=== PATIENT | male | born 1960 | race Caucasian/White ===

== ENCOUNTER 2017-06-27 04:30 | Emergency (ER) | payer MEDICARE, OTHER, SELFPAY ==
[2017-06-27 04:31] VITALS: BP 144/91; PULSE 76; RESP 20; TEMP 37.1; O2SAT 95; BMI 36.9
--- NOTE | 2017-06-27 05:00 | XR_ITS ---
XR chest 2V HISTORY: ITS.REASON: shortness of breath ORDERING PHYSICIAN: Troy Anaya MD PATIENT AGE: 57 years COMPARISON: 05/08/2017 FINDINGS: Mild cardiomegaly without failure. Mediastinum is somewhat prominent as well. 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 The lungs are clear without infiltrates, suspicious nodules, or pleural effusions. There is moderate wedging of T12 similar to the previous exam with kyphosis at the thoracolumbar junction and degenerative change in the thoracic and lumbar spine.. IMPRESSION: No change with no acute finding. 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 Chronic wedging of T12
[2017-06-27 05:27] VITALS: PULSE 87; PULSE 90
--- NOTE | 2017-06-27 05:48 | HMH.EDSOB ---
ED Disposition Clinical Impression: Bronchitis Disposition: Home, Self-Care Condition on Discharge: Good Instructions: DI for Chronic Bronchitis Additional Instructions: use meds and see pcp for follow up Prescriptions: Azithromycin [Zithromax 250mg tab] 250 mg PO DIRECTED #6 tab Benzonatate [Tessalon Perle 100mg Cap] 100 mg PO TID #30 cap predniSONE [Prednisone 20mg Tab] 20 mg PO DAILY #10 tab Referrals: Surinder Simmons APRN [Primary Care Provider] - - Critical Care Critical Care Time: No Attestation: On 06/27/17, the high probability of a clinically significant, sudden or life threatening deterioration of the following system(s) required my full and direct attention, intervention and personal management. The time I documented below is in addition to time spent performing reported procedures but includes the following listed in this critical care notation. Medical Decision Making - Medical Records Medical records reviewed: Yes: I reviewed the patient's medical records. Vital Signs: 06/27/17 04:31 06/27/17 05:27 Temperature 98.7 F Temperature Source Oral Pulse Rate 87 Pulse Rate [Left Brachial] 76 Respiratory Rate 20 Blood Pressure [Left Arm] 144/91 Blood Pressure Mean [Left Arm] 108 Blood Pressure Source [Left Arm] Automatic Cuff Blood Pressure Position [Left Arm] Sitting 02 Sat by Pulse Oximetry 95 Oxygen Delivery Method Room Air - Lab Data Lab results reviewed: Yes: I reviewed the patient's lab results. Lab Results 06/27/17 06:10: WBC 7.4, RBC 4.77, Hgb 14.8, Hct 44.6, MCV 93.4, MCH 30.9, MCHC 33.1, RDW 13.5, Plt Count 235, MPV 7.1 L, Neut % (Auto) 68.6, Lymph % (Auto) 17.5, Haines % (Auto) 9.3, Eos % (Auto) 4.0, Baso % (Auto) 0.6, Neut # (Auto) 5.1, Lymph # (Auto) 1.3, Haines # (Auto) 0.7, Eos # (Auto) 0.3, Baso # (Auto) 0.1 06/27/17 06:10: Sodium 136, Potassium 4.6, Chloride 101, Carbon Dioxide 28, Anion Gap 11.6, BUN 8, Creatinine 1.13, Estimated Creat Clear 111, Estimated GFR 67, Est GFR ( Amer) 81, Glucose 108 H, Troponin I < 0.02 06/27/17 06:10: Influenza Type A Ag Negative, Influenza Type B Ag Negative Result diagrams: 06/27/17 06:10 06/27/17 06:10 Orders (Tests/Meds): ED MEDICATIONS Discontinued Medications Generic Name Dose Route Start Last Admin Trade Name Freq PRN Reason Stop Dose Admin Acetaminophen 650 mg 06/27/17 06:10 06/27/17 06:11 Acetaminophen 325mg Tab PO 06/27/17 06:11 650 mg ONCE ONE Administration Albuterol/Ipratropium 3 ml 06/27/17 05:15 06/27/17 05:23 Duoneb 3ml Neb IH 06/27/17 05:16 3 ml ONCE ONE Administration ORDERS Category Date Time Status XR chest 2V Stat Exams 06/27/17 05:00 Taken - Radiology Data #1 Image(s): Chest Image Reviewed: Yes I reviewed the patient's radiology image Preliminary Findings: Abnormal - Nate Inquiry Pt receiving controlled substance: No Resp/SOB HPI - General Chief Complaint: Shortness of Breath/Dyspnea Stated Complaint: cough,wheezing,chest congestion Time Seen by Provider: 06/27/17 05:48 Mode of Arrival: Ambulatory Source of Information: Patient, Medical Record Limitations: No Limitations Description of Symptoms (Recalled from ER Triage Doc. 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
[2017-06-27 06:24] LABS: Basophils # 0.1 K/mm3 (0-0.2); Basophils % 0.6 % (0.1-2.0); Eosinophils # 0.3 K/mm3 (0.0-0.4); Hematocrit 44.6 % (42.0-52.0); Hemoglobin 14.8 g/dL (14.1-18.0); Lymphocytes # 1.3 K/mm3 (0.7-4.5); Lymphocytes % 17.5 K/mm3 (10-50); Mean Corpuscular HGB Conc 33.1 g/dL (31.8-35.4); Mean Corpuscular Hemoglobin 30.9 pg (27.0-31.2); Mean Corpuscular Volume 93.4 fl (80-94); Mean Platelet Volume 7.1 fl (7.4-10.4); Monocytes # 0.7 K/mm3 (0.1-1.0); Monocytes % 9.3 % (1.7-9.3); Neutrophils # 5.1 K/mm3 (1.8-7.8); Neutrophils % 68.6 % (37.0-80.0); Platelet Count 235 K/mm3 (142-424); Red Blood Count 4.77 M/mm3 (4.60-6.20); Red Cell Distribution Width 13.5 % (11.5-17.5); White Blood Count 7.4 K/mm3 (4.8-10.8)
[2017-06-27 06:39] LABS: Anion Gap 11.6 mEq/L (5-15); Blood Urea Nitrogen 8 mg/dL (7-18); Carbon Dioxide 28 mmol/L (21.0-32.0); Chloride 101 mmol/L (98-107); Creatinine Clearance Estimated 111 mL/min (0-300); Creatinine,Serum 1.13 mg/dL (0.70-1.30); Estimated Glomerular Filt Rate 67 ml/min (>60); GFR (African American) 81 ML/MIN (>60); Glucose 108 mg/dL (74-106); Sodium 136 mmol/L (136-145); Troponin I < 0.02 ng/ml (0.00-0.06)
[2017-06-27 06:41] LABS: Potassium 4.6 mmoL/L (3.5-5.1)
[2017-06-27 07:38] VITALS: BP 119/88; PULSE 88; RESP 20; TEMP 36.9; O2SAT 95
== END 2017-06-27 07:46 | disposition home or self-care (01) ==
PROVIDERS: Emergency Provider Emergency Medicine; Family Provider Emergency Medicine; PCP Nurse Practitioner Family
DX: J20.9 Acute bronchitis, unspecified (principal); I10 Essential (primary) hypertension; Z79.899 Other long term (current) drug therapy
CPT/HCPCS: 71046; 80048; 84484; 85025; 87275; 87276; 99283

== ENCOUNTER → 2017-10-24 13:14 | Outpatient (REF) | payer MEDICARE, OTHER, SELFPAY ==
[2017-10-24 14:10] LABS: Amphetamine/Metha Screen,Urine Negative ng/mL (<1000); Barbiturates Screen,Urine Negative ng/mL (<200); Benzodiazepines Screen,Urine Positive ng/mL (200); Cannabinoid Screen,Urine Negative ng/mL (<50); Cocaine Screen,Urine Negative ng/g (<300); Methadone Screen,Urine Negative ng/mL (<300); Opiate Screen,Urine Negative ng/mL (<300); Phencyclidine Screen,Urine Negative ng/mL (<25)
== END ==
LOC: LAB 13:14
PROVIDERS: Visit Provider Nurse Practitioner Family
DX: Z79.899 Other long term (current) drug therapy (principal)
CPT/HCPCS: 80305

== ENCOUNTER → 2017-11-16 13:54 | Outpatient (CLI) | payer MEDICARE, OTHER, SELFPAY ==
[2017-11-16 19:10] LABS: Amphetamine/Metha Screen,Urine Negative ng/mL (<1000); Barbiturates Screen,Urine Negative ng/mL (<200); Benzodiazepines Screen,Urine Positive ng/mL (200); Cannabinoid Screen,Urine Negative ng/mL (<50); Cocaine Screen,Urine Negative ng/g (<300); Methadone Screen,Urine Negative ng/mL (<300); Opiate Screen,Urine Negative ng/mL (<300); Phencyclidine Screen,Urine Negative ng/mL (<25)
== END ==
PROVIDERS: Visit Provider Nurse Practitioner Family
DX: Z79.899 Other long term (current) drug therapy (principal)
CPT/HCPCS: 80305

== ENCOUNTER → 2017-12-26 16:08 | Outpatient (REF) | payer MEDICARE, OTHER, SELFPAY ==
[2017-12-26 19:08] LABS: Amphetamine/Metha Screen,Urine Negative ng/mL (<1000); Barbiturates Screen,Urine Negative ng/mL (<200); Benzodiazepines Screen,Urine Positive ng/mL (<200); Cannabinoid Screen,Urine Negative ng/mL (<50); Cocaine Screen,Urine Negative ng/mL (<300); Methadone Screen,Urine Negative ng/mL (<300); Opiate Screen,Urine Negative ng/mL (<300); Phencyclidine Screen,Urine Negative ng/mL (<25)
== END ==
LOC: LAB 16:08
PROVIDERS: Visit Provider Nurse Practitioner Family
DX: F41.9 Anxiety disorder, unspecified (principal); Z79.899 Other long term (current) drug therapy
CPT/HCPCS: 80305

== ENCOUNTER → 2018-02-22 13:27 | Outpatient (CLI) | payer MEDICARE, OTHER, SELFPAY ==
[2018-02-22 18:44] LABS: Amphetamine/Metha Screen,Urine Negative ng/mL (<1000); Barbiturates Screen,Urine Negative ng/mL (<200); Benzodiazepines Screen,Urine Positive ng/mL (<200); Cannabinoid Screen,Urine Negative ng/mL (<50); Cocaine Screen,Urine Negative ng/mL (<300); Methadone Screen,Urine Negative ng/mL (<300); Opiate Screen,Urine Negative ng/mL (<300); Phencyclidine Screen,Urine Negative ng/mL (<25)
== END ==
PROVIDERS: Visit Provider Nurse Practitioner Family
DX: Z79.899 Other long term (current) drug therapy (principal)
CPT/HCPCS: 80305

== ENCOUNTER → 2018-03-21 18:47 | Outpatient (REF) | payer MEDICARE, OTHER, SELFPAY ==
[2018-03-21 21:06] LABS: Amphetamine/Metha Screen,Urine Negative ng/mL (<1000); Barbiturates Screen,Urine Negative ng/mL (<200); Benzodiazepines Screen,Urine Positive ng/mL (<200); Cannabinoid Screen,Urine Negative ng/mL (<50); Cocaine Screen,Urine Negative ng/mL (<300); Methadone Screen,Urine Negative ng/mL (<300); Opiate Screen,Urine Negative ng/mL (<300); Phencyclidine Screen,Urine Negative ng/mL (<25)
== END ==
LOC: LAB 18:47
PROVIDERS: PCP Nurse Practitioner Family; Visit Provider Nurse Practitioner Family
DX: Z79.899 Other long term (current) drug therapy (principal)
CPT/HCPCS: 80305

== ENCOUNTER → 2018-06-04 14:35 | Outpatient (CLI) | payer MEDICARE, OTHER, SELFPAY ==
[2018-06-04 15:19] LABS: Amphetamine/Metha Screen,Urine Negative ng/mL (<1000); Barbiturates Screen,Urine Negative ng/mL (<200); Benzodiazepines Screen,Urine Positive ng/mL (<200); Cannabinoid Screen,Urine Negative ng/mL (<50); Cocaine Screen,Urine Negative ng/mL (<300); Methadone Screen,Urine Negative ng/mL (<300); Opiate Screen,Urine Negative ng/mL (<300); Phencyclidine Screen,Urine Negative ng/mL (<25)
== END ==
PROVIDERS: Visit Provider Nurse Practitioner Family
DX: Z79.899 Other long term (current) drug therapy (principal)
CPT/HCPCS: 80305

== ENCOUNTER → 2018-07-10 13:54 | Outpatient (CLI) | payer MEDICARE, OTHER, SELFPAY ==
[2018-07-10 16:21] LABS: Amphetamine/Metha Screen,Urine Negative ng/mL (<1000); Barbiturates Screen,Urine Negative ng/mL (<200); Benzodiazepines Screen,Urine Positive ng/mL (<200); Cannabinoid Screen,Urine Negative ng/mL (<50); Cocaine Screen,Urine Negative ng/mL (<300); Methadone Screen,Urine Negative ng/mL (<300); Opiate Screen,Urine Negative ng/mL (<300); Phencyclidine Screen,Urine Negative ng/mL (<25)
== END ==
PROVIDERS: Visit Provider Nurse Practitioner Family
DX: Z79.899 Other long term (current) drug therapy (principal)
CPT/HCPCS: 80305

== ENCOUNTER → 2018-07-11 08:25 | Outpatient (CLI) | payer MEDICARE, OTHER, SELFPAY ==
[2018-07-11 09:36] LABS: Basophils % 0.6 % (0.1-2.0); Eosinophils # 0.1 K/mm3 (0.0-0.4); Eosinophils % 1.9 % (0.1-12.0); Hematocrit 45.3 % (42.0-52.0); Hemoglobin 15.4 g/dL (14.1-18.0); Lymphocytes # 1.1 K/mm3 (0.7-4.5); Lymphocytes % 14.2 % (10-50); Mean Corpuscular Hemoglobin 32.3 pg (27.0-31.2); Mean Corpuscular Volume 94.9 fl (80-94); Mean Platelet Volume 6.1 fl (7.4-10.4); Monocytes # 0.4 K/mm3 (0.1-1.0); Monocytes % 5.5 % (1.7-9.3); Neutrophils # 5.8 K/mm3 (1.8-7.8); Neutrophils % 77.9 % (37.0-80.0); Platelet Count 258 K/mm3 (142-424); Red Blood Count 4.78 M/mm3 (4.60-6.20); Red Cell Distribution Width 13.8 % (11.5-17.5); White Blood Count 7.5 K/mm3 (4.8-10.8)
[2018-07-11 11:27] LABS: Alanine Aminotransferase 22 U/L (12-78); Albumin Level 4.1 gm/dL (3.4-5.0); Albumin/Globulin Ratio 1.3 (1.1-1.8); Alkaline Phosphatase 118 U/L (46-116); Anion Gap 15.4 mEq/L (5-15); Aspartate Amino Transferase 12 U/L (15-37); Bilirubin,Total 0.6 mg/dL (0.2-1.0); Blood Urea Nitrogen 9 mg/dL (7-18); Calcium 9.1 mg/dL (8.5-10.1); Carbon Dioxide 28 mmol/L (21.0-32.0); Chloride 100 mmol/L (98-107); Chol/HDL Ratio 3.7 (1-3.5); Cholesterol 191 mg/dL (140-200); Estimated Glomerular Filt Rate 69 ml/min (>60); GFR (African American) 83 ML/MIN (>60); Globulin 3.2 gm/dl (1.3-3.2); Glucose 93 mg/dL (74-106); HDL Cholesterol 52 mg/dL (27-67); LDL Cholesterol 121 mg/dL (0-130); Potassium 4.4 mmoL/L (3.5-5.1); Sodium 139 mmol/L (136-145); T4 (Thyroxine) 9.8 ug/dl (4.7-13.3); Thyroid Stimulating Hormone 1.76 uIU/ml (0.358-3.740); Total Protein,Serum 7.3 gm/dL (6.4-8.2); Triglycerides 88 mg/dL (30-200); VLDL Cholesterol 18 mg/dL (0-40)
[2018-07-11 13:13] LABS: Hemoglobin A1C 5.6 % (0.0-7.0)
[2018-07-12 10:21] LABS: Creatinine, Urine 163.4 mg/dL (Not Estab.); Microalbumin, Urine 5.8 ug/mL (Not Estab.)
[2018-07-12 12:28] LABS: Vitamin D 25 Hydroxy 11.1 ng/mL (30.0-100.0)
== END ==
PROVIDERS: Visit Provider Nurse Practitioner Family
DX: E11.9 Type 2 diabetes mellitus without complications (principal); R53.83 Other fatigue; Z79.899 Other long term (current) drug therapy; H61.20 Impacted cerumen, unspecified ear
CPT/HCPCS: 36415; 80053; 80061; 82043; 82570; 82652; 83036; 84436; 84443; 85025

== ENCOUNTER → 2018-08-06 17:17 | Outpatient (CLI) | payer MEDICARE, OTHER, SELFPAY ==
[2018-08-06 18:59] LABS: Amphetamine/Metha Screen,Urine Negative ng/mL (<1000); Barbiturates Screen,Urine Negative ng/mL (<200); Benzodiazepines Screen,Urine Positive ng/mL (<200); Cannabinoid Screen,Urine Negative ng/mL (<50); Cocaine Screen,Urine Negative ng/mL (<300); Methadone Screen,Urine Negative ng/mL (<300); Opiate Screen,Urine Negative ng/mL (<300); Phencyclidine Screen,Urine Negative ng/mL (<25)
== END ==
PROVIDERS: Visit Provider Nurse Practitioner Family
DX: Z79.899 Other long term (current) drug therapy (principal)
CPT/HCPCS: 80305

== ENCOUNTER → 2018-09-05 13:46 | Outpatient (CLI) | payer MEDICARE, OTHER, SELFPAY ==
--- NOTE | 2018-09-05 13:51 | XR_ITS ---
XR chest AP HISTORY: ITS.REASON: cough ORDERING PHYSICIAN: Surinder Simmons PATIENT AGE: 58 years COMPARISON: 07/21/2018 FINDINGS: The cardiomediastinal silhouette and pulmonary vascularity are within normal limits. Increased markings are once again noted in the right mid and lower lung zone suggestive of right sided pneumonia slightly improved in the perihilar region but slightly worse appearing in the right lower lobe. Left lung is clear. IMPRESSION: Minute spots with persistent right lower lobe pneumonia which appears slightly worse with some improvement of the infiltrate in the right perihilar region
== END ==
PROVIDERS: PCP Nurse Practitioner Family; Visit Provider Nurse Practitioner Family
DX: R05 Cough (principal); R06.2 Wheezing
CPT/HCPCS: 71045

== ENCOUNTER 2018-09-11 16:07 | Observation (INO) ==
[2018-09-11 16:52] LABS: Basophils # 0.1 K/mm3 (0-0.2); Basophils % 0.8 % (0.1-2.0); Eosinophils # 0.3 K/mm3 (0.0-0.4); Eosinophils % 5.1 % (0.1-12.0); Hematocrit 44.4 % (42.0-52.0); Hemoglobin 14.7 g/dL (14.1-18.0); Lymphocytes # 1.3 K/mm3 (0.7-4.5); Mean Corpuscular HGB Conc 33.2 g/dL (31.8-35.4); Mean Corpuscular Hemoglobin 31.1 pg (27.0-31.2); Mean Corpuscular Volume 93.8 fl (80-94); Mean Platelet Volume 6.3 fl (7.4-10.4); Monocytes # 0.6 K/mm3 (0.1-1.0); Neutrophils # 3.8 K/mm3 (1.8-7.8); Platelet Count 211 K/mm3 (142-424); Red Blood Count 4.73 M/mm3 (4.60-6.20); Red Cell Distribution Width 13.2 % (11.5-17.5); White Blood Count 6.1 K/mm3 (4.8-10.8)
[2018-09-11 16:59] LABS: Anion Gap 11.9 mEq/L (5-15); Calcium 8.8 mg/dL (8.5-10.1); Potassium 3.9 mmoL/L (3.5-5.1)
--- NOTE | 2018-09-11 18:36 | Emergency Department Note ---
ED Disposition Clinical Impression: Pneumonia Disposition: Admitted as Observation Condition on Discharge: Good Referrals: Surinder Simmons APRN [Primary Care Provider] - Time of Disposition: 18:37 - Critical Care Critical Care Time: No Attestation: On 09/11/18, the high probability of a clinically significant, sudden or life threatening deterioration of the following system(s) required my full and direct attention, intervention and personal management. The time I documented below is in addition to time spent performing reported procedures but includes the following listed in this critical care notation. Medical Decision Making - Medical Records Medical records reviewed: Yes: I reviewed the patient's medical records. - Nate Inquiry Pt receiving controlled substance: No Nate was queried for this patient: No Vital Signs: 09/11/18 16:14 09/11/18 17:56 09/11/18 18:18 Temperature 98.6 F Temperature Source Oral Pulse Rate 69 Pulse Rate [Right] 79 70 Respiratory Rate 20 Blood Pressure [Right Arm] 141/92 H 160/66 H Blood Pressure Mean [Right Arm] 108 97 Blood Pressure Source [Right Arm] Automatic Cuff Automatic Cuff Blood Pressure Position [Right Arm] Sitting Sitting 02 Sat by Pulse Oximetry 98 97 Oxygen Delivery Method Room Air Room Air - Lab Data Lab results reviewed: Yes: I reviewed the patient's lab results. Lab Results 09/11/18 16:28: WBC 6.1, RBC 4.73, Hgb 14.7, Hct 44.4, MCV 93.8, MCH 31.1, MCHC 33.2, RDW 13.2, Plt Count 211, MPV 6.3 L, Neut % (Auto) 63.0, Lymph % (Auto) 21.0, Gates % (Auto) 10.0 H, Eos % (Auto) 5.1, Baso % (Auto) 0.8, Neut # (Auto) 3.8, Lymph # (Auto) 1.3, Gates # (Auto) 0.6, Eos # (Auto) 0.3, Baso # (Auto) 0.1 09/11/18 16:28: Sodium 133 L, Potassium 3.9, Chloride 98, Carbon Dioxide 27, Anion Gap 11.9, BUN 12, Creatinine 1.17, Estimated Creat Clear 100, Estimated GFR 64, Est GFR ( Amer) 77, Glucose 89, Calcium 8.8 09/11/18 16:28: Lactate 0.9 Result diagrams: 09/11/18 16:28 09/11/18 16:28 Orders (Tests/Meds): ED MEDICATIONS Generic Name Dose Route Start Last Admin Trade Name Freq PRN Reason Stop Dose Admin Sodium Chloride 10 ml 09/11/18 16:40 Saline Flush 10ml Syringe IV 10/11/18 16:39 NEEDED PRN Maintain IV Site Discontinued Medications Generic Name Dose Route Start Last Admin Trade Name Freq PRN Reason Stop Dose Admin Albuterol/Ipratropium 3 ml 09/11/18 18:17 09/11/18 18:18 Duoneb 3ml Neb IH 09/11/18 18:18 3 ml ONCE ONE Administration ORDERS Category Date Time Status Blood Culture Stat Micro 09/11/18 16:28 Received General Adult HPI - General Chief complaint: Shortness of Breath/Dyspnea Stated complaint: Possible pneumonia Time Seen by Provider: 09/11/18 18:35 Mode of Arrival: Ambulatory Source of Information: Patient Limitations: No Limitations Description of Symptoms (Recalled from ER Triage Doc. by RN): Pt states that he has had a bad cough for 4 weeks and has pneumonia. Pt was sent to ER from Dr. Anaya's office - Related Data Home Medications Medication Instructions Recorded Confirmed meloxicam 15 mg tablet 15 mg PO QDAY 06/21/17 09/11/18 Previous Rx's Medication Instructions Recorded trazodone 100 mg tablet 100 mg PO QHS #90 tab 01/22/18 citalopram 40 mg tablet 40 mg PO QDAY #90 tab 06/04/18 atenolol 25 mg tablet 25 mg PO QDAY #90 tab 07/01/18 fluticasone propionate 50 50 mcg INTRANASAL QDAY PRN #9.9 g 07/10/18 mcg/actuation nasal spray,suspension pravastatin 20 mg tablet 20 mg PO QHS #90 tab 07/23/18 albuterol sulfate HFA 90 1 puff INHALATION Q6H #6.7 g 08/06/18 mcg/actuation aerosol inhaler diazepam 2 mg tablet 2 mg PO TID 30 Days #90 tab 08/06/18 loratadine 10 mg tablet 10 mg PO QDAY #90 tab 08/06/18 montelukast 10 mg tablet 10 mg PO QPM #90 tab 08/06/18 carbamide peroxide 6.5 % ear drops 5 drp OTIC DAILY 4 Days #15 ml 09/05/18 gabapentin 300 mg capsule 300 mg PO TID 30 Days #90 cap 09/05/18 Allergies Allergy/AdvReac Type Severity Reaction Status Date / Time No Known Allergies Allergy Verified 09/11/18 15:07 [facility] History - Hepatitis A Screen Drug use history?: No High risk sexual behaviors?: No History of sexually transmitted infection?: No Currently employed?: No Childcare worker?: No Do you have indoor plumbing?: Yes Do you have electricity?: Yes Attestation statement:: This patient has been screened for Hepatitis A risk factors. I have reviewed the patient's past medical history: Yes Medical History: Reports:: Anxiety, Hypertension, Seizures Denies:: Cancer, Diabetes Mellitus Type 1, Diabetes Mellitus Type 2, Internal Pacemaker, MRSA Comment: Neuropathy Laterality Cases: Right: Carpal Tunnel Release Other Surgeries: Yes: Other. No: Pacemaker Amputation: No Fractures: No Comment: DENTAL SURGERY - Social History Educational Level: Attended High School Smoking Status: Never smoker Alcohol Intake: never Substance Use Type: denies use Occupational Status: disabled Housing: house Household Members: family - Psychiatric History Expresses thoughts of harming self/others: None Suicide Plan Description: No Plan Pschychiatric History:: Reports:: Anxiety Family Hx:: Hypertension, Diabetes, Cancer ROS Obtained: Yes All systems reviewed & no additional complaints - Constitutional Constitutional: Reports chills, Denies fever(s) - Eyes Eyes: Denies change in vision - ENT Ears, Nose, Mouth, and Throat: Denies sore throat, Denies throat swelling - Cardiovascular Cardiovascular: Denies chest pain - Respiratory Respiratory: Yes chest congestion, Yes cough, Yes dyspnea on exertion, No coughing up blood, Yes wheezing - Gastrointestinal Gastrointestingal: Denies: diarrhea, nausea, vomiting - Musculoskeletal Musculoskeletal: Denies joint swelling - Integumentary/Breasts Skin/Breast: Denies rash, Denies skin pain - Neurologic Neurologic: Denies abnormal speech, Denies behavioral changes, Denies headache(s), Denies weakness - Hematologic/Lymphatic Henatologic/Lymphatic: Denies easy bleeding, Denies easy bruising Physical Exam - General General appearance: in no apparent distress - Head Head exam: atraumatic, normocephalic, normal inspection - Eye Eye exam: Present: normal appearance, PERRL, EOMI - ENT ENT exam: Present: normal exam, normal oropharynx, mucous membranes moist, TM's normal bilaterally, normal external ear exam - Neck Neck exam: Present: normal inspection - Chest Chest inspection: Present: normal inspection, symmetric chest wall rise. Absent: tenderness - Respiratory Respiratory exam: Present: wheezes. Absent: normal lung sounds bilaterally, respiratory distress - Cardiovascular Cardiovascular exam: Present: regular rate, normal rhythm. Absent: JVD - Abdominal Exam Abdominal exam: Present: soft, normal bowel sounds. Absent: distention, tenderness, guarding - Extremities Exam Extremities exam: Present: normal inspection, full ROM, normal capillary refill. Absent: calf tenderness - Back Exam Back exam: Present: normal inspection. Absent: tenderness - Neurological Exam Neurological exam: Present: alert, oriented X3 - Psychiatric Psychiatric exam: Present: normal affect, normal mood - Skin Skin exam: Present: warm, dry, intact, normal color
[2018-09-12 06:53] LABS: Basophils % 0.1 % (0.1-2.0); Eosinophils % 0.1 % (0.1-12.0); Hemoglobin 14.4 g/dL (14.1-18.0); Lymphocytes # 0.4 K/mm3 (0.7-4.5); Lymphocytes % 7.6 % (10-50); Mean Corpuscular HGB Conc 34.4 g/dL (31.8-35.4); Mean Corpuscular Hemoglobin 31.5 pg (27.0-31.2); Mean Corpuscular Volume 91.7 fl (80-94); Mean Platelet Volume 6.2 fl (7.4-10.4); Monocytes # 0.1 K/mm3 (0.1-1.0); Neutrophils # 4.9 K/mm3 (1.8-7.8); Neutrophils % 90.2 % (37.0-80.0); Platelet Count 208 K/mm3 (142-424); Red Blood Count 4.58 M/mm3 (4.60-6.20); Red Cell Distribution Width 13.1 % (11.5-17.5); White Blood Count 5.4 K/mm3 (4.8-10.8)
[2018-09-12 07:07] LABS: Calcium 8.6 mg/dL (8.5-10.1)
--- NOTE | 2018-09-12 08:03 | Pharmacy Consult Notes ---
[facility] Pharmacy VTE Monitoring - Patient Demographics Admission date: 09/11/18 Report Date: 09/12/18 Time: 08:03 Allergies/Adverse Reactions: Patient Allergies No Known Allergies Allergy (Verified 09/11/18 15:07) Height: 1.73 m Weight: 110.677 kg Patient Problems: Current Active Problems (Updated 09/11/18 @ 18:38 by Troy Moon MD) Pneumonia (Acute) - VTE Risk Labs: VTE Related Lab Results Hgb 14.4 g/dL (14.1-18.0) 09/12/18 06:15 Hct 42.0 % (42.0-52.0) 09/12/18 06:15 Plt Count 208 K/mm3 (142-424) 09/12/18 06:15 BUN 11 mg/dL (7-18) 09/12/18 06:15 Creatinine 1.22 mg/dL (0.70-1.30) 09/12/18 06:15 Estimated Creat Clear 102 mL/min (50-200) 09/12/18 06:15 VTE Score: 4 VTE Risk Level: Low Risk - Prophylaxis VTE Prophylaxis Ordered?: Yes Types of VTE Prophylaxis: TEDS Knee High Location of Applied Device: Bilateral Lower Extremeties - VTE Diagnosis Confirmed Treatment or plan recommended: Continue Current Treatment
[2018-09-12 09:40] LABS: Lymphocytes % 5 % (10-50); Monocytes % 3 % (2-9); Neutrophils % 92 % (42-76); RBC Morphology Normal; Total Cells Counted 100
--- NOTE | 2018-09-12 14:50 | History & Physical Report ---
*Admission Date: 09/11/18 *Chief complaint: soa *History of present illness: 58-year-old male presented to PCP office with complaints of shortness of air, wheezing, coughing. Pt states that he has had a bad cough for 4 weeks and has pneumonia. Pt was sent to ER from Dr. Anaya's office. Patient has been on 2 rounds of antibiotics with steroids with no improvement. Patient is admitted for possible aspiration pneumonia and speech eval. [facility] History I have reviewed the patient's past medical history: Yes Medical History: Reports:: Anxiety, Hypertension, Seizures Denies:: Cancer, Diabetes Mellitus Type 1, Diabetes Mellitus Type 2, Internal Pacemaker, MRSA *Have you ever received a pneumonia vaccine?: No *Have you received a flu vaccine this season?: Yes Laterality Cases: Right: Carpal Tunnel Release Other Surgeries: Yes: Other (CATARAC SURGERY). No: Pacemaker Amputation: No Fractures: No - *Social History Educational Level: Attended High School Smoking Status: Never smoker Alcohol Intake: never Substance Use Type: denies use *Occupational Status:: disabled Housing: house Household Members: family *Travel in the last 8 weeks: None - Psychiatric History Expresses thoughts of harming self/others: None Suicide Plan Description: No Plan Pschychiatric History:: Reports:: Anxiety Family Hx:: Hypertension, Diabetes, Cancer Review of Systems - Constitutional Reports fever(s), Reports weakness - Eyes Denies change in vision - ENT Denies bleeding gums - *Cardiovascular Reports shortness of breath - *Respiratory Reports chest congestion, Reports cough, Reports shortness of breath, Reports shortness of breath with activity - *Gastrointestinal Denies loose stools - *Genitourinary Denies difficulty urinating - *Musculoskeletal Denies joint pain - Integumentary/Breasts Denies rash - *Neurologic Denies abnormal speech, Denies behavioral changes, Denies headache(s), Denies weakness - Psychiatric Denies anxiety - Endocrine Denies flushing - Hematologic/Lymphatic Denies enlarged lymph nodes - Allergic/Immunologic Denies itchy eyes Meds Home Medications Medication Instructions Recorded Confirmed Type trazodone 100 mg tablet 100 mg PO QHS #90 tab 01/22/18 09/12/18 Rx citalopram 40 mg tablet 40 mg PO QDAY #90 tab 06/04/18 09/12/18 Rx atenolol 25 mg tablet 25 mg PO QDAY #90 tab 07/01/18 09/12/18 Rx fluticasone propionate 50 50 mcg INTRANASAL QDAY PRN #9.9 g 07/10/18 09/12/18 Rx mcg/actuation nasal spray,suspension pravastatin 20 mg tablet 20 mg PO QHS #90 tab 07/23/18 09/12/18 Rx albuterol sulfate HFA 90 1 puff INHALATION Q6H #6.7 g 08/06/18 09/12/18 Rx mcg/actuation aerosol inhaler diazepam 2 mg tablet 2 mg PO TID 30 Days #90 tab 08/06/18 09/12/18 Rx loratadine 10 mg tablet 10 mg PO QDAY #90 tab 08/06/18 09/12/18 Rx montelukast 10 mg tablet 10 mg PO QPM #90 tab 08/06/18 09/12/18 Rx carbamide peroxide 6.5 % ear drops 5 drp OTIC DAILY 4 Days #15 ml 09/05/18 09/12/18 Rx gabapentin 300 mg capsule 300 mg PO TID 30 Days #90 cap 09/05/18 09/12/18 Rx Allergies Allergy/AdvReac Type Severity Reaction Status Date / Time No Known Allergies Allergy Verified 09/11/18 15:07 Exam Vital signs and Labs for Last 24 Hours: Temp Pulse Resp BP Pulse Ox 97.4 F L 103 H 16 134/86 96 09/12/18 08:00 09/12/18 08:00 09/12/18 08:00 09/12/18 08:00 09/12/18 08:00 Laboratory Results - last 24 hr 09/11/18 16:28: WBC 6.1, RBC 4.73, Hgb 14.7, Hct 44.4, MCV 93.8, MCH 31.1, MCHC 33.2, RDW 13.2, Plt Count 211, MPV 6.3 L, Neut % (Auto) 63.0, Lymph % (Auto) 21.0, Wilkes % (Auto) 10.0 H, Eos % (Auto) 5.1, Baso % (Auto) 0.8, Neut # (Auto) 3.8, Lymph # (Auto) 1.3, Wilkes # (Auto) 0.6, Eos # (Auto) 0.3, Baso # (Auto) 0.1 09/11/18 16:28: Sodium 133 L, Potassium 3.9, Chloride 98, Carbon Dioxide 27, Anion Gap 11.9, BUN 12, Creatinine 1.17, Estimated Creat Clear 100, Estimated GFR 64, Est GFR ( Amer) 77, Glucose 89, Calcium 8.8 09/11/18 16:28: Lactate 0.9 09/12/18 06:15: WBC 5.4, RBC 4.58 L, Hgb 14.4, Hct 42.0, MCV 91.7, MCH 31.5 H, MCHC 34.4, RDW 13.1, Plt Count 208, MPV 6.2 L, Neut % (Auto) 90.2 H, Lymph % (Auto) 7.6 L, Wilkes % (Auto) 2.0, Eos % (Auto) 0.1, Baso % (Auto) 0.1, Neut # (Auto) 4.9, Lymph # (Auto) 0.4 L, Wilkes # (Auto) 0.1, Eos # (Auto) 0.0, Baso # (Auto) 0.0, Total Counted 100, Neutrophils % (Manual) 92 H, Lymphocytes % (Manual) 5 L, Monocytes % (Manual) 3, Platelet Estimate Normal, RBC Morphology Normal 09/12/18 06:15: Sodium 134 L, Potassium 4.0, Chloride 100, Carbon Dioxide 21 D, Anion Gap 17.0 H, BUN 11, Creatinine 1.22, Estimated Creat Clear 102, Estimated GFR 61, Est GFR ( Amer) 74, Glucose 160 H D, Calcium 8.6 I & O for Last 24 hours: Intake & Output 09/10/18 09/11/18 09/12/18 09/13/18 11:59 11:59 11:59 11:59 Intake Total 1304 / 1304 1036 / 1036 Output Total 1625 / 1625 250 / 250 Balance -321 / -321 786 / 786 Weight 244 lb Microbiology Reports for the Last 24 Hours: Microbiology 09/11/18 20:40 Sputum - Expectorated Sputum Gram Stain - Final 09/11/18 20:40 Sputum - Expectorated Sputum Sputum Culture - Preliminary - Constitutional no acute distress, morbidly obese - *Routine HEENT Exam Head: Present: normocephalic Eye: Present: EOMI, PERRL ENT: Present: mucous membranes moist - *Routine Neck Exam Present: full ROM - *Routine Respiratory Exam Present: wheezes, diminished air movement - *Routine Cardiovascular Exam Present: RRR - *Routine Abdominal Exam Present: soft, normoactive bowel sounds. Absent: tenderness - *Routine Extremities Exam Absent: cyanosis, clubbing, edema - *Routine Skin Exam Present: intact, warm. Absent: rash - *Routine Neurological Exam Present: alert, oriented X3 - Routine Psychiatric Exam Present: normal affect Assessment and Plan - Assessment and plan all Dx Assessment and Plan for all problems:: Rounded with Dr. Anaya all orders per Héctor Speech eval with modified swallow. Add clindamycin to antibiotic regimen
--- NOTE | 2018-09-13 08:40 | Discharge Summary ---
General - General Admission date:: 09/11/18 Discharge date: 09/13/18 HPI HPI: 58-year-old male presented to PCP office with complaints of shortness of air, wheezing, coughing. Pt states that he has had a bad cough for 4 weeks and has pneumonia. Pt was sent to ER from Dr. Anaya's office. Patient has been on 2 rounds of antibiotics with steroids with no improvement. Patient is admitted for possible aspiration pneumonia and speech eval. Hospital Course Hospital Course: cta of chest:FINDINGS: No evidence of aortic aneurysm, aortic dissection, or pulmonary embolus. Normal heart size. No evidence of pericardial effusion. There may be some coronary artery calcifications. This is difficult to ascertain in this non gated exam. No mediastinal or hilar mass or adenopathy. There is calcified granuloma in the right lung base. No effusions or infiltrates. Degenerative changes are present in the thoracic spine with mild kyphosis of the thoracolumbar junction IMPRESSION: 1. No acute finding. 2. No evidence of pulmonary embolus chest x ray:FINDINGS: The cardiomediastinal silhouette and pulmonary vascularity are within normal limits. Right lower lobe pneumonia has shown some improvement. There remains some increased density in the right lung base. The left lung is clear.. No acute bony abnormalities. IMPRESSION: Persistent but improving right lower lobe pneumonia Today patient sitting up in the chair voiced no complaints. Will discharge home on clindamycin Omnicef and steroids. Patient will follow a mechanical soft with regular liquid diet. Objective Vital signs: Temp Pulse Resp BP Pulse Ox 98.0 F 77 18 116/68 96 09/13/18 08:00 09/13/18 08:00 09/13/18 08:00 09/13/18 08:00 09/13/18 08:00 no acute distress - *Routine HEENT Exam Head: Present: normocephalic Eye: Present: PERRL ENT: Present: mucous membranes moist - *Routine Respiratory Exam Present: wheezes - *Routine Cardiovascular Exam Present: RRR - *Routine Abdominal Exam Present: soft, normoactive bowel sounds - *Routine Extremities Exam Present: full ROM - *Routine Skin Exam Present: intact - *Routine Neurological Exam Present: alert, oriented X3 - Routine Psychiatric Exam Present: normal affect Results Labs on day of discharge: Labs from last 24 hours 09/12/18 06:15 Total Counted 100 Neutrophils % (Manual) 92 H Lymphocytes % (Manual) 5 L Monocytes % (Manual) 3 Platelet Estimate Normal RBC Morphology Normal Preliminary micro results at discharge 09/11/18 20:40 Sputum Culture - Preliminary Sputum - Expectorated Sputum - Additional Comments Rounded with Dr. Anaya all orders per Héctor DS: Diagnosis - Discharge Diagnosis (1) Obesity (BMI 35.0-39.9 without comorbidity) Status: Acute (2) Aspiration pneumonia Status: Acute (3) Mild intellectual disabilities Status: Acute (4) Pneumonia Status: Acute Discharge Plan - Patient Discharge Instructions ACTIVITY: Continue current activity DIET: continue same diet Patient Instructions: Pneumonia-Adult, Peripheral Neuropathy, Acute Bronchitis - Follow up Plan Follow up with: Elliott Briseno APRN [Nurse Practitioner] - 09/17/18 Disposition: Home, Self-Long Term Medications: Home Medications Medication Instructions Recorded Confirmed Type trazodone 100 mg tablet 100 mg PO QHS #90 tab 01/22/18 09/12/18 Rx citalopram 40 mg tablet 40 mg PO QDAY #90 tab 06/04/18 09/12/18 Rx atenolol 25 mg tablet 25 mg PO QDAY #90 tab 07/01/18 09/12/18 Rx fluticasone propionate 50 50 mcg INTRANASAL QDAY PRN #9.9 g 07/10/18 09/12/18 Rx mcg/actuation nasal spray,suspension pravastatin 20 mg tablet 20 mg PO QHS #90 tab 07/23/18 09/12/18 Rx albuterol sulfate HFA 90 1 puff INHALATION Q6H #6.7 g 08/06/18 09/12/18 Rx mcg/actuation aerosol inhaler diazepam 2 mg tablet 2 mg PO TID 30 Days #90 tab 08/06/18 09/12/18 Rx loratadine 10 mg tablet 10 mg PO QDAY #90 tab 08/06/18 09/12/18 Rx montelukast 10 mg tablet 10 mg PO QPM #90 tab 08/06/18 09/12/18 Rx carbamide peroxide 6.5 % ear drops 5 drp OTIC DAILY 4 Days #15 ml 09/05/18 09/12/18 Rx gabapentin 300 mg capsule 300 mg PO TID 30 Days #90 cap 09/05/18 09/12/18 Rx Cefdinir [Omnicef 300mg Capsule] 300 mg PO BID #20 cap 09/13/18 Rx Clindamycin HCl [Clindamycin HCl 300 mg PO Q8 10 Days #30 cap 09/13/18 Rx 300mg Cap] predniSONE [Prednisone 20mg 20 mg PO BID #10 tab 09/13/18 Rx Tab] Prescriptions/Medication Reconciliation: New Clindamycin HCl [Clindamycin HCl 300mg Cap] 300 mg PO Q8 10 Days #30 cap Cefdinir [Omnicef 300mg Capsule] 300 mg PO BID #20 cap predniSONE [Prednisone 20mg Tab] 20 mg PO BID #10 tab Pravastatin Sodium [Pravachol 20mg Tablet] 20 mg PO HS tablet Continued citalopram 40 mg tablet 40 mg PO QDAY #90 tab fluticasone propionate 50 mcg/actuation nasal spray,suspension 50 mcg INTRANASAL QDAY PRN #9.9 g PRN Reason: allergy symptoms loratadine 10 mg tablet 10 mg PO QDAY #90 tab montelukast 10 mg tablet 10 mg PO QPM #90 tab diazepam 2 mg tablet 2 mg PO TID 30 Days #90 tab gabapentin 300 mg capsule 300 mg PO TID 30 Days #90 cap atenolol 25 mg tablet 25 mg PO QDAY #90 tab pravastatin 20 mg tablet 20 mg PO QHS #90 tab albuterol sulfate HFA 90 mcg/actuation aerosol inhaler 1 puff INHALATION Q6H #6.7 g Discontinued trazodone 100 mg tablet 100 mg PO QHS #90 tab carbamide peroxide 6.5 % ear drops 5 drp OTIC DAILY 4 Days #15 ml
== END 2018-09-13 10:58 | disposition home or self-care (01) ==
LOC: ICU 16:07 → ER 16:07 → ICU 19:04 → 2ND 09-12 18:08
PROVIDERS: ADMIT Emergency Medicine; ATTEND Emergency Medicine
DX: R06.2 Wheezing; I10 Essential (primary) hypertension; Z68.36 Body mass index [BMI] 36.0-36.9, adult; R06.02 Shortness of breath; F41.9 Anxiety disorder, unspecified; J13 Pneumonia due to Streptococcus pneumoniae; R05 Cough; Z79.899 Other long term (current) drug therapy; F70 Mild intellectual disabilities; E66.9 Obesity, unspecified
CPT/HCPCS: 36415; 70371; 71020; 71046; 71275; 80048; 83605; 85007; 85025; 87040; 87070; 87205; 92507; 92611; 94640; 94761; 96365; 96375; 99284; G0378; J0456; Q9967

== ENCOUNTER → 2018-10-01 14:42 | Outpatient (CLI) | payer MEDICARE, OTHER, SELFPAY ==
[2018-10-01 16:15] LABS: Amphetamine/Metha Screen,Urine Negative ng/mL (<1000); Barbiturates Screen,Urine Negative ng/mL (<200); Benzodiazepines Screen,Urine Positive ng/mL (<200); Cannabinoid Screen,Urine Negative ng/mL (<50); Cocaine Screen,Urine Negative ng/mL (<300); Methadone Screen,Urine Negative ng/mL (<300); Opiate Screen,Urine Negative ng/mL (<300); Phencyclidine Screen,Urine Negative ng/mL (<25)
[2018-10-07 06:56] LABS: Alprazolam Negative (Cutoff=100); Benzodiazepines Positive ng/mL (Cutoff=100); Clonazepam Negative (Cutoff=100); Flurazepam Negative (Cutoff=100); Lorazepam Negative (Cutoff=100); Midazolam Negative (Cutoff=100); Temazepam Positive (.); Triazolam Negative (Cutoff=100)
== END ==
PROVIDERS: Visit Provider Nurse Practitioner Family
DX: Z79.899 Other long term (current) drug therapy (principal)
CPT/HCPCS: 80305; 80346

== ENCOUNTER → 2018-12-13 13:29 | Outpatient (CLI) | payer MEDICARE, OTHER, SELFPAY ==
[2018-12-13 14:01] LABS: Alanine Aminotransferase 26 U/L (12-78); Albumin Level 3.7 gm/dL (3.4-5.0); Albumin/Globulin Ratio 1.3 (1.1-1.8); Alkaline Phosphatase 93 U/L (46-116); Anion Gap 11.1 mEq/L (5-15); Aspartate Amino Transferase 10 U/L (15-37); Bilirubin,Total 0.5 mg/dL (0.2-1.0); Blood Urea Nitrogen 8 mg/dL (7-18); Calcium 8.7 mg/dL (8.5-10.1); Carbon Dioxide 29 mmol/L (21.0-32.0); Chloride 104 mmol/L (98-107); Chol/HDL Ratio 3.1 (1-3.5); Cholesterol 144 mg/dL (140-200); Creatinine,Serum 1.15 mg/dL (0.70-1.30); Estimated Glomerular Filt Rate 65 ml/min (>60); GFR (African American) 79 ML/MIN (>60); Globulin 2.9 gm/dl (1.3-3.2); Glucose 88 mg/dL (74-106); HDL Cholesterol 46 mg/dL (27-67); LDL Cholesterol 71 mg/dL (0-130); Potassium 4.1 mmoL/L (3.5-5.1); Prostate Specific Ag Screen 1.9 ng/mL (0.0-4.0); Sodium 140 mmol/L (136-145); T4 (Thyroxine) 8.3 ug/dl (4.7-13.3); Thyroid Stimulating Hormone 1.49 uIU/ml (0.358-3.740); Total Protein,Serum 6.6 gm/dL (6.4-8.2); Triglycerides 135 mg/dL (30-200); VLDL Cholesterol 27 mg/dL (0-40)
[2018-12-13 14:03] LABS: Basophils # 0.1 K/mm3 (0-0.2); Basophils % 0.7 % (0.1-2.0); Eosinophils # 0.3 K/mm3 (0.0-0.4); Eosinophils % 3.7 % (0.1-12.0); Hematocrit 43.7 % (42.0-52.0); Hemoglobin 14.2 g/dL (14.1-18.0); Lymphocytes # 1.5 K/mm3 (0.7-4.5); Lymphocytes % 21.6 % (10-50); Mean Corpuscular HGB Conc 32.4 g/dL (31.8-35.4); Mean Corpuscular Hemoglobin 29.2 pg (27.0-31.2); Mean Platelet Volume 6.8 fl (7.4-10.4); Monocytes # 0.6 K/mm3 (0.1-1.0); Monocytes % 7.8 % (1.7-9.3); Neutrophils # 4.7 K/mm3 (1.8-7.8); Neutrophils % 66.2 % (37.0-80.0); Platelet Count 267 K/mm3 (142-424); Red Blood Count 4.85 M/mm3 (4.60-6.20); Red Cell Distribution Width 13.6 % (11.5-17.5); White Blood Count 7.1 K/mm3 (4.8-10.8)
[2018-12-13 14:11] LABS: Amphetamine/Metha Screen,Urine Negative ng/mL (<1000); Barbiturates Screen,Urine Negative ng/mL (<200); Benzodiazepines Screen,Urine Positive ng/mL (<200); Cannabinoid Screen,Urine Negative ng/mL (<50); Cocaine Screen,Urine Negative ng/mL (<300); Methadone Screen,Urine Negative ng/mL (<300); Opiate Screen,Urine Negative ng/mL (<300); Phencyclidine Screen,Urine Negative ng/mL (<25)
[2018-12-14 18:16] LABS: Vitamin D 25 Hydroxy 17.1 ng/mL (30.0-100.0)
== END ==
PROVIDERS: Visit Provider Nurse Practitioner Family
DX: Z79.899 Other long term (current) drug therapy (principal); G62.9 Polyneuropathy, unspecified; Z12.5 Encounter for screening for malignant neoplasm of prostate; E55.9 Vitamin D deficiency, unspecified
CPT/HCPCS: 80053; 80061; 80305; 82652; 84436; 84443; 85025; G0103

== ENCOUNTER → 2019-04-16 14:14 | Outpatient (CLI) | payer MEDICARE, OTHER, SELFPAY ==
[2019-04-16 16:08] LABS: Amphetamine/Metha Screen,Urine Negative ng/mL (<1000); Barbiturates Screen,Urine Negative ng/mL (<200); Benzodiazepines Screen,Urine Positive ng/mL (<200); Cannabinoid Screen,Urine Negative ng/mL (<50); Cocaine Screen,Urine Negative ng/mL (<300); Methadone Screen,Urine Negative ng/mL (<300); Opiate Screen,Urine Negative ng/mL (<300); Phencyclidine Screen,Urine Negative ng/mL (<25)
== END ==
PROVIDERS: Visit Provider Nurse Practitioner Family
DX: Z79.899 Other long term (current) drug therapy (principal)
CPT/HCPCS: 80305

== ENCOUNTER → 2019-06-23 08:17 | Outpatient (CLI) | payer MEDICARE, OTHER, SELFPAY ==
--- NOTE | 2019-06-23 08:24 | XR_ITS ---
PROCEDURE: XR ANKLE WT BEARING LT MIN 3V CLINICAL INDICATION: foot pain History of clubfoot with remote trauma COMPARISON: None FINDINGS: There are no previous exams available for comparison. There is metatarsus varus with old fracture of the proximal aspect of the 4th and 5th metatarsals. There is inversion of the ankle with an old fracture or accessory center of ossification at the tip of the lateral malleolus. 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
--- NOTE | 2019-06-23 08:24 | XR_ITS ---
PROCEDURE: XR FOOT WT BEARING RT 3V CLINICAL INDICATION: pain COMPARISON: XR FOOT WT BEARING LT 3V from 06/23/2019 XR ANKLE WT BEARING RT MIN 3V from 06/23/2019 FINDINGS: There are no previous exams available for comparison. There are mild osteoarthritic changes at the 1st MTP joint. There is mild metatarsus varus. No acute fracture or dislocation is evident. Small calcaneal spurs present and there is an enthesophyte at the Achilles insertion. The ankle joint has an unremarkable appearance. 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
--- NOTE | 2019-06-23 08:24 | XR_ITS ---
PROCEDURE: XR FOOT WT BEARING LT 3V CLINICAL INDICATION: foot pain History of clubfoot with remote trauma COMPARISON: XR ANKLE WT BEARING LT MIN 3V from 06/23/2019 FINDINGS: There are no previous exams available for comparison. There is metatarsus varus with old fracture of the proximal aspect of the 4th and 5th metatarsals. There is inversion of the ankle with an old fracture or accessory center of ossification at the tip of the lateral malleolus. 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
== END ==
PROVIDERS: PCP Nurse Practitioner Family; Visit Provider Podiatrist
DX: M79.672 Pain in left foot (principal); M79.671 Pain in right foot; M25.572 Pain in left ankle and joints of left foot; M25.571 Pain in right ankle and joints of right foot
CPT/HCPCS: 73610; 73630

== ENCOUNTER → 2019-06-30 15:09 | Outpatient (CLI) | payer MEDICARE, OTHER, SELFPAY ==
--- NOTE | 2019-06-30 15:12 | US_ITS ---
APPROVED REPORT Pressures/Indices Right Indices Left Indices Brachial 121.00 mmHg Brachial 131.00 mmHg Low Thigh 148.00 mmHg 1.13 Low Thigh 158.00 mmHg 1.21 Calf 0.00 mmHg 0.00 Calf 0.00 mmHg 0.00 Ankle(PT) 168.00 mmHg 1.28 Ankle(PT) 0.00 mmHg 0.00 Ankle(DP) 159.00 mmHg 1.21 Ankle(DP) 144.00 mmHg 1.10 Digit 148.00 mmHg 1.13 Digit 159.00 mmHg 1.21 Findings R CHAUNCEY 1.3 L CHAUNCEY 1.10 R TBI 1.1 L TBI 1.2 WAVEFORMS NORMAL DIMINISHED PULSES Conclusion Medial calcinosis (rigid vessels) is suggested due to noncompressible calf vessels, bilaterally. R CHAUNCEY 1.3 L CHAUNCEY 1.10 R TBI 1.1 L TBI 1.2 WAVEFORMS NORMAL DIMINISHED PULSES Electronically signed by : Giuseppe Lim MD 06/30/2019 18:56:15
== END ==
PROVIDERS: PCP Nurse Practitioner Family; Visit Provider Podiatrist
DX: R09.89 Other specified symptoms and signs involving the circulatory and respiratory systems (principal)
CPT/HCPCS: 93923

== ENCOUNTER → 2019-10-31 09:22 | Outpatient (CLI) | payer MEDICARE, OTHER, SELFPAY ==
[2019-10-31 09:51] LABS: Basophils # 0.1 K/mm3 (0-0.2); Basophils % 0.7 % (0.1-2.0); Eosinophils # 0.3 K/mm3 (0.0-0.4); Eosinophils % 3.6 % (0.1-12.0); Hematocrit 41.4 % (42.0-52.0); Hemoglobin 14.8 g/dL (14.1-18.0); Lymphocytes # 1.1 K/mm3 (0.7-4.5); Lymphocytes % 15.7 % (10-50); Mean Corpuscular HGB Conc 35.7 g/dL (31.8-35.4); Mean Corpuscular Hemoglobin 32.8 pg (27.0-31.2); Mean Corpuscular Volume 91.8 fl (80-94); Mean Platelet Volume 6.8 fl (7.4-10.4); Monocytes # 0.5 K/mm3 (0.1-1.0); Monocytes % 6.5 % (1.7-9.3); Neutrophils # 5.1 K/mm3 (1.8-7.8); Neutrophils % 73.4 % (37.0-80.0); Platelet Count 244 K/mm3 (142-424); Red Blood Count 4.52 M/mm3 (4.60-6.20); Red Cell Distribution Width 13.9 % (11.5-17.5)
[2019-10-31 10:33] LABS: Chloride 103 mmol/L (98-107); Potassium 4.1 mmoL/L (3.5-5.1); Sodium 136 mmol/L (136-145)
[2019-10-31 10:35] LABS: Alanine Aminotransferase 11 U/L (12-78); Alkaline Phosphatase 83 U/L (38-126); Aspartate Amino Transferase 16 U/L (17-59); Bilirubin,Total 0.8 mg/dl (0.2-1.3); Blood Urea Nitrogen 11 mg/dl (9-20); Estimated Glomerular Filt Rate 76 ml/min (>60); GFR (African American) 92 ML/MIN (>60)
[2019-10-31 10:36] LABS: Albumin Level 3.9 g/dl (3.5-5.0); Albumin/Globulin Ratio 1.7 (1.1-1.8); Anion Gap 9.1 mEq/L (5-15); Calcium 8.8 mg/dl (8.4-10.2); Carbon Dioxide 28 mmol/L (22.0-30.0); Chol/HDL Ratio 2.6 (1-3.5); Cholesterol 111 mg/dl (140-200); Globulin 2.3 g/dL (1.3-3.2); Glucose 98 mg/dl (74-100); HDL Cholesterol 42 mg/dl (40-60); Total Protein,Serum 6.2 g/dl (6.3-8.2); Triglycerides 84 mg/dl (30-150); VLDL Cholesterol 17 mg/dL (0-40)
[2019-10-31 10:47] LABS: Direct LDL Cholesterol 65.29 mg/dL (100-129)
[2019-10-31 10:52] LABS: T4 (Thyroxine) 8.8 ug/dl (5.53-11.0)
[2019-10-31 11:06] LABS: Thyroid Stimulating Hormone 2.06 uIU/mL (0.465-4.68)
[2019-11-01 13:53] LABS: Vitamin D 25 Hydroxy 38.1 ng/mL (30.0-100.0)
== END ==
PROVIDERS: Visit Provider Nurse Practitioner Family
DX: S01.81XA Laceration without foreign body of other part of head, initial encounter (principal); L60.3 Nail dystrophy; R42 Dizziness and giddiness; E66.9 Obesity, unspecified
CPT/HCPCS: 36415; 80053; 80061; 82652; 84436; 84443; 85025

== ENCOUNTER → 2019-11-13 08:20 | Outpatient (CLI) | payer MEDICARE, OTHER, SELFPAY ==
--- NOTE | 2019-11-13 08:21 | CT_ITS ---
PROCEDURE: CT HEAD/BRAIN WO CON CLINICAL INDICATION: dizzy COMPARISON: CT HEAD/BRAIN WO CON from 05/16/2019 TECHNIQUE: Axial images obtained. All CT scans at the facility use one or more dose reduction, viz: automated exposure control, ma/kV adjustment per patient size (including targeted exams where dose is matched to indication, i.e. head), or iterative reconstruction technique. FINDINGS: Again noted is severe hydrocephalus with marked dilatation of the lateral ventricles and 3rd ventricle again consistent with aqueductal stenosis. The basilar cisterns appear normal for age. There is no ischemic infarct or bleed and no extra-axial fluid collections. Bone windows at the base of the skull show the mastoids to be clear bilaterally. Both internal auditory canals appear normal. The bony calvarium appears intact.. 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 Arturo Kerr MD 11/13/2019 09:[address] Arturo Kerr MD in [place] 11/13/2019 09:04
== END ==
PROVIDERS: PCP Nurse Practitioner Family; Visit Provider Nurse Practitioner Family
DX: R42 Dizziness and giddiness (principal)
CPT/HCPCS: 70450

== ENCOUNTER 2019-11-24 09:03 | Day surgery (SDC) | payer MEDICARE, OTHER, SELFPAY ==
[2019-11-24] VITALS (12 sets, daily range): BP systolic 108–137; BP diastolic 72–85; PULSE 54–89; RESP 16; TEMP 36.3; O2SAT 93–98; BMI 34.5
[2019-11-24 09:57] LABS: Chloride 101 mmol/L (98-107); Potassium 4.2 mmoL/L (3.5-5.1); Sodium 135 mmol/L (136-145)
[2019-11-24 10:00] LABS: Anion Gap 14.2 mEq/L (5-15); Blood Urea Nitrogen 11 mg/dl (9-20); Calcium 9.3 mg/dl (8.4-10.2); Carbon Dioxide 24 mmol/L (22.0-30.0); Creatinine Clearance Estimated 108 mL/min (50-200); Estimated Glomerular Filt Rate 76 ml/min (>60); GFR (African American) 92 ML/MIN (>60); Glucose 107 mg/dl (74-100)
[2019-11-24 10:07] LABS: Basophils # 0.1 K/mm3 (0-0.2); Basophils % 0.5 % (0.1-2.0); Eosinophils # 0.1 K/mm3 (0.0-0.4); Eosinophils % 1.7 % (0.1-12.0); Hematocrit 48.2 % (42.0-52.0); Hemoglobin 17.1 g/dL (14.1-18.0); Lymphocytes % 12.2 % (10-50); Mean Corpuscular HGB Conc 35.5 g/dL (31.8-35.4); Mean Corpuscular Hemoglobin 32.7 pg (27.0-31.2); Mean Corpuscular Volume 92.1 fl (80-94); Mean Platelet Volume 7.1 fl (7.4-10.4); Monocytes # 0.5 K/mm3 (0.1-1.0); Monocytes % 5.8 % (1.7-9.3); Neutrophils # 6.7 K/mm3 (1.8-7.8); Neutrophils % 79.7 % (37.0-80.0); Platelet Count 255 K/mm3 (142-424); Red Blood Count 5.24 M/mm3 (4.60-6.20); Red Cell Distribution Width 13.7 % (11.5-17.5); White Blood Count 8.5 K/mm3 (4.8-10.8)
--- NOTE | 2019-11-24 12:30 | IR_ITS ---
APPROVED REPORT Patient Location: Outpatient PROCEDURES Catheter placement in the abdominal aorta Abdominal aortography Repositioning the catheter in the abdominal aorta Bilateral iliofemoral runoff INDICATION [place] class III claudication, Abnormal CHAUNCEY Informed consent was obtained prior to the procedure. COMPLICATIONS none Estimated Blood Loss: less than 10mls TECHNIQUE 1% lidocaine used anesthetize the right groin the right femoral artery was accessed via the Salinger technique and a 5 Nepali sheath was placed in the right femoral artery. A pigtail catheter was advanced and abdominal aortography was performed. The catheter was repositioned and bilateral iliofemoral runoff was performed. At the end of the procedure the patient was transferred to the postop holding area in stable condition for sheath removal ANGIOGRAPHIC RESULTS The suprarenal and infrarenal abdominal aorta are normal. The bilateral renal arteries are singular and normal. The bilateral internal/external and common iliac arteries are normal The bilateral common femoral arteries are normal The bilateral profunda femoris arteries are normal The bilateral superficial femoral arteries are widely patent as are the bilateral popliteal arteries. There is three-vessel runoff below the knee bilaterally however the flow is abnormally slow IMPRESSION Likely microvascular disease below the knee Normal macro vascularity as described above PLAN 1. Medical management Electronically signed by : Olman Henry, 11/24/2019 11:45:37
== END 2019-11-24 14:30 | disposition home or self-care (01) ==
LOC: CATHLAB 09:07
PROVIDERS: PCP Nurse Practitioner Family; Visit Provider Internal Medicine
DX: R94.31 Abnormal electrocardiogram [ECG] [EKG]; I70.223 Atherosclerosis of native arteries of extremities with rest pain, bilateral legs; M79.89 Other specified soft tissue disorders; Z79.899 Other long term (current) drug therapy
CPT/HCPCS: 36246; 75625; 75716; 80048; 85025; 99152; C1725; C1769; C1894; J1644; Q9966

== ENCOUNTER 2019-12-15 09:50 | Outpatient (RCR) | payer MEDICARE, OTHER, SELFPAY ==
--- NOTE | 2019-12-15 11:10 | HMH.PTOPEV ---
PT Outpatient Evaluation Rehab PT Outpatient Evaluation Start: 12/15/19 10:08 Freq: Status: Active Protocol: Document 12/15/19 10:54 PHOFRANSISCO (Rec: 12/15/19 11:10 PHORNE [id number]) Electronically Signed By Ace Reilly, PT 12/15/19 10:54 Outpatient Therapy Subjective History Subjective History Pt is 59 yowm who presents with chronic gait disturbance due to mucltiple underlying conditions, most notably B club feet requiring long AFO. He reports he has not been able to do much activity since the outbreak of the COVID-19 pandemic in JUN of this year. He presents with significantly short stride length B, increased tightness of B hips worse in ext and IR, and R LE increased circumduction with genu valgus. He reports no c/o pain, but has had dizziness and falls in the past. Chief Complaint Stiff,Weakness Symptoms Relieved By Nothing Symptoms Aggravated By Walking Prior Functional Limitations Walking,Balance Current Functional Limitations Walking,Balance Balance Eval Gait/Posture Asssessment General Gait Observation Shuffling Step,Decrease Stride Lngth (R),Decrease Stride Lngth (L) Level of Transfer Assist Independent Hip Observation in Gait Swing Circumducted,Externally Rotated Hip Observation in Gait Stance Inadequate Extension Ankle/Foot Observation in Gait Swing Decreased Foot Clearance Ankle/Foot Observation in Gait Stance Decreased Heel Strike, Decreased Push Off Body Alignment Posture Rigid Timed Up and Go Test 1. Is the Timed Up and Go test result > yes or = to 12 seconds? Dynamic Gait Index Test Protocol Gait Level Surface Moderate Impairement Query Text: Instructions: Walk at your normal speed from here to the next dagoberto (20'). Grading: Dagoberto the lowest category that applies. Change in Gait Speed Moderate Impairment Query Text: Instructions: Begin walking at your normal pace (for 5'), when I tell you go , walk as fast as you can (for 5'). When I tell you slow , walk as slowly as you can (for 5'). Grading: Dagoberto the lowest category that applies. Gait with Horizontal Head Turns Moderate Impairment Query Text:
== END 2019-12-15 09:55 | disposition home or self-care (01) ==
LOC: PT 09:50
PROVIDERS: PCP Nurse Practitioner Family; Visit Provider Nurse Practitioner Family
DX: R26.9 Unspecified abnormalities of gait and mobility (principal)
CPT/HCPCS: 97110; 97163

== ENCOUNTER 2020-07-25 14:10 | Emergency (ER) | payer MEDICARE, OTHER, SELFPAY ==
[2020-07-25 14:11] VITALS: BP 114/52; PULSE 77; RESP 16; TEMP 36.7; O2SAT 99; BMI 34.0
--- NOTE | 2020-07-25 14:22 | HMH.EDGENADL ---
ED Disposition Clinical Impression: Diffuse pain Disposition: Home, Self-Care Condition on Discharge: Good Additional Instructions: Tylenol with codeine as needed for pain. Follow-up tomorrow with your primary care provider, Surinder Simmons NP for Dr. Anaya. Additional instructions for CONTROLLED SUBSTANCES: You have been prescribed a medication that is a controlled substance. Controlled substances include pain medications known as opiates and sedative nerve medications known as benzodiazepines. Tramadol, fioricet, and gabapentin are also controlled substances. Some common opiates include: Codeine (such as Tylenol #3) Hydrocodone (Vicodin, Lortab, Lorcet, [place]) Oxycodone (Percocet, Percodan, Oxycodone, Oxy IR) Some common benzodiazepines include: Diazepam (Valium) Lorazepam (Ativan) Alprazolam (Xanax) Clonazepam (Klonopin) Oxazepam (Serax) All of these controlled substances are highly addictive and frequently abused. Misuse can and frequently does lead to addiction as well as overdose and . Medication should be stored in a locked cabinet or other secure storage unit. Do not store the medication in a motor vehicle. Short term supplies, 3 days or less, are prescribed because of the highly addictive nature of the medication. Any of the controlled substance medication NOT taken should be disposed of properly and NOT SAVED. The recommended method of disposing of unused medications is: Place the medicines in a sealable plastic bag. If the medicine is a solid, crush it or add water to dissolve it. Add something undesirable (cat litter, coffee grounds, etc.) Dispose of sealed bag in household trash Do not flush or pour unused medicines down a sink or drain. Controlled substances should not be shared, given away or sold. Because of the addictive nature and frequent abuse, these medications are sometimes stolen. These medications should be kept in a safe place where they cannot be stolen. Do not keep them in your car or purse. Lost or stolen prescriptions for controlled substances WILL NOT BE REFILLED in this emergency department, regardless of whether a police report was filed. Prescriptions: Acetaminophen with Codeine [Tylenol with Codeine #3 tablet] 1 tab PO Q6HP PRN #8 tab PRN Reason: Moderate Pain Transmission Status: Received by [facility] Referrals: Surinder Simmons APRN [Primary Care Provider] - - Critical Care Critical Care Time: No Attestation: On 07/25/20, the high probability of a clinically significant, sudden or life threatening deterioration of the following system(s) required my full and direct attention, intervention and personal management. The time I documented below is in addition to time spent performing reported procedures but includes the following listed in this critical care notation. Medical Decision Making - Nate Inquiry Pt receiving controlled substance: Yes Nate was queried for this patient: Yes Risks and benefits of using a controlled substance: were discussed with pt by me Vital Signs: 07/25/20 14:11 07/25/20 14:48 Temperature 98.0 F 98.0 F Temperature Source Oral Oral Pulse Rate 70 Pulse Rate [Left] 77 Respiratory Rate 16 16 Blood Pressure 115/70 Blood Pressure [Right Arm] 114/52 L Blood Pressure Mean [Right Arm] 72 Blood Pressure Source Automatic Cuff Blood Pressure Source [Right Arm] Automatic Cuff Blood Pressure Position Sitting Blood Pressure Position [Right Arm] Sitting 02 Sat by Pulse Oximetry 99 Oxygen Delivery Method Room Air Room Air Medical Decision Narrative: The patient has diffuse pain for 2 weeks with unremarkable vital signs and unremarkable examination. I do not feel he needs further work-up at this time. He will be given a limited prescription for Tylenol with codeine and advised to follow-up with his primary care provider tomorrow. He is agreeable to this plan. General Adult HPI - General
[2020-07-25 14:48] VITALS: BP 115/70; PULSE 70; RESP 16; TEMP 36.7; O2SAT 98
== END 2020-07-25 15:05 | disposition home or self-care (01) ==
PROVIDERS: Emergency Provider Emergency Medicine; PCP Nurse Practitioner Family
DX: G62.9 Polyneuropathy, unspecified (principal); F41.9 Anxiety disorder, unspecified; I10 Essential (primary) hypertension; Z79.899 Other long term (current) drug therapy
CPT/HCPCS: 99281

== ENCOUNTER → 2020-08-18 16:36 | Outpatient (CLI) | payer MEDICARE, OTHER, SELFPAY ==
[2020-08-18 17:27] LABS: Basophils # 0.1 K/mm3 (0-0.2); Basophils % 0.6 % (0.1-2.0); Eosinophils # 0.2 K/mm3 (0.0-0.4); Eosinophils % 2.1 % (0.1-12.0); Hematocrit 45.7 % (42.0-52.0); Hemoglobin 15.7 g/dL (14.1-18.0); Lymphocytes # 1.3 K/mm3 (0.7-4.5); Lymphocytes % 13.8 % (10-50); Mean Corpuscular HGB Conc 34.3 g/dL (31.8-35.4); Mean Corpuscular Hemoglobin 31.8 pg (27.0-31.2); Mean Corpuscular Volume 92.6 fl (80-94); Mean Platelet Volume 7.8 fl (7.4-10.4); Monocytes # 0.6 K/mm3 (0.1-1.0); Monocytes % 6.5 % (1.7-9.3); Neutrophils # 7.2 K/mm3 (1.8-7.8); Neutrophils % 76.9 % (37.0-80.0); Platelet Count 275 K/mm3 (142-424); Red Blood Count 4.93 M/mm3 (4.60-6.20); Red Cell Distribution Width 13.2 % (11.5-17.5); White Blood Count 9.3 K/mm3 (4.8-10.8)
[2020-08-18 17:47] LABS: Alanine Aminotransferase 13 U/L (12-78); Albumin Level 4.2 g/dl (3.5-5.0); Albumin/Globulin Ratio 1.8 (1.1-1.8); Alkaline Phosphatase 98 U/L (38-126); Anion Gap 15.1 mEq/L (5-15); Aspartate Amino Transferase 21 U/L (17-59); Bilirubin,Total 0.6 mg/dl (0.2-1.3); Blood Urea Nitrogen 25 mg/dl (9-20); Calcium 9.2 mg/dl (8.4-10.2); Carbon Dioxide 21 mmol/L (22.0-30.0); Chloride 108 mmol/L (98-107); Chol/HDL Ratio 4.7 (1-3.5); Cholesterol 196 mg/dl (140-200); Estimated Glomerular Filt Rate 76 ml/min (>60); GFR (African American) 92 ML/MIN (>60); Globulin 2.4 g/dL (1.3-3.2); Glucose 101 mg/dl (74-100); HDL Cholesterol 42 mg/dl (40-60); Potassium 4.1 mmoL/L (3.5-5.1); Sodium 140 mmol/L (136-145); Total Protein,Serum 6.6 g/dl (6.3-8.2); Triglycerides 119 mg/dl (30-150); VLDL Cholesterol 24 mg/dL (0-40)
[2020-08-18 17:58] LABS: Direct LDL Cholesterol 127.51 mg/dL (100-129)
[2020-08-18 18:06] LABS: 25-OH Vitamin D, Total 23.7 ng/mL (30-100); T4 (Thyroxine) 9.5 ug/dl (5.53-11.0)
[2020-08-18 18:19] LABS: Thyroid Stimulating Hormone 1.49 uIU/mL (0.465-4.68)
== END ==
PROVIDERS: Visit Provider Nurse Practitioner Family
DX: I10 Essential (primary) hypertension (principal); R52 Pain, unspecified; E66.9 Obesity, unspecified; E55.9 Vitamin D deficiency, unspecified
CPT/HCPCS: 80053; 80061; 82306; 84436; 84443; 85025

== ENCOUNTER → 2020-10-06 16:09 | Outpatient (CLI) | payer MEDICARE, OTHER, SELFPAY | PROVIDERS: Visit Provider Internal Medicine Gastroenterology | DX: Z01.812 Encounter for preprocedural laboratory examination (principal); Z11.52 Encounter for screening for COVID-19; R13.10 Dysphagia, unspecified | CPT/HCPCS: U0003 ==

== ENCOUNTER 2020-10-08 06:46 | Day surgery (SDC) | payer MEDICARE, OTHER, SELFPAY ==
[2020-10-06 10:01] VITALS: BMI 29.9
[2020-10-08 07:13] VITALS: BP 120/86; PULSE 95; RESP 18; TEMP 36.3; O2SAT 97
--- NOTE | 2020-10-08 07:56 | P.PN_ITS ---
[facility] Anesthesia Checklist - Structural Data Admitted From: Home Planned Operative Procedure/s: egd/colonoscopy Consent for Planned Operative Procedure(s) Verified: Yes - Airway Assessment C-Spine Mobility Assessed: Yes TMJ Mobility Assessed: Yes Dentition: Poor Dentition - Neurological Assessment Level of Consciousness: Awake, Alert, Appropriate - Anesthesia Plan Anesthesia Risk discussed: Yes Anesthesia Plan: Verified ASA Class: III Anesthesia Type: MAC [facility] History I have reviewed the patient's past medical history: Yes Medical History: Reports:: Anxiety, Hypertension, Seizures Denies:: Cancer, Diabetes Mellitus Type 1, Diabetes Mellitus Type 2, Internal Pacemaker, MRSA *Have you ever received a pneumonia vaccine?: Yes *Have you received a flu vaccine this season?: Yes Other Medical History: Reports: Arthritis Anesthesia experience/problems:: none Laterality Cases: Right: Carpal Tunnel Release Other Surgeries: Yes: Cardiac Catheterization, Other (R wrist surgery.). No: Pacemaker Amputation: No Fractures: Yes (neck, pelvic, busted skull) - *Social History Last grade of school completed: 11th or 12th Smoking Status: Never smoker Alcohol Intake: never Substance Use Type: denies use *Occupational Status:: unemployed Housing: house Household Members: family *Travel in the last 8 weeks: None - Psychiatric History Pschychiatric History:: Reports:: Anxiety Family Hx:: Hypertension, Diabetes, Cancer
[2020-10-08 08:08] VITALS: O2SAT 98
--- NOTE | 2020-10-08 08:13 | HMH.PROC ---
[facility] Procedure Note Procedure Note:: Upper Endoscopy Procedure Report: Esophagogastroduodenoscopy with cold biopsies and TTS balloon dilation Endoscopost: Nicho Alexis II, MD Referring Physician: VÍCTOR Alicea Date of Procedure: October 08, 2020 Equipment: Olympus GIF 190 standard upper endoscope Sedation: MAC sedation Indications: Mr. Mclaughlin is a 60-year-old gentleman who has had abnormal weight loss of more than 30 pounds. He does have some bloating and early satiety. He has occasional nausea. He reports regular bowel function. He does have some intermittent dysphagia. He reports no significant heartburn or reflux but has been on omeprazole for GERD. The patient reports reduced appetite. He has had a moderate amount of anxiety related to Covid. Procedure: Prior to the procedure, a history and physical exam was performed, and patient's medications and allergies were reviewed. The risks, benefits and alternatives of the sedation and procedure were discussed with the patient. All questions were answered and informed consent was obtained. The patient was brought to the procedure room. Patient identification and proposed procedure were verified by the physician and the nurse. The patient was placed in a left lateral decubitus position and the scope was passed under direct vision. Throughout the procedure, the patient's blood pressure, pulse, and oxygen saturations were monitored continuously. The upper GI endoscopy was accomplished without difficulty. The patient tolerated the procedure well. Findings: The scope was passed directly into the upper esophagus and advanced to the third portion of the duodenum. The post bulbar duodenum and duodenal bulb were normal with normal mucosa and conniventes. The scope was withdrawn through a normal duodenal bulb and pylorus into the stomach. There was moderate linear reactive gastropathy of the antrum, body and into the fundus. Upon retroflexion there was a 2 cm hiatal hernia. 2 biopsies were taken in the antrum and along the lesser curvature for histology to rule out gastritis and/or H pylori. The scope was then withdrawn into the esophagus. There was a serrated Z-line but no evidence of reflux esophagitis, Woodruff's or Schatzki's ring. There were tertiary contractions and evidence of moderate esophageal dysmotility. The entire esophagus was dilated to 60 Ethiopian/20 mm with a TTS hydrostatic balloon. There was some resistance at the cricopharyngeus. The remainder of the esophageal mucosa was normal. Impression: 1. Cricopharyngeal spasm status post dilation to 20 mm 2. Nonerosive GERD with moderate esophageal dysmotility and small 2 cm hiatal hernia 3. Moderate linear reactive gastropathy Plan: I will discussed the findings with the patient and family. I do feel that he has moderate anxiety that contributes to his weight loss. He does have some bloating and intermittent dyspepsia with GERD. I will follow-up the biopsies. I will proceed with diagnostic colonoscopy.
--- NOTE | 2020-10-08 08:54 | P.PCN_ITS ---
[facility] [place] Procedure Note Procedure Note:: Colonoscopy Procedure Report: Colonoscopy with cold snare polypectomy and Endo Clip placement Endoscopist: Nicho Alexis II, MD Referring physician: VÍCTOR Alicea Date of Procedure: October 08, 2020 Equipment: Olympus 190 variable stiffness pediatric colonoscope Sedation: MAC sedation Indication: Mr. Mclaughlin is a 60-year-old gentleman who is here for diagnostic colonoscopy secondary to abnormal weight loss. He has lost 30 pounds. He does have bloating and fullness. He reports regular bowel function. He reports no rectal bleeding or family history of colon cancer. He does have moderate anxiety. Procedure: Prior to the procedure, a history and physical exam was performed, and patient's medications and allergies were reviewed. The risks, benefits and alternatives of the sedation and procedure were discussed with the patient. All questions were answered and informed consent was obtained. The patient was brought to the procedure room. Patient identification and proposed procedure were verified by the physician and the nurse. The patient was placed in a left lateral decubitus position and the scope was passed under direct vision. Throughout the procedure, the patient's blood pressure, pulse, and oxygen saturations were monitored continuously. The colonoscopy was accomplished without difficulty. The patient tolerated the procedure well. Findings: On digital rectal examination there was normal rectal tone. There were no external hemorrhoids. The colonoscope was introduced through the anal canal to the rectum and advanced to the cecum. The ileocecal valve and appendiceal orifice were identified. The scope was advanced a short distance into the ileum which appeared grossly normal. The scope was then withdrawn into the colon. The cecum and ascending colon were normal. There were a total of 5 colon polyps (transverse x1 (9 mm), descending x1 (10 mm) and sigmoid x3 (5, 5 and 6 mm)) which were all removed via cold snare polypectomy. The 2 larger polyps did have some heme so endoclips were placed over the polypectomy sites to control venous hemostasis with excellent hemostasis. There were no mucosal abnormalities identified. Upon retroflexion within the rectum there were 2 internal hemorrhoids.The preparation was fair throughout with [place] Preparation Score of 7 out of 9. The cecal time was 19 minutes. Impression: 1. Colonic polyps x5 2. Grade 2 internal hemorrhoids Plan: I will follow up the polyp histology and recommend repeat screening/surveillance colonoscopy again in 3 years based upon the size and number of adenomatous polyps as well as the patient's bowel preparation. There was no clear source for the patient's abnormal weight loss. I would recommend imaging study of the chest and abdomen if the weight loss persist. I do feel that the patient's bloating is related to some obstipation. We will discuss additional dietary measures and treatment options.
[2020-10-08 08:55] VITALS: BP 92/62; PULSE 69; RESP 18; TEMP 36.6; O2SAT 94
[2020-10-08 09:05] VITALS: BP 96/69; PULSE 68; RESP 18; O2SAT 94
[2020-10-08 09:15] VITALS: BP 105/74; PULSE 74; RESP 18; O2SAT 94
[2020-10-08 09:45] VITALS: BP 113/61; PULSE 74; RESP 18; O2SAT 95
== END 2020-10-08 09:55 | disposition home or self-care (01) ==
LOC: OUTP 06:49
PROVIDERS: PCP Nurse Practitioner Family; Visit Provider Internal Medicine Gastroenterology
PROC: 0DJ08ZZ Inspection of Upper Intestinal Tract, Via Natural or Artificial Opening Endoscopic (ICD-10-PCS; CPT 43235; principal; 2020-10-08 08:00)
DX: J39.2 Other diseases of pharynx (principal); K21.9 Gastro-esophageal reflux disease without esophagitis; K22.4 Dyskinesia of esophagus; K44.9 Diaphragmatic hernia without obstruction or gangrene; K31.9 Disease of stomach and duodenum, unspecified; K63.5 Polyp of colon; K64.1 Second degree hemorrhoids; I10 Essential (primary) hypertension; F41.9 Anxiety disorder, unspecified; Z87.39 Personal history of other diseases of the musculoskeletal system and connective tissue; Q66.00 Congenital talipes equinovarus, unspecified foot; G62.9 Polyneuropathy, unspecified
CPT/HCPCS: 43239; 43249; 45385; 88305; 88313; 88342; C1726

== ENCOUNTER 2020-10-18 03:50 | Emergency (ER) | payer MEDICARE, OTHER, SELFPAY ==
--- NOTE | 2020-10-18 | ECG_ITS ---
APPROVED REPORT Exam: Resting ECG HR:64 bpm ECG Measurements Heart Rate 64 AXES WI 148 P 54 QRSd 86 QRS -5 QT 420 T 16 QTc 433 Conclusion Normal sinus rhythm Normal ECG Electronically signed by : Devin Isabel, 10/23/2020 07:38:36
[2020-10-18 03:33] VITALS: BP 117/78; PULSE 66; RESP 18; TEMP 36.5; O2SAT 99; BMI 31.6
[2020-10-18 03:48] VITALS: BMI 31.6
--- NOTE | 2020-10-18 03:51 | CT_ITS ---
PROCEDURE INFORMATION: Exam: CT Head Without Contrast Exam date and time: 10/18/2020 3:51 AM Age: 60 years old Clinical indication: Injury or trauma; Blunt trauma (contusions or hematomas); With loss of consciousness; Not specified; Patient HX: Fall, contusions to forehead, syncope TECHNIQUE: Imaging protocol: Computed tomography of the head without contrast. Radiation optimization: All CT scans at this facility use at least one of these dose optimization techniques: automated exposure control; mA and/or kV adjustment per patient size (includes targeted exams where dose is matched to clinical indication); or iterative reconstruction. COMPARISON: CT HEAD/BRAIN WO CON 11/13/2019 8:34 AM FINDINGS: Brain: There is no intracranial hemorrhage. There is no mass, mass effect or midline shift. No acute ischemia is identified, although, CT is relatively insensitive within the 1st 24 hours. Cerebral ventricles: Severe hydrocephalus with dilatation of the lateral and 3rd ventricles is again noted. This has not changed significantly. 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 Bones/joints: Osseous structures are intact. No osteolytic or blastic bone lesions appreciated. Paranasal sinuses: Visualized paranasal sinuses are clear. Mastoid air cells: Visualized mastoid air cells are well aerated and clear. Orbital cavity: Cataract surgery is incidentally noted. No retro-orbital abnormality is seen. Soft tissues: No focal scalp swelling or hematoma. IMPRESSION: 1. Severe hydrocephalus which appears stable since the prior exam. 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 2. No definite acute intracranial process or change noted.
--- NOTE | 2020-10-18 03:51 | XR_ITS ---
PROCEDURE INFORMATION: Exam: XR Right Knee Exam date and time: 10/18/2020 3:51 AM Age: 60 years old Clinical indication: Injury or trauma; Blunt trauma; Right; Patient HX: Fall, PT unable to turn in toes, PT has leg problem, wears braces, best images, abrasions on bilat knees; Additional info: Fall, knee pain TECHNIQUE: Imaging protocol: XR Right knee. Views: 3 views. COMPARISON: CR [id number] KNEE-3 VIEWS-RT 02/22/2016 3:28 PM FINDINGS: Bones/joints: There is no joint effusion. There is no acute fracture or dislocation. There is a remote healed fracture deformity of the proximal fibular shaft. There is mild tricompartment osteoarthritis. Soft tissues: Normal. IMPRESSION: No acute findings.
--- NOTE | 2020-10-18 03:51 | XR_ITS ---
PROCEDURE INFORMATION: Exam: XR Left Knee Exam date and time: 10/18/2020 3:51 AM Age: 60 years old Clinical indication: Injury or trauma; Blunt trauma; Left; Patient HX: Fall, PT unable to turn in toes, PT has leg problem, wears braces, best images, abrasions on bilat knees; Additional info: Fall, knee pain TECHNIQUE: Imaging protocol: XR Left knee. Views: 3 views. COMPARISON: CR [id number] KNEE-3 VIEWS-LT 02/22/2016 3:34 PM FINDINGS: Bones/joints: There is a small suprapatellar joint effusion. The bones are intact without an acute fracture or dislocation. There is mild tricompartment osteoarthritis. Soft tissues: There is soft tissue swelling anterior to the patella which may be a soft tissue contusion or prepatellar bursitis. IMPRESSION: 1. Small suprapatellar joint effusion. 2. Mild anterior prepatellar swelling consistent with a soft tissue contusion or prepatellar bursitis.
--- NOTE | 2020-10-18 03:54 | CT_ITS ---
PROCEDURE INFORMATION: Exam: CT Cervical Spine Without Contrast Exam date and time: 10/18/2020 3:54 AM Age: 60 years old Clinical indication: Injury or trauma; Blunt trauma; Patient HX: Fall, contusions to forehead, syncope TECHNIQUE: Imaging protocol: Computed tomography images of the cervical spine without contrast. Radiation optimization: All CT scans at this facility use at least one of these dose optimization techniques: automated exposure control; mA and/or kV adjustment per patient size (includes targeted exams where dose is matched to clinical indication); or iterative reconstruction. COMPARISON: CT CERVICAL SPINE WO CON 05/16/2019 11:44 AM FINDINGS: Bones/joints: Again noted is a chronic type 2 odontoid fracture which appears stable since the prior exam. There is associated posterior displacement and tilt which is also unchanged from the prior exam. I do not see convincing evidence of an acute cervical spine fracture. Discs/Spinal canal/Neural foramina: There are age-related degenerative changes throughout the cervical spine with discogenic disease, spondylosis and facet arthropathy. Prevertebral Space: There is no prevertebral swelling. Lungs: Lung apices are clear. Soft tissues: No prevertebral or posterior paraspinous swelling. IMPRESSION: 1. 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 This appears stable since the prior exam. 2. No acute fracture or dislocation identified. 3. Age-related degenerative changes throughout the cervical spine. 4. Severe hydrocephalus better demonstrated on the head CT. Please refer to that report for details.
--- NOTE | 2020-10-18 03:54 | XR_ITS ---
PROCEDURE INFORMATION: Exam: XR Pelvis Exam date and time: 10/18/2020 3:54 AM Age: 60 years old Clinical indication: Injury or trauma; Blunt trauma (contusions or hematomas); Does not apply; Pelvic region; Patient HX: Fall, PT unable to turn in toes, PT has leg problem, wears braces TECHNIQUE: Imaging protocol: XR pelvis. Views: 1 or 2 view. COMPARISON: CR XR PELVIS 1-2V 05/16/2019 11:53 AM FINDINGS: Bones/joints: There are remote healed fracture deformities of the inferior pubic ramus bilaterally. The bones are demineralized but I do not see an acute fracture or dislocation. The femoral heads retain their normal contour without articular collapse. There is a sclerotic lesion within the left iliac bone unchanged since the prior study which may be a bone island. There are a few phleboliths in the right hemipelvis. Soft tissues: Unremarkable. IMPRESSION: No acute findings.
--- NOTE | 2020-10-18 03:54 | XR_ITS ---
PROCEDURE INFORMATION: Exam: XR Chest Exam date and time: 10/18/2020 3:54 AM Age: 60 years old Clinical indication: Injury or trauma; Fall; Blunt trauma (contusions or hematomas) TECHNIQUE: Imaging protocol: XR of the chest. Views: 4 or more views. COMPARISON: CR XR CHEST AP 05/16/2019 11:52 AM FINDINGS: Lungs: The lungs are clear without consolidation. Pleural spaces: Unremarkable. No pleural effusion. No pneumothorax. Heart/Mediastinum: The cardiac silhouette, mediastinal contours and hilar shadows appear unremarkable. No mediastinal widening or apical capping. Bones/joints: Osseous structures are demineralized with mild degenerative changes in the shoulders. IMPRESSION: No acute cardiopulmonary disease.
[2020-10-18 04:00] VITALS: BP 115/79; PULSE 63; RESP 16; O2SAT 97
[2020-10-18 04:08] LABS: Basophils % 0.4 % (0.1-2.0); Eosinophils # 0.3 K/mm3 (0.0-0.4); Eosinophils % 2.6 % (0.1-12.0); Hematocrit 44.1 % (42.0-52.0); Lymphocytes # 1.4 K/mm3 (0.7-4.5); Lymphocytes % 14.8 % (10-50); Mean Corpuscular HGB Conc 34.1 g/dL (31.8-35.4); Mean Corpuscular Hemoglobin 31.4 pg (27.0-31.2); Mean Platelet Volume 7.1 fl (7.4-10.4); Microscopic, Urine URINE MICROSCOPIC (MICROSCOPIC); Monocytes # 0.7 K/mm3 (0.1-1.0); Monocytes % 7.1 % (1.7-9.3); Neutrophils # 7.2 K/mm3 (1.8-7.8); Neutrophils % 75.1 % (37.0-80.0); Platelet Count 231 K/mm3 (142-424); Red Blood Count 4.79 M/mm3 (4.60-6.20); Red Cell Distribution Width 13.4 % (11.5-17.5); White Blood Count 9.5 K/mm3 (4.8-10.8)
[2020-10-18 04:11] LABS: Appearance,Urine CLEAR (Clear); Bilirubin,Urine Negative (Negative); Blood, Urine Negative (Negative); Color,Urine YELLOW (Yellow); Glucose,Urine (UA) Negative (Negative); Ketones,Urine Negative (Negative); Leukocyte Esterase,Urine Negative (Negative); Nitrate,Urine Negative (Negative); Protein,Urine Negative (Negative); Specific Gravity, Urine 1.015 (1.005-1.030)
[2020-10-18 04:16] LABS: Alanine Aminotransferase 10 U/L (12-78); Albumin Level 4.3 g/dl (3.5-5.0); Albumin/Globulin Ratio 1.7 (1.1-1.8); Alkaline Phosphatase 85 U/L (38-126); Anion Gap 10.1 mEq/L (5-15); Aspartate Amino Transferase 19 U/L (17-59); Bilirubin,Total 0.8 mg/dl (0.2-1.3); Blood Urea Nitrogen 13 mg/dl (9-20); Calcium 8.7 mg/dl (8.4-10.2); Carbon Dioxide 27 mmol/L (22.0-30.0); Chloride 103 mmol/L (98-107); Creatinine Clearance Estimated 95 mL/min (50-200); Estimated Glomerular Filt Rate 86 ml/min (>60); GFR (African American) 104 ML/MIN (>60); Globulin 2.6 g/dL (1.3-3.2); Glucose 98 mg/dl (74-100); Potassium 4.1 mmoL/L (3.5-5.1); Sodium 136 mmol/L (136-145); Total Protein,Serum 6.9 g/dl (6.3-8.2)
[2020-10-18 04:18] LABS: Mucus,Urine Trace /lpf; WBC,Urine Occasional #/hpf (0-3)
[2020-10-18 04:21] LABS: C-Reactive Protein 3.3 mg/L (0-4)
[2020-10-18 04:32] LABS: Erythrocyte Sedimentation Rate 16 mm/hr (0-20); Troponin I < 0.01 ng/ml (0.00-0.034)
[2020-10-18 04:35] LABS: Procalcitonin < 0.030 ng/mL (0.0-2.0)
--- NOTE | 2020-10-18 04:44 | HMH.EDFALL ---
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 The time I documented below is in addition to time spent performing reported procedures but includes the following listed in this critical care notation. Medical Decision Making - Medical Records Medical records reviewed: Yes: I reviewed the patient's medical records. - Nate Inquiry Pt receiving controlled substance: No Vital Signs: 10/18/20 03:33 10/18/20 04:00 10/18/20 04:45 Temperature 97.7 F Temperature Source Oral Pulse Rate 63 58 L Pulse Rate [Right] 66 Respiratory Rate 18 16 18 Blood Pressure 115/79 119/76 Blood Pressure [Right Arm] 117/78 Blood Pressure Mean [Right Arm] 91 Blood Pressure Source Automatic Cuff Automatic Cuff Blood Pressure Source [Right Arm] Automatic Cuff Blood Pressure Position Supine Supine 02 Sat by Pulse Oximetry 99 97 96 Oxygen Delivery Method Room Air Room Air Room Air 10/18/20 05:45 Temperature Temperature Source Pulse Rate 60 Pulse Rate [Right] Respiratory Rate 16 Blood Pressure 119/81 Blood Pressure [Right Arm] Blood Pressure Mean [Right Arm] Blood Pressure Source Blood Pressure Source [Right Arm] Blood Pressure Position 02 Sat by Pulse Oximetry 98 Oxygen Delivery Method Room Air - Lab Data Lab results reviewed: Yes: I reviewed the patient's lab results. Lab Results 10/18/20 04:00: Urine Color Yellow, Urine Appearance Clear, Urine pH 6.0, Ur Specific [place] 1.015, Urine Protein Negative, Urine Glucose (UA) Negative, Urine Ketones Negative, Urine Blood Negative, Urine Nitrate Negative, Urine Bilirubin Negative, Urine Urobilinogen 2.0, Ur Leukocyte Esterase Negative, Urine RBC None, Urine WBC Occasional, Ur Squamous Epith Cells None, Urine Bacteria None, Urine Mucus Trace 10/18/20 04:00: WBC 9.5, RBC 4.79, Hgb 15.0, Hct 44.1, MCV 92.0, MCH 31.4 H, MCHC 34.1, RDW 13.4, Plt Count 231, MPV 7.1 L, Neut % (Auto) 75.1, Lymph % (Auto) 14.8, [place] % (Auto) 7.1, Eos % (Auto) 2.6, Baso % (Auto) 0.4, Neut # (Auto) 7.2, Lymph # (Auto) 1.4, [place] # (Auto) 0.7, Eos # (Auto) 0.3, Baso # (Auto) 0.0, ESR 16 10/18/20 04:00: Sodium 136, Potassium 4.1, Chloride 103, Carbon Dioxide 27, Anion Gap 10.1, BUN 13, Creatinine 0.90, Estimated Creat Clear 95, Estimated GFR 86, Est GFR ( Amer) 104, Glucose 98, Calcium 8.7, Total Bilirubin 0.8, AST 19, ALT 10 L, Alkaline Phosphatase 85, Troponin I < 0.01, C-Reactive Protein 3.3, Total Protein 6.9, Albumin 4.3, Globulin 2.6, Albumin/Globulin Ratio 1.7 10/18/20 04:00: Procalcitonin < 0.030 Result diagrams: 10/18/20 04:00 10/18/20 04:00 Orders (Tests/Meds): ED MEDICATIONS Generic Name Dose Route Start Last Admin Trade Name Freq PRN Reason Stop Dose Admin Sodium Chloride 1,000 mls @ 999 mls/hr 10/18/20 04:00 10/18/20 04:16 Sod Chlor 0.9% 1000ml Bag IV 10/18/20 05:00 999 mls/hr .Q1H1M GWENDOLYN Administration Discontinued Medications Generic Name Dose Route Start Last Admin Trade Name Freq PRN Reason Stop Dose Admin Acetaminophen 1,000 mg
[2020-10-18 04:45] VITALS: BP 119/76; PULSE 58; RESP 18; O2SAT 96
[2020-10-18 05:45] VITALS: BP 119/81; PULSE 60; RESP 16; O2SAT 98
--- NOTE | 2020-10-18 06:30 | PC.NURSE ---
Pt's family called to notify he is ready for d/c
[2020-10-18 06:32] VITALS: BP 118/79; PULSE 65; RESP 16; TEMP 36.7; O2SAT 98
[2020-10-18 08:32] VITALS: BP 149/90; PULSE 87; RESP 18; TEMP 37; O2SAT 98
== END 2020-10-18 08:34 | disposition home or self-care (01) ==
PROVIDERS: Emergency Provider Emergency Medicine; PCP Nurse Practitioner Family
DX: R55 Syncope and collapse (principal); S06.0X0A Concussion without loss of consciousness, initial encounter; S80.212A Abrasion, left knee, initial encounter; Q66.00 Congenital talipes equinovarus, unspecified foot; W18.39XA Other fall on same level, initial encounter; Y92.012 Bathroom of single-family (private) house as the place of occurrence of the external cause; I10 Essential (primary) hypertension; F41.9 Anxiety disorder, unspecified; Z79.899 Other long term (current) drug therapy
CPT/HCPCS: 70450; 71045; 72125; 72170; 73562; 80053; 81001; 84145; 84484; 85025; 85651; 86140; 93005; 96365; 99283

== ENCOUNTER 2021-02-05 15:44 | Emergency (ER) | payer MEDICARE, OTHER, SELFPAY ==
[2021-02-05 15:50] VITALS: BP 121/71; PULSE 100; RESP 20; TEMP 36.7; O2SAT 98; BMI 36.0
--- NOTE | 2021-02-05 15:51 | XR_ITS ---
PROCEDURE INFORMATION: Exam: XR Left Knee Exam date and time: 02/05/2021 3:51 PM Age: 60 years old Clinical indication: Pain and injury or trauma; Laceration; Patella or knee; Right; Without foreign body; Injury details: Had a fall and abrasions on knee and hand; Additional info: Knee pain after fall TECHNIQUE: Imaging protocol: XR Left knee. Views: 3 views. COMPARISON: CR XR KNEE LT 3V 10/18/2020 5:07 AM FINDINGS: Bones/joints: No fracture. No malalignment. Soft tissues: Moderate anterior soft tissue swelling noted. IMPRESSION: No evidence of acute osseous injury
--- NOTE | 2021-02-05 15:51 | XR_ITS ---
PROCEDURE INFORMATION: Exam: XR Right Hand Exam date and time: 02/05/2021 3:51 PM Age: 60 years old Clinical indication: Pain and injury or trauma; Fall; Laceration; Right; Injury date: Today; Injury details: Patient fell has abrasions on hand and knee// unable to fan lateral or move fingers well; Additional info: Hand pain after fall TECHNIQUE: Imaging protocol: XR Right hand. Views: 3 or more views. COMPARISON: No relevant prior studies available. FINDINGS: Bones/joints: No fracture. No malalignment. Moderate degenerative changes seen in the wrist. Soft tissues: Normal. IMPRESSION: No evidence of acute osseous injury
--- NOTE | 2021-02-05 16:05 | HMH.EDGENADL ---
ED Disposition Clinical Impression: Wrist abrasion, non-infected Knee abrasion Qualifiers: Encounter type: initial encounter Laterality: left Qualified Code(s): S80.212A - Abrasion, left knee, initial encounter Fall Qualifiers: Encounter type: initial encounter Qualified Code(s): W19.XXXA - Unspecified fall, initial encounter Disposition: Home, Self-Care Condition on Discharge: Good - Critical Care Critical Care Time: No Attestation: On , the high probability of a clinically significant, sudden or life threatening deterioration of the following system(s) required my full and direct attention, intervention and personal management. The time I documented below is in addition to time spent performing reported procedures but includes the following listed in this critical care notation. Medical Decision Making - Medical Records Medical records reviewed: Yes: I reviewed the patient's medical records. - Nate Inquiry Pt receiving controlled substance: No Vital Signs: 02/05/21 15:50 Temperature 98.1 F Temperature Source Oral Pulse Rate [Right Brachial] 100 H Respiratory Rate 20 Blood Pressure [Right Arm] 121/71 Blood Pressure Mean [Right Arm] 87 Blood Pressure Source [Right Arm] Automatic Cuff Blood Pressure Position [Right Arm] Sitting 02 Sat by Pulse Oximetry 98 Oxygen Delivery Method Room Air Orders (Tests/Meds): ED MEDICATIONS Discontinued Medications Generic Name Dose Route Start Last Admin Trade Name Freq PRN Reason Stop Dose Admin Acetaminophen 500 mg 02/05/21 15:52 02/05/21 16:49 Acetaminophen 500mg Tab PO 02/05/21 15:53 500 mg ONCE ONE Administration Ibuprofen 400 mg 02/05/21 15:52 02/05/21 16:49 Ibuprofen 400 Mg Tablet PO 02/05/21 15:53 400 mg ONCE ONE Administration Medical Decision Narrative: Patient is a 60-year-old male presents to the ED today for further evaluation of knee abrasion and right hand abrasion after a fall. Patient is well-appearing on initial evaluation in no acute distress with stable vital signs, differential diagnosis includes vasovagal syncope, heatstroke, cardiogenic syncope, mechanical fall. Patient will have x-ray of the left knee and right hand performed, given Tylenol and ibuprofen orally for pain. Wound is dressed by nursing staff, no lacerations needing repair. Patient's tetanus is up-to-date. Patient with symptoms consistent with mild dehydration, allowed to tolerate p.o. Patient will be sent home with bacitracin, given return precautions return to ED with new or worsening symptoms. X-rays with no evidence of fracture, patient able to ambulate, has been given a meal here in the ED. General Adult HPI - General Stated complaint: Fall Time Seen by Provider: 02/05/21 15:50 - History of Present Illness HPI narrative: Patient is a 60-year-old male presents the ED today after a fall outside. 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 Patient states that he has pain over his left knee, and over his right hand, states that he did hit his forehead on the ground, states he did not pass out or lose conscious. Patient was able to ambulate after the accident, has superficial abrasion to the left knee and right hand dorsally, complaining of mild pain to this area. Requesting Tylenol and ibuprofen. - Related Data Home Medications Medication Instructions Recorded Confirmed Citalopram Hydrobromide [Celexa] 40 mg PO DAILY 10/08/20 12/23/20 Previous Rx's Medication Instructions Recorded albuterol sulfate 90 mcg/actuation 1 puff INHALATION Q6H #6.7 g 01/14/19 aerosol inhaler diclofenac sodium 1 % topical gel 4 g TOPICAL QID PRN #30 g 06/25/19 pravastatin 20 mg tablet 20 mg PO DAILY #90 tab 12/04/19 ergocalciferol (vitamin D2) 1,250 50,000 unit PO QWEEK #14 cap 10/15/20 mcg (50,000 unit) capsule cilosta
[2021-02-05 17:00] VITALS: BP 141/88; PULSE 87; O2SAT 97
[2021-02-05 17:30] VITALS: BP 138/77; PULSE 95; O2SAT 96
[2021-02-05 19:15] VITALS: BP 138/77; PULSE 90; RESP 20; TEMP 36.7; O2SAT 98
== END 2021-02-05 19:16 | disposition home or self-care (01) ==
PROVIDERS: Emergency Provider Student in an Organized Health Care Education/Training Program; PCP Nurse Practitioner Family
DX: S80.212A Abrasion, left knee, initial encounter (principal); S60.511A Abrasion of right hand, initial encounter; W01.0XXA Fall on same level from slipping, tripping and stumbling without subsequent striking against object, initial encounter; Y92.480 Sidewalk as the place of occurrence of the external cause; I10 Essential (primary) hypertension; F41.9 Anxiety disorder, unspecified
CPT/HCPCS: 73130; 73562; 99282

== ENCOUNTER → 2021-02-11 18:09 | Outpatient (CLI) | payer MEDICARE, OTHER, SELFPAY | PROVIDERS: Visit Provider Nurse Practitioner Family | DX: S60.519A Abrasion of unspecified hand, initial encounter (principal) | CPT/HCPCS: 87070; 87077; 87186; 87205 ==

== ENCOUNTER → 2021-06-06 14:10 | Outpatient (CLI) | payer MEDICARE, OTHER, SELFPAY ==
[2021-06-06 14:12] LABS: Adenovirus,PCR Not Detected (NotDetected); Bordetella Pertussis Not Detected (NotDetected); Chlamydophila Pneumoniae, PCR Not Detected (NotDetected); Coronavirus 19, PCR Not Detected (NotDetected); Coronavirus 229E Not Detected (NotDetected); Coronavirus NL63 Not Detected (NotDetected); Coronavirus OC43 Not Detected (NotDetected); Coronovirus HKU1,PCR Not Detected (NotDetected); Human Metapneumovirus Not Detected (NotDetected); Influenza A, PCR Not Detected (NotDetected); Influenza AH1, 2009 Not Detected (NotDetected); Influenza AH1, PCR Not Detected (NotDetected); Influenza AH3,PCR Not Detected (NotDetected); Influenza B, PCR Not Detected (NotDetected); Mycoplasma Pneumoniae, PCR Not Detected (NotDetected); Parainfluenza 1, PCR Not Detected (NotDetected); Parainfluenza 2, PCR Not Detected (NotDetected); Parainfluenza 3, PCR Not Detected (NotDetected); Parainfluenza 4, PCR Not Detected (NotDetected); Respiratory Syncytial Virus Not Detected (NotDetected)
[2021-06-06 18:36] LABS: Rhinovirus/Enterovirus Detected (NotDetected)
== END ==
PROVIDERS: Visit Provider Family Medicine
DX: Z11.52 Encounter for screening for COVID-19 (principal); R05.9 Cough, unspecified; R09.89 Other specified symptoms and signs involving the circulatory and respiratory systems; R06.2 Wheezing
CPT/HCPCS: 87581; 87632; 87798; C9803; U0003; U0005

== ENCOUNTER → 2021-07-20 13:40 | Outpatient (CLI) | payer MEDICARE, OTHER, SELFPAY ==
[2021-07-20 16:03] LABS: Benzodiazepines Screen,Urine Positive ng/ml (<200)
[2021-07-20 16:04] LABS: Amphetamine/Metha Screen,Urine Negative ng/ml (<1000); Barbiturates Screen,Urine Negative ng/ml (<200)
[2021-07-20 16:05] LABS: Cannabinoid Screen,Urine Negative ng/ml (<50)
[2021-07-20 16:06] LABS: Cocaine Screen,Urine Negative ng/ml (<300); Methadone Screen,Urine Negative ng/ml (<300)
[2021-07-20 16:07] LABS: Opiate Screen,Urine Negative ng/ml (<300)
[2021-07-20 16:08] LABS: Phencyclidine Screen,Urine Negative ng/ml (<25)
== END ==
PROVIDERS: Visit Provider Nurse Practitioner Family
DX: Z79.899 Other long term (current) drug therapy (principal)
CPT/HCPCS: 80305

== ENCOUNTER 2022-01-12 12:31 | Emergency (ER) | payer MEDICARE, OTHER, SELFPAY ==
[2022-01-12 12:18] VITALS: BP 119/81; PULSE 75; RESP 16; TEMP 36.6; O2SAT 98; BMI 31.7; BMI 36.8
--- NOTE | 2022-01-12 12:29 | CT_ITS ---
FINAL REPORT CLINICAL HISTORY: head injury loc, fall, neck pain COMPARISON: 10/18/2020 FINDINGS: Axial images of the head were obtained without contrast. Coronal reformatted images were also obtained. This study was performed with techniques to keep radiation doses as low as reasonably achievable (ALARA). Individualized dose reduction techniques using automated exposure control or adjustment of mA and/or kV according to the patient's size were employed. There is generalized age-appropriate atrophy. Periventricular low-attenuation areas are seen consistent with mild chronic ischemic changes. There is severe hydrocephalus, stable. There is no evidence of intracranial hemorrhage or mass. There is no evidence of acute infarct. There is no evidence of shift of the midline structures. No skull abnormality is seen on the bone window images. IMPRESSION: Severe hydrocephalus, stable. Atrophy and mild periventricular chronic ischemic changes. No acute intracranial abnormality identified. Reviewed, Interpreted and Dictated by Gus Gayle III, MD Transcribed by Gilson Johnson Authenticated and [facility]
[2022-01-12 12:30] VITALS: BP 120/81; PULSE 74; O2SAT 97
--- NOTE | 2022-01-12 12:30 | CT_ITS ---
FINAL REPORT CLINICAL HISTORY: fall, abrasion, swelling left frontal skull COMPARISON: 10/18/2020 FINDINGS: Axial CT images of the cervical spine were obtained without contrast. Sagittal and coronal reformatted images were also obtained. This study was performed with techniques to keep radiation doses as low as reasonably achievable (ALARA). Individualized dose reduction techniques using automated exposure control or adjustment of mA and/or kV according to the patient's size were employed. There is a chronic type 2 dens fracture versus congenital non fusion, stable. There is no evidence of acute fracture or dislocation. There are moderate and severe degenerative changes with multilevel neural foraminal narrowing. There is mild central canal stenosis at C4-C5, C5-C6, and C6-C7. No paraspinous soft tissue abnormality is seen. Limited images of the upper thorax are unremarkable. IMPRESSION: No acute fracture or acute bony abnormality identified. Moderate and severe degenerative changes, stable. Reviewed, Interpreted and Dictated by Gus Gayle III, MD Transcribed by Gilson Johnson Authenticated and [facility]
--- NOTE | 2022-01-12 12:31 | XR_ITS ---
FINAL REPORT CLINICAL HISTORY: fall FINDINGS: Three views of the right knee reveal no evidence of fracture or dislocation. There is a questionable chronic fracture of the proximal fibula. There are mild degenerative changes. There is no evidence of joint effusion. There is mild vascular calcification. IMPRESSION: No acute abnormality identified. Reviewed, Interpreted and Dictated by Gus Gayle III, MD Transcribed by Gilson Johnson Authenticated and [facility]
--- NOTE | 2022-01-12 12:31 | XR_ITS ---
FINAL REPORT CLINICAL HISTORY: fall COMPARISON: 02/05/2021 FINDINGS: Three views of the left knee reveal no evidence of fracture or dislocation. The bony alignment is normal. The joint spaces are preserved. There is no evidence of joint effusion. There is prepatellar soft tissue swelling. There is mild vascular calcification. IMPRESSION: Swelling with no acute bony abnormality. Reviewed, Interpreted and Dictated by Gus Gayle III, MD Transcribed by Gilson Johnson Authenticated and [facility]
[2022-01-12 13:16] VITALS: PULSE 66; O2SAT 97
[2022-01-12 13:30] VITALS: BP 124/74; PULSE 65; O2SAT 93
--- NOTE | 2022-01-12 14:00 | HMH.EDGENADL ---
ED Disposition Clinical Impression: Fall Qualifiers: Encounter type: initial encounter Qualified Code(s): W19.XXXA - Unspecified fall, initial encounter Abrasion head Qualifiers: Encounter type: initial encounter Qualified Code(s): S00.91XA - Abrasion of unspecified part of head, initial encounter Disposition: Home, Self-Care Condition on Discharge: Good Instructions: Exercises to Help Prevent Falls, DI for Abrasion Additional Instructions: You were evaluated in the emergency department today after a fall. Take Tylenol and ibuprofen at home as needed for pain. Follow-up with your primary care provider over the next 48 hours. Return to the emergency department for any new or worsening symptoms. Referrals: Troy Anaya MD [Primary Care Provider] - - Critical Care Critical Care Time: No Attestation: On 01/12/22, the high probability of a clinically significant, sudden or life threatening deterioration of the following system(s) required my full and direct attention, intervention and personal management. The time I documented below is in addition to time spent performing reported procedures but includes the following listed in this critical care notation. Medical Decision Making - Nate Inquiry Pt receiving controlled substance: No Vital Signs: 01/12/22 12:30 01/12/22 13:16 01/12/22 13:30 Pulse Rate 74 66 65 Blood Pressure 120/81 124/74 Blood Pressure Mean 93 86 02 Sat by Pulse Oximetry 97 97 93 L Oxygen Delivery Method Room Air Room Air Room Air Orders (Tests/Meds): ED MEDICATIONS Discontinued Medications Generic Name Dose Route Start Last Admin Trade Name Freq PRN Reason Stop Dose Admin Acetaminophen 1,000 mg 01/12/22 13:56 Acetaminophen 500mg Tab PO 01/12/22 13:57 ONCE ONE Ibuprofen 800 mg 01/12/22 13:56 Ibuprofen 400 Mg Tablet PO 01/12/22 13:57 ONCE ONE Medical Decision Narrative: In summary, this patient is a 61-year-old male presenting to the emergency department for evaluation following a mechanical ground-level fall. He reports that he was walking when he tripped, hitting his head and scraping his knees. Differential diagnoses include intracranial hemorrhage, skull fracture, fracture, dislocation, neurovascular injury. The patient is neurovascularly intact on physical exam with no focal neurologic deficits. He has no findings suggestive of any chest, back, or abdominal trauma. He does have an abrasion to the head and superficial abrasions to the knees. CT scan of the head and C-spine were obtained as well as x-rays of the knees that did not demonstrate any bony abnormalities or acute intracranial pathology. Given this, patient was deemed to be appropriate for discharge. He was given Tylenol and ibuprofen orally for pain. He was given strict return precautions, and he was discharged in stable condition with plan for outpatient follow-up with his primary care provider. General Adult HPI - General Stated complaint: Fall Time Seen by Provider: 01/12/22 12:45 - History of Present Illness HPI narrative: Patient is a 61-year-old male with a history of clubfoot presented to the emergency department after a ground-level fall. He reports that he was walking when he tripped over his feet, striking his head into a tree as he fell on the way down. He reports that he did briefly lose consciousness. He currently complains of head pain and bilateral knee pain at this time. He is not on any blood thinners. He was well prior to this. He denies vision changes, chest pain, neck pain, back pain, abdominal pain, numbness, tingling, or weakness. - Related Data Previous Rx's Medication Instructions Recorded olopatadine 0.2 % eye drops 1 drp OPHTHALMIC DAILY #2.5 ml 11/29/20 cilostazol 100 mg tablet See Rx Instructions .ROUTE 03/08/21 .COMPLEX #60 tab omeprazole 40 mg capsule,delayed 40 mg PO DAILY #90 cap 04/06/21 release loratadine 10 mg tabl
--- NOTE | 2022-01-12 15:00 | PC.NURSE ---
attempted to call pt's brother no answer
[2022-01-12 15:30] VITALS: BP 124/74; PULSE 78; RESP 16; TEMP 36.6; O2SAT 97
== END 2022-01-12 15:30 | disposition home or self-care (01) ==
PROVIDERS: Emergency Provider Emergency Medicine; PCP Emergency Medicine
DX: S00.91XA Abrasion of unspecified part of head, initial encounter (principal); M79.605 Pain in left leg; M79.604 Pain in right leg; R42 Dizziness and giddiness; R94.31 Abnormal electrocardiogram [ECG] [EKG]; I10 Essential (primary) hypertension; I73.9 Peripheral vascular disease, unspecified; M19.90 Unspecified osteoarthritis, unspecified site; G43.909 Migraine, unspecified, not intractable, without status migrainosus; Q66.89 Other specified congenital deformities of feet; F41.9 Anxiety disorder, unspecified; Z23 Encounter for immunization; Z82.49 Family history of ischemic heart disease and other diseases of the circulatory system; Z80.9 Family history of malignant neoplasm, unspecified; Z83.3 Family history of diabetes mellitus; W01.0XXA Fall on same level from slipping, tripping and stumbling without subsequent striking against object, initial encounter
CPT/HCPCS: 70450; 72125; 73562; 90471; 90715; 99284

== ENCOUNTER 2022-03-16 05:55 | Emergency (ER) | payer MEDICARE, OTHER, SELFPAY ==
[2022-03-16 05:55] VITALS: BP 151/117; PULSE 65; RESP 16; TEMP 37.1; O2SAT 97; BMI 39.9
--- NOTE | 2022-03-16 05:59 | CT_ITS ---
PROCEDURE INFORMATION: Exam: CT Head Without Contrast Exam date and time: 03/16/2022 6:09 AM Age: 61 years old Clinical indication: Injury or trauma; Fall; Blunt trauma (contusions or hematomas) TECHNIQUE: Imaging protocol: Computed tomography of the head without contrast. Radiation optimization: All CT scans at this facility use at least one of these dose optimization techniques: automated exposure control; mA and/or kV adjustment per patient size (includes targeted exams where dose is matched to clinical indication); or iterative reconstruction. COMPARISON: CT HEAD/BRAIN WO CON 01/12/2022 12:39 PM FINDINGS: Brain: There is marked cortical atrophy. No evidence of acute intracranial hemorrhage. No acute parenchymal edema. No mass or shift. Cerebral ventricles: Compared to the prior study, again noted is market enlargement of the 4 ventricles. Although enlarged, the size is stable compared to the prior. Paranasal sinuses: Visualized sinuses are unremarkable. No fluid levels. Mastoid air cells: Unremarkable as visualized. No mastoid effusion. Bones/joints: No acute fracture. Soft tissues: There is left frontal scalp soft tissue swelling. IMPRESSION: Stable chronic hydrocephalus compared to the prior. No acute intracranial process or hemorrhage.
--- NOTE | 2022-03-16 05:59 | CT_ITS ---
PROCEDURE INFORMATION: Exam: CT Cervical Spine Without Contrast Exam date and time: 03/16/2022 6:09 AM Age: 61 years old Clinical indication: Injury or trauma; Fall; Blunt trauma TECHNIQUE: Imaging protocol: Computed tomography of the cervical spine without contrast. Radiation optimization: All CT scans at this facility use at least one of these dose optimization techniques: automated exposure control; mA and/or kV adjustment per patient size (includes targeted exams where dose is matched to clinical indication); or iterative reconstruction. COMPARISON: CT CERVICAL SPINE WO CON 01/12/2022 12:41 PM FINDINGS: Bones/joints: Again noted is a stable type 2 dens fracture with 4-5 mm posterior displacement. No acute fracture or dislocation. There are multilevel degenerative disc changes. Lungs: The lung apices demonstrate no acute process. Soft tissues: Unremarkable. IMPRESSION: 1. Stable chronic type 2 dens fracture. 2. No acute fracture or dislocation. 3. There is multilevel degenerative disc disease.
--- NOTE | 2022-03-16 05:59 | XR_ITS ---
PROCEDURE INFORMATION: Exam: XR Chest Exam date and time: 03/16/2022 6:00 AM Age: 61 years old Clinical indication: Injury or trauma; Fall; Blunt trauma (contusions or hematomas) TECHNIQUE: Imaging protocol: Radiologic exam of the chest. Views: 1 view. COMPARISON: CR XR CHEST AP 10/18/2020 5:07 AM FINDINGS: Lungs: Lungs are well aerated without a focal area of consolidation. Pleural spaces: Unremarkable. No pleural effusion. No pneumothorax. Heart/Mediastinum: The cardiac silhouette appears enlarged, some of which is magnification related to the AP projection. Soft tissue prominence right paratracheal region likely projectional. Consider follow-up two view chest. Bones/joints: Unremarkable. IMPRESSION: 1. Lungs are well aerated without a focal area of consolidation. 2. Soft tissue prominence right paratracheal region likely projectional. Consider follow-up two view chest.
--- NOTE | 2022-03-16 05:59 | XR_ITS ---
PROCEDURE INFORMATION: Exam: XR Pelvis Exam date and time: 03/16/2022 5:59 AM Age: 61 years old Clinical indication: Injury or trauma; Fall; Blunt trauma (contusions or hematomas); Does not apply; Pelvic region TECHNIQUE: Imaging protocol: Radiologic exam of the pelvis. Views: 1 or 2 view. COMPARISON: CR XR PELVIS 1-2V 10/18/2020 5:14 AM FINDINGS: Bones/joints: osseous structures of the pelvis without an acute process. rami are intact. Sacroiliac joints without separation/diastases/fracture. Iliac bones unremarkable/noncontributory. Degenerative changes within the visualized portions of the caudal aspect of the lumbar spine. Prior trauma to the inferior pubic rami bilaterally . Focus of bony sclerosis left iliac bone. Stable. Soft tissues: See Bones/joints finding. IMPRESSION: No acute process.
--- NOTE | 2022-03-16 07:54 | HMH.EDFALL ---
Discharge Plan Disposition Patient Disposition: Home, Self-Care Prescriptions Prescriptions: No Action olopatadine [Pataday Once Daily Relief] 0.2 % drops 1 drp OPHTHALMIC DAILY Qty: 2.5 2RF diazepam 2 mg tablet 2 mg PO BID Qty: 60 3RF gabapentin 300 mg capsule 300 mg PO TID Qty: 90 3RF loratadine 10 mg tablet 10 mg PO DAILY Qty: 90 3RF Rx Instructions: TAKE 1 TABLET BY MOUTH ONCE DAILY FOR ALLERGY SYMPTOMS cilostazol 100 mg tablet See Rx Instructions .ROUTE .COMPLEX Qty: 60 0RF Dose Instruction: TAKE 1 TABLET BY MOUTH TWICE DAILY Rx Instructions: TAKE 1 TABLET BY MOUTH TWICE DAILY omeprazole 40 mg capsule,delayed release(DR/EC) 40 mg PO DAILY Qty: 90 3RF Rx Instructions: TAKE 1 CAPSULE BY MOUTH ONCE DAILY FOR GERD atenolol 25 mg tablet See Rx Instructions .ROUTE .COMPLEX Qty: 90 0RF Dose Instruction: TAKE 1 TABLET BY MOUTH ONCE DAILY FOR HYPERTENSION Rx Instructions: TAKE 1 TABLET BY MOUTH ONCE DAILY FOR HYPERTENSION pravastatin 20 mg tablet See Rx Instructions .ROUTE .COMPLEX Qty: 90 0RF Dose Instruction: TAKE 1 TABLET BY MOUTH ONCE DAILY FOR CHOLESTEROL Rx Instructions: TAKE 1 TABLET BY MOUTH ONCE DAILY FOR CHOLESTEROL citalopram 40 mg tablet See Rx Instructions .ROUTE .COMPLEX Qty: 90 0RF Dose Instruction: TAKE 1 TABLET BY MOUTH DAILY FOR ANXIETY Rx Instructions: TAKE 1 TABLET BY MOUTH DAILY FOR ANXIETY Referrals Follow up/Referrals: Troy Anaya MD [Primary Care Provider] - See instructions Clinical Impressions Clinical Impression: Concussion, Laceration of scalp Discharge ED Provider: Troy Aanya Fall HPI General Chief Complaint: Fall Stated Complaint: fall Time Seen by Provider: 03/16/22 07:55 Mode of Arrival: EMS Source of Information: Patient, EMS and Medical Record Limitations: No Limitations Description of Symptoms (Recalled from ER Triage Doc. by RN): pt states that he tripped over feet and head hit a chair. pt has laceration to forehead History of Present Illness HPI Narrative: trip injury and hit head without loc- MD complaint: fall Onset (ago): hour(s) Fall from: standing Fall witnessed: no Place fall occurred: home Loss of consciousness: none Prolonged down time: no Symptoms prior to fall: none Context: tripped/slipped Location of injury: head Severity: moderate Associated symptoms (after fall): headache Related Data Previous Rx's Medication Instructions Recorded olopatadine 0.2 % eye drops 1 drp ophthalmic (eye) DAILY #2.5 11/29/20 (Pataday Once Daily Relief) mL cilostazol 100 mg tablet See Rx Instructions .Route 03/08/21 .COMPLEX #60 tabs omeprazole 40 mg capsule,delayed 40 mg PO DAILY Reflux/Acid reflux 04/06/21 release #90 caps loratadine 10 mg tablet 10 mg PO DAILY Allergy symptoms 06/17/21 #90 tabs atenolol 25 mg tablet See Rx Instructions .Route 09/19/21 .COMPLEX #90 tabs pravastatin 20 mg tablet See Rx Instructions .Route 12/19/21 .COMPLEX #90 tabs diazepam 2 mg tablet 2 mg PO BID Anxiety #60 tabs 01/11/22 gabapentin 300 mg capsule 300 mg PO TID Pain #90 caps 01/11/22 citalopram 40 mg tablet See Rx Instructions .Route 02/28/22 .COMPLEX #90 tabs Allergies Allergy/AdvReac Type Severity Reaction Status Date / Time No Known Allergies Allergy Verified 01/11/22 16:16 [facility] Medical History (Updated 03/16/22 @ 08:07 by Troy Anaya MD) Abnormal ankle brachial index (CHAUNCEY) Abnormal EKG Anxiety Bilateral leg pain Claudication Dizziness Mild intellectual disabilities Neuropathy Social History Smoking Status: Never smoker alcohol intake: never substance use type: denies use current occupational status: disabled Travel in the last 8 weeks: None household members: family housing: house current occupational exposures/hazards: No caffeine: Yes ROS Obtained: Yes All systems reviewed & no karissa
[2022-03-16 08:00] VITALS: BP 171/121; PULSE 55; RESP 18; O2SAT 98
--- NOTE | 2022-03-16 08:03 | PC.NURSE ---
PT HAS BEEN SUTURED UP AND SITTING UP EATING BREAKFAST
--- NOTE | 2022-03-16 08:04 | PC.NURSE ---
contacted rad to check on status of xray reports (chest and pelvis), spoke with edmundo states they are reading them now.
[2022-03-16 08:40] VITALS: BP 159/118; PULSE 58; RESP 17; TEMP 37.1; O2SAT 98
== END 2022-03-16 08:40 | disposition home or self-care (01) ==
PROVIDERS: Emergency Provider Emergency Medicine; PCP Emergency Medicine
DX: S06.0X0A Concussion without loss of consciousness, initial encounter; W18.39XA Other fall on same level, initial encounter; W22.03XA Walked into furniture, initial encounter; S01.81XA Laceration without foreign body of other part of head, initial encounter
CPT/HCPCS: 12011; 70450; 71045; 72125; 72170; 99284

== ENCOUNTER → 2022-06-28 11:00 | Outpatient (CLI) | payer MEDICARE, OTHER, SELFPAY ==
[2022-06-28 19:16] LABS: Alanine Aminotransferase 15 U/L (12-78); Albumin Level 4.4 g/dl (3.5-5.0); Albumin/Globulin Ratio 1.8 (1.1-1.8); Alkaline Phosphatase 93 U/L (38-126); Anion Gap 11.9 mEq/L (5-15); Aspartate Amino Transferase 25 U/L (17-59); Bilirubin,Total 0.6 mg/dl (0.2-1.3); Blood Urea Nitrogen 17 mg/dl (9-20); Calcium 8.8 mg/dl (8.4-10.2); Carbon Dioxide 23 mmol/L (22.0-30.0); Chloride 103 mmol/L (98-107); Cholesterol 156 mg/dl (140-200); Estimated Glomerular Filt Rate 85 ml/min (>60); GFR (African American) 103 ML/MIN (>60); Globulin 2.5 g/dL (1.3-3.2); Glucose 98 mg/dl (74-100); Potassium 3.9 mmoL/L (3.5-5.1); Sodium 134 mmol/L (136-145); Total Protein,Serum 6.9 g/dl (6.3-8.2); Triglycerides 73 mg/dl (30-150); VLDL Cholesterol 15 mg/dL (0-40)
[2022-06-28 19:27] LABS: Basophils % 0.4 % (0.1-2.0); Direct LDL Cholesterol 98.91 mg/dL (100-129); Eosinophils % 0.4 % (0.1-12.0); Hematocrit 44.1 % (42.0-52.0); Lymphocytes # 0.9 K/mm3 (0.7-4.5); Lymphocytes % 8.8 % (10-50); Mean Corpuscular HGB Conc 33.9 g/dL (31.8-35.4); Mean Corpuscular Hemoglobin 31.2 pg (27.0-31.2); Mean Corpuscular Volume 92.1 fl (80-94); Mean Platelet Volume 8.5 fl (7.4-10.4); Monocytes # 0.5 K/mm3 (0.1-1.0); Monocytes % 5.1 % (1.7-9.3); Neutrophils # 8.7 K/mm3 (1.8-7.8); Neutrophils % 85.3 % (37.0-80.0); Platelet Count 306 K/mm3 (142-424); Red Blood Count 4.79 M/mm3 (4.60-6.20); Red Cell Distribution Width 13.5 % (11.5-17.5); White Blood Count 10.2 K/mm3 (4.8-10.8)
[2022-06-28 19:34] LABS: MANUAL DIFFERENTIAL MANUAL DIFFERENTIAL (MANUAL DIFF)
[2022-06-28 19:35] LABS: 25-OH Vitamin D, Total 17.9 ng/mL (30-100)
[2022-06-28 19:39] LABS: Free T4 (Free Thyroxine) 1.59 ng/dl (0.78-2.19)
[2022-06-28 19:48] LABS: Thyroid Stimulating Hormone 1.95 uIU/mL (0.465-4.68)
[2022-06-28 20:13] LABS: Chol/HDL Ratio 3.4 (1-3.5); HDL Cholesterol 46 mg/dl (40-60)
[2022-06-28 21:31] LABS: Lymphocytes % 14 % (10-50); Monocytes % 11 % (2-9); Neutrophils % 75 % (42-76); Platelet Estimate Normal; RBC Morphology Normal; Total Cells Counted 100
== END ==
PROVIDERS: PCP Emergency Medicine; Visit Provider Emergency Medicine
DX: E55.9 Vitamin D deficiency, unspecified (principal); R53.83 Other fatigue; E66.9 Obesity, unspecified; Z12.5 Encounter for screening for malignant neoplasm of prostate; Z68.38 Body mass index [BMI] 38.0-38.9, adult
CPT/HCPCS: 80053; 80061; 82306; 84439; 84443; 85007; 85025; G0103

== ENCOUNTER 2022-08-03 10:26 | Emergency (ER) | payer MEDICARE, OTHER, SELFPAY ==
[2022-08-03 10:27] VITALS: BP 117/78; PULSE 48; RESP 16; TEMP 36.3; O2SAT 99; BMI 38.0
[2022-08-03 10:31] VITALS: BP 112/68; PULSE 56; O2SAT 99
--- NOTE | 2022-08-03 10:36 | XR_ITS ---
FINAL REPORT CLINICAL HISTORY: fall, pain FINDINGS: LEFT FEMUR 2 views were obtained. There is no acute fracture or dislocation. The joint spaces are intact. There is no soft tissue abnormality. IMPRESSION: No acute bony abnormality. Reviewed, Interpreted and Dictated by Gus Gayle III, MD Transcribed by Uma Green Authenticated and [facility]
--- NOTE | 2022-08-03 10:36 | XR_ITS ---
FINAL REPORT CLINICAL HISTORY: fall, pain FINDINGS: RIGHT FOOT Three views of the right foot demonstrate no acute fracture or dislocation. There are mild degenerative changes. There are calcaneal spurs. The soft tissues are unremarkable. IMPRESSION: No acute bony abnormality. Mild degenerative changes. Reviewed, Interpreted and Dictated by Gus Gayle III, MD Transcribed by Uma Green Authenticated and [facility]
--- NOTE | 2022-08-03 10:36 | XR_ITS ---
FINAL REPORT CLINICAL HISTORY: fall FINDINGS: RIGHT HIP Two views of the right hip with an AP pelvis demonstrate no acute fracture or dislocation. There are chronic fractures of the inferior pubic rami. The joint spaces appear normal. The visualized bony structures are well aligned. There are mild vascular calcifications. IMPRESSION: No acute bony abnormality. Reviewed, Interpreted and Dictated by Gus Gayle III, MD Transcribed by Uma Green Authenticated and [facility][1]
--- NOTE | 2022-08-03 10:36 | XR_ITS ---
FINAL REPORT CLINICAL HISTORY: fall, pain FINDINGS: LEFT TIBIA FIBULA 2 views were obtained. There is no acute fracture or dislocation. There is a deformity of the mid fibula which may represent a chronic fracture. There are mild degenerative changes of the knee and ankle. There are mild vascular calcifications. IMPRESSION: No acute bony abnormality. Deformity of the mid fibula may represent a chronic fracture. Mild degenerative changes of the knee and ankle. Reviewed, Interpreted and Dictated by Gus Gayle III, MD Transcribed by Uma Green Authenticated and [facility]
--- NOTE | 2022-08-03 10:36 | XR_ITS ---
FINAL REPORT CLINICAL HISTORY: fall, pain FINDINGS: RIGHT FEMUR 2 views were obtained. There is no acute fracture or dislocation. The joint spaces are intact. There is no soft tissue abnormality. IMPRESSION: No acute bony abnormality. Reviewed, Interpreted and Dictated by Gus Gayle III, MD Transcribed by Uma Green Authenticated and [facility]
--- NOTE | 2022-08-03 10:36 | XR_ITS ---
FINAL REPORT CLINICAL HISTORY: fall, pain FINDINGS: LEFT HIP Two views of the left hip demonstrate no acute fracture or dislocation. There are apparent chronic fractures of the bilateral inferior pubic rami. The joint spaces appear normal. The visualized bony structures are well aligned. No soft tissue abnormality is seen. IMPRESSION: No acute bony abnormality. Reviewed, Interpreted and Dictated by Gus Gayle III, MD Transcribed by Uma Green Authenticated and [facility]
--- NOTE | 2022-08-03 10:36 | XR_ITS ---
FINAL REPORT CLINICAL HISTORY: fall, pain FINDINGS: LEFT FOOT Three views of the left foot demonstrate no acute fracture or dislocation. There is cavus deformity. There is moderate to severe degenerative change. There is there is angulation of the forefoot. The soft tissues are unremarkable. IMPRESSION: Moderate to severe degenerative change with cavus deformity and varus angulation of the forefoot. Reviewed, Interpreted and Dictated by Gus Gayle III, MD Transcribed by Uma Green Authenticated and [facility]
--- NOTE | 2022-08-03 10:36 | XR_ITS ---
FINAL REPORT CLINICAL HISTORY: fall, pain FINDINGS: LEFT TIBIA FIBULA 2 views were obtained. There is no acute fracture or dislocation. There are mild degenerative changes of the knee. There is no soft tissue abnormality. IMPRESSION: No acute bony abnormality. Mild degenerative changes of the knee. Reviewed, Interpreted and Dictated by Gus Gayle III, MD Transcribed by Uma Green Authenticated and [facility]
--- NOTE | 2022-08-03 10:39 | HMH.EDGENADL ---
Discharge Plan Disposition Patient Disposition: Home, Self-Care Condition: Good Chief Complaint: Fall Prescriptions Prescriptions: No Action olopatadine [Pataday Once Daily Relief] 0.2 % drops 1 drp OPHTHALMIC DAILY Qty: 2.5 2RF pravastatin 20 mg tablet See Rx Instructions .ROUTE .COMPLEX Qty: 90 3RF Dose Instruction: TAKE 1 TABLET BY MOUTH ONCE DAILY FOR CHOLESTEROL Rx Instructions: TAKE 1 TABLET BY MOUTH ONCE DAILY FOR CHOLESTEROL diazepam 2 mg tablet 2 mg PO BID Qty: 60 2RF gabapentin 300 mg capsule 300 mg PO TID Qty: 90 2RF loratadine 10 mg tablet 10 mg PO DAILY Qty: 90 3RF Rx Instructions: TAKE 1 TABLET BY MOUTH ONCE DAILY FOR ALLERGY SYMPTOMS cilostazol 100 mg tablet See Rx Instructions .ROUTE .COMPLEX Qty: 60 0RF Dose Instruction: TAKE 1 TABLET BY MOUTH TWICE DAILY Rx Instructions: TAKE 1 TABLET BY MOUTH TWICE DAILY citalopram 40 mg tablet See Rx Instructions .ROUTE .COMPLEX Qty: 90 0RF Dose Instruction: TAKE 1 TABLET BY MOUTH DAILY FOR ANXIETY Rx Instructions: TAKE 1 TABLET BY MOUTH DAILY FOR ANXIETY omeprazole 40 mg capsule,delayed release(DR/EC) See Rx Instructions .ROUTE .COMPLEX Qty: 90 2RF Dose Instruction: TAKE 1 CAPSULE BY MOUTH EVERY DAY FOR REFLUX/ACID REFLUX Rx Instructions: TAKE 1 CAPSULE BY MOUTH EVERY DAY FOR REFLUX/ACID REFLUX atenolol 25 mg tablet See Rx Instructions .ROUTE .COMPLEX Qty: 90 0RF Dose Instruction: TAKE 1 TABLET BY MOUTH ONCE DAILnceled by BARRON GARRET. Rx Instructions: TAKE 1 TABLET BY MOUTH ONCE DAILnceled by BARRON GARRET. cholecalciferol (vitamin D3) 1,250 mcg (50,000 unit) capsule 1,250 mcg PO WEEKLY Qty: 14 3RF Referrals Follow up/Referrals: Provider,Referral, MD [Referring] - See instructions Activity Restrictions/Add. Instructions Additional Instructions/Restrictions: Tylenol as needed for pain. Follow-up with primary care provider next week if not improving. Clinical Impressions Clinical Impression: Fall, Bilateral lower extremity pain Instructions Patient Instructions: How to Prevent Falls Discharge ED Provider: Avelino [facility] General Adult HPI General Chief complaint: Fall Stated complaint: Fall Time Seen by Provider: 08/03/22 10:33 Mode of Arrival: EMS Source of Information: Patient Limitations: No Limitations Description of Symptoms (Recalled from ER Triage Doc. 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 Pt reports his left leg gave out causing him to fall on his bottom. C/o bottom, bilateral hip/leg pain. Denies blood thinners. Denies head trauma. Hx of HTN, seizures. Meds; Gabapentin, Atenolol. History of Present Illness HPI narrative: The patient is brought in by ambulance. He says that he lost his balance today which caused him to fall. He says he landed on his bottom. Complains of pain in both buttocks and hips and in both lower extremities from his hips all the way down to his feet. He wears braces on both of his legs. Denies injury to head, neck, back, chest, abdomen, upper extremities. Denies loss of consciousness. Denies any new numbness or weakness. States he is not on any blood thinners. Related Data Previous Rx's Medication Instructions Recorded olopatadine 0.2 % eye drops 1 drp ophthalmic (eye) DAILY #2.5 11/29/20 (Pataday Once Daily Relief) mL cilostazol 100 mg tablet See Rx Instructions .Route 03/08/21 .COMPLEX #60 tabs loratadine 10 mg tablet 10 mg PO DAILY Allergy symptoms 06/17/21 #90 tabs pravastatin 20 mg tablet See Rx Instructions .Route 04/04/22 .COMPLEX #90 tabs citalopram 40 mg tablet See Rx Instructions .Route 05/29/22 .COMPLEX #90 tabs omeprazole 40 mg capsule,delayed See Rx Instructions .Route 06/22/22 release .COMPLEX #90 caps atenolol 25 mg tablet See Rx Instructions .Route 06/28/22 .COMPLEX #90 tabs diazepam 2 mg tablet 2 mg PO BID Anxiety #60 tabs 06/28
--- NOTE | 2022-08-03 10:44 | PC.NURSE ---
Assisted patient into gown for exam/diagnostics.
--- NOTE | 2022-08-03 11:08 | PC.NURSE ---
pt in radiology
--- NOTE | 2022-08-03 11:13 | PC.NURSE ---
pt returned to room
--- NOTE | 2022-08-03 11:22 | PC.NURSE ---
pt resting, states he didnt get his coffee this am or anything to eat. Pt aware that once his xray are read if they are ok we will get a meal for pt
--- NOTE | 2022-08-03 11:26 | PC.NURSE ---
checked on pt no complaints,dimmed his light, call light @ bs
--- NOTE | 2022-08-03 11:27 | PC.NURSE ---
Food/fluids ordered per pt's request.
--- NOTE | 2022-08-03 11:28 | PC.NURSE ---
called for meal tray
--- NOTE | 2022-08-03 11:29 | PC.NURSE ---
attempted to call family, no answer at this time. will try back
[2022-08-03 11:40] VITALS: BP 111/64; PULSE 55; RESP 16; TEMP 36.6; O2SAT 99
== END 2022-08-03 12:05 | disposition home or self-care (01) ==
PROVIDERS: Emergency Provider Emergency Medicine; PCP Emergency Medicine
DX: M79.661 Pain in right lower leg (principal); M79.662 Pain in left lower leg; F41.9 Anxiety disorder, unspecified; G62.9 Polyneuropathy, unspecified; I70.213 Atherosclerosis of native arteries of extremities with intermittent claudication, bilateral legs; W19.XXXA Unspecified fall, initial encounter; Z86.79 Personal history of other diseases of the circulatory system
CPT/HCPCS: 73502; 73552; 73590; 73630; 99284; 99285

== ENCOUNTER → 2023-02-09 07:30 | Outpatient (CLI) | payer MEDICARE, OTHER, SELFPAY ==
--- NOTE | 2023-02-09 07:37 | XR_ITS ---
FINAL REPORT CLINICAL HISTORY: foot pain FINDINGS: Right foot Three views were obtained. There is no acute fracture or dislocation. There are mild degenerative changes. Calcaneal spurs are identified. There is vascular calcification. IMPRESSION: Mild degenerative changes. Reviewed, Interpreted and Dictated by Gus Gayle III, MD Transcribed by Nasima Nelson Authenticated and [facility]
--- NOTE | 2023-02-09 07:37 | XR_ITS ---
FINAL REPORT CLINICAL HISTORY: foot pain COMPARISON: 08/03/2022 FINDINGS: Left foot Three views were obtained. There is no acute fracture or dislocation. There are severe degenerative changes of the midfoot. There are presumed chronic fractures of the 4th and 5th metatarsals. Findings are stable since prior. No soft tissue abnormality is identified. IMPRESSION: Degenerative and chronic appearing findings, stable. Reviewed, Interpreted and Dictated by Gus Gayle III, MD Transcribed by Nasima Nelson Authenticated and [facility]
== END ==
PROVIDERS: PCP Nurse Practitioner Family; Visit Provider Podiatrist
DX: M79.671 Pain in right foot (principal); M79.672 Pain in left foot
CPT/HCPCS: 73630

== ENCOUNTER 2023-04-02 03:11 | Emergency (ER) | payer MEDICARE, OTHER, SELFPAY ==
[2023-04-02] VITALS (11 sets, daily range): BP systolic 122–138; BP diastolic 74–83; PULSE 66–85; RESP 18–20; TEMP 36.9; O2SAT 95–100; BMI 33.9
--- NOTE | 2023-04-02 03:22 | ECG_ITS ---
APPROVED REPORT Exam: Resting ECG HR:72 bpm ECG Measurements Heart Rate 72 AXES OH 148 P 64 QRSd 91 QRS 6 QT 406 T 10 QTc 430 Conclusion SINUS RHYTHM NORMAL ECG UNCONFIRMED REPORT Electronically signed by : Devin Isabel MD 04/02/2023 17:49:24
--- NOTE | 2023-04-02 03:22 | XR_ITS ---
PROCEDURE INFORMATION: Exam: XR Chest Exam date and time: 04/02/2023 3:49 AM Age: 62 years old Clinical indication: Shortness of breath; Additional info: SOB TECHNIQUE: Imaging protocol: Radiologic exam of the chest. Views: 1 view. COMPARISON: CR XR CHEST PORTABLE 03/16/2022 6:00 AM FINDINGS: Lungs: Mild underinflation. No definite consolidation. Pleural spaces: No significant pleural effusion. No pneumothorax. Heart/Mediastinum: No cardiomegaly. Bones/joints: No displaced fracture. Soft tissues: Unremarkable. IMPRESSION: No definite acute cardiopulmonary disease.
--- NOTE | 2023-04-02 03:28 | HMH.EDGENADL ---
Discharge Plan Disposition Patient Disposition: Home, Self-Care Condition: Good Chief Complaint: Shortness of Breath/Dyspnea Prescriptions Prescriptions: New prednisone 50 mg tablet 40 mg PO DAILY 5 Days Qty: 4 0RF albuterol sulfate 90 mcg/actuation HFA aerosol inhaler 2 inh inhalation Q4H PRN (Reason: shortness of breath or wheezing) Qty: 8.5 0RF azithromycin [Zithromax TRI-RUSTY] 500 mg tablet See Rx Instructions .ROUTE .COMPLEX Qty: 6 0RF Rx Instructions: For 250 mg dose pack: take 500 mg today (day 1), then 250 mg for 4 days (days 2-5) No Action pravastatin 20 mg tablet See Rx Instructions .ROUTE .COMPLEX Qty: 90 3RF Dose Instruction: TAKE 1 TABLET BY MOUTH ONCE DAILY FOR CHOLESTEROL Rx Instructions: TAKE 1 TABLET BY MOUTH ONCE DAILY FOR CHOLESTEROL mupirocin 2 % ointment 1 applic topical TID Qty: 22 0RF gabapentin 300 mg capsule 300 mg PO TID Qty: 90 2RF diazepam 2 mg tablet 2 mg PO BID Qty: 60 2RF cilostazol 100 mg tablet See Rx Instructions .ROUTE .COMPLEX Qty: 60 0RF Dose Instruction: TAKE 1 TABLET BY MOUTH TWICE DAILY Rx Instructions: TAKE 1 TABLET BY MOUTH TWICE DAILY cholecalciferol (vitamin D3) 1,250 mcg (50,000 unit) capsule 1,250 mcg PO WEEKLY Qty: 14 3RF loratadine 10 mg tablet See Rx Instructions .ROUTE .COMPLEX Qty: 90 2RF Dose Instruction: TAKE 1 TABLET BY MOUTH ONCE DAILY FOR ALLERGIES Rx Instructions: TAKE 1 TABLET BY MOUTH ONCE DAILY FOR ALLERGIES citalopram 40 mg tablet See Rx Instructions .ROUTE .COMPLEX Qty: 90 0RF Dose Instruction: TAKE 1 TABLET BY MOUTH DAILY FOR ANXIETY Rx Instructions: TAKE 1 TABLET BY MOUTH DAILY FOR ANXIETY atenolol 25 mg tablet See Rx Instructions .ROUTE .COMPLEX Qty: 90 0RF Dose Instruction: TAKE 1 TABLET BY MOUTH ONCE DAILY Rx Instructions: TAKE 1 TABLET BY MOUTH ONCE DAILY omeprazole 40 mg capsule,delayed release(DR/EC) See Rx Instructions .ROUTE .COMPLEX Qty: 90 1RF Dose Instruction: TAKE 1 CAPSULE BY MOUTH EVERY DAY FOR REFLUX/ACID REFLUX Rx Instructions: TAKE 1 CAPSULE BY MOUTH EVERY DAY FOR REFLUX/ACID REFLUX Referrals Follow up/Referrals: Provider,Referral, MD [Referring] - See instructions Activity Restrictions/Add. Instructions Additional Instructions/Restrictions: You have been evaluated in the ED for your complaints. You may follow-up with your PCP in the next 3 to 5 days. Please return to ED for any new or worsening symptoms. Please take prednisone as prescribed. Clinical Impressions Clinical Impression: Shortness of breath, Wheezing, Chest tightness Instructions Patient Instructions: DI for Shortness of Breath Discharge ED Provider: Antonino Urbina General Adult HPI <Frederick Tapia, - Last Filed: 04/02/23 07:03> General Chief complaint: Shortness of Breath/Dyspnea Stated complaint: Congestion Time Seen by Provider: 04/02/23 03:13 Mode of Arrival: EMS Source of Information: Patient Limitations: No Limitations Description of Symptoms (Recalled from ER Triage Doc. by RN): Patient states he woke up at 0230 with shortness of breath after going to the restroom, states he has been having some mild cough and congestion for two days. Denies any chest pain. History of Present Illness HPI narrative: 62-year-old male with past medical history significant for epilepsy, hypertension, bronchitis, presents today for evaluation concerning shortness of breath that woke him from sleep around 2:30 AM. Patient states he has been having cough and congestion of the past couple of days. Denies any fevers, chills, chest pain, nausea, vomiting. He does report chest tightness secondary to coughing. Has not tried any interventions at home. He has no further complaints at this time. Related Data Previous Rx's Medication Instructions Recorded cilostazol 100 mg tablet See Rx Instructions .Route 03/08/21
[2023-04-02 03:35] LABS: Basophils # 0.1 K/mm3 (0-0.2); Basophils % 0.7 % (0.1-2.0); Eosinophils # 0.3 K/mm3 (0.0-0.4); Eosinophils % 4.5 % (0.1-12.0); Hematocrit 42.7 % (42.0-52.0); Hemoglobin 14.7 g/dL (14.1-18.0); Lymphocytes % 26.3 % (10-50); Mean Corpuscular HGB Conc 34.4 g/dL (31.8-35.4); Mean Corpuscular Hemoglobin 32.7 pg (27.0-31.2); Mean Corpuscular Volume 94.9 fl (80-94); Mean Platelet Volume 7.5 fl (7.4-10.4); Monocytes # 0.6 K/mm3 (0.1-1.0); Monocytes % 7.7 % (1.7-9.3); Neutrophils # 4.6 K/mm3 (1.8-7.8); Neutrophils % 60.8 % (37.0-80.0); Platelet Count 225 K/mm3 (142-424); Red Cell Distribution Width 13.3 % (11.5-17.5); White Blood Count 7.6 K/mm3 (4.8-10.8)
[2023-04-02 03:36] LABS: Chloride 103 mmol/L (98-107); Sodium 138 mmol/L (136-145)
[2023-04-02 03:37] LABS: Potassium 3.8 mmoL/L (3.5-5.1)
[2023-04-02 03:39] LABS: Alanine Aminotransferase 23 U/L (12-78); Albumin Level 4.4 g/dl (3.5-5.0); Albumin/Globulin Ratio 1.6 (1.1-1.8); Alkaline Phosphatase 88 U/L (38-126); Anion Gap 12.8 mEq/L (5-15); Aspartate Amino Transferase 28 U/L (17-59); Bilirubin,Total 0.3 mg/dl (0.2-1.3); Blood Urea Nitrogen 17 mg/dl (9-20); Carbon Dioxide 26 mmol/L (22.0-30.0); Creatinine Clearance Estimated 110 mL/min (50-200); Estimated Glomerular Filt Rate 68 ml/min (>60); GFR (African American) 82 ML/MIN (>60); Globulin 2.7 g/dL (1.3-3.2); Total Protein,Serum 7.1 g/dl (6.3-8.2)
[2023-04-02 03:40] LABS: Calcium 8.6 mg/dl (8.4-10.2); Glucose 107 mg/dl (74-100)
[2023-04-02 03:53] LABS: Troponin I < 0.01 ng/ml (0.00-0.034)
[2023-04-02 04:55] LABS: Coronavirus 19, PCR Not Detected (NotDetected); Influenza A, PCR Not Detected (NotDetected); Influenza B, PCR Not Detected (NotDetected)
--- NOTE | 2023-04-02 07:31 | PC.NURSE ---
Rounded on pt. Voiced he was hungry. Breakfast tray ordered. No other needs voiced at this time.
[2023-04-02 07:32] LABS: Troponin I < 0.01 ng/ml (0.00-0.034)
--- NOTE | 2023-04-02 07:34 | PC.NURSE ---
Dr. Urbina at bedside
--- NOTE | 2023-04-02 07:34 | PC.NURSE ---
Dr. Urbina at BS to update pt on current POC
--- NOTE | 2023-04-02 07:34 | PC.NURSE ---
dr lopez at bedside to reevaluate pt
--- NOTE | 2023-04-02 07:51 | PC.NURSE ---
Pt provided with breakfast tray and assisted with set up
--- NOTE | 2023-04-02 07:59 | PC.NURSE ---
left message with brother for pt a ride home
--- NOTE | 2023-04-02 08:06 | PC.NURSE ---
BROTHER CALLED BACK, STATES HE WILL HAVE TO FIND SOMEONE TO [facility] PT
== END 2023-04-02 08:52 | disposition home or self-care (01) ==
PROVIDERS: Emergency Medicine; Emergency Provider Emergency Medicine; PCP Emergency Medicine
DX: R07.89 Other chest pain (principal); R06.02 Shortness of breath; R06.2 Wheezing; G40.909 Epilepsy, unspecified, not intractable, without status epilepticus; I10 Essential (primary) hypertension; I73.9 Peripheral vascular disease, unspecified; F41.9 Anxiety disorder, unspecified; Z87.891 Personal history of nicotine dependence
CPT/HCPCS: 71045; 80053; 84484; 85025; 87636; 93005; 99284

== ENCOUNTER → 2023-04-30 15:48 | Outpatient (CLI) | payer MEDICARE, OTHER, SELFPAY ==
--- NOTE | 2023-04-30 15:56 | XR_ITS ---
PROCEDURE INFORMATION: Exam: XR Left Ribs Exam date and time: 04/30/2023 4:22 PM Age: 62 years old Clinical indication: Injury or trauma; Fall; Rib area, left side; Blunt trauma; Additional info: Fall, lt posterior rib pain TECHNIQUE: Imaging protocol: Radiologic exam of the left ribs. Views: 2 views. COMPARISON: CR XR CHEST 2V 04/30/2023 4:13 PM FINDINGS: Bones/joints: No acute displaced fracture or malalignment. Soft tissues: Unremarkable. IMPRESSION: No evidence of acute displaced rib fracture.
--- NOTE | 2023-04-30 15:56 | XR_ITS ---
PROCEDURE INFORMATION: Exam: XR Chest Exam date and time: 04/30/2023 4:13 PM Age: 62 years old Clinical indication: Chest wall pain and left-sided; Additional info: SOB, wheeze, pain over ribs after fall TECHNIQUE: Imaging protocol: Radiologic exam of the chest. Views: 2 views. COMPARISON: CR XR CHEST PORTABLE 04/02/2023 3:49 AM FINDINGS: Lungs: No evidence of acute airspace infiltrate, noting low lung volumes limits evaluation of airspace disease. Pleural spaces: No large pleural effusion. No pneumothorax. Heart/Mediastinum: Cardiomediastinal silouhette is unchanged. Bones/joints: No evidence of acute osseous abnormality, noting that the ribs are incompletely imaged. IMPRESSION: No acute findings.
== END ==
PROVIDERS: PCP Family Medicine; Visit Provider Family Medicine
DX: R06.02 Shortness of breath (principal); R06.2 Wheezing; R07.81 Pleurodynia; W19.XXXA Unspecified fall, initial encounter
CPT/HCPCS: 71046; 71100

== ENCOUNTER 2023-09-15 12:47 | Emergency (ER) | payer MEDICARE, OTHER, SELFPAY ==
[2023-09-15 12:51] VITALS: BP 129/86; PULSE 70; RESP 18; TEMP 36.7; O2SAT 99; BMI 34.4
--- NOTE | 2023-09-15 13:02 | XR_ITS ---
PROCEDURE INFORMATION: Exam: XR Left Knee Exam date and time: 09/15/2023 1:03 PM Age: 63 years old Clinical indication: Pain; Knee; Left; Additional info: Knee pain after fall TECHNIQUE: Imaging protocol: Radiologic exam of the left knee. Views: 3 views. COMPARISON: CR XR KNEE LT 3V 01/12/2022 1:03 PM FINDINGS: Bones/joints: Normal. Soft tissues: Soft tissue swelling in the region of the prepatellar bursa. IMPRESSION: 1. Findings compatible with mild changes of prepatellar bursitis. 2. No evidence of acute osseous injury.
--- NOTE | 2023-09-15 13:11 | PC.NURSE ---
pt to XR
--- NOTE | 2023-09-15 13:40 | PC.NURSE ---
EARS IRRIGATED, PT TOLERATED WELL
--- NOTE | 2023-09-15 14:02 | PC.NURSE ---
ROUNDED ON PT, NO NEEDS AT THIS TIME.
[2023-09-15 14:46] VITALS: BP 148/89; PULSE 80; RESP 20; TEMP 36.6; O2SAT 98
--- NOTE | 2023-09-15 14:49 | HMH.EDGENADL ---
Discharge Plan Disposition Patient Disposition: Home, Self-Care Condition: Good Prescriptions Prescriptions: No Action mupirocin 2 % ointment 1 applic topical TID Qty: 22 0RF gabapentin 300 mg capsule See Rx Instructions .ROUTE .COMPLEX Qty: 90 2RF Dose Instruction: TAKE 1 CAPSULE BY MOUTH THREE TIMES A DAY FOR PAIN MAY CAUSE DROWSINESS Rx Instructions: TAKE 1 CAPSULE BY MOUTH THREE TIMES A DAY FOR PAIN MAY CAUSE DROWSINESS Vraylar 1.5 mg capsule 1.5 mg PO DAILY Qty: 30 2RF diazepam 2 mg tablet 2 mg PO DAILY PRN (Reason: anxiety) 30 Days Qty: 30 2RF Debrox 6.5 % drops 5 drp otic (ear) DAILY 4 Days Qty: 15 0RF cilostazol 100 mg tablet See Rx Instructions .ROUTE .COMPLEX Qty: 60 0RF Dose Instruction: TAKE 1 TABLET BY MOUTH TWICE DAILY Rx Instructions: TAKE 1 TABLET BY MOUTH TWICE DAILY loratadine 10 mg tablet See Rx Instructions .ROUTE .COMPLEX Qty: 90 2RF Dose Instruction: TAKE 1 TABLET BY MOUTH ONCE DAILY FOR ALLERGIES Rx Instructions: TAKE 1 TABLET BY MOUTH ONCE DAILY FOR ALLERGIES omeprazole 40 mg capsule,delayed release(DR/EC) See Rx Instructions .ROUTE .COMPLEX Qty: 90 1RF Dose Instruction: TAKE 1 CAPSULE BY MOUTH EVERY DAY FOR REFLUX/ACID REFLUX Rx Instructions: TAKE 1 CAPSULE BY MOUTH EVERY DAY FOR REFLUX/ACID REFLUX pravastatin 20 mg tablet See Rx Instructions .ROUTE .COMPLEX Qty: 90 2RF Dose Instruction: TAKE 1 TABLET BY MOUTH ONCE DAILY FOR CHOLESTEROL Rx Instructions: TAKE 1 TABLET BY MOUTH ONCE DAILY FOR CHOLESTEROL citalopram 40 mg tablet See Rx Instructions .ROUTE .COMPLEX Qty: 90 0RF Dose Instruction: TAKE 1 TABLET BY MOUTH ONCE DAILY FOR ANXIETY Rx Instructions: TAKE 1 TABLET BY MOUTH ONCE DAILY FOR ANXIETY atenolol 25 mg tablet See Rx Instructions .ROUTE .COMPLEX Qty: 90 0RF Dose Instruction: TAKE 1 TABLET BY MOUTH ONCE DAILY Rx Instructions: TAKE 1 TABLET BY MOUTH ONCE DAILY cholecalciferol (vitamin D3) 1,250 mcg (50,000 unit) capsule See Rx Instructions .ROUTE .COMPLEX Qty: 14 2RF Dose Instruction: TAKE 1 CAPSULE BY MOUTH WEEKLY FOR VITAMIN DEFICIENCY Rx Instructions: TAKE 1 CAPSULE BY MOUTH WEEKLY FOR VITAMIN DEFICIENCY albuterol sulfate 90 mcg/actuation HFA aerosol inhaler 2 inh inhalation Q4H PRN (Reason: shortness of breath or wheezing) Qty: 8.5 0RF Referrals Follow up/Referrals: Elliott Briseno APRN [Primary Care Provider] - See instructions Activity Restrictions/Add. Instructions Additional Instructions/Restrictions: You were evaluated in the emergency department today. Please take Tylenol at home as needed for pain. Follow-up with your primary care provider. Return to the emergency department for new or worsening symptoms. Clinical Impressions Clinical Impression: Abrasion of knee, Excess ear wax Discharge ED Provider: Katarina Valera General Adult HPI General Chief complaint: Extremity Injury, Lower Stated complaint: AO 09/14 left knee pain soa cough Time Seen by Provider: 09/15/23 13:17 Mode of Arrival: Wheelchair Source of Information: Patient Limitations: No Limitations Description of Symptoms (Recalled from ER Triage Doc. by RN): PT C/O LEFT KNEE PAIN AFTER A FALL THIS AM. DENIES ANY OTHER PAIN OR INJURIES. History of Present Illness HPI narrative: This patient is a 63-year-old male with history of multiple frequent falls presenting to the emergency department for evaluation with concern for left knee pain. Patient reports that he tripped and fell on his knee. He did not hit his head or lose consciousness. No pain aside from the left knee at the site of an abrasion. He has been ambulatory since. He also notes he would like to have his ears flushed out because he feels like they are full of wax. No other concerns noted at this time Related Data Previous Rx's Medication Instructions Recorded cilostazol 100 mg tablet See Rx Instructions .Route 03/08/21 .COMPLEX #60 tabs loratadine 10 mg tablet See Rx Instructions .Route 11/07/22 .COMPLEX #90 tabs mupirocin 2 % topical ointment 1 applic topical TID #22 grams 11/23/22 omeprazole 40 mg capsule,delayed See Rx Instructions .Route 03/27/23 release .COMPLEX #90 caps albuterol sulfate 90 mcg/actuation 2 inh inhalation Q4H PRN shortness 04/02/23 aerosol inhaler of breath or wheezing #8.5 grams pravastatin 20 mg tablet See Rx Instructions .Route 05/01/23 .COMPLEX #90 tabs citalopram 40 mg tablet See Rx Instructions .Route 07/30/23 .COMPLEX #90 tabs atenolol 25 mg tablet See Rx Instructions .Route 08/20/23 .COMPLEX #90 tabs cholecalciferol (vitamin D3) 1,250 See Rx Instructions .Route 08/24/23 mcg (50,000 unit) capsule .COMPLEX #14 caps cariprazine 1.5 mg capsule 1.5 mg PO DAILY #30 caps 09/12/23 (Vraylar) diazepam 2 mg tablet 2 mg PO DAILY PRN anxiety 30 days 09/12/23 #30 tabs gabapentin 300 mg capsule See Rx Instructions .Route 09/12/23 .COMPLEX #90 caps carbamide peroxide 6.5 % ear drops 5 drp otic (ear) DAILY 4 days #15 09/13/23 (Debrox) mL Allergies Allergy/AdvReac Type Severity Reaction Status Date / Time No Known Allergies Allergy Verified 09/12/23 14:10 [facility] Disclaimer: The information contained in this section may have been updated after the patient was seen, as this information can be updated by other users. Medical History Obesity Claudication Abnormal ankle brachial index (CHAUNCEY) Bilateral leg pain Abnormal EKG Dizziness Mild intellectual disabilities Anxiety Neuropathy Social History Smoking Status: Former smoker alcohol intake: never substance use type: denies use current occupational status: disabled Travel in the last 8 weeks: None household members: family housing: house current occupational exposures/hazards: No caffeine: Yes ROS Obtained: Yes All systems reviewed & no additional complaints except as documented Physical Exam General General appearance: alert and in no apparent distress Head Head exam: atraumatic and normocephalic Eye Eye exam: Present normal appearance, PERRL and EOMI ENT ENT exam: Present normal exam, normal oropharynx, mucous membranes moist, normal external ear exam and other (Wax in both ears) Neck Neck exam: Present normal inspection, full ROM and trachea midline; Absent tenderness Chest Chest inspection: Present normal inspection and symmetric chest wall rise; Absent tenderness Respiratory Respiratory exam: Present normal lung sounds bilaterally; Absent respiratory distress, wheezes, stridor or accessory muscle use Cardiovascular Cardiovascular exam: Present regular rate and normal rhythm Abdominal Exam Abdominal exam: Present soft; Absent distention, tenderness or guarding Extremities Exam Extremities exam: Present full ROM, tenderness (Tenderness to palpation of the left patella with superficial abrasion. Otherwise, no bony tenderness. All compartments soft. Neurovascularly intact distally.) and normal capillary refill; Absent edema Back Exam Back exam: Present normal inspection and full ROM; Absent tenderness Neurological Exam Neurological exam: Present alert, oriented X3, CN II-XII intact and normal gait; Absent motor sensory deficit Psychiatric Psychiatric exam: Present normal affect and normal mood Skin Skin exam: Present warm and dry Medical Decision Making Medical Records Medical records reviewed: Yes I reviewed the patient's medical records. Nate Inquiry Pt receiving controlled substance: No Vital Signs: 09/15/23 12:51 09/15/23 14:46 Temperature 98.0 F 97.9 F Temperature Source Oral Pulse Rate 80 Pulse Rate [Radial] 70 Respiratory Rate 18 20 Blood Pressure 148/89 H Blood Pressure [Right Arm] 129/86 Blood Pressure Mean [Right Arm] 100 Blood Pressure Source [Right Arm] Automatic Cuff Blood Pressure Position [Right Arm] Sitting 02 Sat by Pulse Oximetry 99 Oxygen Delivery Method Room Air Room Air Lab Data Lab results reviewed: Yes I reviewed the patient's lab results. Orders (Tests/Meds): ORDERS Category Date Time Status Knee XR left 3 views [XR knee LT 3V] Stat Exams 09/15/23 13:02 Completed Medical Decision Narrative: In summary, this patient is a 63-year-old male presenting to the Emergency Department for evaluation of left knee pain after a mechanical fall. Differential diagnoses considered include but are not limited to abrasion, fracture, contusion, strain/sprain. Ruling out the most morbid conditions drove assessment. On exam, the patient is well-appearing with no other focal traumatic injuries aside from a superficial abrasion to the left knee. Workup included the left knee. He does complain that he wants his ears flushed because they are full of wax. He is ears were irrigated by nursing staff.. I independently interpreted x-ray prior to the radiologist read and noted bursitis but no acute bony abnormality. Please see their read for final interpretation. On reassessment, the patient is resting comfortably. He is functional at his baseline. He does not have any other traumatic injuries on exam or history that would suggest other workup at this time. Given this, I feel that he is appropriate for discharge home. Strict return precautions were given as well as instructions for close outpatient follow-up, and the patient was discharged after all questions were answered Critical Care Critical Care Time Critical Care Time: No
== END 2023-09-15 14:47 | disposition home or self-care (01) ==
PROVIDERS: Emergency Provider Emergency Medicine; PCP Nurse Practitioner Family
DX: M25.562 Pain in left knee (principal); S80.212A Abrasion, left knee, initial encounter; H61.23 Impacted cerumen, bilateral; W01.10XA Fall on same level from slipping, tripping and stumbling with subsequent striking against unspecified object, initial encounter; Z87.891 Personal history of nicotine dependence
CPT/HCPCS: 73562; 99283

== ENCOUNTER 2023-09-18 10:54 | Emergency (ER) | payer MEDICARE, OTHER, SELFPAY ==
[2023-09-18] VITALS (7 sets, daily range): BP systolic 117–132; BP diastolic 80–91; PULSE 71–85; RESP 16–20; TEMP 36.7–36.8; O2SAT 95–97; BMI 36.5
[2023-09-18 11:02] LABS: Coronavirus 19, PCR Not Detected (NotDetected); Influenza A, PCR Not Detected (NotDetected); Influenza B, PCR Not Detected (NotDetected)
--- NOTE | 2023-09-18 11:02 | ECG_ITS ---
APPROVED REPORT Exam: Resting ECG HR:69 bpm ECG Measurements Heart Rate 69 AXES MD 155 P 52 QRSd 87 QRS -3 QT 389 T 21 QTc 408 Conclusion SINUS RHYTHM MINIMAL ST DEPRESSION Electronically signed by : IVANIA NEVAREZ, 09/20/2023 19:33:21
--- NOTE | 2023-09-18 11:06 | ED_ITS ---
Discharge Plan Disposition Patient Disposition: Home, Self-Care Condition: Good Prescriptions Prescriptions: New doxycycline hyclate 100 mg capsule 100 mg PO BID 7 Days Qty: 14 0RF ipratropium-albuterol 0.5 mg-3 mg(2.5 mg base)/3 mL solution for nebulization 3 ml inhalation Q4H PRN (Reason: wheezing) Qty: 90 1RF No Action mupirocin 2 % ointment 1 applic topical TID Qty: 22 0RF gabapentin 300 mg capsule See Rx Instructions .ROUTE .COMPLEX Qty: 90 2RF Dose Instruction: TAKE 1 CAPSULE BY MOUTH THREE TIMES A DAY FOR PAIN MAY CAUSE DROWSINESS Rx Instructions: TAKE 1 CAPSULE BY MOUTH THREE TIMES A DAY FOR PAIN MAY CAUSE DROWSINESS Vraylar 1.5 mg capsule 1.5 mg PO DAILY Qty: 30 2RF diazepam 2 mg tablet 2 mg PO DAILY PRN (Reason: anxiety) 30 Days Qty: 30 2RF Debrox 6.5 % drops 5 drp otic (ear) DAILY 4 Days Qty: 15 0RF cilostazol 100 mg tablet See Rx Instructions .ROUTE .COMPLEX Qty: 60 0RF Dose Instruction: TAKE 1 TABLET BY MOUTH TWICE DAILY Rx Instructions: TAKE 1 TABLET BY MOUTH TWICE DAILY loratadine 10 mg tablet See Rx Instructions .ROUTE .COMPLEX Qty: 90 2RF Dose Instruction: TAKE 1 TABLET BY MOUTH ONCE DAILY FOR ALLERGIES Rx Instructions: TAKE 1 TABLET BY MOUTH ONCE DAILY FOR ALLERGIES omeprazole 40 mg capsule,delayed release(DR/EC) See Rx Instructions .ROUTE .COMPLEX Qty: 90 1RF Dose Instruction: TAKE 1 CAPSULE BY MOUTH EVERY DAY FOR REFLUX/ACID REFLUX Rx Instructions: TAKE 1 CAPSULE BY MOUTH EVERY DAY FOR REFLUX/ACID REFLUX pravastatin 20 mg tablet See Rx Instructions .ROUTE .COMPLEX Qty: 90 2RF Dose Instruction: TAKE 1 TABLET BY MOUTH ONCE DAILY FOR CHOLESTEROL Rx Instructions: TAKE 1 TABLET BY MOUTH ONCE DAILY FOR CHOLESTEROL citalopram 40 mg tablet See Rx Instructions .ROUTE .COMPLEX Qty: 90 0RF Dose Instruction: TAKE 1 TABLET BY MOUTH ONCE DAILY FOR ANXIETY Rx Instructions: TAKE 1 TABLET BY MOUTH ONCE DAILY FOR ANXIETY atenolol 25 mg tablet See Rx Instructions .ROUTE .COMPLEX Qty: 90 0RF Dose Instruction: TAKE 1 TABLET BY MOUTH ONCE DAILY Rx Instructions: TAKE 1 TABLET BY MOUTH ONCE DAILY cholecalciferol (vitamin D3) 1,250 mcg (50,000 unit) capsule See Rx Instructions .ROUTE .COMPLEX Qty: 14 2RF Dose Instruction: TAKE 1 CAPSULE BY MOUTH WEEKLY FOR VITAMIN DEFICIENCY Rx Instructions: TAKE 1 CAPSULE BY MOUTH WEEKLY FOR VITAMIN DEFICIENCY albuterol sulfate 90 mcg/actuation HFA aerosol inhaler 2 inh inhalation Q4H PRN (Reason: shortness of breath or wheezing) Qty: 8.5 0RF Referrals Follow up/Referrals: Provider,Referral, MD [Referring] - See instructions Activity Restrictions/Add. Instructions Additional Instructions/Restrictions: As you and I talked about, your COVID test is negative, it seems that the medication that you are doctor gave you before you arrived to the emergency department today helped in addition to the medication we gave you in the emergency department. Given that you are feeling better and your oxygen level is improved and you are comfortable with being discharged that, based off the information we have at this time, is a safe option. I have prescribed solution for your nebulizer machine as well as antibiotics. Please follow-up with your primary care doctor. Please return with any new or worsening symptoms. Clinical Impressions Clinical Impression: Asthma with exacerbation Instructions Patient Instructions: DI for Shortness of Breath Discharge ED Provider: Prakash Capps Adult HPI General Chief complaint: Shortness of Breath/Dyspnea Stated complaint: soa Time Seen by Provider: 09/18/23 11:04 Mode of Arrival: EMS Source of Information: Patient and EMS Limitations: No Limitations Description of Symptoms (Recalled from ER Triage Doc. by RN): pt to ed via ems c/o SOA. ems states pt was being seen at primary care for his recent SOA and they called ems for respiratory distress. pt reports he has been increasingly SOA x2 weeks. pt received 1 duo neb and 125mg of solu medrol in route. pt denies pain. History of Present Illness HPI narrative: Patient reports approximately 1 week of shortness of breath, wheezing, myalgias, with no focal pain, denies any overt chest pain, denies any cough, nor productive cough, per chart review patient transferred from primary care appointment after administration of DuoNeb and Solu-Medrol. Denies any sick contacts, describes pressure in the front of his head, denies any syncope or presyncope, denies any hemoptysis, leg pain, leg swelling, denies any abdominal pain, denies any palpitations. Patient does report that he has been out of his DuoNeb solution at home. Please note that above description of symptoms, in this electronic medical record under categorization of recalled from ER triage doctor by RN are reflective of an initial nursing assessment, however, is not reflective of my full history and physical exam that was personally taken and clarified. Consequentially, this preceding description of symptoms, which may include the patient's categorized chief complaint in the EMR, do not reflect my personal cli nical impression, and the ultimate description of history of present illness and patient stated complaints should be deferred to this section of the note. Unless stated otherwise or congruent with this section of the note, additional signs, symptoms, or incongruence should be interpreted as inaccurate with my clinical impression. Related Data Previous Rx's Medication Instructions Recorded cilostazol 100 mg tablet See Rx Instructions .Route 03/08/21 .COMPLEX #60 tabs loratadine 10 mg tablet See Rx Instructions .Route 11/07/22 .COMPLEX #90 tabs mupirocin 2 % topical ointment 1 applic topical TID #22 grams 11/23/22 omeprazole 40 mg capsule,delayed See Rx Instructions .Route 03/27/23 release .COMPLEX #90 caps albuterol sulfate 90 mcg/actuation 2 inh inhalation Q4H PRN shortness 04/02/23 aerosol inhaler of breath or wheezing #8.5 grams pravastatin 20 mg tablet See Rx Instructions .Route 05/01/23 .COMPLEX #90 tabs citalopram 40 mg tablet See Rx Instructions .Route 07/30/23 .COMPLEX #90 tabs atenolol 25 mg tablet See Rx Instructions .Route 08/20/23 .COMPLEX #90 tabs cholecalciferol (vitamin D3) 1,250 See Rx Instructions .Route 08/24/23 mcg (50,000 unit) capsule .COMPLEX #14 caps cariprazine 1.5 mg capsule 1.5 mg PO DAILY #30 caps 09/12/23 (Vraylar) diazepam 2 mg tablet 2 mg PO DAILY PRN anxiety 30 days 09/12/23 #30 tabs gabapentin 300 mg capsule See Rx Instructions .Route 09/12/23 .COMPLEX #90 caps carbamide peroxide 6.5 % ear drops 5 drp otic (ear) DAILY 4 days #15 09/13/23 (Debrox) mL doxycycline hyclate 100 mg capsule 100 mg PO BID 7 days #14 caps 09/18/23 ipratropium 0.5 mg-albuterol 3 mg 3 ml inhalation Q4H PRN wheezing 09/18/23 (2.5 mg base)/3 mL nebulization #90 mL soln Allergies Allergy/AdvReac Type Severity Reaction Status Date / Time No Known Allergies Allergy Verified 09/18/23 09:55 [facility] Disclaimer: The information contained in this section may have been updated after the patient was seen, as this information can be updated by other users. Medical History Obesity Claudication Abnormal ankle brachial index (CHAUNCEY) Bilateral leg pain Abnormal EKG Dizziness Mild intellectual disabilities Anxiety Neuropathy Social History Smoking Status: Never smoker alcohol intake: never substance use type: denies use current occupational status: disabled Travel in the last 8 weeks: None household members: family housing: house current occupational exposures/hazards: No caffeine: Yes ROS Obtained: Yes other As per HPI Physical Exam General General appearance: alert and in no apparent distress Head Head exam: atraumatic and normocephalic Eye Eye exam: Present normal appearance Neck Neck exam: Present normal inspection Chest Chest inspection: Present normal inspection and symmetric chest wall rise Respiratory Respiratory exam: Present wheezes; Absent respiratory distress Cardiovascular Cardiovascular exam: Present regular rate and normal rhythm Abdominal Exam Abdominal exam: Present soft Neurological Exam Neurological exam: Present alert and oriented X3 Psychiatric Psychiatric exam: Present normal affect and normal mood Skin Skin exam: Present warm and dry Medical Decision Making Medical Records Medical records reviewed: Yes I reviewed the patient's medical records. Nate Inquiry Pt receiving controlled substance: No Vital Signs: 09/18/23 11:00 09/18/23 11:00 09/18/23 11:30 Temperature 98.2 F Temperature Source Oral Pulse Rate 73 71 Pulse Rate [Left Radial] 75 Respiratory Rate 20 Blood Pressure 123/89 131/81 Blood Pressure [Right Arm] 130/83 Blood Pressure Mean 95 102 Blood Pressure Mean [Right Arm] 98 Blood Pressure Source Blood Pressure Position 02 Sat by Pulse Oximetry 97 96 95 Oxygen Delivery Method Room Air 09/18/23 12:35 09/18/23 13:00 09/18/23 13:30 Temperature Temperature Source Pulse Rate 85 77 77 Pulse Rate [Left Radial] Respiratory Rate Blood Pressure 119/80 117/81 125/90 Blood Pressure [Right Arm] Blood Pressure Mean Blood Pressure Mean [Right Arm] Blood Pressure Source Blood Pressure Position 02 Sat by Pulse Oximetry 96 97 97 Oxygen Delivery Method Room Air 09/18/23 14:00 09/18/23 14:47 Temperature 98.1 F Temperature Source Oral Pulse Rate 76 76 Pulse Rate [Left Radial] Respiratory Rate 16 Blood Pressure 132/91 H 132/91 H Blood Pressure [Right Arm] Blood Pressure Mean Blood Pressure Mean [Right Arm] Blood Pressure Source Automatic Cuff Blood Pressure Position Sitting 02 Sat by Pulse Oximetry 95 Oxygen Delivery Method Room Air Lab Data Lab Results 09/18/23 10:57: SARS-CoV-2 (PCR) Not detected, Influenza A Untype (PCR) Not detected, Influenza Type B (PCR) Not detected Orders (Tests/Meds): ED MEDICATIONS Discontinued Medications Generic Name Dose Route Start Last Admin Trade Name Freq PRN Reason Stop Dose Admin Albuterol Sulfate 4 puff 09/18/23 14:01 09/18/23 14:12 Albuterol-Hfa 90mcg/Puff Inhaler 8gm IH 09/18/23 14:02 4 puff ONCE ONE Administration Albuterol/Ipratropium 3 ml 09/18/23 11:32 09/18/23 12:03 Ipratropium/Albuterol 3 Ml Neb IH 09/18/23 11:33 3 ml ONCE ONE Administration Ketorolac Tromethamine 15 mg 09/18/23 11:32 09/18/23 12:02 Ketorolac 30mg/Ml Vial IV 09/18/23 11:33 15 mg ONCE ONE Administration Miscellaneous 1 unit 09/18/23 14:01 09/18/23 14:12 Aerochamber/Optihaler MC 09/18/23 14:02 1 unit ONCE ONE Administration ORDERS Category Date Time Status XR chest portable Stat Exams 09/18/23 11:32 Completed Rapid PCR Covid and Flu A/B Stat Lab 09/18/23 10:57 Completed Medical Decision Narrative: Patient with history and exam per above presenting for evaluation of shortness of breath Diagnoses considered include asthma exacerbation, COPD exacerbation, pneumonia, there is insufficient evidence at this time of clinical or historical features to warrant further workup for ACS, PE, dissection, or traumatic injury ED workup and treatment included: ED MEDICATIONS Discontinued Medications Generic Name Dose Route Start Last Admin Trade Name Sergio PRN Reason Stop Dose Admin Albuterol Sulfate 4 puff 09/18/23 14:01 09/18/23 14:12 Albuterol-Hfa 90mcg/Puff Inhaler 8gm 09/18/23 14:02 4 puff ONCE ONE Administration Albuterol/Ipratropium 3 ml 09/18/23 11:32 09/18/23 12:03 Ipratropium/Albuterol 3 Ml Neb 09/18/23 11:33 3 ml ONCE ONE Administration Ketorolac Tromethamine 15 mg 09/18/23 11:32 09/18/23 12:02 Ketorolac 30mg/Ml Vial IV 09/18/23 11:33 15 mg ONCE ONE Administration Miscellaneous 1 unit 09/18/23 14:01 09/18/23 14:12 Aerochamber/Optihaler 09/18/23 14:02 1 unit ONCE ONE Administration ORDERS Category Date Time Status XR chest portable Stat Exams 09/18/23 11:32 Completed Rapid PCR Covid and Flu A/B Stat Lab 09/18/23 10:57 Completed Labs were independently interpreted by me, significant for COVID and flu negative Imaging was independently visualized and interpreted by me, significant for atelectasis versus consolidative process in right lower lobe. Clinically correlated, this likely most represents atelectasis however will elect to treat with doxycycline given initial presentation of hypoxemia, increased work of breathing, as well as time course of symptoms. Patient had already received steroids and nebulizer treatment prior to arrival, arrived with no increased work of breathing, satting high 90s on room air, I suspect these therapies prior to arrival likely have taken effect at this time. On repeat evaluation patient reports improvement of symptoms and is comfortable with discharge. My clinical impression at this time is most consistent with asthma exacerbation versus COPD exacerbation I discussed my clinical impression with patient and answered all questions. At this time, the evidence for any other entities in the differential is insufficient to warrant any further testing or ED observation. This was explained to the patient. The patient was advised that persistent or worsening symptoms require further evaluation. I confirmed the patient's understanding of this discussion. Critical Care Critical Care Time Critical Care Time: No
--- NOTE | 2023-09-18 11:32 | XR_ITS ---
FINAL REPORT CLINICAL HISTORY: Shortness of breath COMPARISON: 04/30/2023 FINDINGS: The heart size is normal. The mediastinum is normal. The lungs are underinflated. There is mild atelectasis at the right lung base. There are no pleural effusions. There is no pneumothorax. There is no osseous abnormality. IMPRESSION: Mild atelectasis right lung base. Reviewed, Interpreted and Dictated by Ayan Quarles MD Transcribed by Mara Almeida Authenticated and [facility]
[2023-09-18] MEDS: KETOROLAC 30MG/ML VIAL 15 MG IV (12:02)
[2023-09-18] MEDS: IPRATROPIUM/ALBUTEROL 3 ML NEB IH (12:03)
--- NOTE | 2023-09-18 12:33 | PC.NURSE ---
PT AMBULATORY TO BATHROOM WITH ASSISTANCE
[2023-09-18] MEDS: AEROCHAMBER/OPTIHALER 1 UNIT MC (14:12)
[2023-09-18] MEDS: ALBUTEROL-HFA 90MCG/PUFF INHALER 8GM 4 PUFF IH (14:12)
--- NOTE | 2023-09-18 14:25 | PC.NURSE ---
Brother notified of patient's discharge and need of clothes.
== END 2023-09-18 14:50 | disposition home or self-care (01) ==
PROVIDERS: Emergency Provider Emergency Medicine; PCP Nurse Practitioner Family
DX: J45.901 Unspecified asthma with (acute) exacerbation; R06.02 Shortness of breath
CPT/HCPCS: 71045; 87636; 93005; 96374; 99284

== ENCOUNTER 2023-09-30 23:12 | Observation (INO) | payer MEDICARE, OTHER, SELFPAY ==
[2023-09-30 23:12] VITALS: BP 127/82; PULSE 87; RESP 20; TEMP 36.9; O2SAT 98; BMI 40.3
--- NOTE | 2023-09-30 23:16 | XR_ITS ---
PROCEDURE INFORMATION: Exam: XR Chest Exam date and time: 09/30/2023 11:55 PM Age: 63 years old Clinical indication: Cough; Additional info: Cough, feeling unwell TECHNIQUE: Imaging protocol: Radiologic exam of the chest. Views: 1 view. COMPARISON: CR XR CHEST PORTABLE 09/18/2023 11:38 AM FINDINGS: Lungs: Unremarkable. No consolidation. Pleural spaces: Unremarkable. No pleural effusion. No pneumothorax. Heart/Mediastinum: Unremarkable. No cardiomegaly. Bones/joints: Unremarkable. IMPRESSION: No acute findings.
--- NOTE | 2023-09-30 23:16 | CT_ITS ---
PROCEDURE INFORMATION: Exam: CT Cervical Spine Without Contrast Exam date and time: 09/30/2023 11:41 PM Age: 63 years old Clinical indication: Injury or trauma; Fall; Blunt trauma; Additional info: Fall, head and neck pain, elbow pain TECHNIQUE: Imaging protocol: Computed tomography of the cervical spine without contrast. Radiation optimization: All CT scans at this facility use at least one of these dose optimization techniques: automated exposure control; mA and/or kV adjustment per patient size (includes targeted exams where dose is matched to clinical indication); or iterative reconstruction. 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 The lateral masses are symmetrically positioned around the dens. Predental space narrowing consistent with arthritis. Multilevel degenerative disc disease predominantly at C3-C4, C4-C5, C5-C6, C6-C7 levels with discogenic sclerosis and small disc osteophytes. No acute fractures. [id number] multilevel facet arthropathy. Left foraminal narrowing at C3-C4 due to uncovertebral joint hypertrophy image . Cerebral ventricles: Partially visualized severe ventriculomegaly similar to the prior exam. Lungs: Lung apices are normal. Soft tissues: Unremarkable. IMPRESSION: 1. 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 2. The lateral masses are symmetrically positioned around the dens. 3. Predental space narrowing consistent with arthritis. 4. Multilevel degenerative disc disease predominantly at C3-C4, C4-C5, C5-C6, C6-C7 levels with discogenic sclerosis and small disc osteophytes. 5. No acute fractures. 6. [id number] multilevel facet arthropathy. 7. Left foraminal narrowing at C3-C4 due to uncovertebral joint hypertrophy image /. 8. Partially visualized severe ventriculomegaly similar to the prior exam.
--- NOTE | 2023-09-30 23:16 | XR_ITS ---
PROCEDURE INFORMATION: Exam: XR Left Elbow Exam date and time: 09/30/2023 11:55 PM Age: 63 years old Clinical indication: Injury or trauma; Fall; Other: Pain; Additional info: Fall, head and neck pain, elbow pain TECHNIQUE: Imaging protocol: Radiologic exam of the left elbow. Views: 3 or more views. COMPARISON: CR XR HUMERUS LT 09/30/2023 11:55 PM FINDINGS: Bones/joints: Normal. Soft tissues: Normal. IMPRESSION: No acute findings.
--- NOTE | 2023-09-30 23:16 | XR_ITS ---
PROCEDURE INFORMATION: Exam: XR Left Forearm Exam date and time: 09/30/2023 11:55 PM Age: 63 years old Clinical indication: Injury or trauma; Fall; Other: Pain; Additional info: Fall, head and neck pain, elbow pain TECHNIQUE: Imaging protocol: Radiologic exam of the left forearm. Views: 2 views. COMPARISON: CR XR ELBOW LT MIN 3V 09/30/2023 11:55 PM FINDINGS: Bones/joints: Normal. Soft tissues: Normal. IMPRESSION: No acute findings.
--- NOTE | 2023-09-30 23:16 | CT_ITS ---
PROCEDURE INFORMATION: Exam: CT Head Without Contrast Exam date and time: 09/30/2023 11:41 PM Age: 63 years old Clinical indication: Injury or trauma; Fall; Blunt trauma (contusions or hematomas); Additional info: Fall, head and neck pain, elbow pain TECHNIQUE: Imaging protocol: Computed tomography of the head without contrast. Radiation optimization: All CT scans at this facility use at least one of these dose optimization techniques: automated exposure control; mA and/or kV adjustment per patient size (includes targeted exams where dose is matched to clinical indication); or iterative reconstruction. COMPARISON: CT HEAD/BRAIN WO CON 03/16/2022 6:09 AM FINDINGS: Brain: No evidence for intracranial hemorrhage, mass lesions or acute stroke. Redemonstration of atrophy and small-vessel ischemic change similar to the prior exam. Cerebral ventricles: Severe ventriculomegaly similar to 03/16/2022. Pituitary gland and sella: Negative Paranasal sinuses: Visualized sinuses are unremarkable. No fluid levels. Mastoid air cells: Visualized mastoid air cells are well aerated. Orbital cavities: Negative. Parotid and submandibular glands: Negative Bones: Unremarkable. No acute fracture. Soft tissues: Unremarkable. Vasculature: Negative. Other findings: Stable vermian atrophy. IMPRESSION: 1. No evidence for intracranial hemorrhage, mass lesions or acute stroke. 2. Severe ventriculomegaly similar to 03/16/2022. 3. Redemonstration of atrophy and small-vessel ischemic change similar to the prior exam. 4. Stable vermian atrophy.
--- NOTE | 2023-09-30 23:16 | XR_ITS ---
PROCEDURE INFORMATION: Exam: XR Left Humerus Exam date and time: 09/30/2023 11:55 PM Age: 63 years old Clinical indication: Injury or trauma; Fall; Other: Pain; Additional info: Fall, head and neck pain, elbow pain TECHNIQUE: Imaging protocol: Radiologic exam of the left humerus. Views: 2 or more views. COMPARISON: CR XR ELBOW LT MIN 3V 09/30/2023 11:55 PM FINDINGS: Bones/joints: Normal. Soft tissues: Normal. IMPRESSION: No acute findings.
--- NOTE | 2023-09-30 23:20 | XR_ITS ---
PROCEDURE INFORMATION: Exam: XR Pelvis Exam date and time: 09/30/2023 11:55 PM Age: 63 years old Clinical indication: Injury or trauma; Fall; Other: Pain; Additional info: Fall out of bed TECHNIQUE: Imaging protocol: Radiologic exam of the pelvis. Views: 1 or 2 view. COMPARISON: CR XR HIP LT 2-3V W/PELVIS 08/03/2022 10:46 AM FINDINGS: Bones/joints: Unremarkable. No acute fracture. Old right inferior pubic ramus deformity. Soft tissues: Unremarkable. IMPRESSION: No acute findings.
[2023-09-30 23:26] LABS: Basophils # 0.1 K/mm3 (0-0.2); Basophils % 0.5 % (0.1-2.0); Eosinophils # 0.1 K/mm3 (0.0-0.4); Eosinophils % 1.1 % (0.1-12.0); Hemoglobin 13.5 g/dL (14.1-18.0); Lymphocytes # 1.8 K/mm3 (0.7-4.5); Lymphocytes % 15.5 % (10-50); Mean Corpuscular HGB Conc 32.1 g/dL (31.8-35.4); Mean Corpuscular Hemoglobin 30.9 pg (27.0-31.2); Mean Corpuscular Volume 96.2 fl (80-94); Mean Platelet Volume 7.2 fl (7.4-10.4); Monocytes # 0.7 K/mm3 (0.1-1.0); Monocytes % 5.6 % (1.7-9.3); Neutrophils # 9.1 K/mm3 (1.8-7.8); Neutrophils % 77.3 % (37.0-80.0); Platelet Count 295 K/mm3 (142-424); Red Blood Count 4.37 M/mm3 (4.60-6.20); Red Cell Distribution Width 13.9 % (11.5-17.5); White Blood Count 11.7 K/mm3 (4.8-10.8)
--- NOTE | 2023-09-30 23:27 | ED_ITS ---
Discharge Plan Disposition Patient Disposition: Admitted Condition: Fair Clinical Impressions Clinical Impression: Acute exacerbation of chronic obstructive pulmonary disease, General weakness, Frequent falls Discharge ED Provider: Katarina Valera General Adult HPI General Chief complaint: Fall Stated complaint: fell OOB, hit his head Time Seen by Provider: 09/30/23 23:16 History of Present Illness HPI narrative: This patient is a 63-year-old male with history of obesity, clubfoot, asthma, COPD, peripheral neuropathy, GERD, hyperlipidemia, cognitive disability, and frequent falls presented to the emergency department for evaluation with concern for fall out of bed. According to the patient, he rolled out of bed, and hit his head on the gun safe by his bed. He did not lose consciousness. He was lying facedown and was unable to get up on his own. Family heard him and came to check on him and called EMS. EMS brings in the patient for complaints of head pain, neck pain, and left elbow pain. He complains of generalized headache as well as bilateral neck pain. No numbness, tingling, visual disturbance, or other concerns. Patient also reports that has been feeling unwell for a while. He notes he was seen here towards the end of August for upper respiratory infection and he was prescribed antibiotics as well as albuterol. On medical record review, he was seen here 09/18/2023 and prescribed doxycycline as well as inhalers. He notes has been taking these, but he continues to feel worse. No other concerns noted at this time Related Data Previous Rx's Medication Instructions Recorded cilostazol 100 mg tablet See Rx Instructions .Route 03/08/21 .COMPLEX #60 tabs loratadine 10 mg tablet See Rx Instructions .Route 11/07/22 .COMPLEX #90 tabs mupirocin 2 % topical ointment 1 applic topical TID #22 grams 11/23/22 omeprazole 40 mg capsule,delayed See Rx Instructions .Route 03/27/23 release .COMPLEX #90 caps albuterol sulfate 90 mcg/actuation 2 inh inhalation Q4H PRN shortness 04/02/23 aerosol inhaler of breath or wheezing #8.5 grams pravastatin 20 mg tablet See Rx Instructions .Route 05/01/23 .COMPLEX #90 tabs citalopram 40 mg tablet See Rx Instructions .Route 07/30/23 .COMPLEX #90 tabs atenolol 25 mg tablet See Rx Instructions .Route 08/20/23 .COMPLEX #90 tabs cholecalciferol (vitamin D3) 1,250 See Rx Instructions .Route 08/24/23 mcg (50,000 unit) capsule .COMPLEX #14 caps cariprazine 1.5 mg capsule 1.5 mg PO DAILY #30 caps 09/12/23 (Vraylar) diazepam 2 mg tablet 2 mg PO DAILY PRN anxiety 30 days 09/12/23 #30 tabs gabapentin 300 mg capsule See Rx Instructions .Route 09/12/23 .COMPLEX #90 caps carbamide peroxide 6.5 % ear drops 5 drp otic (ear) DAILY 4 days #15 09/13/23 (Debrox) mL doxycycline hyclate 100 mg capsule 100 mg PO BID 7 days #14 caps 09/18/23 ipratropium 0.5 mg-albuterol 3 mg 3 ml inhalation Q4H PRN wheezing 09/18/23 (2.5 mg base)/3 mL nebulization #90 mL soln Allergies Allergy/AdvReac Type Severity Reaction Status Date / Time No Known Allergies Allergy Verified 09/18/23 09:55 [facility] Disclaimer: The information contained in this section may have been updated after the patient was seen, as this information can be updated by other users. Medical History Obesity Claudication Abnormal ankle brachial index (CHAUNCEY) Bilateral leg pain Abnormal EKG Dizziness Mild intellectual disabilities Anxiety Neuropathy Social History Smoking Status: Never smoker alcohol intake: never substance use type: denies use current occupational status: disabled Travel in the last 8 weeks: None household members: family housing: house current occupational exposures/hazards: No caffeine: Yes ROS Obtained: Yes All systems reviewed & no additional complaints except as documented Physical Exam General General appearance: alert, in no apparent distress and obese Head Head exam: atraumatic, normocephalic and other (Erythema to forehead where patient was lying on his face on the ground) Eye Eye exam: Present normal appearance, PERRL and EOMI ENT ENT exam: Present normal exam, normal oropharynx, mucous membranes moist and normal external ear exam Neck Neck exam: Present normal inspection, full ROM and trachea midline; Absent tenderness Chest Chest inspection: Present normal inspection and symmetric chest wall rise; Absent tenderness Respiratory Respiratory exam: Present wheezes, prolonged expiratory phase and other (bilateral wheezing and ronchi); Absent respiratory distress, stridor or accessory muscle use Cardiovascular Cardiovascular exam: Present regular rate and normal rhythm Abdominal Exam Abdominal exam: Present soft; Absent distention, tenderness or guarding Extremities Exam Extremities exam: Present full ROM, tenderness (L elbow without obvious deformity. Neurovascularly intact distally) and normal capillary refill; Absent edema Back Exam Back exam: Present normal inspection and full ROM; Absent tenderness Neurological Exam Neurological exam: Present alert, oriented X3, CN II-XII intact and normal gait; Absent motor sensory deficit Psychiatric Psychiatric exam: Present normal affect and normal mood Skin Skin exam: Present warm and dry Medical Decision Making Medical Records Medical records reviewed: Yes I reviewed the patient's medical records. Nate Inquiry Pt receiving controlled substance: No Vital Signs: 09/30/23 23:12 09/30/23 23:30 10/01/23 00:14 Temperature 98.5 F Temperature Source Oral Pulse Rate 77 72 Pulse Rate [Right Radial] 87 Respiratory Rate 20 Blood Pressure 131/81 134/91 H Blood Pressure [Right Arm] 127/82 Blood Pressure Mean 95 98 Blood Pressure Mean [Right Arm] 97 Blood Pressure Source Blood Pressure Position 02 Sat by Pulse Oximetry 98 96 95 Oxygen Delivery Method Room Air Room Air Room Air 10/01/23 00:30 10/01/23 01:40 Temperature 98.5 F Temperature Source Oral Pulse Rate 70 74 Pulse Rate [Right Radial] Respiratory Rate 16 Blood Pressure 134/89 138/85 Blood Pressure [Right Arm] Blood Pressure Mean 100 Blood Pressure Mean [Right Arm] Blood Pressure Source Automatic Cuff Blood Pressure Position Sitting 02 Sat by Pulse Oximetry 96 Oxygen Delivery Method Room Air Room Air Lab Data Lab results reviewed: Yes I reviewed the patient's lab results. Lab Results 09/30/23 23:01: WBC 11.7 H, RBC 4.37 L, Hgb 13.5 L, Hct 42.0, MCV 96.2 H, MCH 30.9, MCHC 32.1, RDW 13.9, Plt Count 295, MPV 7.2 L, Neut % (Auto) 77.3, Lymph % (Auto) 15.5, Gosper % (Auto) 5.6, Eos % (Auto) 1.1, Baso % (Auto) 0.5, Neut # (Auto) 9.1 H, Lymph # (Auto) 1.8, Gosper # (Auto) 0.7, Eos # (Auto) 0.1, Baso # (Auto) 0.1, Sodium 142, Potassium 3.6, Chloride 106, Carbon Dioxide 23, Anion Gap 16.6 H, BUN 20, Creatinine 1.10, Estimated Creat Clear 109, Estimated GFR 67, Est GFR ( Amer) 82, Glucose 105 H, Calcium 9.2, Total Bilirubin 0.9, AST 29, ALT 23, Alkaline Phosphatase 78, Total Creatine Kinase 206 H, C-Reactive Protein 2.4, NT-Pro-B Natriuret Pep 141 H, Total Protein 6.6, Albumin 4.1, Globulin 2.5, Albumin/Globulin Ratio 1.6, Procalcitonin < 0.03 09/30/23 23:16: VBG pH 7.44 H, VBG pCO2 31.7 L, VBG pO2 199.7 H, VBG HCO3 21.2 L , VBG Total CO2 22.2 L, VBG O2 Saturation 99.4 H, VBG Base Excess -2.9 L, VBG Lactic Acid 2.6 H 09/30/23 23:01 09/30/23 23:01 Orders (Tests/Meds): ED MEDICATIONS Generic Name Dose Route Start Last Admin Trade Name Freq PRN Reason Stop Dose Admin Acetaminophen 650 mg 10/01/23 01:32 Acetaminophen 325mg Tab PO 10/31/23 01:31 Q4HP PRN Fever or Mild Pain (1-3) Al Hydrox/Mg Hydrox/Simethicone 30 ml 10/01/23 01:32 Aluminum/Magnesium/Simethicone 30ml Udc PO 10/31/23 01:31 QIDP PRN Dyspepsia Albuterol/Ipratropium 3 ml 10/01/23 06:00 Ipratropium/Albuterol 3 Ml Neb IH 10/31/23 05:59 Q6RT GWENDOLYN Docusate Sodium 100 mg 10/01/23 09:00 Docusate Sodium 100 Mg Capsule PO 10/31/23 08:59 DAILY GWENDOLYN Heparin Sodium (Porcine) 5,000 unit 10/01/23 01:45 Heparin Sodium 5,000 Unit/Ml Vial SQ 10/31/23 01:44 Q8H GWENDOLYN Morphine Sulfate 4 mg 10/01/23 01:32 Morphine 4mg/Ml Syringe IV 10/31/23 01:31 Q4HP PRN Severe Pain (7-10) Nicotine 21 mg 10/01/23 01:32 Nicotine 21mg/24hr Patch TD 10/31/23 01:31 DAILYP PRN Nicotine Cravings Ondansetron HCl 4 mg 10/01/23 01:32 Ondansetron 4mg/2ml Vial IV 10/31/23 01:31 Q8HP PRN Nausea Pantoprazole Sodium 40 mg 10/01/23 09:00 Pantoprazole 40mg Tablet PO 10/31/23 08:59 DAILY GWENDOLYN Discontinued Medications Generic Name Dose Route Start Last Admin Trade Name Freq PRN Reason Stop Dose Admin Acetaminophen 1,000 mg 09/30/23 23:40 10/01/23 00:10 Acetaminophen 1,000mg/100ml Vial IV 09/30/23 23:41 1,000 mg ONCE ONE Administration Albuterol/Ipratropium 9 ml 10/01/23 00:37 10/01/23 00:49 Ipratropium/Albuterol 3 Ml Neb IH 10/01/23 00:38 9 ml ONCE ONE Administration Lactated Ringer's 1,000 mls @ 999 mls/hr 09/30/23 23:40 10/01/23 00:10 Lactated Ringer's 1000 Ml Bag IV 10/01/23 00:40 999 mls/hr .Q1H1M ONE Administration Doxycycline Hyclate 100 mg/ 250 mls @ 166.667 mls/hr 10/01/23 00:37 10/01/23 00:49 Sodium Chloride IV 10/01/23 00:38 166.667 mls/hr ONCE ONE Administration Ketorolac Tromethamine 15 mg 09/30/23 23:40 10/01/23 00:11 Ketorolac 30mg/Ml Vial IV 09/30/23 23:41 15 mg ONCE ONE Administration Methylprednisolone Sodium Succinate 125 mg 10/01/23 00:37 10/01/23 00:48 Methylprednisolone Sod Succ 125mg Vial IV 10/01/23 00:38 125 mg ONCE ONE Administration ORDERS Category Date Time Status CT cervical spine wo con Stat Cat Scan 09/30/23 23:[address] head/brain wo con Stat Cat Scan 09/30/23 23:16 Completed XR chest portable Stat Exams 09/30/23 23:16 Completed XR elbow LT min 3V Stat Exams 09/30/23 23:16 Completed XR forearm LT 2V Stat Exams 09/30/23 23:16 Completed XR humerus LT Stat Exams 09/30/23 23:16 Completed XR pelvis 1-2V Stat Exams 09/30/23 23:20 Completed BNP [NT Pro Brain Natriuretic Pep.] Stat Lab 10/01/23 00:59 Completed C-Reactive Protein Stat Lab 09/30/23 23:01 Completed CK [Creatine Kinase] Stat Lab 09/30/23 23:01 Completed Complete Blood Count Auto Diff Stat Lab 09/30/23 23:01 Completed Comprehensive Metabolic Panel Stat Lab 09/30/23 23:01 Completed Covid-19 Nasal PCR ([facility]) Routine Lab 09/30/23 23:16 Received Procalcitonin Stat Lab 09/30/23 23:01 Completed Urinalysis and Microscopic Stat Lab 09/30/23 23:16 Ordered VBG [Venous Blood Gas] Stat RT 09/30/23 23:16 Completed Medical Decision Narrative: In summary, this patient is a 63-year-old male presenting to the Emergency Department for evaluation of fall out of bed as well as feeling unwell since being seen here 09/18/2023 for upper respiratory symptoms. Differential diagnoses considered include but are not limited to pneumonia, respiratory failure, COPD exacerbation, head trauma, neck trauma, chest trauma, rhabdomyolysis. Ruling out the most morbid conditions drove assessment. It should be noted patient's history includes COPD which is not at goal therapy. This complicates all aspects of care by increasing patient's risk for morbidity. I reviewed patient's past medical records and noted his previous evaluation/ as well as prescriptions for inhalers as well as doxycycline as per HPI. On exam, the patient is resting comfortably and is in no acute distress. He is alert and oriented. He does have redness to his forehead from where he was lying on his face on the ground. He also has tenderness to his left elbow. He complains of head and neck pain, and he also has been having a cough, fatigue, and general weakness. Workup included CBC, CMP, CRP, procalcitonin, lactic acid, VBG, viral swab, CK, CT head without contrast, CT C-spine without contrast, chest x-ray, and pelvic x-ray as well as x-rays of the injured left upper extremity. He was given a bolus of IV fluids as well as IV toradol, acetaminophen. He was also given IV methylprednisolone, IV doxycycline, and DuoNebs x 3 given his cardiopulmonary exam and history concerning for COPD exacerbation with clinical pneumonia. I independently interpreted CT scan and x-rays prior to the radiologist read and noted bilateral pulmonary infiltrates. No acute fracture, intracranial hemorrhage, or other concerns. He does have chronic changes noted on his CT cervical spine as well as chronic hydrocephalus. Please see their read for final interpretation. Labs were obtained that demonstrated mild leukocytosis very mildly elevated CK at 206, mildly elevated anion gap at 16.6, and mild respiratory alkalosis. On reassessment, patient had good improvement after administration of as above, however he is unable to stand without full assist. Upon attempts to stand the patient, he had to be lowered back down to prevent a fall. Given that he is unable to stand, I feel that he would benefit from admission for PT/OT evaluation and further management of his COPD exacerbation. I called and had an interactive discussion with the hospitalist who admitted the patient for further evaluation and management. Critical Care Critical Care Time Critical Care Time: No
[2023-09-30 23:30] VITALS: BP 131/81; PULSE 77; O2SAT 96
[2023-09-30 23:36] LABS: Alanine Aminotransferase 23 U/L (12-78); Albumin Level 4.1 g/dl (3.5-5.0); Albumin/Globulin Ratio 1.6 (1.1-1.8); Alkaline Phosphatase 78 U/L (38-126); Anion Gap 16.6 mEq/L (5-15); Aspartate Amino Transferase 29 U/L (17-59); Bilirubin,Total 0.9 mg/dl (0.2-1.3); Blood Urea Nitrogen 20 mg/dl (9-20); Calcium 9.2 mg/dl (8.4-10.2); Carbon Dioxide 23 mmol/L (22.0-30.0); Chloride 106 mmol/L (98-107); Creatine Kinase 206 U/L (55-170); Creatinine Clearance Estimated 109 mL/min (50-200); Estimated Glomerular Filt Rate 67 ml/min (>60); GFR (African American) 82 ML/MIN (>60); Globulin 2.5 g/dL (1.3-3.2); Glucose 105 mg/dl (74-100); Potassium 3.6 mmoL/L (3.5-5.1); Sodium 142 mmol/L (136-145); Total Protein,Serum 6.6 g/dl (6.3-8.2)
--- NOTE | 2023-09-30 23:42 | PC.NURSE ---
urinl at bedside, pt aware of specimen needed
[2023-09-30 23:44] LABS: VBG Base Excess -2.9 mmol/L (-2.4-2.3); VBG HCO3 21.2 mmol/L (23-30); VBG Oxygen Saturation 99.4 % (50-70); VBG PCO2 31.7 mmol/L (35-51); VBG PH 7.44 mmol/L (7.31-7.41); VBG PO2 199.7 mmol/L (28-40); VBG Total CO2 22.2 mmol/L (23-27)
[2023-09-30 23:45] LABS: Lactate Venous 2.6 mmol/L (0.4-2.0)
[2023-09-30 23:57] LABS: C-Reactive Protein 2.4 mg/L (0-4); Procalcitonin < 0.03 ng/mL (0.0-2.0)
[2023-10-01] VITALS (12 sets, daily range): BP systolic 99–138; BP diastolic 60–91; PULSE 64–100; RESP 16–18; TEMP 36.7–37.1; O2SAT 94–100; BMI 35.7
[2023-10-01] MEDS: ACETAMINOPHEN 1,000MG/100ML VIAL 1000 MG IV (00:10)
[2023-10-01] MEDS: LACTATED RINGERS 1000ML 1,000 ML 999 ML IV (00:10)
[2023-10-01] MEDS: KETOROLAC 30MG/ML VIAL 15 MG IV (00:11)
[2023-10-01] MEDS: METHYLPREDNISOLONE SOD SUCC 125MG VIAL 125 MG IV (00:48)
[2023-10-01] MEDS: DOXYCYCLINE HYCLATE 100 MG in 0.9 % SODIUM CHLORIDE 250 ML 166.667000000000002 MG IV ×3 (00:49→18:09)
[2023-10-01] MEDS: IPRATROPIUM/ALBUTEROL 3 ML NEB 9 ML IH (00:49)
--- NOTE | 2023-10-01 00:54 | PC.NURSE ---
patient in bed, call light within reach
--- NOTE | 2023-10-01 01:25 | PC.NURSE ---
electrician powerhouse aware of admit.
[2023-10-01 01:29] LABS: NT Pro Brain Natriuretic Pep. 141 pg/mL (0-125)
--- NOTE | 2023-10-01 01:34 | P.HP_ITS ---
History of Present Illness *Admission Date: 10/01/23 *Reason for visit:: fall and SOB *History of present illness: This is a 63-year-old male morbidly obese, PMHx of clubfoot, asthma, COPD, peripheral neuropathy, GERD, hyperlipidemia, cognitive disability, and frequent falls presented to the emergency department for evaluation after home fall out of his bed. According to the patient, he rolled out of bed, and hit his head on the gun safe by his bed. He did not lose consciousness. He was lying facedown and was unable to get up on his own for uncertain amount of time. Family called EMS and was brought in with the complains of generalized headache as well as bilateral neck pain. No numbness, tingling, visual disturbance, or other concerns. Patient also reports that has been feeling unwell for a while. He notes he was seen here towards the end of August for upper respiratory infection and he was prescribed antibiotics as well as albuterol. On medical record review, he was seen here 09/18/2023 and prescribed doxycycline as well as inhalers. He notes has been taking these, but he continues to feel worse. No other concerns noted at this time [facility] Disclaimer: The information contained in this section may have been updated after the patient was seen, as this information can be updated by other users. Medical History (Updated 10/01/23 @ 02:36 by Brenton Villagomez RN) Epilepsy Obesity Claudication Abnormal ankle brachial index (CHAUNCEY) Bilateral leg pain Abnormal EKG Dizziness Mild intellectual disabilities Anxiety Neuropathy Social History Smoking Status: Never smoker alcohol intake: never substance use type: denies use current occupational status: disabled Travel in the last 8 weeks: None household members: family housing: house current occupational exposures/hazards: No caffeine: Yes Review of Systems Review of Systems Review of systems:: pertinent systems reviewed and negative unless documented below Meds Home Medications and Allergies Home Medications Medication Instructions Recorded Confirmed Type cariprazine 1.5 mg capsule 1.5 mg PO DAILY #30 caps 09/12/23 10/01/23 Rx (Vraylar) diazepam 2 mg tablet 2 mg PO DAILY PRN anxiety 30 days 09/12/23 10/01/23 Rx #30 tabs carbamide peroxide 6.5 % ear drops 5 drp otic (ear) DAILY 4 days #15 09/13/23 10/01/23 Rx (Debrox) mL ipratropium 0.5 mg-albuterol 3 mg 3 ml inhalation Q4H PRN wheezing 09/18/23 10/01/23 Rx (2.5 mg base)/3 mL nebulization #90 mL soln atenolol 25 mg tablet 25 mg PO DAILY 10/01/23 10/01/23 History cholecalciferol (vitamin D3) 1,250 1,250 mcg PO WEEKLY 10/01/23 10/01/23 History mcg (50,000 unit) capsule citalopram 40 mg tablet 40 mg PO DAILY 10/01/23 10/01/23 History gabapentin 300 mg capsule 300 mg PO TID 10/01/23 10/01/23 History omeprazole 40 mg capsule,delayed 40 mg PO HS 10/01/23 10/01/23 History release pravastatin 20 mg tablet 20 mg PO HS 10/01/23 10/01/23 History New Prescriptions to Start Prescriptions: Allergies Allergy/AdvReac Type Severity Reaction Status Date / Time No Known Allergies Allergy Verified 09/18/23 09:55 Exam Data for Last 24 hours Vital signs and Labs for Last 24 Hours: Temp Pulse Resp BP Pulse Ox O2 Del Method 98.5 F 70 20 134/89 96 Room Air 09/30/23 23:12 10/01/23 00:30 09/30/23 23:12 10/01/23 00:30 10/01/23 00:30 10/01/23 00:30 Laboratory Results - last 24 hr 09/30/23 23:01: WBC 11.7 H, RBC 4.37 L, Hgb 13.5 L, Hct 42.0, MCV 96.2 H, MCH 30.9, MCHC 32.1, RDW 13.9, Plt Count 295, MPV 7.2 L, Neut % (Auto) 77.3, Lymph % (Auto) 15.5, Blount % (Auto) 5.6, Eos % (Auto) 1.1, Baso % (Auto) 0.5, Neut # (Auto) 9.1 H, Lymph # (Auto) 1.8, Blount # (Auto) 0.7, Eos # (Auto) 0.1, Baso # (Auto) 0.1, Sodium 142, Potassium 3.6, Chloride 106, Carbon Dioxide 23, Anion Gap 16.6 H, BUN 20, Creatinine 1.10, Estimated Creat Clear 109, Estimated GFR 67, Est GFR ( Amer) 82, Glucose 105 H, Calcium 9.2, Total Bilirubin 0.9, AST 29, ALT 23, Alkaline Phosphatase 78, Total Creatine Kinase 206 H, C-Reactive Protein 2.4, NT-Pro-B Natriuret Pep 141 H, Total Protein 6.6, Albumin 4.1, Globulin 2.5, Albumin/Globulin Ratio 1.6, Procalcitonin < 0.03 09/30/23 23:16: VBG pH 7.44 H, VBG pCO2 31.7 L, VBG pO2 199.7 H, VBG HCO3 21.2 L , VBG Total CO2 22.2 L, VBG O2 Saturation 99.4 H, VBG Base Excess -2.9 L, VBG Lactic Acid 2.6 H I & O for Last 24 hours: Intake & Output 09/28/23 09/29/23 09/30/23 10/01/23 23:59 23:59 23:59 23:59 Weight 113.398 kg Constitutional Constitutional: mild distress and morbidly obese *Routine HEENT Exam Head: Absent normocephalic Eye: Present EOMI and PERRL ENT: Present mucous membranes moist *Routine Neck Exam Neck: Present supple; Absent lymphadenopathy *Routine Respiratory Exam Respiratory: Present CTA bilaterally and wheezes *Routine Cardiovascular Exam Cardiovascular: Present RRR *Routine Abdominal Exam Abdominal: Present soft and normoactive bowel sounds; Absent tenderness *Routine Rectal Exam Rectal:: deferred *Routine Genitalia Exam Genitalia:: deferred *Routine Extremities Exam Extremities: Absent cyanosis, clubbing or edema *Routine Skin Exam Skin: Present warm; Absent rash *Routine Neurological Exam Neurological: Present alert and normal reflexes Routine Psychiatric Exam Psychiatric: Present unable to assess H&P: Result Imaging and Cardiology EKG: Status: image reviewed by me, Preliminary report and final report CT scan - chest: Status: image reviewed by me, Preliminary report and final report trauma imaging : Status: image reviewed by me, Preliminary report and final report Assessment and Plan *Assessment and plan (1) Acute exacerbation of chronic obstructive pulmonary disease: Status: Acute Category: Medical Code(s): J44.1 - Chronic obstructive pulmonary disease with (acute) exacerbation (2) Frequent falls: Status: Acute Category: Medical Code(s): R29.6 - Repeated falls (3) General weakness: Status: Acute Category: Medical Code(s): R53.1 - Weakness (4) Mild intellectual disabilities: Status: Chronic Category: Medical Code(s): F70 - Mild intellectual disabilities (5) Obesity: Status: Acute Qualifiers: Body mass index: BMI 36.0-36.9 Obesity classification: adult class 2 (BMI 35 - 39.9) Obesity type: due to excess calories Serious obesity comorbidity presence: with serious comorbidity Qualified Code(s): E66.01 - Morbid (severe) obesity due to excess calories; Z68.36 - Body mass index [BMI] 36.0-36.9, adult Category: Medical Code(s): E66.9 - Obesity, unspecified Plan 63-year-old male morbidly obese, PMHx of clubfoot, asthma, COPD, peripheral neuropathy, GERD, hyperlipidemia, cognitive disability, and frequent falls presented to the emergency department for evaluation after home fall out of his bed. On arrival he expressed not felling well and having increased SOB. last seen 09/17 at he ED was sent home on nebulizer and doxy. patient does not seen to be improving. initial work up showed Labs that demonstrated mild leukocytosis very mildly elevated CK at 206, mildly elevated anion gap at 16.6, and mild respiratory alkalosis. trauma imaging negative for acute trauma. treatment initiated for COPD exacerbation including DOXY IV and duoneb. patient clinically improved, however still unable to perform his ADL, therefore there is a safety concern for discharge. ED requested admission. Discussion of findings was made. Medicine agreed for admission: -Acute hypercapnic respiratory failure: No hypoxic , presented with multiples falls and increased weakness: admit patient for med surg Cont IV doxy monitor CBC. Optimize o2 sat. douneb Q6h pt/ot eval and treat MID obesity: will complicated aspects of care. patient currently unable to perform safe his ADLs including sdtanding and transfers will have PT to eval and treat in the morning Lovenox for DVT ppx. on protonix Full code Attending attestation Patient was seen and evaluated at the bedside myself, agree with [facility] note.
--- NOTE | 2023-10-01 01:55 | PC.NURSE ---
Patient arrived to floor via stretcher from ED at 1:54.
--- NOTE | 2023-10-01 02:00 | PC.NURSE ---
patient wallet locked in patient room drawer ( wallet has 100, 20's, and several smaller bills ). Patient has seizure pads in place for history of epilepsy. RA, denies SOA. Bed alarm for safety r/t falls at home and being assisted to the ground while in ED. Patient is A&OX4. States he has a walker at home, but doesn't use it - took walker to room for patient to use while admitted. States his last BM was several days ago, and that is normal for him.
[2023-10-01] MEDS: HEPARIN SODIUM 5,000 UNIT/ML VIAL 5000 UNIT SQ ×3 (03:10→18:09)
[2023-10-01 03:18] LABS: Appearance,Urine CLEAR (Clear); Blood, Urine Negative (Negative); Color,Urine DARK YELLOW (Yellow); Glucose,Urine (UA) Negative (Negative); Ketones,Urine Negative (Negative); Leukocyte Esterase,Urine Negative (Negative); Microscopic, Urine URINE MICROSCOPIC (MICROSCOPIC); Nitrate,Urine POSITIVE (Negative); Protein,Urine TRACE (Negative); Specific Gravity, Urine >= 1.030 (1.005-1.030); Urobilinogen,Urine 0.2 EU/dl (0.2)
[2023-10-01 03:19] LABS: Bilirubin,Urine 1+ (Negative)
[2023-10-01 03:35] LABS: Bacteria,Urine Trace /lpf; Mucus,Urine 2+ /lpf; Squamous Epithelial Cell,Urine Occasional #/hpf (0-5)
[2023-10-01 03:45] LABS: Reflex Lactic Add Lactic Reflex
[2023-10-01 04:13] LABS: Lactic Acid Follow Up (RFLX 1) 0.8 mmol/L (0.7-2.1)
[2023-10-01] MEDS: ACETAMINOPHEN 325MG TAB 650 MG PO (05:43)
[2023-10-01] MEDS: IPRATROPIUM/ALBUTEROL 3 ML NEB IH ×5 (06:01→23:56)
[2023-10-01 06:45] LABS: Alanine Aminotransferase 18 U/L (12-78); Albumin Level 3.8 g/dl (3.5-5.0); Albumin/Globulin Ratio 1.7 (1.1-1.8); Alkaline Phosphatase 81 U/L (38-126); Anion Gap 13.5 mEq/L (5-15); Aspartate Amino Transferase 25 U/L (17-59); Blood Urea Nitrogen 22 mg/dl (9-20); Calcium 9.1 mg/dl (8.4-10.2); Carbon Dioxide 25 mmol/L (22.0-30.0); Chloride 105 mmol/L (98-107); Creatinine Clearance Estimated 120 mL/min (50-200); Estimated Glomerular Filt Rate 75 ml/min (>60); GFR (African American) 91 ML/MIN (>60); Globulin 2.3 g/dL (1.3-3.2); Glucose 131 mg/dl (74-100); Magnesium 1.9 mg/dl (1.6-2.3); Potassium 3.5 mmoL/L (3.5-5.1); Sodium 140 mmol/L (136-145); Total Protein,Serum 6.1 g/dl (6.3-8.2)
[2023-10-01 06:50] LABS: Basophils % 0.2 % (0.1-2.0); Eosinophils % 0.1 % (0.1-12.0); Lymphocytes # 0.3 K/mm3 (0.7-4.5); Lymphocytes % 3.4 % (10-50); Mean Corpuscular HGB Conc 32.4 g/dL (31.8-35.4); Mean Corpuscular Hemoglobin 30.6 pg (27.0-31.2); Mean Corpuscular Volume 94.6 fl (80-94); Mean Platelet Volume 7.6 fl (7.4-10.4); Monocytes # 0.1 K/mm3 (0.1-1.0); Monocytes % 1.3 % (1.7-9.3); Neutrophils # 8.1 K/mm3 (1.8-7.8); Platelet Count 250 K/mm3 (142-424); Red Blood Count 4.23 M/mm3 (4.60-6.20); Red Cell Distribution Width 13.8 % (11.5-17.5); White Blood Count 8.6 K/mm3 (4.8-10.8)
[2023-10-01 06:51] LABS: MANUAL DIFFERENTIAL MANUAL DIFFERENTIAL (MANUAL DIFF)
--- NOTE | 2023-10-01 07:47 | PC.NURSE ---
Lizet came out of pt room and notified this RN that pt was covered in sweat but temp was WNL. This RN went in to assess pt. PT states that he is not anxious, nervous, in no pain. Pt was noted to be profusely sweating and tacky in the low 100's. Attempted to reach hospitalist with no answer. Will try again.
[2023-10-01 08:00] LABS: Lymphocytes % 2 % (10-50); Monocytes % 1 % (2-9); Neutrophils % 97 % (42-76); Platelet Estimate Normal; RBC Morphology Normal; Total Cells Counted 100
[2023-10-01] MEDS: DOCUSATE SODIUM 100 MG CAPSULE PO (08:23)
--- NOTE | 2023-10-01 08:24 | [facility].PHAINT1 ---
Pharmacy Intervention Comments: HOME MEDICATION LIST VERIFIED USING LIST FROM OUTPATIENT PHARMACY
--- NOTE | 2023-10-01 10:18 | HMH.PTEV ---
Physical Therapy Evaluation Rehab PT IP Evaluation Start: 10/01/23 08:15 Freq: ONCE Status: Active Protocol: Document 10/01/23 09:59 SILVERIO (Rec: 10/01/23 10:18 SILVERIO [email or web address]) Subjective/History History History Per H&P: This is a 63-year-old male morbidly obese, PMHx of clubfoot, asthma, COPD, peripheral neuropathy, GERD, hyperlipidemia, cognitive disability, and frequent falls presented to the emergency department for evaluation after home fall out of his bed . According to the patient, he rolled out of bed, and hit his head on the gun safe by his bed. He did not lose consciousness. He was lying facedown and was unable to get up on his own for uncertain amount of time. Family called EMS and was brought in with the complains of generalized headache as well as bilateral neck pain. No numbness, tingling, visual disturbance, or other concerns. Patient also reports that has been feeling unwell for a while. He notes he was seen here towards the end of August for upper respiratory infection and he was prescribed antibiotics as well as albuterol. On medical record review, he was seen here 2023 and prescribed doxycycline as well as inhalers. He notes has been taking these, but he continues to feel worse. No other concerns noted at this time. Subjective Subjective PLOF per pt report: Lives with brother and family in single story home. Pt required assistance from brother for functional mobility using w/c and RW. Reports multiple falls in the past month d/t BLE weakness. New diagnosis of cancer in past 12 No months? Rehab PT IP Eval Objective Appearance Patient Behavior Appropriate,Cooperative Patient Orientation Person,Birthday,Situation Difficulty following instructions none Speech Pattern Clear Ambulation Patient Able to Ambulate No Balance Ability to Arise Able, uses arms to help Sitting Balance Steady, safe Standing Balance Unsteady Transfers Bed Transfer Ability Maximum x 2 (75% assist) Chair Transfer Ability Moderate x 2 (50% assist) Sit to Stand Bed Transfer Ability Moderate x 2 (50% assist) Rehab PT IP prob,goals,plan Problems Date of Evaluation: 10/01/23 PT IP Problems Bed Mobility,Transfers,Gait, Balance,Self care,Safety Rehab Potential Rehab Potential Good Equipment Needs Assistive Devices Rolling / Wheeled Walker, Wheelchair Plan PT Intervention Plan Bed Mobility,Transfers,Gait, Balance,Safety,Therapeutic Exercise Other Intervention Plan 1-2 times PT Plan Frequency Daily Duration LOS Discharge Goals Bed Transfer Ability Moderate x 1 (50% assist) Sit to Stand Chair Transfer Ability Moderate x 1 (50% assist) Discharge Plan PT Discharge Plan Initial physical therapy evaluation performed. Patient presents below baseline at this time in functional mobility, transfers, and strength. Pt not safe to return home at this time d/t current level of functional mobility and increased needs required for bed mobility and transfers. PT recommending short-term rehabilitation stay upon d/c from [facility]. Pt would benefit from skilled PT while at [facility] to prevent further functional decline and maximize safety with mobility. Eval Complexity Eval Charge Codes 18285 - Moderate Complexity PHYSICIAN CERTIFICATION: I certify the specified therapy services for Jim Mclaughlin are required, authorized, and reviewed every 30 days.
--- NOTE | 2023-10-01 11:00 | SW/DCPLANNER ---
Addendum entered by [facility] 10/02/23 08:57: Fauzia corrigan/ [facility] stated she can accept this patient [facility] level of care once medically stable for discharge. Addendum entered by [facility] 10/01/23 15:30: Fauzia corrigan/ [facility] will do an onsite visit w/ this patient today. Addendum entered by [facility] 10/01/23 15:01: I spoke w/ patient and his brother regarding placement: both are agreeable. Patient/brother prefer [facility] or [facility]. Fauzia corrigan/ [facility] stated that she is unable to accept patient at this time. Samreen corrigan/ [facility] is currently reviewing information. Original Note: I spoke w/ this patient regarding plans once medically stable for discharge. PT/OT evaluated patient and recommended SNF level of care. I spoke w/ patient regarding discharge plans and he asked that I call and speak w/ his brother. I attempted to contact patient's brother (Fausto): no answer at this time VM left.
[2023-10-01] MEDS: ATENOLOL 25MG TABLET 25 MG PO (11:13)
[2023-10-01] MEDS: CITALOPRAM 40MG TABLET 40 MG PO (11:13)
--- NOTE | 2023-10-01 11:22 | P.PN_ITS ---
Subjective *Date: 10/01/23 *Time: 11:22 Exam Data for Last 24 hours Vital signs and Labs for Last 24 Hours: Temp Pulse Resp BP Pulse Ox O2 Del Method 98.7 F 100 H 18 126/78 100 Room Air 10/01/23 07:44 10/01/23 07:44 10/01/23 07:44 10/01/23 07:44 10/01/23 07:44 10/01/23 07:44 Laboratory Results - last 24 hr 09/30/23 23:01: WBC 11.7 H, RBC 4.37 L, Hgb 13.5 L, Hct 42.0, MCV 96.2 H, MCH 30.9, MCHC 32.1, RDW 13.9, Plt Count 295, MPV 7.2 L, Neut % (Auto) 77.3, Lymph % (Auto) 15.5, [place] % (Auto) 5.6, Eos % (Auto) 1.1, Baso % (Auto) 0.5, Neut # (Auto) 9.1 H, Lymph # (Auto) 1.8, [place] # (Auto) 0.7, Eos # (Auto) 0.1, Baso # (A uto) 0.1, Sodium 142, Potassium 3.6, Chloride 106, Carbon Dioxide 23, Anion Gap 16.6 H, BUN 20, Creatinine 1.10, Estimated Creat Clear 109, Estimated GFR 67, Est GFR ( Amer) 82, Glucose 105 H, Calcium 9.2, Total Bilirubin 0.9, AST 29, ALT 23, Alkaline Phosphatase 78, Total Creatine Kinase 206 H, C-Reactive Protein 2.4, NT-Pro-B Natriuret Pep 141 H, Total Protein 6.6, Albumin 4.1, Globulin 2.5, Albumin/Globulin Ratio 1.6, Procalcitonin < 0.03 09/30/23 23:16: VBG pH 7.44 H, VBG pCO2 31.7 L, VBG pO2 199.7 H, VBG HCO3 21.2 L , VBG Total CO2 22.2 L, VBG O2 Saturation 99.4 H, VBG Base Excess -2.9 L, VBG Lactic Acid 2.6 H 10/01/23 03:15: Urine Color Dark yellow, Urine Appearance Clear, Urine pH 6.0, Ur Specific [place] >= 1.030, Urine Protein Trace, Urine Glucose (UA) Negative, Urine Ketones Negative, Urine Blood Negative, Urine Nitrate Positive, Urine Bi lirubin 1+ A, Urine Urobilinogen 0.2, Ur Leukocyte Esterase Negative, Urine RBC None, Urine WBC 3-5, Ur Squamous Epith Cells Occasional, Urine Bacteria Trace, Urine Mucus 2+ 10/01/23 03:55: Lactate 0.8 10/01/23 06:00: WBC 8.6 D, RBC 4.23 L, Hgb 13.0 L, Hct 40.0 L, MCV 94.6 H, MCH 30.6, MCHC 32.4, RDW 13.8, Plt Count 250, MPV 7.6, Neut % (Auto) 95.0 H, Lymph % (Auto) 3.4 L, [place] % (Auto) 1.3 L, Eos % (Auto) 0.1, Baso % (Auto) 0.2, Neut # (Auto) 8.1 H, Lymph # (Auto) 0.3 L, [place] # (Auto) 0.1, Eos # (Auto) 0.0, Baso # (Auto) 0.0, Total Counted 100, Neutrophils % (Manual) 97 H, Lymphocytes % (Manual) 2 L, Monocytes % (Manual) 1 L, Platelet Estimate Normal, RBC Morphology Normal, Sodium 140, Potassium 3.5, Chloride 105, Carbon Dioxide 25, Anion Gap 13.5, BUN 22 H, Creatinine 1.00, Estimated Creat Clear 120, Estimated GFR 75, Est GFR ( Amer) 91, Glucose 131 H D, Calcium 9.1, Magnesium 1.9, Total Bilirubin 1.0, AST 25, ALT 18, Alkaline Phosphatase 81, Total Protein 6.1 L, Albumin 3.8, Globulin 2.3, Albumin/Globulin Ratio 1.7 I & O for Last 24 hours: Intake & Output 09/28/23 09/29/23 09/30/23 10/01/23 23:59 23:59 23:59 23:59 Intake Total 790 / 790 Output Total 950 / 950 Balance -160 / -160 Weight 113.398 kg 100.839 kg Microbiology Reports for the Last 24 Hours: Microbiology 10/01/23 01:20 Nasopharyngeal Coronavirus COVID-19 PCR - Final
--- NOTE | 2023-10-01 11:40 | HMH.OTEV ---
OT Inpatient Evaluation Rehab OT IP Evaluation Start: 10/01/23 08:15 Freq: ONCE Status: Active Protocol: Document 10/01/23 11:36 KIERAN (Rec: 10/01/23 11:40 [facility] [id number]) Rehab OT IP Assessment Subjective History Per H&P: This is a 63-year-old male morbidly obese, PMHx of clubfoot, asthma, COPD, peripheral neuropathy, GERD, hyperlipidemia, cognitive disability, and frequent falls presented to the emergency department for evaluation after home fall out of his bed . According to the patient, he rolled out of bed, and hit his head on the gun safe by his bed. He did not lose consciousness. He was lying facedown and was unable to get up on his own for uncertain amount of time. Family called EMS and was brought in with the complains of generalized headache as well as bilateral neck pain. No numbness, tingling, visual disturbance, or other concerns. Patient also reports that has been feeling unwell for a while. He notes he was seen here towards the end of August for upper respiratory infection and he was prescribed antibiotics as well as albuterol. On medical record review, he was seen here 2023 and prescribed doxycycline as well as inhalers. He notes has been taking these, but he continues to feel worse. No other concerns noted at this time. Subjective PLOF per pt report: Lives with brother and family in single story home. Pt required assistance from brother for functional transfers using w/c and RW. Reports multiple falls in the past month d/t BLE weakness. Pt also claims recently he was requiring assistance with ADLs and was dependent on family for completion of IADLs. Objective Patient Orientation Person,Birthday Right Upper Extremity Gross ROM Min Limitation <25% Left Upper Extremity Gross ROM Min Limitation <25% Shoulder ROM Limitations Muscle Weakness Elbow ROM Limitations Muscle Weakness Wrist Limitations of Range of Motion Muscle Weakness Bed Mobility bed mobility-scooting,bed mobility - supine/sit Assist Level Maximum x 2 (75% assist) Transfer Training Sit/Stand Transfer Assist Level Moderate x 2 (50% assist) Chair Transfer Ability Moderate x 2 (50% assist) Chair Transfer Technique Stand Step Pivot Chair Transfer Assistive Devices Rolling Walker Rehab OT IP prob,goals,plan Problems Date of Evaluation: 10/01/23 OT IP Problems Bed Mobility,Transfers,Balance ,Self care,Safety Rehab Potential Rehab Potential Good Equipment Needs Assistive Devices Rolling / Wheeled Walker Plan OT intervention Plan Bed Mobility,Transfers,Balance ,Self care,Safety,Other OT Plan Frequency Daily Duration LOS Discharge Goals Bed Mobility Ability Assistance x1 Sit to Stand Chair Transfer Ability Moderate x 1 (50% assist) Chair Transfer Ability Moderate x 1 (50% assist) Chair Transfer Technique Sit to/from Ambulatory Chair Transfer Assistive Devices Rolling Walker Feeding Ability Assist with Tray Set Up Lower Body Dressing Ability Moderate Assistance Upper Body Dressing Ability Minimal Assistance Bathing Ability Moderate Assistance Performing Toilet Hygiene Ability Moderate Assistance Overall Commode/Toilet Transfer Ability Moderate Assistance Commode/Toilet Transfer Technique Sit to/from Ambulatory Commode/Toilet Transfer Assistive Grab Bars Devices Oral Care Assist Minimal Assistance Decrease in Endurance Yes Discharge Plan OT Discharge Plan Pt will continue to be seen for OT services while at [facility]. Pt presents below baseline with functional transfers and ADL independence. Pt would benefit most from short term rehab at SNF following discharge from hospital. Continued skilled therapy is important in order for patient to improve strength, safety, endurance, ADL independence, and functional transfers to reach PLOF. Eval Complexity Eval Charge Codes 21927 - Moderate Complexity PHYSICIAN CERTIFICATION: I certify the specified therapy services for Jim Mclaughlin are required, authorized, and reviewed every 30 days.
--- NOTE | 2023-10-01 11:58 | PC.NURSE ---
Patients wallet and chavez sent home with patients brother.
[2023-10-01] MEDS: GABAPENTIN 300MG CAPSULE 300 MG PO ×2 (13:33→20:11)
--- NOTE | 2023-10-01 19:03 | PC.NURSE ---
Bladder scanned and pt had 220 in bladder. MD stated to encourage PO fluids.
[2023-10-01] MEDS: PRAVASTATIN 20MG TAB 20 MG PO (20:11)
[2023-10-01] MEDS: PANTOPRAZOLE 40MG TABLET 40 MG PO (20:11)
[2023-10-02] VITALS: O2SAT 96
[2023-10-02] MEDS: HEPARIN SODIUM 5,000 UNIT/ML VIAL 5000 UNIT SQ ×2 (01:28→09:14)
[2023-10-02 04:00] VITALS: BP 126/76; PULSE 74; RESP 18; TEMP 36.5; O2SAT 97; BMI 36.2
[2023-10-02] MEDS: DOXYCYCLINE HYCLATE 100 MG in 0.9 % SODIUM CHLORIDE 250 ML 166.667000000000002 MG IV (05:32)
--- NOTE | 2023-10-02 05:42 | PC.NURSE ---
patient has slept well t/o shift - audible wheezes noted this morning but denies soa.
[2023-10-02 06:06] VITALS: PULSE 70; PULSE 76; O2SAT 97
[2023-10-02] MEDS: IPRATROPIUM/ALBUTEROL 3 ML NEB IH ×2 (06:06→12:39)
[2023-10-02 06:44] LABS: Basophils % 0.2 % (0.1-2.0); Eosinophils % 0.4 % (0.1-12.0); Hematocrit 38.6 % (42.0-52.0); Hemoglobin 12.7 g/dL (14.1-18.0); Lymphocytes # 1.6 K/mm3 (0.7-4.5); Lymphocytes % 14.3 % (10-50); Mean Corpuscular HGB Conc 32.9 g/dL (31.8-35.4); Mean Corpuscular Hemoglobin 31.4 pg (27.0-31.2); Mean Corpuscular Volume 95.6 fl (80-94); Mean Platelet Volume 7.2 fl (7.4-10.4); Monocytes # 0.7 K/mm3 (0.1-1.0); Monocytes % 6.5 % (1.7-9.3); Neutrophils # 8.6 K/mm3 (1.8-7.8); Neutrophils % 78.7 % (37.0-80.0); Platelet Count 236 K/mm3 (142-424); Red Blood Count 4.04 M/mm3 (4.60-6.20); Red Cell Distribution Width 14.1 % (11.5-17.5); White Blood Count 10.9 K/mm3 (4.8-10.8)
[2023-10-02 06:57] LABS: Anion Gap 7.6 mEq/L (5-15); Blood Urea Nitrogen 30 mg/dl (9-20); Calcium 8.8 mg/dl (8.4-10.2); Carbon Dioxide 25 mmol/L (22.0-30.0); Chloride 109 mmol/L (98-107); Creatinine Clearance Estimated 98 mL/min (50-200); Estimated Glomerular Filt Rate 67 ml/min (>60); GFR (African American) 82 ML/MIN (>60); Glucose 98 mg/dl (74-100); Potassium 3.6 mmoL/L (3.5-5.1); Sodium 138 mmol/L (136-145)
[2023-10-02 07:59] VITALS: BP 127/82; PULSE 87; RESP 20; TEMP 36.9; O2SAT 97
[2023-10-02] MEDS: ATENOLOL 25MG TABLET 25 MG PO (09:14)
[2023-10-02] MEDS: CITALOPRAM 40MG TABLET 40 MG PO (09:14)
[2023-10-02] MEDS: DOCUSATE SODIUM 100 MG CAPSULE PO (09:14)
[2023-10-02] MEDS: GABAPENTIN 300MG CAPSULE 300 MG PO ×2 (09:14→13:23)
--- NOTE | 2023-10-02 10:34 | P.DS_ITS ---
General Admission date:: 10/01/23 Discharge date: 10/02/23 HPI HPI HPI: This is a 63-year-old male morbidly obese, PMHx of clubfoot, asthma, COPD, peripheral neuropathy, GERD, hyperlipidemia, cognitive disability, and frequent falls presented to the emergency department for evaluation after home fall out of his bed. According to the patient, he rolled out of bed, and hit his head on the gun safe by his bed. He did not lose consciousness. He was lying facedown and was unable to get up on his own for uncertain amount of time. Family called EMS and was brought in with the complains of generalized headache as well as bilateral neck pain. No numbness, tingling, visual disturbance, or other concerns. Patient also reports that has been feeling unwell for a while. He notes he was seen here towards the end of August for upper respiratory infection and he was prescribed antibiotics as well as albuterol. On medical record review, he was seen here 09/18/2023 and prescribed doxycycline as well as inhalers. He notes has been taking these, but he continues to feel worse. No other concerns noted at this time Hospital Course Hospital Course Hospital Course: 63-year-old male morbidly obese, PMHx of clubfoot, asthma, COPD, peripheral neuropathy, GERD, hyperlipidemia, cognitive disability, and frequent falls presented to the emergency department for evaluation after home fall out of his bed. On arrival he expressed not felling well and having increased SOB. last seen 09/17 at he ED was sent home on nebulizer and doxy. patient does not seen to be improving. initial work up showed Labs that demonstrated mild leukocytosis very mildly elevated CK at 206, mildly elevated anion gap at 16.6, and mild respiratory alkalosis. trauma imaging negative for acute trauma. treatment initiated for COPD exacerbation including doxycycline and duoneb. patient clinically improved, however still unable to perform his ADL, therefore there is a safety concern for discharge. ED requested admission. Discussion of findings was made. Medicine agreed for admission: -Acute hypercapnic respiratory failure: No hypoxia , presented with multiples falls and increased weakness: Admitted for therapy management/eval and treatment of his COPD exacerbation. Will continue doxycycline for a total of 5 days and prednisone for total of 5 days. Therapy evaluated, would benefit from rehab. Has been accepted to [facility] for further management. Labs normal on morning of discharge. Patient stable on room air. Will continue breathing treatments as needed. Mild cognitive impairment: obesity: Chronic conditions complicate all aspects of his care. Currently unable to perform ADLs safely including standing and transfers. Stable to discharge to [facility] for further care. Exam Data for Last 24 hours Vital signs and Labs for Last 24 Hours: Temp Pulse Resp BP Pulse Ox O2 Del Method 98.4 F 87 20 127/82 97 Room Air 10/02/23 07:59 10/02/23 07:59 10/02/23 07:59 10/02/23 07:59 10/02/23 07:59 10/02/23 07:59 Laboratory Results - last 24 hr 10/02/23 06:03: WBC 10.9 H D, RBC 4.04 L, Hgb 12.7 L, Hct 38.6 L, MCV 95.6 H, MCH 31.4 H, MCHC 32.9, RDW 14.1, Plt Count 236, MPV 7.2 L, Neut % (Auto) 78.7, Lymph % (Auto) 14.3, [place] % (Auto) 6.5, Eos % (Auto) 0.4, Baso % (Auto) 0.2, Neut # (Auto) 8.6 H, Lymph # (Auto) 1.6, [place] # (Auto) 0.7, Eos # (Auto) 0.0, Baso # (Auto) 0.0, Sodium 138, Potassium 3.6, Chloride 109 H, Carbon Dioxide 25, Anion Gap 7.6, BUN 30 H D, Creatinine 1.10, Estimated Creat Clear 98, Estimated GFR 67, Est GFR ( Amer) 82, Glucose 98, Calcium 8.8 I & O for Last 24 hours: Intake & Output 09/29/23 09/30/23 10/01/23 10/02/23 23:59 23:59 23:59 23:59 Intake Total 1590 / 1590 730 / 730 Output Total 1400 / 1400 Balance 190 / 190 730 / 730 Weight 113.398 kg 100.839 kg 102.194 kg Constitutional Constitutional: no acute distress, obese and chronically ill appearing *Routine HEENT Exam Eye: Present EOMI and PERRL ENT: Present mucous membranes moist Comments: Macrocephalic *Routine Neck Exam Neck: Present supple; Absent lymphadenopathy *Routine Respiratory Exam Respiratory: Present wheezes and normal respiratory effort; Absent rhonchi or crackles *Routine Cardiovascular Exam Cardiovascular: Present RRR *Routine Abdominal Exam Abdominal: Present soft and normoactive bowel sounds; Absent tenderness *Routine Rectal Exam Patient deferred: visual exam *Routine Exam Patient deferred: penile exam *Routine Extremities Exam Extremities: Absent cyanosis, clubbing or edema *Routine Skin Exam Skin: Present warm; Absent rash *Routine Neurological Exam Neurological: Present alert and moving all extremities; Absent altered mental status Comments: Oriented to self and place Results Data Completed and Pending Labs on day of discharge: Labs from last 24 hours 10/02/23 06:03 WBC 10.9 H D RBC 4.04 L Hgb 12.7 L Hct 38.6 L MCV 95.6 H MCH 31.4 H MCHC 32.9 RDW 14.1 Plt Count 236 MPV 7.2 L Neut % (Auto) 78.7 Lymph % (Auto) 14.3 [place] % (Auto) 6.5 Eos % (Auto) 0.4 Baso % (Auto) 0.2 Neut # (Auto) 8.6 H Lymph # (Auto) 1.6 [place] # (Auto) 0.7 Eos # (Auto) 0.0 Baso # (Auto) 0.0 Sodium 138 Potassium 3.6 Chloride 109 H Carbon Dioxide 25 Anion Gap 7.6 BUN 30 H D Creatinine 1.10 Estimated Creat Clear 98 Estimated GFR 67 Est GFR ( Amer) 82 Glucose 98 Calcium 8.8 DS: Diagnosis Discharge Diagnosis (1) Acute exacerbation of chronic obstructive pulmonary disease: Status: Acute Code(s): J44.1 - Chronic obstructive pulmonary disease with (acute) exacerbation (2) Frequent falls: Status: Acute Code(s): R29.6 - Repeated falls (3) General weakness: Status: Acute Code(s): R53.1 - Weakness (4) Mild intellectual disabilities: Status: Chronic Code(s): F70 - Mild intellectual disabilities (5) Obesity: Status: Acute Code(s): E66.9 - Obesity, unspecified Qualifiers: Body mass index: BMI 36.0-36.9 Obesity classification: adult class 2 (BMI 35 - 39.9) Obesity type: due to excess calories Serious obesity comorbidity presence: with serious comorbidity Qualified Code(s): E66.01 - Morbid (severe) obesity due to excess calories; Z68.36 - Body mass index [BMI] 36.0-36.9, adult Meds Home Medications and Allergies Home Medications Medication Instructions Recorded Confirmed Type cariprazine 1.5 mg capsule 1.5 mg PO DAILY #30 caps 09/12/23 10/01/23 Rx (Vraylar) carbamide peroxide 6.5 % ear drops 5 drp otic (ear) DAILY 4 days #15 09/13/23 10/01/23 Rx (Debrox) mL ipratropium 0.5 mg-albuterol 3 mg 3 ml inhalation Q4H PRN wheezing 09/18/23 10/01/23 Rx (2.5 mg base)/3 mL nebulization #90 mL soln atenolol 25 mg tablet 25 mg PO DAILY 10/01/23 10/01/23 History cholecalciferol (vitamin D3) 1,250 1,250 mcg PO WEEKLY 10/01/23 10/01/23 History mcg (50,000 unit) capsule citalopram 40 mg tablet 40 mg PO DAILY 10/01/23 10/01/23 History omeprazole 40 mg capsule,delayed 40 mg PO HS 10/01/23 10/01/23 History release pravastatin 20 mg tablet 20 mg PO HS 10/01/23 10/01/23 History diazepam 2 mg tablet 2 mg PO DAILY PRN anxiety 30 days 10/02/23 Rx #30 tabs doxycycline hyclate 100 mg tablet 100 mg PO Q12H 3 days #6 tabs 10/02/23 Rx gabapentin 300 mg capsule 300 mg PO TID 30 days #90 caps 10/02/23 Rx prednisone 20 mg tablet 40 mg (2 x 20 mg) PO DAILY 4 days 10/02/23 Rx #8 tabs New Prescriptions to Start Prescriptions: Carson Black doxycycline hyclate Carson Dillon gabapentin Wilma,Carson prednisone Carson Dillon Allergies Allergy/AdvReac Type Severity Reaction Status Date / Time No Known Allergies Allergy Verified 09/18/23 09:55 Discharge Plan Disposition Patient Disposition: er Intermediate Care Fac Condition: Fair Discharge Order Discharge Orders: Discharge Order (Routine); Ordered 10/02/23 Ordered By: Carson Dillon Follow up Plan Prescriptions/Medication Reconciliation: New prednisone 20 mg Tablet 40 mg PO DAILY 4 Days Qty: 8 0RF doxycycline hyclate 100 mg tablet 100 mg PO Q12H 3 Days Qty: 6 0RF Continued Vraylar 1.5 mg capsule 1.5 mg PO DAILY Qty: 30 2RF Debrox 6.5 % drops 5 drp otic (ear) DAILY 4 Days Qty: 15 0RF citalopram 40 mg tablet 40 mg PO DAILY Rx Instructions: TAKE 1 TABLET BY MOUTH ONCE DAILY FOR ANXIETY atenolol 25 mg tablet 25 mg PO DAILY Rx Instructions: TAKE 1 TABLET BY MOUTH ONCE DAILY omeprazole 40 mg capsule,delayed release(DR/EC) 40 mg PO HS Rx Instructions: TAKE 1 CAPSULE BY MOUTH EVERY DAY FOR REFLUX/ACID REFLUX pravastatin 20 mg tablet 20 mg PO HS Rx Instructions: TAKE 1 TABLET BY MOUTH ONCE DAILY FOR CHOLESTEROL cholecalciferol (vitamin D3) 1,250 mcg (50,000 unit) capsule 1,250 mcg PO WEEKLY Rx Instructions: TAKE 1 CAPSULE BY MOUTH WEEKLY FOR VITAMIN DEFICIENCY diazepam 2 mg tablet 2 mg PO DAILY PRN (Reason: anxiety) 30 Days Qty: 30 2RF ipratropium-albuterol 0.5 mg-3 mg(2.5 mg base)/3 mL solution for nebulization 3 ml inhalation Q4H PRN (Reason: wheezing) Qty: 90 1RF Changed gabapentin 300 mg capsule 300 mg PO TID 30 Days Qty: 90 0RF Rx Instructions: TAKE 1 CAPSULE BY MOUTH THREE TIMES A DAY FOR PAIN MAY CAUSE DROWSINESS Problem Reconciliation Problems Reviewed?: Yes Patient Discharge Instructions ACTIVITY: Continue current activity DIET: continue same diet Patient Instructions: How to Prevent Falls, DI for Muscle Weakness Providers Primary Care Provider: Elliott Briseno Admit Provider: Ernesto Tena Attending Provider: Ernesto Tena
[2023-10-02] MEDS: predniSONE 20MG TAB 40 MG PO (12:09)
[2023-10-02 12:39] VITALS: PULSE 66; PULSE 67
--- NOTE | 2023-10-02 12:55 | PC.NURSE ---
Current Medications Jim Mclaughlin 1960 Acetaminophen (Acetaminophen 325mg Tab) 650 mg PO Q4HP PRN PRN Reason: Fever or Mild Pain (1-3) Stop: 10/31/23 01:31 Last Admin: 10/01/23 05:43 Dose: 650 mg Al Hydrox/Mg Hydrox/Simethicone (Aluminum/Magnesium/Simethicone 30ml Udc) 30 ml PO QIDP PRN PRN Reason: Dyspepsia Stop: 10/31/23 01:31 Albuterol/Ipratropium (Ipratropium/Albuterol 3 Ml Neb) 3 ml IH Q6RT GWENDOLYN Stop: 10/31/23 05:59 Last Admin: 10/02/23 12:39 Dose: 3 ml Albuterol/Ipratropium (Ipratropium/Albuterol 3 Ml Neb) 3 ml IH Q4HP PRN PRN Reason: wheezing Stop: 10/31/23 10:05 Last Admin: 10/01/23 21:13 Dose: 3 ml Atenolol (Atenolol 25mg Tablet) 25 mg PO DAILY GWENDOLYN Stop: 10/31/23 10:14 Last Admin: 10/02/23 09:14 Dose: 25 mg Citalopram Hydrobromide (Citalopram 40mg Tablet) 40 mg PO DAILY GWENDOLYN Stop: 10/31/23 10:14 Last Admin: 10/02/23 09:14 Dose: 40 mg Diazepam (Diazepam 2mg Tablet) 2 mg PO DAILYP PRN PRN Reason: anxiety Stop: 10/31/23 10:05 Docusate Sodium (Docusate Sodium 100 Mg Capsule) 100 mg PO DAILY GWENDOLYN Stop: 10/31/23 08:59 Last Admin: 10/02/23 09:14 Dose: 100 mg Gabapentin (Gabapentin 300mg Capsule) 300 mg PO TID GWENDOLYN Stop: 10/31/23 12:59 Last Admin: 10/02/23 09:14 Dose: 300 mg Heparin Sodium (Porcine) (Heparin Sodium 5,000 Unit/Ml Vial) 5,000 unit SQ Q8H GWENDOLYN Stop: 10/31/23 01:44 Last Admin: 10/02/23 09:14 Dose: 5,000 unit Doxycycline Hyclate 100 mg/ (Sodium Chloride) 250 mls @ 166.667 mls/hr IV Q12H GWENDOLYN Stop: 10/11/23 06:29 Last Admin: 10/02/23 05:32 Dose: 166.667 mls/hr Morphine Sulfate (Morphine 4mg/Ml Syringe) 4 mg IV Q4HP PRN PRN Reason: Severe Pain (7-10) Stop: 10/31/23 01:31 Nicotine (Nicotine 21mg/24hr Patch) 21 mg TD DAILYP PRN PRN Reason: Nicotine Cravings Stop: 10/31/23 01:31 Ondansetron HCl (Ondansetron 4mg/2ml Vial) 4 mg IV Q8HP PRN PRN Reason: Nausea Stop: 10/31/23 01:31 Pantoprazole Sodium (Pantoprazole 40mg Tablet) 40 mg PO HS [facility] Stop: 10/31/23 20:59 Last Admin: 10/01/23 20:11 Dose: 40 mg Pravastatin Sodium (Pravastatin 20mg Tab) 20 mg PO HS [facility] Stop: 10/31/23 20:59 Last Admin: 10/01/23 20:11 Dose: 20 mg Prednisone (Prednisone 20mg Tab) 40 mg PO DAILY [facility] Stop: 11/01/23 10:34 Last Admin: 10/02/23 12:09 Dose: 40 mg
== END 2023-10-02 15:15 ==
LOC: ER 10-01 00:23 → 2ND 10-01 01:43
PROVIDERS: Nurse Practitioner Family; Admitting Provider Internal Medicine; Emergency Provider Emergency Medicine; PCP Nurse Practitioner Family; Visit Provider Internal Medicine
DX: J44.1 Chronic obstructive pulmonary disease with (acute) exacerbation (principal); R29.6 Repeated falls; R53.1 Weakness; F70 Mild intellectual disabilities; E66.01 Morbid (severe) obesity due to excess calories; Z68.36 Body mass index [BMI] 36.0-36.9, adult; E66.9 Obesity, unspecified; J96.02 Acute respiratory failure with hypercapnia; G62.9 Polyneuropathy, unspecified
CPT/HCPCS: 36415; 70450; 71045; 72125; 72170; 73060; 73080; 73090; 80048; 80053; 81001; 82550; 82803; 83605; 83735; 83880; 84145; 85007; 85025; 86140; 87635; 94640; 97162; 97166; 97530; 99285; G0378; J0131

== ENCOUNTER 2023-10-25 08:22 | Outpatient (CLI) | payer MEDICARE, OTHER, SELFPAY ==
[2023-10-25 09:28] LABS: Anion Gap 20.8 mEq/L (5-15); Blood Urea Nitrogen 26 mg/dl (9-20); Calcium 9.5 mg/dl (8.4-10.2); Carbon Dioxide 23 mmol/L (22.0-30.0); Chloride 90 mmol/L (98-107); Estimated Glomerular Filt Rate 56 ml/min (>60); GFR (African American) 67 ML/MIN (>60); Glucose 210 mg/dl (74-100); Sodium 131 mmol/L (136-145)
[2023-10-25 09:33] LABS: Potassium 2.8 mmoL/L (3.5-5.1)
== END 2023-10-25 23:59 | disposition home or self-care (01) ==
LOC: LAB.DROPOF 08:24
PROVIDERS: PCP Family Medicine; Visit Provider Family Medicine
DX: E87.6 Hypokalemia (principal); R73.09 Other abnormal glucose
CPT/HCPCS: 80048

== ENCOUNTER 2023-10-26 11:12 | Outpatient (CLI) | payer MEDICARE, OTHER, SELFPAY ==
[2023-10-26 11:43] LABS: Anion Gap 18.5 mEq/L (5-15); Blood Urea Nitrogen 31 mg/dl (9-20); Carbon Dioxide 27 mmol/L (22.0-30.0); Chloride 92 mmol/L (98-107); Estimated Glomerular Filt Rate 51 ml/min (>60); GFR (African American) 62 ML/MIN (>60); Glucose 113 mg/dl (74-100); Potassium 3.5 mmoL/L (3.5-5.1); Sodium 134 mmol/L (136-145)
== END 2023-10-26 23:59 | disposition home or self-care (01) ==
PROVIDERS: PCP Internal Medicine; Visit Provider Family Medicine
DX: Z79.899 Other long term (current) drug therapy (principal)
CPT/HCPCS: 80048

== ENCOUNTER 2023-10-29 10:00 | Outpatient (CLI) | payer MEDICARE, SELFPAY ==
[2023-10-29 11:02] LABS: Chloride 97 mmol/L (98-107); Sodium 135 mmol/L (136-145)
[2023-10-29 11:03] LABS: Potassium 3.6 mmoL/L (3.5-5.1)
[2023-10-29 11:06] LABS: Anion Gap 13.6 mEq/L (5-15); Blood Urea Nitrogen 36 mg/dl (9-20); Calcium 9.6 mg/dl (8.4-10.2); Carbon Dioxide 28 mmol/L (22.0-30.0); Estimated Glomerular Filt Rate 51 ml/min (>60); GFR (African American) 62 ML/MIN (>60); Glucose 105 mg/dl (74-100)
== END 2023-10-29 23:59 | disposition home or self-care (01) ==
LOC: LAB.DROPOF 10:01
PROVIDERS: Family Medicine; PCP Internal Medicine; Visit Provider Internal Medicine
DX: G40.909 Epilepsy, unspecified, not intractable, without status epilepticus (principal)
CPT/HCPCS: 80048

== ENCOUNTER 2023-10-29 19:57 | Emergency (ER) | payer MEDICARE, SELFPAY ==
[2023-10-29 19:57] VITALS: BP 122/82; PULSE 78; RESP 18; TEMP 36.8; O2SAT 95; BMI 33.3
[2023-10-29 20:01] VITALS: BP 122/82; PULSE 77; RESP 18; O2SAT 96
--- NOTE | 2023-10-29 20:14 | HMH.EDGENADL ---
Discharge Plan Disposition Patient Disposition: Home, Self-Care Chief Complaint: PAIN Prescriptions Prescriptions: No Action Vraylar 1.5 mg capsule 1.5 mg PO DAILY Qty: 30 2RF Acid Gone Antacid 95-358 mg/15 mL suspension 30 ml PO DAILY PRN (Reason: dyspepsia) Qty: 355 0RF loperamide [Imodium A-D] 2 mg capsule 2 mg PO Q6H PRN (Reason: loose stool) Qty: 90 0RF acetaminophen [Tylenol Extra Strength] 500 mg tablet 500 mg PO Q6H PRN (Reason: fever or pain) Qty: 90 0RF lactulose 10 gram/15 mL solution 30 ml PO DAILY PRN (Reason: constipation) Qty: 946 2RF chlorthalidone 25 mg tablet 25 mg PO DAILY Qty: 90 3RF citalopram 40 mg tablet 40 mg PO DAILY Rx Instructions: TAKE 1 TABLET BY MOUTH ONCE DAILY FOR ANXIETY atenolol 25 mg tablet 25 mg PO DAILY Rx Instructions: TAKE 1 TABLET BY MOUTH ONCE DAILY omeprazole 40 mg capsule,delayed release(DR/EC) 40 mg PO HS Rx Instructions: TAKE 1 CAPSULE BY MOUTH EVERY DAY FOR REFLUX/ACID REFLUX pravastatin 20 mg tablet 20 mg PO HS Rx Instructions: TAKE 1 TABLET BY MOUTH ONCE DAILY FOR CHOLESTEROL cholecalciferol (vitamin D3) 1,250 mcg (50,000 unit) capsule 1,250 mcg PO WEEKLY Rx Instructions: TAKE 1 CAPSULE BY MOUTH WEEKLY FOR VITAMIN DEFICIENCY diazepam 2 mg tablet 2 mg PO DAILY PRN (Reason: anxiety) 30 Days Qty: 30 2RF gabapentin 300 mg capsule 300 mg PO TID 30 Days Qty: 90 0RF Rx Instructions: TAKE 1 CAPSULE BY MOUTH THREE TIMES A DAY FOR PAIN MAY CAUSE DROWSINESS ipratropium-albuterol 0.5 mg-3 mg(2.5 mg base)/3 mL solution for nebulization 3 ml inhalation Q4H PRN (Reason: wheezing) Qty: 90 1RF Referrals Follow up/Referrals: Provider,Referral, MD [Referring] - See instructions Clinical Impressions Clinical Impression: Headache, Encounter for medical assessment Discharge ED Provider: Jose Kenny General Adult HPI General Chief complaint: PAIN Stated complaint: Weakness Time Seen by Provider: 10/29/23 19:59 Mode of Arrival: EMS Source of Information: Patient Limitations: No Limitations Description of Symptoms (Recalled from ER Triage Doc. by RN): patient presents to ED via [facility]. Patient is from [facility] and report's patient has been c/o of pain in his right hand and head. Lucama states patient's heart rate has been elevated. History of Present Illness HPI narrative: Please note that above description of symptoms, in this electronic medical record under categorization of recalled from ER triage doctor by RN are reflective of an initial nursing assessment, however, is not reflective of my full history and physical exam that was personally taken and clarified. Consequentially, this preceding description of symptoms, which may include the patient's categorized chief complaint in the EMR, do not reflect my personal clinical impression, and the ultimate description of history of present illness and patient stated complaints should be deferred to this section of the note. Unless stated otherwise or congruent with this section of the note, additional signs, symptoms, or incongruence should be interpreted as inaccurate with my clinical impression. Related Data Home Medications Medication Instructions Recorded Confirmed atenolol 25 mg tablet 25 mg PO DAILY 10/01/23 10/10/23 cholecalciferol (vitamin D3) 1,250 1,250 mcg PO WEEKLY 10/01/23 10/10/23 mcg (50,000 unit) capsule citalopram 40 mg tablet 40 mg PO DAILY 10/01/23 10/10/23 omeprazole 40 mg capsule,delayed 40 mg PO HS 10/01/23 10/10/23 release pravastatin 20 mg tablet 20 mg PO HS 10/01/23 10/10/23 Previous Rx's Medication Instructions Recorded cariprazine 1.5 mg capsule 1.5 mg PO DAILY #30 caps 09/12/23 (Vraylar) ipratropium 0.5 mg-albuterol 3 mg 3 ml inhalation Q4H PRN wheezing 09/18/23 (2.5 mg base)/3 mL nebulization #90 mL soln diazepam 2 mg tablet 2 mg PO DAILY PRN anxiety 30 days 10/02/23 #30 tabs gabapentin 300 mg capsule 300 mg PO TID 30 days #90 caps 10/02/23 acetaminophen 500 mg tablet 500 mg PO Q6H PRN fever or pain 10/03/23 (Tylenol Extra Strength) #90 tabs aluminum hydrox-magnesium carb 95 30 ml PO DAILY PRN dyspepsia #355 10/03/23 mg-358 mg/15 mL oral suspension mL (Acid Gone Antacid) lactulose 10 gram/15 mL oral 30 ml PO DAILY PRN constipation 10/03/23 solution #946 mL loperamide 2 mg capsule (Imodium 2 mg PO Q6H PRN loose stool #90 10/03/23 A-D) caps chlorthalidone 25 mg tablet 25 mg PO DAILY #90 tabs 10/16/23 Allergies Allergy/AdvReac Type Severity Reaction Status Date / Time No Known Allergies Allergy Verified 09/18/23 09:55 [facility] Disclaimer: The information contained in this section may have been updated after the patient was seen, as this information can be updated by other users. Medical History (Updated 10/29/23 @ 21:17 by Jose Kenny MD) Club foot of both lower extremities Hyperlipemia Depression Hypertension Chronic obstructive pulmonary disease Epilepsy Obesity Claudication Abnormal ankle brachial index (CHAUNCEY) Bilateral leg pain Abnormal EKG Dizziness Mild intellectual disabilities Anxiety Neuropathy Social History Smoking Status: Never smoker alcohol intake: never substance use type: denies use current occupational status: disabled Travel in the last 8 weeks: None household members: family housing: house current occupational exposures/hazards: No caffeine: Yes ROS Obtained: Yes All systems reviewed & no additional complaints except as documented Physical Exam General General appearance: alert and in no apparent distress Head Head exam: atraumatic and normocephalic Eye Eye exam: Present normal appearance, PERRL and EOMI ENT ENT exam: Present mucous membranes moist Neck Neck exam: Present normal inspection, full ROM and trachea midline Respiratory Respiratory exam: Present normal lung sounds bilaterally; Absent respiratory distress, wheezes, stridor, accessory muscle use or prolonged expiratory phase Cardiovascular Cardiovascular exam: Present regular rate and normal rhythm Abdominal Exam Abdominal exam: Present soft; Absent distention, tenderness, guarding, rebound or rigidity Extremities Exam Extremities exam: Present other (Note acute this); Absent edema Neurological Exam Neurological exam: Present alert, oriented X3, CN II-XII intact and other (Chronic left upper extremity tremor); Absent motor sensory deficit Skin Skin exam: Present warm and dry; Absent diaphoresis or erythema Medical Decision Making Medical Records Medical records reviewed: Yes I reviewed the patient's medical records. Nate Inquiry Pt receiving controlled substance: No Nate was queried for this patient: No Vital Signs: 10/29/23 19:57 Temperature 98.2 F Temperature Source Oral Pulse Rate [Right Radial] 78 Respiratory Rate 18 Blood Pressure [Right Arm] 122/82 Blood Pressure Mean [Right Arm] 95 Blood Pressure Source [Right Arm] Automatic Cuff Blood Pressure Position [Right Arm] Supine 02 Sat by Pulse Oximetry 95 Oxygen Delivery Method Room Air Lab Data Lab Results 10/29/23 20:19: WBC 13.5 H, RBC 4.89, Hgb 15.4, Hct 45.4, MCV 92.8, MCH 31.5 H, MCHC 33.9, RDW 13.6, Plt Count 395, MPV 7.2 L, Neut % (Auto) 82.4 H, Lymph % (Auto) 8.6 L, [place] % (Auto) 7.0, Eos % (Auto) 1.5, Baso % (Auto) 0.6, Neut # (Auto) 11.1 H, Lymph # (Auto) 1.2, [place] # (Auto) 0.9, Eos # (Auto) 0.2, Baso # (Auto) 0.1, Sodium 132 L, Potassium 4.1, Chloride 93 L, Carbon Dioxide 27, Anion Gap 16.1 H, BUN 41 H, Creatinine 1.40 H, Estimated Creat Clear 68, Estimated GFR 51 L, Est GFR ( Amer) 62, Glucose 102 H, Calcium 9.9, Total Bilirubin 1.2, AST 54, ALT 35, Alkaline Phosphatase 74, Total Protein 7.6, Albumin 4.6, Globulin 3.0, Albumin/Globulin Ratio 1.5 10/29/23 20:19 10/29/23 20:19 Orders (Tests/Meds): ED MEDICATIONS Discontinued Medications Generic Name Dose Route Start Last Admin Trade Name Freq PRN Reason Stop Dose Admin Acetaminophen 1,000 mg 10/29/23 20:10/29/23 20:21 Acetaminophen 1,000mg/100ml Vial IV 10/29/23 20:06 1,000 mg ONCE ONE Administration Dexamethasone 10 mg 10/29/23 20:05 10/29/23 20:22 Dexamethasone 4mg Tablet PO 10/29/23 20:06 10 mg ONCE ONE Administration Diphenhydramine HCl 25 mg 10/29/23 20:05 10/29/23 20:21 Diphenhydramine 50mg/Ml Vial IV 10/29/23 20:06 25 mg ONCE ONE Administration Lactated Ringer's 1,000 mls @ 999 mls/hr 10/29/23 20:05 10/29/23 20:21 Lactated Ringer's 1000 Ml Bag IV 10/29/23 21:05 999 mls/hr .Q1H1M ONE Administration Ketorolac Tromethamine 15 mg 10/29/23 20:05 10/29/23 20:21 Ketorolac 30mg/Ml Vial IV 10/29/23 20:06 15 mg ONCE ONE Administration Prochlorperazine Edisylate 10 mg 10/29/23 20:05 10/29/23 20:21 Prochlorperazine 10mg/2ml Vial IV 10/29/23 20:06 10 mg ONCE ONE Administration ORDERS Category Date Time Status CBC w/Auto Diff [Complete Blood Count Auto Diff] Stat Lab 10/29/23 20:19 Completed CMP [Comprehensive Metabolic Panel] Stat Lab 10/29/23 20:19 Completed Medical Decision Narrative: 63-year-old male history of hypertension, hyperlipidemia, chronic headache, epilepsy presenting with concern for lab abnormalities. Patient left upper extremity tremor has been getting worse and knows that his potassium can be high or low frequently, so came for further evaluation. Has headache, but this is chronic, not worse or better. Nothing in particular makes it better or worse. No other complaints. History was obtained via conversation with patient and EMS. On arrival, patient hemodynamically stable, alert, oriented x4, appropriate, GCS 15, moving all extremities spontaneously, pupils equal and reactive to light. Full physical exam performed and significant for chronically ill-appearing male no acute distress. Answering questions appropriately, left upper extremity tremor that he states is normal. At his neurologic baseline. Cardiopulmonary exam within normal limits, abdomen is soft, nontender, nondistended. Overall unremarkable exam. Differential includes metabolic abnormality, acute on chronic headache, among others. Patient was given headache cocktail with Toradol, acetaminophen, Decadron, fluids, Compazine, Benadryl for symptomatic management and correction of underlying abnormalities. Workup independently interpreted and significant for nonactionable CBC or chemistry. On reevaluation, patient states his headache is actually better, but no other complaints. Because patient without any complaints, headache resolved, no underlying laboratory abnormalities, deemed appropriate for outpatient management because patient at baseline without signs or symptoms of clinical decompensation, deemed appropriate for discharge. Results were relayed to patient who voiced understanding and were agreeable to outpatient management and follow up. I discussed my clinical impression with patient and answered all questions. At this time, the evidence for any other entities in the differential is insufficient to warrant any further testing or ED observation. This was explained as well. Advisory was given that persistent or worsening symptoms require further evaluation. I confirmed the understanding of this discussion. Roof Bolter Helper disclaimer Much of this encounter note is an electronic prison classification counselor spoken language to printed text. Electronic prison classification counselor of the spoken language may permit errors. Although I have reviewed the note, some errors may still exist. Critical Care Critical Care Time Critical Care Time: No
[2023-10-29] MEDS: KETOROLAC 30MG/ML VIAL 15 MG IV (20:21)
[2023-10-29] MEDS: ACETAMINOPHEN 1,000MG/100ML VIAL 1000 MG IV (20:21)
[2023-10-29] MEDS: LACTATED RINGERS 1000ML 1,000 ML 999 ML IV (20:21)
[2023-10-29] MEDS: diphenhydrAMINE 50MG/ML VIAL 25 MG IV (20:21)
[2023-10-29] MEDS: PROCHLORPERAZINE 10MG/2ML VIAL 10 MG IV (20:21)
[2023-10-29] MEDS: DEXAMETHASONE 4MG TABLET 10 MG PO (20:22)
[2023-10-29 20:26] LABS: Basophils # 0.1 K/mm3 (0-0.2); Basophils % 0.6 % (0.1-2.0); Eosinophils # 0.2 K/mm3 (0.0-0.4); Eosinophils % 1.5 % (0.1-12.0); Hematocrit 45.4 % (42.0-52.0); Hemoglobin 15.4 g/dL (14.1-18.0); Lymphocytes # 1.2 K/mm3 (0.7-4.5); Lymphocytes % 8.6 % (10-50); Mean Corpuscular HGB Conc 33.9 g/dL (31.8-35.4); Mean Corpuscular Hemoglobin 31.5 pg (27.0-31.2); Mean Corpuscular Volume 92.8 fl (80-94); Mean Platelet Volume 7.2 fl (7.4-10.4); Monocytes # 0.9 K/mm3 (0.1-1.0); Neutrophils # 11.1 K/mm3 (1.8-7.8); Neutrophils % 82.4 % (37.0-80.0); Platelet Count 395 K/mm3 (142-424); Red Blood Count 4.89 M/mm3 (4.60-6.20); Red Cell Distribution Width 13.6 % (11.5-17.5); White Blood Count 13.5 K/mm3 (4.8-10.8)
[2023-10-29 20:36] LABS: Alanine Aminotransferase 35 U/L (12-78); Albumin Level 4.6 g/dl (3.5-5.0); Albumin/Globulin Ratio 1.5 (1.1-1.8); Alkaline Phosphatase 74 U/L (38-126); Anion Gap 16.1 mEq/L (5-15); Aspartate Amino Transferase 54 U/L (17-59); Bilirubin,Total 1.2 mg/dl (0.2-1.3); Blood Urea Nitrogen 41 mg/dl (9-20); Calcium 9.9 mg/dl (8.4-10.2); Carbon Dioxide 27 mmol/L (22.0-30.0); Chloride 93 mmol/L (98-107); Creatinine Clearance Estimated 68 mL/min (50-200); Estimated Glomerular Filt Rate 51 ml/min (>60); GFR (African American) 62 ML/MIN (>60); Glucose 102 mg/dl (74-100); Potassium 4.1 mmoL/L (3.5-5.1); Sodium 132 mmol/L (136-145); Total Protein,Serum 7.6 g/dl (6.3-8.2)
[2023-10-29 21:00] VITALS: BP 111/76; PULSE 91; RESP 16; O2SAT 95
[2023-10-29 21:30] VITALS: BP 103/74; PULSE 85; RESP 18; O2SAT 95
--- NOTE | 2023-10-29 21:30 | PC.NURSE ---
patient is ready for d/c, awaiting EMS transport. [facility] aware of transport.
[2023-10-29 22:00] VITALS: BP 106/85; PULSE 77; RESP 16; O2SAT 96
[2023-10-30 00:25] VITALS: BP 139/87; PULSE 94; RESP 18; TEMP 37.1; O2SAT 97
== END 2023-10-30 00:28 | disposition home or self-care (01) ==
PROVIDERS: Emergency Provider Emergency Medicine; PCP Nurse Practitioner Family
DX: R51.9 Headache, unspecified (principal); E87.1 Hypo-osmolality and hyponatremia; I10 Essential (primary) hypertension; E78.5 Hyperlipidemia, unspecified; G40.909 Epilepsy, unspecified, not intractable, without status epilepticus
CPT/HCPCS: 80048; 80053; 85025; 96361; 96374; 96375; 99284; J0131; J7120

== ENCOUNTER 2023-10-30 15:22 | Outpatient (CLI) | payer MEDICARE, SELFPAY ==
[2023-10-30 15:29] LABS: 25-OH Vitamin D, Total 87.1 ng/mL (30-100)
[2023-10-30 16:18] LABS: Vitamin B12 209 pg/mL (239-931)
[2023-10-30 16:20] LABS: Folate 9.12 ng/mL
== END 2023-11-07 23:59 | disposition home or self-care (01) ==
LOC: LAB.DROPOF 11-07 08:04 → LAB 11-20 15:22
PROVIDERS: PCP Nurse Practitioner Family; Visit Provider Nurse Practitioner Family
DX: E55.9 Vitamin D deficiency, unspecified (principal); R25.1 Tremor, unspecified; Z68.28 Body mass index [BMI] 28.0-28.9, adult
CPT/HCPCS: 82306; 82607; 82746

== ENCOUNTER 2023-10-31 20:59 | Emergency (ER) | payer MEDICARE, SELFPAY ==
--- NOTE | 2023-10-31 20:32 | PC.NURSE ---
Report from [facility] at [place]. Patient rolled from his bed onto the floor. This was approximately 4 inches. No LOC, no obvious injury. Patient is GCS 15.
[2023-10-31 20:59] VITALS: BP 160/91; PULSE 110; RESP 20; TEMP 36.8; O2SAT 96; BMI 36.1
[2023-10-31 21:04] VITALS: BMI 36.1
--- NOTE | 2023-10-31 21:05 | CT_ITS ---
PROCEDURE INFORMATION: Exam: CT Head Without Contrast Exam date and time: 10/31/2023 9:21 PM Age: 63 years old Clinical indication: Injury or trauma; Fall; Blunt trauma (contusions or hematomas); Consciousness not specified; Additional info: Head injury with pain in forehead TECHNIQUE: Imaging protocol: Computed tomography of the head without contrast. Radiation optimization: All CT scans at this facility use at least one of these dose optimization techniques: automated exposure control; mA and/or kV adjustment per patient size (includes targeted exams where dose is matched to clinical indication); or iterative reconstruction. COMPARISON: CT HEAD/BRAIN WO CON 10/28/2023 9:49 AM FINDINGS: Limitations: Motion artifact. Brain: No acute intracranial hemorrhage, midline shift or mass effect. Similar pattern of chronic small-vessel ischemic changes. Cerebral ventricles: Unchanged severe ventriculomegaly. Paranasal sinuses: Visualized sinuses are unremarkable. No fluid levels. Mastoid air cells: Visualized mastoid air cells are well aerated. Bones: Unremarkable. No acute fracture. Soft tissues: Unremarkable. IMPRESSION: 1. Motion limited exam. No acute intracranial findings. 2. Unchanged severe ventriculomegaly.
--- NOTE | 2023-10-31 21:07 | ED_ITS ---
<Statement entered by Antonino Urbina MD - 10/31/23 23:10> I was consulted by the [facility], and we discussed the complexity of the problems being addressed. I approved the treatment and management plan for this patient's care in the emergency department, thus performing a substantive portion of the medical decision making. Antonino Urbina MD Discharge Plan Disposition Patient Disposition: Home, Self-Care Condition: Good Prescriptions Prescriptions: No Action Vraylar 1.5 mg capsule 1.5 mg PO DAILY Qty: 30 2RF Acid Gone Antacid 95-358 mg/15 mL suspension 30 ml PO DAILY PRN (Reason: dyspepsia) Qty: 355 0RF loperamide [Imodium A-D] 2 mg capsule 2 mg PO Q6H PRN (Reason: loose stool) Qty: 90 0RF acetaminophen [Tylenol Extra Strength] 500 mg tablet 500 mg PO Q6H PRN (Reason: fever or pain) Qty: 90 0RF lactulose 10 gram/15 mL solution 30 ml PO DAILY PRN (Reason: constipation) Qty: 946 2RF chlorthalidone 25 mg tablet 25 mg PO DAILY Qty: 90 3RF cyanocobalamin (vitamin B-12) 1,000 mcg/mL solution 1,000 mcg IM WEEKLY 28 Days Qty: 4 0RF citalopram 40 mg tablet 40 mg PO DAILY Rx Instructions: TAKE 1 TABLET BY MOUTH ONCE DAILY FOR ANXIETY atenolol 25 mg tablet 25 mg PO DAILY Rx Instructions: TAKE 1 TABLET BY MOUTH ONCE DAILY omeprazole 40 mg capsule,delayed release(DR/EC) 40 mg PO HS Rx Instructions: TAKE 1 CAPSULE BY MOUTH EVERY DAY FOR REFLUX/ACID REFLUX pravastatin 20 mg tablet 20 mg PO HS Rx Instructions: TAKE 1 TABLET BY MOUTH ONCE DAILY FOR CHOLESTEROL cholecalciferol (vitamin D3) 1,250 mcg (50,000 unit) capsule 1,250 mcg PO WEEKLY Rx Instructions: TAKE 1 CAPSULE BY MOUTH WEEKLY FOR VITAMIN DEFICIENCY diazepam 2 mg tablet 2 mg PO DAILY PRN (Reason: anxiety) 30 Days Qty: 30 2RF gabapentin 300 mg capsule 300 mg PO TID 30 Days Qty: 90 0RF Rx Instructions: TAKE 1 CAPSULE BY MOUTH THREE TIMES A DAY FOR PAIN MAY CAUSE DROWSINESS ipratropium-albuterol 0.5 mg-3 mg(2.5 mg base)/3 mL solution for nebulization 3 ml inhalation Q4H PRN (Reason: wheezing) Qty: 90 1RF Referrals Follow up/Referrals: Elliott Briseno APRN [Primary Care Provider] - See instructions Activity Restrictions/Add. Instructions Additional Instructions/Restrictions: Please follow-up with PCP as needed. Return to ER as needed for any worsening signs or symptoms. Clinical Impressions Clinical Impression: Contusion of face Discharge ED Provider: Antonino Urbina General Adult HPI General Chief complaint: Fall Stated complaint: frequent falls Time Seen by Provider: 10/31/23 21:03 History of Present Illness HPI narrative: Patient presents for evaluation of a fall. Patient states that he was in bed rolled out fell striking his face on the floor. He did not lose consciousness but is complaining of pain. He denies headache chest pain shortness of breath fever chills hemoptysis hematochezia melena nausea vomit diarrhea. Related Data Home Medications Medication Instructions Recorded Confirmed atenolol 25 mg tablet 25 mg PO DAILY 10/01/23 10/10/23 cholecalciferol (vitamin D3) 1,250 1,250 mcg PO WEEKLY 10/01/23 10/10/23 mcg (50,000 unit) capsule citalopram 40 mg tablet 40 mg PO DAILY 10/01/23 10/10/23 omeprazole 40 mg capsule,delayed 40 mg PO HS 10/01/23 10/10/23 release pravastatin 20 mg tablet 20 mg PO HS 10/01/23 10/10/23 Previous Rx's Medication Instructions Recorded cariprazine 1.5 mg capsule 1.5 mg PO DAILY #30 caps 09/12/23 (Vraylar) ipratropium 0.5 mg-albuterol 3 mg 3 ml inhalation Q4H PRN wheezing 09/18/23 (2.5 mg base)/3 mL nebulization #90 mL soln diazepam 2 mg tablet 2 mg PO DAILY PRN anxiety 30 days 10/02/23 #30 tabs gabapentin 300 mg capsule 300 mg PO TID 30 days #90 caps 10/02/23 acetaminophen 500 mg tablet 500 mg PO Q6H PRN fever or pain 10/03/23 (Tylenol Extra Strength) #90 tabs aluminum hydrox-magnesium carb 95 30 ml PO DAILY PRN dyspepsia #355 10/03/23 mg-358 mg/15 mL oral suspension mL (Acid Gone Antacid) lactulose 10 gram/15 mL oral 30 ml PO DAILY PRN constipation 10/03/23 solution #946 mL loperamide 2 mg capsule (Imodium 2 mg PO Q6H PRN loose stool #90 10/03/23 A-D) caps chlorthalidone 25 mg tablet 25 mg PO DAILY #90 tabs 10/16/23 cyanocobalamin (vitamin B-12) 1,000 mcg IM WEEKLY 4 weeks #4 mL 10/31/23 1,000 mcg/mL injection solution Allergies Allergy/AdvReac Type Severity Reaction Status Date / Time No Known Allergies Allergy Verified 09/18/23 09:[address] [facility] Disclaimer: The information contained in this section may have been updated after the patient was seen, as this information can be updated by other users. Medical History (Updated 10/31/23 @ 21:46 by BEBE Damon) Club foot of both lower extremities Hyperlipemia Depression Hypertension Chronic obstructive pulmonary disease Epilepsy Obesity Claudication Abnormal ankle brachial index (CHAUNCEY) Bilateral leg pain Abnormal EKG Dizziness Mild intellectual disabilities Anxiety Neuropathy Social History Smoking Status: Unknown if ever smoked alcohol intake: never substance use type: denies use current occupational status: disabled Travel in the last 8 weeks: None household members: family housing: house current occupational exposures/hazards: No caffeine: Yes ROS Obtained: Yes Systems reviewed as appropriate & no additional complaints except as documented Physical Exam General General appearance: alert and in no apparent distress Head Head exam: atraumatic (Patient has no visible trauma in the area that he is pointing which is just above the bridge of the nose. There is no ecchymosis there is no hematoma there is no contusion there is no deformity) and normal inspection Eye Eye exam: Present normal appearance, PERRL and EOMI ENT ENT exam: Present normal exam, normal oropharynx and mucous membranes moist Neck Neck exam: Present normal inspection; Absent tenderness Chest Chest inspection: Present normal inspection and symmetric chest wall rise; Absent tenderness Respiratory Respiratory exam: Present normal lung sounds bilaterally; Absent accessory muscle use Cardiovascular Cardiovascular exam: Present regular rate, normal rhythm and normal heart sounds Abdominal Exam Abdominal exam: Present soft and normal bowel sounds; Absent tenderness Extremities Exam Extremities exam: Present normal inspection; Absent full ROM (Patient has some contractures in all 4 extremities with muscle wasting and he has bilateral clubfeet) Back Exam Back exam: Present normal inspection; Absent tenderness Neurological Exam Neurological exam: Present alert, CN II-XII intact and other (Patient has a spastic/tremorous left upper extremity) Psychiatric Psychiatric exam: Present normal affect and normal mood Skin Skin exam: Present warm, dry and normal color Medical Decision Making Medical Records Medical records reviewed: Yes I reviewed the patient's medical records. Nate Inquiry Pt receiving controlled substance: No Vital Signs: 10/31/23 20:59 Temperature 98.3 F Temperature Source Oral Pulse Rate [Left Radial] 110 H Respiratory Rate 20 Blood Pressure [Right Arm] 160/91 H Blood Pressure Mean [Right Arm] 114 Blood Pressure Source [Right Arm] Automatic Cuff Blood Pressure Position [Right Arm] Sitting 02 Sat by Pulse Oximetry 96 Oxygen Delivery Method Room Air Lab Data Lab results reviewed: Yes I reviewed the patient's lab results. Lab Results 10/31/23 21:33: WBC 14.8 H, RBC 4.74, Hgb 15.0, Hct 44.9, MCV 94.7 H, MCH 31.7 H , MCHC 33.5, RDW 13.6, Plt Count 381, MPV 6.9 L, Neut % (Auto) 81.5 H, Lymph % (Auto) 9.8 L, [place] % (Auto) 7.6, Eos % (Auto) 0.8, Baso % (Auto) 0.3, Neut # (Auto) 12.0 H, Lymph # (Auto) 1.5, [place] # (Auto) 1.1 H, Eos # (Auto) 0.1, Baso # (Auto) 0.1, Sodium 129 L, Potassium 3.7, Chloride 95 L, Carbon Dioxide 26, Anion Gap 11.7, BUN 39 H, Creatinine 1.30 H, Estimated Creat Clear 80, Estimated GFR 56 L, Est GFR ( Amer) 67, Glucose 108 H, Calcium 9.2 10/31/23 21:55: Urine Color Yellow, Urine Appearance Clear, Urine pH 6.0, Ur Specific [place] 1.025, Urine Protein Trace, Urine Glucose (UA) Negative, Urine Ketones 1+, Urine Blood 2+, Urine Nitrate Negative, Urine Bilirubin 1+ A, Urine Urobilinogen 4.0, Ur Leukocyte Esterase Negative 10/31/23 21:33 10/31/23 21:33 Orders (Tests/Meds): ORDERS Category Date Time Status CT head/brain wo con Stat Cat Scan 10/31/23 21:05 Completed Chest XR -- portable [XR chest portable] Stat Exams 10/31/23 21:50 Completed Basic Metabolic Panel Stat Lab 10/31/23 21:33 Completed Complete Blood Count Auto Diff Stat Lab 10/31/23 21:33 Completed UA [Urinalysis and Microscopic] Stat Lab 10/31/23 21:55 Results Medical Decision Narrative: In summary patient is a 63-year-old male who presents to the emergency department for evaluation of unwitnessed fall. Patient states that he fell out of bed face down striking head but this was not witnessed.. Patient is normotensive but with a heart rate of 110 on arrival with a Glascow coma score 15 and afebrile. Physical exam is unremarkable for any signs of visible trauma and patient has his normal constitutional appearance with muscle wasting spasticity of his upper extremities and clubfeet. No physical stigmata of any type of fall is visible on physical exam.. Differential diagnosis includes intracranial hemorrhage, facial fracture, contusion, malingering etc. Initial workup will be conducted with hematologic labs CT scan of the head without contrast. Initial interventions include Toradol Tylenol. Initial workup reviewed by me shows that his white count is elevated above 14,000 with a neutrophilic shift but not correlated with any type of infection currently and the remainder of his hematologic labs are nonactionable and his CT scan and plain film chest shows no acute processes but again CT of head is very remarkable for chronic ventriculomegaly. Upon repeat evaluation patient's neurologic exam remains normal with a no deficits and GCS of 15.. Given this patient is appropriate for discharge back to [facility] with follow- up with his PCP as needed. Of note: I have reviewed Mr. Mclaughlin's medical record and it appears his contact with [facility] began in 2018. After review of his records I feel like we are missing a great portion of his neurologic history given his impressive chronic ventriculomegaly that I have seen on every image since 2018. I reviewed his record from the [facility] and it shows that he has a lifelong seizure disorder but also a history of spina bifida with chronic hydrocephalus. I do not know history of his shunt status but at least we know that his ventriculomegaly goes back to childhood. Critical Care Critical Care Time Critical Care Time: No
--- NOTE | 2023-10-31 21:19 | PC.NURSE ---
pt to CT at this time
[2023-10-31 21:41] LABS: Basophils # 0.1 K/mm3 (0-0.2); Basophils % 0.3 % (0.1-2.0); Eosinophils # 0.1 K/mm3 (0.0-0.4); Eosinophils % 0.8 % (0.1-12.0); Hematocrit 44.9 % (42.0-52.0); Lymphocytes # 1.5 K/mm3 (0.7-4.5); Lymphocytes % 9.8 % (10-50); Mean Corpuscular HGB Conc 33.5 g/dL (31.8-35.4); Mean Corpuscular Hemoglobin 31.7 pg (27.0-31.2); Mean Corpuscular Volume 94.7 fl (80-94); Mean Platelet Volume 6.9 fl (7.4-10.4); Monocytes # 1.1 K/mm3 (0.1-1.0); Monocytes % 7.6 % (1.7-9.3); Neutrophils % 81.5 % (37.0-80.0); Platelet Count 381 K/mm3 (142-424); Red Blood Count 4.74 M/mm3 (4.60-6.20); Red Cell Distribution Width 13.6 % (11.5-17.5); White Blood Count 14.8 K/mm3 (4.8-10.8)
[2023-10-31 21:48] LABS: Chloride 95 mmol/L (98-107); Potassium 3.7 mmoL/L (3.5-5.1); Sodium 129 mmol/L (136-145)
--- NOTE | 2023-10-31 21:50 | XR_ITS ---
PROCEDURE INFORMATION: Exam: XR Chest Exam date and time: 10/31/2023 9:52 PM Age: 63 years old Clinical indication: Injury or trauma; Fall; Blunt trauma (contusions or hematomas); Additional info: Fall, leukocytosis, altered mental status TECHNIQUE: Imaging protocol: Radiologic exam of the chest. Views: 1 view. COMPARISON: CR XR CHEST PORTABLE 09/30/2023 11:55 PM FINDINGS: Lungs: Low lung volumes. No consolidation. Pleural spaces: No pleural effusion. No pneumothorax. Heart/Mediastinum: No cardiomegaly. Bones/joints: Unremarkable. IMPRESSION: No acute pulmonary findings.
[2023-10-31 21:51] LABS: Anion Gap 11.7 mEq/L (5-15); Blood Urea Nitrogen 39 mg/dl (9-20); Calcium 9.2 mg/dl (8.4-10.2); Carbon Dioxide 26 mmol/L (22.0-30.0); Creatinine Clearance Estimated 80 mL/min (50-200); Estimated Glomerular Filt Rate 56 ml/min (>60); GFR (African American) 67 ML/MIN (>60); Glucose 108 mg/dl (74-100)
[2023-10-31 22:13] LABS: Microscopic, Urine URINE MICROSCOPIC (MICROSCOPIC)
[2023-10-31 22:29] LABS: Appearance,Urine CLEAR (Clear); Blood, Urine 2+ (Negative); Color,Urine YELLOW (Yellow); Glucose,Urine (UA) Negative (Negative); Ketones,Urine 1+ (Negative); Leukocyte Esterase,Urine Negative (Negative); Nitrate,Urine Negative (Negative); Protein,Urine TRACE (Negative); Specific Gravity, Urine 1.025 (1.005-1.030)
[2023-10-31 22:33] LABS: Bilirubin,Urine 1+ (Negative)
[2023-10-31 22:48] LABS: Squamous Epithelial Cell,Urine Occasional #/hpf (0-5)
--- NOTE | 2023-10-31 22:50 | PC.NURSE ---
Contacted [facility] to notify of transfer.
--- NOTE | 2023-10-31 23:00 | PC.NURSE ---
[facility].
--- NOTE | 2023-10-31 23:02 | PC.NURSE ---
gave report to Matilde at [facility].
[2023-10-31 23:13] VITALS: BP 134/78; PULSE 108; RESP 20; TEMP 36.8; O2SAT 96
== END 2023-10-31 23:14 | disposition home or self-care (01) ==
PROVIDERS: Physician Assistant; Emergency Provider Emergency Medicine; PCP Nurse Practitioner Family
DX: G40.909 Epilepsy, unspecified, not intractable, without status epilepticus (principal)
CPT/HCPCS: 70450; 71045; 80048; 81001; 85025

== ENCOUNTER 2023-11-02 09:17 | Outpatient (CLI) | payer MEDICARE, SELFPAY ==
[2023-11-02 09:38] LABS: Microscopic, Urine URINE MICROSCOPIC (MICROSCOPIC)
[2023-11-02 09:42] LABS: Basophils % 0.3 % (0.1-2.0); Eosinophils # 0.1 K/mm3 (0.0-0.4); Eosinophils % 0.4 % (0.1-12.0); Hematocrit 45.7 % (42.0-52.0); Hemoglobin 15.3 g/dL (14.1-18.0); Mean Corpuscular HGB Conc 33.4 g/dL (31.8-35.4); Mean Corpuscular Hemoglobin 32.1 pg (27.0-31.2); Mean Corpuscular Volume 95.8 fl (80-94); Mean Platelet Volume 7.7 fl (7.4-10.4); Monocytes # 0.8 K/mm3 (0.1-1.0); Monocytes % 5.8 % (1.7-9.3); Neutrophils # 11.8 K/mm3 (1.8-7.8); Neutrophils % 86.6 % (37.0-80.0); Platelet Count 371 K/mm3 (142-424); Red Blood Count 4.77 M/mm3 (4.60-6.20); Red Cell Distribution Width 13.8 % (11.5-17.5); White Blood Count 13.6 K/mm3 (4.8-10.8)
[2023-11-02 09:44] LABS: MANUAL DIFFERENTIAL MANUAL DIFFERENTIAL (MANUAL DIFF)
[2023-11-02 09:46] LABS: Appearance,Urine CLEAR (Clear); Blood, Urine TRACE-I (Negative); Color,Urine YELLOW (Yellow); Glucose,Urine (UA) Negative (Negative); Ketones,Urine 1+ (Negative); Leukocyte Esterase,Urine Negative (Negative); Nitrate,Urine Negative (Negative); Protein,Urine Negative (Negative); Specific Gravity, Urine >= 1.030 (1.005-1.030)
[2023-11-02 10:26] LABS: Chloride 92 mmol/L (98-107); Potassium 3.2 mmoL/L (3.5-5.1); Sodium 128 mmol/L (136-145)
[2023-11-02 10:29] LABS: Blood Urea Nitrogen 34 mg/dl (9-20); Carbon Dioxide 25 mmol/L (22.0-30.0); Estimated Glomerular Filt Rate 67 ml/min (>60); GFR (African American) 82 ML/MIN (>60)
[2023-11-02 10:30] LABS: Anion Gap 14.2 mEq/L (5-15); Calcium 9.5 mg/dl (8.4-10.2); Glucose 158 mg/dl (74-100)
[2023-11-02 10:57] LABS: Bilirubin,Urine Negative (Negative)
[2023-11-02 12:46] LABS: Bacteria,Urine Trace /lpf; RBC,Urine Occasional #/hpf (0-3); Squamous Epithelial Cell,Urine Occasional #/hpf (0-5)
[2023-11-02 12:52] LABS: Lymphocytes % 14 % (10-50); Monocytes % 7 % (2-9); Neutrophils % 79 % (42-76); Platelet Estimate Normal; RBC Morphology Normal; Total Cells Counted 100
== END 2023-11-02 23:59 | disposition home or self-care (01) ==
LOC: LAB.DROPOF 09:19
PROVIDERS: PCP Internal Medicine; Visit Provider Family Medicine
DX: R25.1 Tremor, unspecified (principal)
CPT/HCPCS: 80048; 81001; 85007; 85025

== ENCOUNTER 2023-11-02 14:55 | Inpatient (IN) | payer MEDICARE, SELFPAY ==
[2023-11-02] VITALS (8 sets, daily range): BP systolic 103–136; BP diastolic 64–92; PULSE 65–108; RESP 17–20; TEMP 36.7–36.9; O2SAT 94–98; BMI 37.8; BMI 37.6
--- NOTE | 2023-11-02 15:03 | PC.NURSE ---
DR YBARRA AT BEDSIDE
--- NOTE | 2023-11-02 15:06 | CT_ITS ---
FINAL REPORT TECHNIQUE: Axial images were obtained of the cervical spine by computed tomography. Coronal and sagittal reconstruction process performed. This study was performed with techniques to keep radiation doses as low as reasonably achievable (ALARA). Individualized dose reduction techniques using automated exposure control or adjustment of mA and/or kV according to the patient''s size were employed. CLINICAL HISTORY: falls, pain COMPARISON: 01/12/2022 FINDINGS: There is no acute fracture. There is a chronic fracture of the C2 dens which is stable. There are moderate to severe degenerative changes with multilevel neural foraminal narrowing. There is mild central canal stenosis at C3-4, C4-5, and C5-6. IMPRESSION: Degenerative and chronic appearing findings without acute bony abnormality. Reviewed, Interpreted and Dictated by Gus Gayle III, MD Transcribed by Nasima Nelson Authenticated and [facility]
--- NOTE | 2023-11-02 15:06 | XR_ITS ---
FINAL REPORT CLINICAL HISTORY: falls, pain FINDINGS: Left elbow Three views were obtained. There is no acute fracture or dislocation. There are mild degenerative changes. No soft tissue abnormality is identified. IMPRESSION: No acute process. Reviewed, Interpreted and Dictated by Gus Gayle III, MD Transcribed by Nasima Nelson Authenticated and [facility]
--- NOTE | 2023-11-02 15:06 | XR_ITS ---
FINAL REPORT CLINICAL HISTORY: falls, pain FINDINGS: Left forearm Two views were obtained. There is no acute fracture or dislocation. The joint spaces appear normal. No soft tissue abnormality is identified. IMPRESSION: No acute process. Reviewed, Interpreted and Dictated by Gus Gayle III, MD Transcribed by Nasima Nelson Authenticated and [facility]
--- NOTE | 2023-11-02 15:06 | XR_ITS ---
FINAL REPORT CLINICAL HISTORY: falls, pain FINDINGS: Left shoulder Three views were obtained. There is no acute fracture or dislocation. There is mild AC joint degenerative change. No soft tissue abnormality is identified. IMPRESSION: No acute process. Reviewed, Interpreted and Dictated by Gus Gayle III, MD Transcribed by Nasima Nelson Authenticated and [facility]
--- NOTE | 2023-11-02 15:06 | XR_ITS ---
FINAL REPORT CLINICAL HISTORY: falls, pain FINDINGS: SINGLE-VIEW CHEST The heart size is normal. The mediastinum is normal. The lungs are clear. There is no pneumothorax. IMPRESSION: No acute cardiopulmonary process. Reviewed, Interpreted and Dictated by Gus Gayle III, MD Transcribed by Nasima Nelson Authenticated and [facility]
--- NOTE | 2023-11-02 15:06 | CT_ITS ---
FINAL REPORT CLINICAL HISTORY: falls, pain COMPARISON: 10/31/2023 FINDINGS: Axial images of the head were obtained without contrast. Coronal reformatted images were also obtained.This study was performed with techniques to keep radiation doses as low as reasonably achievable (ALARA). Individualized dose reduction techniques using automated exposure control or adjustment of mA and/or kV according to the patient's size were employed. Motion artifact is identified on many of the images. There is no evidence of intracranial hemorrhage or mass. There are mild chronic ischemic changes. There is severe hydrocephalus which is stable since previous. There is no evidence of shift of the midline structures. No abnormal extra axial fluid collection is identified. No skull abnormality is seen on the bone window images. IMPRESSION: Stable, severe hydrocephalus. Reviewed, Interpreted and Dictated by Gus Gayle III, MD Transcribed by Nasima Nelson Authenticated and [facility]
--- NOTE | 2023-11-02 15:06 | XR_ITS ---
FINAL REPORT CLINICAL HISTORY: falls, pain FINDINGS: Left humerus Two views were obtained. There is no acute fracture or dislocation. The joint spaces appear normal. No soft tissue abnormality is identified. IMPRESSION: No acute process. Reviewed, Interpreted and Dictated by uGs Gayle III, MD Transcribed by Nasima Nelson Authenticated and [facility]
[2023-11-02 15:13] LABS: Coronavirus 19, PCR Not Detected (NotDetected); Influenza A, PCR Not Detected (NotDetected); Influenza B, PCR Not Detected (NotDetected)
[2023-11-02 15:14] LABS: VBG Base Excess 2.1 mmol/L (-2.4-2.3); VBG HCO3 25.8 mmol/L (23-30); VBG Oxygen Saturation 96.2 % (50-70); VBG PCO2 36.8 mmol/L (35-51); VBG PH 7.46 mmol/L (7.31-7.41); VBG PO2 79.3 mmol/L (28-40)
--- NOTE | 2023-11-02 15:15 | ECG_ITS ---
APPROVED REPORT Exam: Resting ECG HR:80 bpm ECG Measurements Heart Rate 80 AXES KS 138 P 55 QRSd 86 QRS -9 QT 411 T 22 QTc 446 Conclusion SINUS RHYTHM NORMAL ECG Electronically signed by : JUAN LUIS YBARRA, 11/02/2023 22:53:57
[2023-11-02 15:17] LABS: Lactate Venous 2.4 mmol/L (0.4-2.0)
[2023-11-02 15:19] LABS: Chloride 93 mmol/L (98-107); Potassium 3.9 mmoL/L (3.5-5.1); Sodium 129 mmol/L (136-145)
[2023-11-02 15:21] LABS: Blood Urea Nitrogen 35 mg/dl (9-20); Creatinine Clearance Estimated 93 mL/min (50-200); Estimated Glomerular Filt Rate 61 ml/min (>60); GFR (African American) 74 ML/MIN (>60)
--- NOTE | 2023-11-02 15:21 | PC.NURSE ---
PT TO XR
[2023-11-02 15:22] LABS: Alanine Aminotransferase 48 U/L (12-78); Albumin Level 4.3 g/dl (3.5-5.0); Albumin/Globulin Ratio 1.5 (1.1-1.8); Alkaline Phosphatase 78 U/L (38-126); Anion Gap 12.9 mEq/L (5-15); Aspartate Amino Transferase 86 U/L (17-59); Calcium 9.4 mg/dl (8.4-10.2); Carbon Dioxide 27 mmol/L (22.0-30.0); Globulin 2.8 g/dL (1.3-3.2); Glucose 105 mg/dl (74-100); Magnesium 2.4 mg/dl (1.6-2.3); Phosphorous 4.3 mg/dl (2.5-4.5); Total Protein,Serum 7.1 g/dl (6.3-8.2)
[2023-11-02 15:25] LABS: Basophils # 0.1 K/mm3 (0-0.2); Basophils % 0.4 % (0.1-2.0); Eosinophils # 0.1 K/mm3 (0.0-0.4); Hematocrit 46.1 % (42.0-52.0); Hemoglobin 15.6 g/dL (14.1-18.0); Lymphocytes # 1.2 K/mm3 (0.7-4.5); Lymphocytes % 8.6 % (10-50); Mean Corpuscular HGB Conc 33.9 g/dL (31.8-35.4); Mean Corpuscular Hemoglobin 31.9 pg (27.0-31.2); Mean Platelet Volume 7.3 fl (7.4-10.4); Monocytes # 0.9 K/mm3 (0.1-1.0); Monocytes % 6.6 % (1.7-9.3); Neutrophils # 11.5 K/mm3 (1.8-7.8); Neutrophils % 83.4 % (37.0-80.0); Platelet Count 392 K/mm3 (142-424); Red Cell Distribution Width 13.6 % (11.5-17.5); White Blood Count 13.8 K/mm3 (4.8-10.8)
--- NOTE | 2023-11-02 15:32 | ED_ITS ---
Discharge Plan Disposition Patient Disposition: Admitted Clinical Impressions Clinical Impression: Falls frequently, Rhabdomyolysis, Arm pain, left, Hyponatremia, Leukocytosis Discharge ED Provider: Katarina Valera General Adult HPI General Chief complaint: PAIN Stated complaint: abnormal labs Time Seen by Provider: 11/02/23 14:58 Mode of Arrival: EMS Source of Information: Patient and EMS Limitations: No Limitations Description of Symptoms (Recalled from ER Triage Doc. by RN): PT SENT BY PC FROM [place]. PT WITH FREQUENT FALLS AND ABNORMAL LABS. PT REPORTS LEFT ARM PAIN History of Present Illness HPI narrative: This patient is a 63-year-old male who is well-known to the emergency department with history ofclubfoot of both lower extremities, general debility, frequent falls, cerebral ventriculomegaly, epilepsy, hypertension, hyperlipidemia, COPD, intellectual disability, and obesity presenting to the emergency department for evaluation with concern for frequent falls and abnormal labs. Patient was sent by his primary care provider who noted that he has had persistent lab abnormalities including hyponatremia and leukocytosis as well as frequent falls and overall decline. PCP is requested admission for the patient for further workup and management. Patient states that he has been following and he has had some left arm pain as a result of the falls. He denies any other specific concerns or complaints. On medical work review, he has had multiple recent ED evaluations over the last several weeks for frequent falls and COPD exacerbation. Patient denies any other concerns or complaints at this time, but he is only alert and oriented to person and place but not time. Related Data Home Medications Medication Instructions Recorded Confirmed atenolol 25 mg tablet 25 mg PO DAILY 10/01/23 11/02/23 cholecalciferol (vitamin D3) 1,250 1,250 mcg PO WEEKLY 10/01/23 11/02/23 mcg (50,000 unit) capsule citalopram 40 mg tablet 40 mg PO DAILY 10/01/23 11/02/23 omeprazole 40 mg capsule,delayed 40 mg PO HS 10/01/23 11/02/23 release pravastatin 20 mg tablet 20 mg PO HS 10/01/23 11/02/23 potassium chloride 20 mEq 20 meq PO BID 11/02/23 11/02/23 tablet,extended release Previous Rx's Medication Instructions Recorded cariprazine 1.5 mg capsule 1.5 mg PO DAILY #30 caps 09/12/23 (Vraylar) ipratropium 0.5 mg-albuterol 3 mg 3 ml inhalation Q4H PRN wheezing 09/18/23 (2.5 mg base)/3 mL nebulization #90 mL soln diazepam 2 mg tablet 2 mg PO DAILY PRN anxiety 30 days 10/02/23 #30 tabs gabapentin 300 mg capsule 300 mg PO TID 30 days #90 caps 10/02/23 acetaminophen 500 mg tablet 500 mg PO Q6H PRN fever or pain 10/03/23 (Tylenol Extra Strength) #90 tabs aluminum hydrox-magnesium carb 95 30 ml PO DAILY PRN dyspepsia #355 10/03/23 mg-358 mg/15 mL oral suspension mL (Acid Gone Antacid) lactulose 10 gram/15 mL oral 30 ml PO DAILY PRN constipation 10/03/23 solution #946 mL loperamide 2 mg capsule (Imodium 2 mg PO Q6H PRN loose stool #90 10/03/23 A-D) caps cyanocobalamin (vitamin B-12) 1,000 mcg IM WEEKLY 4 weeks #4 mL 10/31/23 1,000 mcg/mL injection solution Allergies Allergy/AdvReac Type Severity Reaction Status Date / Time No Known Allergies Allergy Verified 11/01/23 11:07 [facility] Disclaimer: The information contained in this section may have been updated after the patient was seen, as this information can be updated by other users. Medical History Asthma Hypokalemia Frequent falls Cerebral ventriculomegaly Club foot of both lower extremities Hyperlipemia Depression Hypertension Chronic obstructive pulmonary disease Epilepsy Obesity Claudication Abnormal ankle brachial index (CHAUNCEY) Bilateral leg pain Abnormal EKG Dizziness Mild intellectual disabilities Anxiety Neuropathy Social History Smoking Status: Unknown if ever smoked alcohol intake: never substance use type: denies use current occupational status: disabled Travel in the last 8 weeks: None household members: family housing: house current occupational exposures/hazards: No caffeine: Yes ROS Obtained: Yes All systems reviewed & no additional complaints except as documented Physical Exam General General appearance: alert and in no apparent distress Comment: Resting tremor Head Head exam: atraumatic and normocephalic Eye Eye exam: Present normal appearance, PERRL and EOMI ENT ENT exam: Present normal exam, normal oropharynx, mucous membranes moist and normal external ear exam Neck Neck exam: Present normal inspection, full ROM and trachea midline; Absent tenderness Chest Chest inspection: Present normal inspection and symmetric chest wall rise; Absent tenderness Respiratory Respiratory exam: Present normal lung sounds bilaterally; Absent respiratory distress, wheezes, stridor or accessory muscle use Cardiovascular Cardiovascular exam: Present regular rate and normal rhythm Abdominal Exam Abdominal exam: Present soft; Absent distention, tenderness or guarding Extremities Exam Extremities exam: Present full ROM and normal capillary refill; Absent tenderness or edema Back Exam Back exam: Present normal inspection and full ROM; Absent tenderness Neurological Exam Neurological exam: Present alert and CN II-XII intact; Absent oriented X3 (Oriented to person and place but not time) or motor sensory deficit Psychiatric Psychiatric exam: Present normal affect and normal mood Skin Skin exam: Present warm and dry Medical Decision Making Medical Records Medical records reviewed: Yes I reviewed the patient's medical records. Nate Inquiry Pt receiving controlled substance: No Vital Signs: 11/02/23 14:56 11/02/23 15:01 11/02/23 16:05 Temperature 98.1 F Temperature Source Oral Pulse Rate 75 95 H Pulse Rate [Radial] 80 Respiratory Rate 20 Blood Pressure 132/92 H 136/89 Blood Pressure [Right Arm] 103/82 L Blood Pressure Mean [Right Arm] 89 Blood Pressure Source [Right Arm] Automatic Cuff Blood Pressure Position [Right Arm] Sitting 02 Sat by Pulse Oximetry 98 96 94 L Oxygen Delivery Method Room Air 11/02/23 17:32 11/02/23 18:30 Temperature 98.0 F 98.0 F Temperature Source Oral Pulse Rate 65 Pulse Rate [Radial] Respiratory Rate 18 Blood Pressure 123/81 Blood Pressure [Right Arm] Blood Pressure Mean [Right Arm] Blood Pressure Source [Right Arm] Blood Pressure Position [Right Arm] 02 Sat by Pulse Oximetry Oxygen Delivery Method Room Air Lab Data Lab results reviewed: Yes I reviewed the patient's lab results. Lab Results 11/02/23 15:05: WBC 13.8 H, RBC 4.90, Hgb 15.6, Hct 46.1, MCV 94.0, MCH 31.9 H, MCHC 33.9, RDW 13.6, Plt Count 392, MPV 7.3 L, Neut % (Auto) 83.4 H, Lymph % (Auto) 8.6 L, [place] % (Auto) 6.6, Eos % (Auto) 1.0, Baso % (Auto) 0.4, Neut # (Auto) 11.5 H, Lymph # (Auto) 1.2, [place] # (Auto) 0.9, Eos # (Auto) 0.1, Baso # (Auto) 0.1, Sodium 129 L, Potassium 3.9 D, Chloride 93 L, Carbon Dioxide 27, Anion Gap 12.9, BUN 35 H, Creatinine 1.20, Estimated Creat Clear 93, Estimated GFR 61, Est GFR ( Amer) 74, Glucose 105 H D, Calcium 9.4, Phosphorus 4.3, Magnesium 2.4 H, Total Bilirubin 1.0, AST 86 H, ALT 48, Alkaline Phosphatase 78, Total Creatine Kinase 1086 H*, Troponin I < 0.01, Total Protein 7.1, Albumin 4.3, Globulin 2.8, Albumin/Globulin Ratio 1.5, TSH 2.48, Thyroxine (T4) 10.8 11/02/23 15:08: VBG pH 7.46 H, VBG pCO2 36.8, VBG pO2 79.3 H, VBG HCO3 25.8, VBG Total CO2 27.0, VBG O2 Saturation 96.2 H, VBG Base Excess 2.1, VBG Lactic Acid 2.4 H 11/02/23 15:12: SARS-CoV-2 (PCR) Not detected, Influenza A Untype (PCR) Not detected, Influenza Type B (PCR) Not detected 11/02/23 15:05 11/02/23 15:05 Orders (Tests/Meds): ED MEDICATIONS Generic Name Dose Route Start Last Admin Trade Name Freq PRN Reason Stop Dose Admin Acetaminophen 500 mg 11/02/23 18:35 Acetaminophen 500mg Tab PO 12/02/23 18:34 Q6H PRN fever or pain Albuterol/Ipratropium 3 ml 11/02/23 18:35 Ipratropium/Albuterol 3 Ml Neb IH 12/02/23 18:34 Q4H PRN wheezing Atenolol 25 mg 11/03/23 09:00 Atenolol 25mg Tablet PO 12/03/23 08:59 DAILY GWENDOLYN Citalopram Hydrobromide 40 mg 11/03/23 09:00 Citalopram 40mg Tablet PO 12/03/23 08:59 DAILY GWENDOLYN Diazepam 2 mg 11/02/23 18:35 Diazepam 2mg Tablet PO 12/02/23 18:34 DAILY PRN anxiety Enoxaparin Sodium 40 mg 11/03/23 09:00 Enoxaparin 40mg/0.4ml Syringe SQ 12/03/23 08:59 DAILY GWENDOLYN Gabapentin 300 mg 11/02/23 21:00 11/02/23 19:03 Gabapentin 300mg Capsule PO 12/02/23 20:59 300 mg TID GWENDOLYN Administration Sodium Chloride 1,000 mls @ 75 mls/hr 11/02/23 17:45 11/02/23 19:03 Sod Chlor 0.9% 1000ml Bag IV 12/02/23 17:44 75 mls/hr .[id number] GWENDOLYN Administration Non-Formulary Medication 1.5 mg 11/03/23 09:00 Cariprazine [Vraylar] PO 12/03/23 08:59 DAILY GWENDOLYN Non-Formulary Medication 40 mg 11/02/23 21:00 Omeprazole PO 12/02/23 20:59 HS [facility] Discontinued Medications Generic Name Dose Route Start Last Admin Trade Name Freq PRN Reason Stop Dose Admin Acetaminophen 1,000 mg 11/02/23 16:46 11/02/23 16:49 Acetaminophen 500mg Tab PO 11/02/23 16:47 Not Given ONCE ONE Acetaminophen 1,000 mg 11/02/23 16:48 11/02/23 16:52 Acetaminophen 1,000mg/100ml Vial IV 11/02/23 16:49 1,000 mg ONCE ONE Administration Lactated Ringer's 1,000 mls @ 999 mls/hr 11/02/23 15:18 11/02/23 15:52 Lactated Ringer's 1000 Ml Bag IV 11/02/23 16:18 999 mls/hr .Q1H1M ONE Administration Ketorolac Tromethamine 15 mg 11/02/23 16:47 11/02/23 16:52 Ketorolac 30mg/Ml Vial IV 11/02/23 16:48 15 mg ONCE ONE Administration ORDERS Category Date Time Status CT cervical spine wo con Stat Cat Scan 11/02/23 15:[address] head/brain wo con Stat Cat Scan 11/02/23 15:06 Completed CXR --portable [XR chest portable] Stat Exams 11/02/23 15:06 Completed Forearm XR left 2 views [XR forearm LT 2V] Stat Exams 11/02/23 15:06 Completed XR elbow LT min 3V Stat Exams 11/02/23 15:06 Completed XR humerus LT Stat Exams 11/02/23 15:06 Completed XR shoulder LT min 2V Stat Exams 11/02/23 15:06 Completed CK [Creatine Kinase] Stat Lab 11/02/23 15:05 Completed Complete Blood Count Auto Diff AMLAB Lab 11/03/23 06:00 Ordered Complete Blood Count Auto Diff Stat Lab 11/02/23 15:05 Completed Comprehensive Metabolic Panel AMLAB Lab 11/03/23 06:00 Ordered Comprehensive Metabolic Panel Stat Lab 11/02/23 15:05 Completed MAG [Magnesium] Stat Lab 11/02/23 15:05 Completed Magnesium AMLAB Lab 11/03/23 06:00 Ordered PHOS [Phosphorous] Stat Lab 11/02/23 15:05 Completed Rapid PCR Covid and Flu A/B Stat Lab 11/02/23 15:12 Completed Sodium,Urine Random Stat Lab 11/02/23 16:51 Ordered T4 (Thyroxine) Stat Lab 11/02/23 15:05 Completed TSH [Thyroid Stimulating Hormone] Stat Lab 11/02/23 15:05 Completed Trop I [Troponin I] Stat Lab 11/02/23 15:05 Completed Troponin I Q3H Lab 11/02/23 20:00 Ordered Troponin I Q3H Lab 11/02/23 23:00 Ordered Urine Culture Stat Micro 11/02/23 16:51 Ordered Venous Blood Gas Stat RT 11/02/23 15:08 Completed ECG Data Tracing #1: I reviewed this ECG and interpreted as documented below: Normal sinus rhythm with a ventricular rate of [address] changes concerning for ischemia. Normal intervals. ECG initial impression date: 11/02/23 ECG initial impression time: 15:17 Medical Decision Narrative: In summary, this patient is a 63-year-old male presenting to the Emergency Department for evaluation of frequent falls and persistent lab abnormalities from PCP. Differential diagnoses considered include but are not limited to cerebral edema, hyponatremia, urinary tract infection, traumatic injuries from falls, pneumonia. Ruling out the most morbid conditions drove assessment. It should be noted patient's history includes hypertension, hyperlipidemia, COPD which may or may not be at goal therapy. This complicates all aspects of care by increasing patient's risk for morbidity. I reviewed patient's past medical records and noted multiple previous evaluations as per HPI. I also note his recent persistent leukocytosis and hyponatremia. On exam, the patient is resting comfortably in bed in no acute distress, but he does appear to be slightly more tremulous than usual and my experience with him in the past. He is nontoxic-appearing with reassuring cardiopulmonary and abdominal exams. He is disoriented to time but is alert and oriented to person and place. Workup included CT head, CT C-spine, x-rays of the chest and left upper extremity that is painful as well as broad lab evaluation including infectious and metabolic workup. EKG obtained is reassuring. I independently interpreted CT scans and x-rays prior to the radiologist read and noted no obvious acute traumatic injury. Patient has persistent stable hydrocephalus and ventriculomegaly. Please see their read for final interpretation. Labs were obtained that demonstrated elevated CK concerning for rhabdomyolysis. He also has persistent leukocytosis and hyponatremia. Urine from outpatient labs today not concerning for infection. Given that the patient has rhabdomyolysis and has had a progressive functional decline, I feel that he would benefit from admission for further evaluation and management. I had an interactive discussion with the hospitalist who admitted him in stable condition. Critical Care Critical Care Time Critical Care Time: No
[2023-11-02 15:39] LABS: T4 (Thyroxine) 10.8 ug/dl (5.53-11.0)
[2023-11-02] MEDS: LACTATED RINGERS 1000ML 1,000 ML 999 ML IV (15:52)
[2023-11-02 15:53] LABS: Thyroid Stimulating Hormone 2.48 uIU/mL (0.465-4.68)
--- NOTE | 2023-11-02 16:33 | PC.NURSE ---
dr trinh speaking with dr yeager
[2023-11-02] MEDS: ACETAMINOPHEN 1,000MG/100ML VIAL 1000 MG IV (16:52)
[2023-11-02] MEDS: KETOROLAC 30MG/ML VIAL 15 MG IV (16:52)
--- NOTE | 2023-11-02 17:33 | PC.NURSE ---
placed purewick on patient to collect urine specimen
[2023-11-02 17:45] LABS: Creatine Kinase 1086 U/L (55-170)
[2023-11-02 17:58] LABS: Troponin I < 0.01 ng/ml (0.00-0.034)
--- NOTE | 2023-11-02 18:13 | PC.NURSE ---
called report to 2nd floor MAVIS Nance and answered all questions
--- NOTE | 2023-11-02 18:34 | EXP.HP ---
History of Present Illness *Admission Date: 11/02/23 *Reason for visit:: Frequent falls, worsening tremor *History of present illness: Mr. Mclaughlin is a 63-year-old male with history of spina bifida, hydrocephalus/ventriculomegaly, cognitive impairment, frequent falls, epilepsy, hypertension, COPD, obesity. He was recently admitted a month ago and discharged to [facility] for rehab due to progressive decline and difficulty of family caring for him at home given his medical complexities. He presents today from [facility] due to increased falls and pain in his left arm. On evaluation in the ER, found to have increased tremor in his left upper extremity. Tenderness in the left arm. Lab work and imaging initiated. Imaging showing stable ventriculomegaly with CT head. Lab work shows leukocytosis with neutrophil predominance, chest imaging with no focal consolidation or pneumonia. Additionally found to have elevated CK concerning for rhabdomyolysis and low sodium at 129. Given his lab abnormalities, increasing falls, increased confusion from baseline, medicine was consulted for admission and further management. On my evaluation patient is afebrile. No focal source of infection at this time. Will hold on antibiotics. Concern for D marginalization with his white cell count given his frequent falls. Initiated on IV fluids for rhabdomyolysis. Discussed case with family, will admit inpatient and evaluate with therapy. [facility] Disclaimer: The information contained in this section may have been updated after the patient was seen, as this information can be updated by other users. Medical History Asthma Hypokalemia Frequent falls Cerebral ventriculomegaly Club foot of both lower extremities Hyperlipemia Depression Hypertension Chronic obstructive pulmonary disease Epilepsy Obesity Claudication Abnormal ankle brachial index (CHAUNCEY) Bilateral leg pain Abnormal EKG Dizziness Mild intellectual disabilities Anxiety Neuropathy Social History Smoking Status: Unknown if ever smoked alcohol intake: never substance use type: denies use current occupational status: disabled Travel in the last 8 weeks: None household members: family housing: house current occupational exposures/hazards: No caffeine: Yes Review of Systems Review of Systems Review of systems (narrative): 14 point review of systems performed, pertinent positives and negatives as per HPI Meds Home Medications and Allergies Home Medications Medication Instructions Recorded Confirmed Type cariprazine 1.5 mg capsule 1.5 mg PO DAILY #30 caps 09/12/23 11/02/23 Rx (Vraylar) ipratropium 0.5 mg-albuterol 3 mg 3 ml inhalation Q4H PRN wheezing 09/18/23 11/02/23 Rx (2.5 mg base)/3 mL nebulization #90 mL soln atenolol 25 mg tablet 25 mg PO DAILY 10/01/23 11/02/23 History cholecalciferol (vitamin D3) 1,250 1,250 mcg PO WEEKLY 10/01/23 11/02/23 History mcg (50,000 unit) capsule citalopram 40 mg tablet 40 mg PO DAILY 10/01/23 11/02/23 History omeprazole 40 mg capsule,delayed 40 mg PO HS 10/01/23 11/02/23 History release pravastatin 20 mg tablet 20 mg PO HS 10/01/23 11/02/23 History diazepam 2 mg tablet 2 mg PO DAILY PRN anxiety 30 days 10/02/23 11/02/23 Rx #30 tabs gabapentin 300 mg capsule 300 mg PO TID 30 days #90 caps 10/02/23 11/02/23 Rx acetaminophen 500 mg tablet 500 mg PO Q6H PRN fever or pain 10/03/23 11/02/23 Rx (Tylenol Extra Strength) #90 tabs aluminum hydrox-magnesium carb 95 30 ml PO DAILY PRN dyspepsia #355 10/03/23 11/02/23 Rx mg-358 mg/15 mL oral suspension mL (Acid Gone Antacid) lactulose 10 gram/15 mL oral 30 ml PO DAILY PRN constipation 10/03/23 11/02/23 Rx solution #946 mL loperamide 2 mg capsule (Imodium 2 mg PO Q6H PRN loose stool #90 10/03/23 11/02/23 Rx A-D) caps cyanocobalamin (vitamin B-12) 1,000 mcg IM WEEKLY 4 weeks #4 mL 10/31/23 11/01/23 Rx 1,000 mcg/mL injection solution potassium chloride 20 mEq 20 meq PO BID 11/02/23 11/02/23 History tablet,extended release New Prescriptions to Start Prescriptions: Allergies Allergy/AdvReac Type Severity Reaction Status Date / Time No Known Allergies Allergy Verified 11/01/23 11:07 Exam Data for Last 24 hours Vital signs and Labs for Last 24 Hours: Temp Pulse Resp BP Pulse Ox O2 Del Method 98.0 F 65 18 123/81 94 L Room Air 11/02/23 18:30 11/02/23 18:30 11/02/23 18:30 11/02/23 18:30 11/02/23 16:05 11/02/23 18:30 Laboratory Results - last 24 hr 11/02/23 15:05: WBC 13.8 H, RBC 4.90, Hgb 15.6, Hct 46.1, MCV 94.0, MCH 31.9 H, MCHC 33.9, RDW 13.6, Plt Count 392, MPV 7.3 L, Neut % (Auto) 83.4 H, Lymph % (Auto) 8.6 L, [place] % (Auto) 6.6, Eos % (Auto) 1.0, Baso % (Auto) 0.4, Neut # (Auto) 11.5 H, Lymph # (Auto) 1.2, [place] # (Auto) 0.9, Eos # (Auto) 0.1, Baso # (Auto) 0.1, Sodium 129 L, Potassium 3.9 D, Chloride 93 L, Carbon Dioxide 27, Anion Gap 12.9, BUN 35 H, Creatinine 1.20, Estimated Creat Clear 93, Estimated GFR 61, Est GFR ( Amer) 74, Glucose 105 H D, Calcium 9.4, Phosphorus 4.3, Magnesium 2.4 H, Total Bilirubin 1.0, AST 86 H, ALT 48, Alkaline Phosphatase 78, Total Creatine Kinase 1086 H*, Troponin I < 0.01, Total Protein 7.1, Albumin 4.3, Globulin 2.8, Albumin/Globulin Ratio 1.5, TSH 2.48, Thyroxine (T4) 10.8 11/02/23 15:08: VBG pH 7.46 H, VBG pCO2 36.8, VBG pO2 79.3 H, VBG HCO3 25.8, VBG Total CO2 27.0, VBG O2 Saturation 96.2 H, VBG Base Excess 2.1, VBG Lactic Acid 2.4 H 11/02/23 15:12: SARS-CoV-2 (PCR) Not detected, Influenza A Untype (PCR) Not detected, Influenza Type B (PCR) Not detected I & O for Last 24 hours: Intake & Output 10/30/23 10/31/23 11/01/23 11/02/23 23:59 23:59 23:59 23:59 Weight 106.141 kg Constitutional Constitutional: mild distress, obese, chronically ill appearing and disheveled *Routine HEENT Exam Head: Absent normocephalic Eye: Present EOMI and PERRL ENT: Present mucous membranes moist Comments: Macrocephaly; abrasion on lower lip *Routine Neck Exam Neck: Present supple; Absent lymphadenopathy *Routine Respiratory Exam Respiratory: Present CTA bilaterally; Absent rhonchi, wheezes or crackles *Routine Cardiovascular Exam Cardiovascular: Present tachycardia Comments: Regular rhythm *Routine Abdominal Exam Abdominal: Present soft and normoactive bowel sounds; Absent tenderness *Routine Rectal Exam Rectal:: deferred *Routine Genitalia Exam Genitalia:: deferred *Routine Extremities Exam Extremities: Absent cyanosis, clubbing or edema Comments: Plantarflexion of feet bilaterally. Prominent tremor in left upper extremity, minor bruises on extremities; left upper extremity tender to palpation *Routine Skin Exam Skin: Present intact and warm; Absent rash *Routine Neurological Exam Neurological: Present alert and moving all extremities Comments: Oriented to self and place. Disoriented to time. (Decreased from normal). Increased tremor in left upper extremity Routine Psychiatric Exam Psychiatric: Present unable to assess Assessment and Plan *Assessment and plan (1) Hyponatremia: Status: Acute Category: Medical Code(s): E87.1 - Hypo-osmolality and hyponatremia (2) Rhabdomyolysis: Status: Acute Category: Medical Code(s): M62.82 - Rhabdomyolysis (3) Falls frequently: Status: Acute Category: Medical Code(s): R29.6 - Repeated falls (4) Arm pain, left: Status: Acute Category: Medical Code(s): M79.602 - Pain in left arm (5) Leukocytosis: Status: Acute Category: Medical Code(s): D72.829 - Elevated white blood cell count, unspecified (6) Cerebral ventriculomegaly: Problem Comment: [address] consistent with 2021 Status: Acute Category: Medical Code(s): G93.89 - Other specified disorders of brain (7) Tremor of left hand: Status: Acute Category: Medical Code(s): R25.1 - Tremor, unspecified (8) Hypertension: Status: Acute Category: Medical Code(s): I10 - Essential (primary) hypertension (9) Depression: Status: Acute Category: Medical Code(s): F32.A - Depression, unspecified Plan 63-year-old male with history of ventriculomegaly, hydrocephalus, clubfoot, seizure disorder, asthma/COPD, peripheral neuropathy, GERD, hyperlipidemia, frequent falls, cognitive disability. Presented to the ER because of falls at his retirement. Found to have rhabdomyolysis and hyponatremia. Discussed case with the ER physician, request admission for further management of his confusion in the setting of hyponatremia and his rhabdomyolysis. Medicine agreed to admit for further management. Gentle hydration overnight. Serial labs to monitor sodium correction. Necessitating inpatient management. Hyponatremia Rhabdomyolysis - CK greater than thousand, sodium 129. Patient has increased confusion from baseline. -Rhabdomyolysis likely secondary to trauma. Gentle hydration overnight with normal saline at 100 cc an hour. -Mild kidney injury with elevation in BUN at 35. Creatinine appears slightly above baseline at 1.2. Baseline 1-1.1. -Urine osmolality and sodium pending -Repeat CBC, CMP, magnesium and CK ordered for the morning. Mild cognitive impairment: Chronic hydrocephalus with ventriculomegaly History of spina bifida obesity: Chronic conditions complicate all aspects of his care. Currently unable to perform ADLs safely including standing and transfers. Review of imaging shows that patient's hydrocephalus and ventriculomegaly have been present for majority of his life. Given his worsening falls and instability with ambulation, concern his condition may be progressing Would benefit from outpatient neurology eval. Strong concern there is limited intervention. PT and OT consults placed for placement/SNF recommendations Seizure disorder Anxiety -Continue gabapentin, will increase to 600 mg 3 times a day to help with calming tremor -Valium 2 mg daily as needed per home regimen -Continue citalopram 40 mg daily -Continue Vraylar 1.5 mg daily Continue atenolol 25 mg daily for hypertension and tachycardia Continue pravastatin 20 mg nightly Full code Regular diet PLOV
--- NOTE | 2023-11-02 18:55 | PC.NURSE ---
pt able to bend legs and move feet, but when in a resting position legs appear stiff. tremor noted to left arm
[2023-11-02] MEDS: GABAPENTIN 300MG CAPSULE 300 MG PO (19:03)
[2023-11-02] MEDS: 0.9 % SODIUM CHLORIDE 1000ML 1,000 ML 75 ML IV (19:03)
[2023-11-02 19:17] LABS: Reflex Lactic Add Lactic Reflex
[2023-11-02] MEDS: PANTOPRAZOLE 40MG TABLET 40 MG PO (20:37)
[2023-11-02 20:46] LABS: Lactic Acid Follow Up (RFLX 1) 1.1 mmol/L (0.7-2.1)
[2023-11-02 21:01] LABS: Troponin I < 0.01 ng/ml (0.00-0.034)
[2023-11-02 23:26] LABS: Troponin I < 0.01 ng/ml (0.00-0.034)
[2023-11-03] VITALS: BP 118/68; PULSE 88; RESP 16; TEMP 36.6; O2SAT 96
[2023-11-03] MEDS: ACETAMINOPHEN 500MG TAB 500 MG PO ×2 (01:19→15:27)
[2023-11-03] MEDS: diazePAM 2MG TABLET 2 MG PO ×3 (01:45→20:46)
[2023-11-03] MEDS: diazePAM 10MG/2ML SYRINGE 2.5 MG IV (02:18)
[2023-11-03 04:00] VITALS: BP 138/90; PULSE 77; RESP 17; TEMP 36.9; O2SAT 96; BMI 37.6
[2023-11-03] MEDS: GABAPENTIN 300MG CAPSULE 300 MG PO (05:03)
--- NOTE | 2023-11-03 06:42 | PC.NURSE ---
Pt is A&Ox4 and tolerating room air. Pts skin was diaphoretic and uses a fan to keep cool. Pt has complained of left arm pain multiple times due to tremors. Multiple pain medications were given to help reduce the pain. Pt states satisfaction in treatment.
[2023-11-03 07:15] LABS: Basophils # 0.1 K/mm3 (0-0.2); Eosinophils # 0.1 K/mm3 (0.0-0.4); Lymphocytes # 1.2 K/mm3 (0.7-4.5)
[2023-11-03 07:16] LABS: Chloride 96 mmol/L (98-107); Potassium 3.4 mmoL/L (3.5-5.1); Sodium 130 mmol/L (136-145)
[2023-11-03 07:18] LABS: Blood Urea Nitrogen 39 mg/dl (9-20); Creatinine Clearance Estimated 86 mL/min (50-200); Estimated Glomerular Filt Rate 56 ml/min (>60); GFR (African American) 67 ML/MIN (>60)
[2023-11-03 07:19] LABS: Alanine Aminotransferase 43 U/L (12-78); Albumin Level 3.8 g/dl (3.5-5.0); Albumin/Globulin Ratio 1.5 (1.1-1.8); Alkaline Phosphatase 82 U/L (38-126); Anion Gap 14.4 mEq/L (5-15); Aspartate Amino Transferase 69 U/L (17-59); Calcium 8.9 mg/dl (8.4-10.2); Carbon Dioxide 23 mmol/L (22.0-30.0); Creatine Kinase 894 U/L (55-170); Globulin 2.5 g/dL (1.3-3.2); Glucose 94 mg/dl (74-100); Magnesium 2.2 mg/dl (1.6-2.3); Total Protein,Serum 6.3 g/dl (6.3-8.2)
[2023-11-03 07:24] LABS: Basophils % 0.5 % (0.1-2.0); Hematocrit 41.3 % (42.0-52.0); Hemoglobin 14.1 g/dL (14.1-18.0); Lymphocytes % 10.9 % (10-50); Mean Corpuscular HGB Conc 34.1 g/dL (31.8-35.4); Mean Corpuscular Hemoglobin 31.7 pg (27.0-31.2); Mean Corpuscular Volume 92.9 fl (80-94); Mean Platelet Volume 7.6 fl (7.4-10.4); Monocytes # 0.8 K/mm3 (0.1-1.0); Neutrophils % 80.6 % (37.0-80.0); Platelet Count 369 K/mm3 (142-424); Red Blood Count 4.44 M/mm3 (4.60-6.20); Red Cell Distribution Width 13.8 % (11.5-17.5); White Blood Count 11.2 K/mm3 (4.8-10.8)
[2023-11-03 08:00] VITALS: BP 128/80; PULSE 86; RESP 17; TEMP 36.5; O2SAT 95
--- NOTE | 2023-11-03 08:33 | P.PN_ITS ---
Subjective *Date: 11/03/23 *Time: 13:16 Interval history: Patient states he is feeling little better this morning. Tremor in his left upper extremity still prominent. Family at bedside this morning, mention that his tremor is usually not this bad. 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 On exam, has a dermal sinus concerning most for pilonidal cyst. No sign of infection. No imaging of L-spine to evaluate for tract at this time. Will evaluate today. Patient denies any nausea or vomiting. Tolerating p.o. medications without difficulty. Concern with tremor for partial seizure. Afebrile but sweating on exam. Medical Exam Vital signs and Labs for Last 24 Hours: Vital Signs Temp Pulse Pulse Resp BP BP Pulse Ox 11/03/23 06:39 11/03/23 05:00 11/03/23 04:00 98.4 F 77 17 138/90 96 11/03/23 02:53 11/03/23 00:52 11/03/23 00:00 97.9 F 88 16 118/68 96 11/02/23 23:00 11/02/23 20:45 11/02/23 20:00 11/02/23 20:00 98.4 F 90 17 106/66 L 96 11/02/23 19:00 11/02/23 18:50 98.5 F 108 H 18 104/64 L 97 11/02/23 18:40 108 H 97 11/02/23 18:30 98.0 F 65 18 123/81 11/02/23 17:32 98.0 F 11/02/23 16:05 95 H 136/89 94 L 11/02/23 15:01 75 132/92 H 96 11/02/23 14:56 98.1 F 80 20 103/82 L 98 O2 Del Method 11/03/23 06:39 Room Air 11/03/23 05:00 Room Air 11/03/23 04:00 Room Air 11/03/23 02:53 Room Air 11/03/23 00:52 Room Air 11/03/23 00:00 Room Air 11/02/23 23:00 Room Air 11/02/23 20:45 Room Air 11/02/23 20:00 Room Air 11/02/23 20:00 Room Air 11/02/23 19:00 Room Air 11/02/23 18:50 Room Air 11/02/23 18:40 Room Air 11/02/23 18:30 Room Air 11/02/23 17:32 11/02/23 16:05 11/02/23 15:01 11/02/23 14:56 Room Air Intake and Output 11/02/23 11/03/23 11/03/23 23:59 07:59 15:59 Output Total 300 / 300 Balance -300 / -300 Output: Output, Urine Amount 300 / 300 Other: Number of Unmeasured Voids 0 0 Weight 106.197 kg 106.2 kg Patient Weight 11/03/23 23:59 Weight 106.2 kg Laboratory Results - last 24 hr 11/02/23 09:00: Urine Sodium 97.0 H 11/02/23 15:05: WBC 13.8 H, RBC 4.90, Hgb 15.6, Hct 46.1, MCV 94.0, MCH 31.9 H, MCHC 33.9, RDW 13.6, Plt Count 392, MPV 7.3 L, Neut % (Auto) 83.4 H, Lymph % (Auto) 8.6 L, [place] % (Auto) 6.6, Eos % (Auto) 1.0, Baso % (Auto) 0.4, Neut # (Auto) 11.5 H, Lymph # (Auto) 1.2, [place] # (Auto) 0.9, Eos # (Auto) 0.1, Baso # (Auto) 0.1, Sodium 129 L, Potassium 3.9 D, Chloride 93 L, Carbon Dioxide 27, Anion Gap 12.9, BUN 35 H, Creatinine 1.20, Estimated Creat Clear 93, Estimated GFR 61, Est GFR ( Amer) 74, Glucose 105 H D, Calcium 9.4, Phosphorus 4.3, Magnesium 2.4 H, Total Bilirubin 1.0, AST 86 H, ALT 48, Alkaline Phosphatase 78, Total Creatine Kinase 1086 H*, Troponin I < 0.01, Total Protein 7.1, Albumin 4.3, Globulin 2.8, Albumin/Globulin Ratio 1.5, TSH 2.48, Thyroxine (T4) 10.8 11/02/23 15:08: VBG pH 7.46 H, VBG pCO2 36.8, VBG pO2 79.3 H, VBG HCO3 25.8, VBG Total CO2 27.0, VBG O2 Saturation 96.2 H, VBG Base Excess 2.1, VBG Lactic Acid 2.4 H 11/02/23 15:12: SARS-CoV-2 (PCR) Not detected, Influenza A Untype (PCR) Not detected, Influenza Type B (PCR) Not detected 11/02/23 20:10: Lactate 1.1, Troponin I < 0.01 11/02/23 22:55: Troponin I < 0.01 11/03/23 06:40: WBC 11.2 H, RBC 4.44 L, Hgb 14.1, Hct 41.3 L, MCV 92.9, MCH 31.7 H, MCHC 34.1, RDW 13.8, Plt Count 369, MPV 7.6, Neut % (Auto) 80.6 H, Lymph % (Auto) 10.9, [place] % (Auto) 7.0, Eos % (Auto) 1.0, Baso % (Auto) 0.5, Neut # (Auto) 9.0 H, Lymph # (Auto) 1.2, [place] # (Auto) 0.8, Eos # (Auto) 0.1, Baso # (Auto) 0.1, Sodium 130 L, Potassium 3.4 L, Chloride 96 L, Carbon Dioxide 23, Anion Gap 14.4, BUN 39 H, Creatinine 1.30 H, Estimated Creat Clear 86, Estimated GFR 56 L, Est GFR ( Amer) 67, Glucose 94, Calcium 8.9, Magnesium 2.2, Total Bilirubin 1.0, AST 69 H, ALT 43, Alkaline Phosphatase 82, Total Creatine Kinase 894 H*, Total Protein 6.3, Albumin 3.8 D, Globulin 2.5, Albumin/Globulin Ratio 1.5 I & O for Labs for Last 24 Hours: Intake & Output 10/31/23 11/01/23 11/02/23 11/03/23 23:59 23:59 23:59 23:59 Output Total 300 / 300 Balance -300 / -300 Weight 106.197 kg 106.2 kg Constitutional: Present mild distress, obese, chronically ill appearing and disheveled Head: Present atraumatic ENT: Present normal exam Comment:: Macrocephaly Respiratory: Present normal respiratory effort; Absent rhonchi, wheezes or crackles Cardiac: Present Reg Rate and Rhythm GI: Present soft and normal bowel sounds; Absent distention or tenderness Comments:: Sinus at top of gluteal cleft, hair protruding from sinus. No significant drainage, redness, pain or fluctuance. Extremities: Present normal inspection and full ROM Comment:: Tremor in left upper extremity. Plantarflexion of feet at baseline per family Skin: Present intact; Absent erythema Neuro: Present Grossly Intact, alert, awake and moves all extremities Comment:: Oriented to self and place. Tremor in left arm. Answering questions appropriately. Assessment and Plan *Assessment and plan (1) Hyponatremia: Status: Acute Category: Medical Code(s): E87.1 - Hypo-osmolality and hyponatremia (2) Rhabdomyolysis: Status: Acute Qualifiers: Rhabdomyolysis type: traumatic Category: Medical Code(s): M62.82 - Rhabdomyolysis (3) Epilepsy: Status: Acute Qualifiers: Epilepsy type: other Category: Medical Code(s): G40.909 - Epilepsy, unspecified, not intractable, without status epilepticus (4) Falls frequently: Status: Acute Category: Medical Code(s): R29.6 - Repeated falls (5) Arm pain, left: Status: Acute Category: Medical Code(s): M79.602 - Pain in left arm (6) Leukocytosis: Status: Acute Qualifiers: Leukocytosis type: lymphocytosis Qualified Code(s): D72.820 - Lymphocytosis (symptomatic) Category: Medical Code(s): D72.829 - Elevated white blood cell count, unspecified (7) Cerebral ventriculomegaly: Problem Comment: [address] consistent with 2021 Status: Acute Category: Medical Code(s): G93.89 - Other specified disorders of brain (8) Tremor of left hand: Status: Acute Category: Medical Code(s): R25.1 - Tremor, unspecified (9) Hypertension: Status: Acute Qualifiers: Hypertension type: primary hypertension Qualified Code(s): I10 - Essential (primary) hypertension Category: Medical Code(s): I10 - Essential (primary) hypertension (10) Depression: Status: Acute Category: Medical Code(s): F32.A - Depression, unspecified Plan 63-year-old male with history of ventriculomegaly, hydrocephalus, clubfoot, seizure disorder, asthma/COPD, peripheral neuropathy, GERD, hyperlipidemia, frequent falls, cognitive disability. Presented to the ER because of falls at his group home. Found to have rhabdomyolysis and hyponatremia. Discussed case with the ER physician, request admission for further management of his confusion in the setting of hyponatremia and his rhabdomyolysis. Medicine agreed to admit for further management. Continue Gentle hydration. Serial labs to monitor sodium correction. Necessitating inpatient management. Hyponatremia Rhabdomyolysis - CK greater than thousand, sodium 129 on presentation, CK improved to 890 and sodium improved to 130. Urine sodium elevated at 97. Consistent with SIADH versus hypovolemic hyponatremia. Responding to normal saline infusion. Increase to 125 cc an hour. -Rhabdomyolysis likely secondary to trauma. Continue with gentle rehydration -Creatinine still elevated at 1.3. BUN at 39. creatinine appears slightly above baseline at 1.2. Baseline 1-1.1. -Repeat CBC, CMP, magnesium and CK ordered for the morning. Mild cognitive impairment: Chronic hydrocephalus with ventriculomegaly History of spina bifida obesity: Chronic conditions complicate all aspects of his care. Currently unable to perform ADLs safely including standing and transfers. Review of imaging shows that patient's hydrocephalus and ventriculomegaly have been present for majority of his life. Given his worsening falls and instability with ambulation, concern his condition may be progressing. Discussed potential for LP to evaluate pressure and possible need for shunt. Family at this time does not have an interest in putting patient through that and would have no interest in pursuing surgical intervention. Would like to manage symptoms as best as possible through conservative means. Medication adjustments if possible. Would benefit from outpatient neurology eval. Strong concern there is limited intervention. PT and OT consults placed for placement/SNF recommendations Seizure disorder Anxiety -Continue gabapentin, will increase to 600 mg 3 times a day to help with calming tremor -Concerned that he may be having partial seizures. Occasionally will stare off and being unresponsive. Will add Keppra 500 mg IV twice daily today. Valium th is morning. Some improvement in tremor. -Valium 2 mg daily as needed per home regimen -Continue citalopram 40 mg daily -Continue Vraylar 1.5 mg daily Continue atenolol 25 mg daily for hypertension and tachycardia Continue pravastatin 20 mg nightly Full code Regular diet PLOV
--- OUTSIDE RECORDS SUMMARY | 2023-11-03 08:56 | XMS_ITS ---
Author Name Lebron Pappas Address [address] [place] [address] Organization Unknown Address [address] [place] [address] ALLERGIES AND ADVERSE REACTIONS No information ASSESSMENT No information CHIEF COMPLAINT No information MEDICATIONS No information OBJECTIVE DATA No information PHYSICAL EXAMINATION No information TREATMENT PLAN Planned Care Start Date Provider Encounter for Check-up [phone] [facility] PROBLEMS No information RESULTS No information REVIEW OF SYSTEMS No information SUBJECTIVE DATA No information VITAL SIGNS No information
[2023-11-03] MEDS: ATENOLOL 25MG TABLET 25 MG PO (09:28)
[2023-11-03] MEDS: ENOXAPARIN 40MG/0.4ML SYRINGE 40 MG SQ (09:28)
[2023-11-03] MEDS: CITALOPRAM 40MG TABLET 40 MG PO (09:28)
--- NOTE | 2023-11-03 11:29 | CT_ITS ---
PROCEDURE INFORMATION: Exam: CT Lumbar Spine Without Contrast Exam date and time: 11/03/2023 2:08 PM Age: 63 years old Clinical indication: Low back pain; Additional info: Eval dermal sinus/pylonidal cyst? TECHNIQUE: Imaging protocol: Computed tomography of the lumbar spine without contrast. Radiation optimization: All CT scans at this facility use at least one of these dose optimization techniques: automated exposure control; mA and/or kV adjustment per patient size (includes targeted exams where dose is matched to clinical indication); or iterative reconstruction. COMPARISON: [facility] CT LUMBAR SPINE W/O CONTRAST 05/08/2017 2:40 AM FINDINGS: Bones/joints: Increasing compression of T12 compression fracture which was present in 2017. There is no evidence of acute fracture of lumbar spine.There is no evidence of malalignment or dislocation. anterolisthesis of L4 with respect to L5. Broad-based disc bulge, facet hypertrophy, and ligament hypertrophy at L4/L5 consistent with spinal stenosis. . Soft tissues: No pilonidal cyst IMPRESSION: 1. Increasing compression of T12 compression fracture which was present in 2017. 2. There is no evidence of acute fracture of lumbar spine.There is no evidence of malalignment or dislocation. 3. Broad-based disc bulge, facet hypertrophy, and ligament hypertrophy at L4/L5 consistent with spinal stenosis. .
[2023-11-03] MEDS: levETIRAcetam 500 MG in 0.9 % SODIUM CHLORIDE 100 ML 210 MG IV (12:04)
[2023-11-03] MEDS: GABAPENTIN 600MG TABLET 600 MG PO ×2 (14:33→20:47)
[2023-11-03 15:05] LABS: POC Glucose,Bedside 110 (70-110)
[2023-11-03 15:43] VITALS: BP 134/71; PULSE 79; RESP 18; TEMP 36.6; O2SAT 96
[2023-11-03 17:39] LABS: Chloride 98 mmol/L (98-107); Potassium 3.3 mmoL/L (3.5-5.1); Sodium 130 mmol/L (136-145)
[2023-11-03 17:42] LABS: Blood Urea Nitrogen 32 mg/dl (9-20); Creatinine Clearance Estimated 112 mL/min (50-200); Estimated Glomerular Filt Rate 75 ml/min (>60); GFR (African American) 91 ML/MIN (>60)
[2023-11-03 17:43] LABS: Anion Gap 13.3 mEq/L (5-15); Calcium 8.7 mg/dl (8.4-10.2); Carbon Dioxide 22 mmol/L (22.0-30.0); Glucose 109 mg/dl (74-100)
[2023-11-03] MEDS: 0.9 % SODIUM CHLORIDE 1000ML 1,000 ML 125 ML IV (19:06)
[2023-11-03 19:45] VITALS: BP 119/64; PULSE 74; RESP 17; TEMP 36.1; O2SAT 96
[2023-11-03 20:00] VITALS: RESP 17; O2SAT 96
[2023-11-03] MEDS: levETIRAcetam 1,000 MG in 0.9 % SODIUM CHLORIDE 100 ML 220 MG IV (20:48)
[2023-11-03] MEDS: PANTOPRAZOLE 40MG TABLET 40 MG PO (20:48)
[2023-11-03] MEDS: POTASSIUM CHLORIDE 20MEQ/15ML UDC 20 MEQ PO (20:48)
[2023-11-03] MEDS: MORPHINE 2MG/ML SYRINGE 2 MG IV (21:03)
[2023-11-04] MEDS: MORPHINE 2MG/ML SYRINGE 2 MG IV ×5 (01:13→20:37)
[2023-11-04] MEDS: 0.9 % SODIUM CHLORIDE 1000ML 1,000 ML 125 ML IV ×3 (03:39→20:38)
[2023-11-04 04:00] VITALS: BP 92/64; PULSE 78; RESP 17; TEMP 36.9; O2SAT 95; BMI 35.8
--- NOTE | 2023-11-04 05:33 | PC.NURSE ---
Pt is alert and oriented x4. Pt sweats profusely and states it is normal for him. Pt periodically wants fan on him to cool down. Pt fluctuates from feeling hot and cold. Pt's tremors increase when he is in pain. He has been receiving IV morphine 2mg/1 mL every 4 hours this shift and it has worked effectively for him. However, pt has not had a bowel movement since 10/31/23 and has not reported feeling like he needed to have one this shift. Pt is bedfast and needs total assistance to move in bed. He also needs assistance to feed. Pt has occasional mumbled speech when shaking and is unable to use the call chopra due to tremors. He will yell for help when he needs it. Pt has laid supine for most of the shift and refused to turn on his sides. Pt is on RA and has maintained an O2 saturation of 95 and 96. Pt's current fluids are NS infusing @ 125 mL/hr. Seizure pads were put in place during this shift.
[2023-11-04 07:44] LABS: Basophils % 0.4 % (0.1-2.0); Eosinophils # 0.1 K/mm3 (0.0-0.4); Eosinophils % 1.4 % (0.1-12.0); Hematocrit 37.9 % (42.0-52.0); Hemoglobin 12.7 g/dL (14.1-18.0); Lymphocytes # 1.2 K/mm3 (0.7-4.5); Lymphocytes % 13.2 % (10-50); Mean Corpuscular HGB Conc 33.6 g/dL (31.8-35.4); Mean Corpuscular Volume 95.4 fl (80-94); Mean Platelet Volume 7.7 fl (7.4-10.4); Monocytes # 0.5 K/mm3 (0.1-1.0); Monocytes % 5.6 % (1.7-9.3); Neutrophils # 7.4 K/mm3 (1.8-7.8); Neutrophils % 79.4 % (37.0-80.0); Platelet Count 319 K/mm3 (142-424); Red Blood Count 3.97 M/mm3 (4.60-6.20); Red Cell Distribution Width 13.9 % (11.5-17.5); White Blood Count 9.3 K/mm3 (4.8-10.8)
[2023-11-04 07:47] LABS: Chloride 100 mmol/L (98-107); Potassium 3.1 mmoL/L (3.5-5.1); Sodium 131 mmol/L (136-145)
[2023-11-04 07:49] LABS: Alanine Aminotransferase 31 U/L (12-78); Blood Urea Nitrogen 24 mg/dl (9-20); Creatinine Clearance Estimated 107 mL/min (50-200); Estimated Glomerular Filt Rate 85 ml/min (>60); GFR (African American) 103 ML/MIN (>60)
[2023-11-04 07:50] LABS: Albumin Level 3.1 g/dl (3.5-5.0); Albumin/Globulin Ratio 1.4 (1.1-1.8); Alkaline Phosphatase 63 U/L (38-126); Anion Gap 8.1 mEq/L (5-15); Aspartate Amino Transferase 47 U/L (17-59); Bilirubin,Total 0.5 mg/dl (0.2-1.3); Calcium 8.3 mg/dl (8.4-10.2); Carbon Dioxide 26 mmol/L (22.0-30.0); Creatine Kinase 402 U/L (55-170); Globulin 2.2 g/dL (1.3-3.2); Glucose 91 mg/dl (74-100); Magnesium 2.1 mg/dl (1.6-2.3); Total Protein,Serum 5.3 g/dl (6.3-8.2)
[2023-11-04 08:00] VITALS: BP 110/62; PULSE 105; RESP 22; TEMP 36.9; O2SAT 95
--- NOTE | 2023-11-04 08:02 | P.PN_ITS ---
Subjective *Date: 11/04/23 *Time: 11:24 Interval history: Patient more interactive this morning. Tremor improved. Showing improvement on labs. Stable on room air. Continues to complain of being warm but does not have a temperature. Benefiting from fan in his room. No nausea or vomiting or shortness of breath Medical Exam Vital signs and Labs for Last 24 Hours: Vital Signs Temp Pulse Resp BP Pulse Ox O2 Del Method 11/04/23 06:46 Room Air 11/04/23 04:56 Room Air 11/04/23 04:00 98.4 F 78 17 92/64 L 95 Room Air 11/04/23 03:00 Room Air 11/04/23 01:00 Room Air 11/03/23 22:58 Room Air 11/03/23 21:00 Room Air 11/03/23 20:00 17 96 Room Air 11/03/23 19:45 97.0 F L 74 17 119/64 96 Nasal Cannula 11/03/23 18:34 Room Air 11/03/23 17:00 Room Air 11/03/23 15:43 97.8 F 79 18 134/71 96 Room Air 11/03/23 15:00 Room Air 11/03/23 13:00 Room Air 11/03/23 11:00 Room Air 11/03/23 09:00 Room Air Intake and Output 11/03/23 11/04/23 11/04/23 23:59 07:59 15:59 Intake Total 300 / 1140 1567 / 1567 Output Total 300 / 1100 360 / 360 Balance 0 / 40 1207 / 1207 Intake: Intake, Oral Amount 300 / 1140 375 / 375 Intake, Total IV Amount 1192 / 1192 0.9 % Sodium Chloride 1000ML 1, 1082 / 1082 000 ml @ 125 mls/hr IV .Q8H GWENDOLYN Rx#:[id number] levETIRAcetam 1,000 mg In 0.9 % 110 / 110 Sodium Chloride 100 ml @ 220 mls/hr IV BID GWENDOLYN Rx#:[id number] Output: Output, Urine Amount 300 / 1100 360 / 360 Other: Number of Unmeasured Voids 0 0 Weight 101.151 kg Patient Weight 11/04/23 23:59 Weight 101.151 kg Laboratory Results - last 24 hr 11/03/23 14:58: POC Glucose 110 11/03/23 17:10: Sodium 130 L, Potassium 3.3 L, Chloride 98, Carbon Dioxide 22, Anion Gap 13.3, BUN 32 H, Creatinine 1.00 D, Estimated Creat Clear 112, Estimated GFR 75, Est GFR ( Amer) 91 D, Glucose 109 H, Calcium 8.7 11/04/23 06:45: WBC 9.3, RBC 3.97 L, Hgb 12.7 L, Hct 37.9 L, MCV 95.4 H, MCH 32.0 H, MCHC 33.6, RDW 13.9, Plt Count 319, MPV 7.7, Neut % (Auto) 79.4, Lymph % (Auto) 13.2, Iroquois % (Auto) 5.6, Eos % (Auto) 1.4, Baso % (Auto) 0.4, Neut # (Auto) 7.4, Lymph # (Auto) 1.2, [place]quois # (Auto) 0.5, Eos # (Auto) 0.1, Baso # (Auto) 0.0, Sodium 131 L, Potassium 3.1 L, Chloride 100, Carbon Dioxide 26, Anion Gap 8.1, BUN 24 H, Creatinine 0.90, Estimated Creat Clear 107, Estimated GFR 85, Est GFR ( Amer) 103, Glucose 91, Calcium 8.3 L, Total Bilirubin 0.5, AST 47 D, ALT 31 D, Alkaline Phosphatase 63, Total Creatine Kinase 402 H D, Total Protein 5.3 L, Albumin 3.1 L D, Globulin 2.2, Albumin/Globulin Ratio 1.4 I & O for Labs for Last 24 Hours: Intake & Output 11/01/23 11/02/23 11/03/23 11/04/23 23:59 23:59 23:59 23:59 Intake Total 1140 / 1140 1567 / 1567 Output Total 1100 / 1100 360 / 360 Balance 40 / 40 1207 / 1207 Weight 106.197 kg 106.2 kg 101.151 kg Constitutional: Present mild distress, obese, chronically ill appearing and disheveled Head: Present atraumatic ENT: Present normal exam Comment:: Macrocephaly Respiratory: Present normal respiratory effort; Absent rhonchi, wheezes or crackles Cardiac: Present Reg Rate and Rhythm GI: Present soft and normal bowel sounds; Absent distention or tenderness Comments:: Sinus at top of gluteal cleft, hair protruding from sinus. No significant drainage, redness, pain or fluctuance. Extremities: Present normal inspection and full ROM Comment:: Tremor in left upper extremity, intervally improved. Plantarflexion of feet at baseline per family Skin: Present intact; Absent erythema Neuro: Present Grossly Intact, alert, awake and moves all extremities Comment:: Oriented to self and place. Tremor in left arm. Answering questions appropriately. Assessment and Plan *Assessment and plan (1) Hyponatremia: Status: Acute Category: Medical Code(s): E87.1 - Hypo-osmolality and hyponatremia (2) Rhabdomyolysis: Status: Acute Qualifiers: Rhabdomyolysis type: traumatic Category: Medical Code(s): M62.82 - Rhabdomyolysis (3) Epilepsy: Status: Acute Qualifiers: Epilepsy type: other Category: Medical Code(s): G40.909 - Epilepsy, unspecified, not intractable, without status epilepticus (4) Falls frequently: Status: Acute Category: Medical Code(s): R29.6 - Repeated falls (5) Arm pain, left: Status: Acute Category: Medical Code(s): M79.602 - Pain in left arm (6) Leukocytosis: Status: Acute Qualifiers: Leukocytosis type: lymphocytosis Qualified Code(s): D72.820 - Lymphocytosis (symptomatic) Category: Medical Code(s): D72.829 - Elevated white blood cell count, unspecified (7) Cerebral ventriculomegaly: Problem Comment: [address] consistent with 2021 Status: Acute Category: Medical Code(s): G93.89 - Other specified disorders of brain (8) Tremor of left hand: Status: Acute Category: Medical Code(s): R25.1 - Tremor, unspecified (9) Hypertension: Status: Acute Qualifiers: Hypertension type: primary hypertension Qualified Code(s): I10 - Essential (primary) hypertension Category: Medical Code(s): I10 - Essential (primary) hypertension (10) Depression: Status: Acute Category: Medical Code(s): F32.A - Depression, unspecified Plan 63-year-old male with history of ventriculomegaly, hydrocephalus, clubfoot, seizure disorder, asthma/COPD, peripheral neuropathy, GERD, hyperlipidemia, frequent falls, cognitive disability. Presented to the ER because of falls at his correction. Found to have rhabdomyolysis and hyponatremia. Discussed case with the ER physician, request admission for further management of his confusion in the setting of hyponatremia and his rhabdomyolysis. Medicine agreed to admit for further management. Continue Gentle hydration. Serial labs to monitor sodium correction. Necessitating inpatient management. Hyponatremia Rhabdomyolysis - CK greater than thousand, sodium 129 on presentation, CK improved to 400. Sodium 131 urine sodium elevated at 97. Consistent with SIADH versus hypovolemic hyponatremia. Responding to normal saline infusion. 125 cc an hour. -Rhabdomyolysis likely secondary to trauma. Continue with gentle rehydration -Creatinine improved to 0.9, BUN 24. Baseline 1.1. -Repeat CBC, CMP, magnesium and CK ordered for the morning. -Potassium 3.1, magnesium 2.1. Replacing potassium both oral and IV. -White cell count normalized to 9.3 with no overt sign of infection. Holding on antibiotics. Mild cognitive impairment: Chronic hydrocephalus with ventriculomegaly History of spina bifida? obesity: Chronic conditions complicate all aspects of his care. Currently unable to perform ADLs safely including standing and transfers. Review of imaging shows that patient's hydrocephalus and ventriculomegaly have been present for majority of his life. Given his worsening falls and instability with ambulation, concern his condition may be progressing. Discussed potential for LP to evaluate pressure and possible need for shunt. Family at this time does not have an interest in putting patient through that and would have no interest in pursuing surgical intervention. Would like to manage symptoms as best as possible through conservative means. Medication adjustments if possible. Would benefit from outpatient neurology eval. Strong concern there is limited intervention. PT and OT consults placed for placement/SNF recommendations -CT of L-spine obtained yesterday, no pilonidal cyst or dermal tract/sinus identified on CT. Unable to appreciate any defect in pars on personal review. Not consistent with spina bifida and lumbar spine Seizure disorder Anxiety -Continue gabapentin, 600 mg 3 times a day to help with calming tremor -Concerned that he may be having partial seizures. Keppra 1000 mg IV twice daily. -Valium 2 mg p.o. twice daily scheduled -Continue citalopram 40 mg daily -Holding home Vraylar as it is not on our formulary Continue atenolol 25 mg daily for hypertension and tachycardia Continue pravastatin 20 mg nightly Full code Regular diet PLOV
[2023-11-04] MEDS: KCl 10mEq/100ml 100 ML 100 MEQ IV ×3 (08:18→11:21)
[2023-11-04] MEDS: diazePAM 2MG TABLET 2 MG PO ×2 (09:42→20:36)
[2023-11-04] MEDS: CITALOPRAM 40MG TABLET 40 MG PO (09:42)
[2023-11-04] MEDS: levETIRAcetam 1,000 MG in 0.9 % SODIUM CHLORIDE 100 ML 220 MG IV ×2 (09:42→20:36)
[2023-11-04] MEDS: GABAPENTIN 600MG TABLET 600 MG PO ×3 (09:42→20:37)
[2023-11-04] MEDS: ENOXAPARIN 40MG/0.4ML SYRINGE 40 MG SQ (09:42)
[2023-11-04] MEDS: POTASSIUM CHLORIDE 20MEQ/15ML UDC 20 MEQ PO ×3 (09:43→20:36)
[2023-11-04] MEDS: ATENOLOL 25MG TABLET 25 MG PO (09:43)
[2023-11-04 12:00] VITALS: PULSE 75
--- NOTE | 2023-11-04 15:43 | HMH.PTEV ---
Physical Therapy Evaluation Rehab PT IP Evaluation Start: 11/02/23 19:06 Freq: ONCE Status: Active Protocol: Document 11/04/23 14:43 SILVERIO (Rec: 11/04/23 15:43 SILVERIO [email or web address]) Subjective/History History History Per H&P: Mr. Mclaughlin is a 63-year-old male with history of spina bifida, hydrocephalus/ ventriculomegaly, cognitive impairment, frequent falls, epilepsy, hypertension, COPD, obesity. He was recently admitted a month ago and discharged to [facility] for rehab due to progressive decline and difficulty of family caring for him at home given his medical complexities. He presents today from [facility] due to increased falls and pain in his left arm . On evaluation in the ER, found to have increased tremor in his left upper extremity. Tenderness in the left arm. Lab work and imaging initiated . Imaging showing stable ventriculomegaly with CT head. Lab work shows leukocytosis with neutrophil predominance, chest imaging with no focal consolidation or pneumonia. Additionally found to have elevated CK concerning for rhabdomyolysis and low sodium at 129. Given his lab abnormalities, increasing falls, increased confusion from baseline, medicine was consulted for admission and further management. Subjective Subjective PLOF: Pt living at a local SNF prior to admission into [facility]. Pt with difficulty answering history questions d/t lethargic state. Pt agreeable to PT evaluation. Family reports he was walking short distances with assistance ( prior to first [facility] admission) but primarily using w/c. Pt reports he had some falls prior to this admission. Pt presents with left sided UE tremor and L sided pain reports. New diagnosis of cancer in past 12 No months? Rehab PT IP Eval Objective Appearance Patient Behavior Appropriate,Cooperative Patient Orientation Person,Place Difficulty following instructions none Speech Pattern Clear Ambulation Patient Able to Ambulate No Balance Ability to Arise Unable Sitting Balance Leans or slides in chair Standing Balance Unsteady Transfers Bed Transfer Ability Maximum x 1 (75% assist) Chair Transfer Ability Maximum x 2 (75% assist) Rehab PT IP prob,goals,plan Problems Date of Evaluation: 11/04/23 PT IP Problems Bed Mobility,Transfers,Gait, Balance,Self care,Safety Rehab Potential Rehab Potential Good Plan Other Intervention Plan 1-2 times PT Plan Frequency Daily Duration LOS Discharge Goals Bed Transfer Ability Moderate x 1 (50% assist) Sit to Stand Chair Transfer Ability Moderate x 2 (50% assist) Ambulation Assistive Device None Discharge Plan PT Discharge Plan Initial physical therapy evaluation performed. Patient presents below baseline at this time in functional mobility, transfers, and strength. Pt not safe to return home at this time d/t current level of functional mobility. Pt most appropriate for rehabilitation placement. PT recommending short-term rehabilitation stay upon d/c from [facility]. Pt and family voiced their preference to be discharged to another rehabilitation facility. PT educated pt that PT would update CM on their preferences . Pt would benefit from skilled PT while at [facility] to prevent further functional decline and maximize safety with mobility. Eval Complexity Eval Charge Codes 54028 - Moderate Complexity PHYSICIAN CERTIFICATION: I certify the specified therapy services for Jim Mclaughlin are required, authorized, and reviewed every 30 days.
[2023-11-04 16:00] VITALS: BP 137/87; PULSE 66; RESP 19; TEMP 36.6; O2SAT 95
--- NOTE | 2023-11-04 17:19 | PC.NURSE ---
Pt has done well this shift. Tremors have been better today after IV morphine was given. Pt keeps asking when he gets to go home.
[2023-11-04 20:00] VITALS: BP 148/89; PULSE 77; RESP 16; TEMP 37; O2SAT 94
[2023-11-04] MEDS: PANTOPRAZOLE 40MG TABLET 40 MG PO (20:37)
[2023-11-05] MEDS: MORPHINE 2MG/ML SYRINGE 2 MG IV ×4 (01:02→17:08)
[2023-11-05] MEDS: diazePAM 10MG/2ML SYRINGE 2.5 MG IV (01:47)
[2023-11-05 04:00] VITALS: BP 128/69; PULSE 76; RESP 17; TEMP 37; O2SAT 96; BMI 35.8
--- NOTE | 2023-11-05 05:29 | PC.NURSE ---
Pt has complained of pain several times this shift, treated per jul. Tremor to left arm noted, tremor stops once patient resting. Q2 turn. Pt continues to sweat throughout the night, no fever noted, fan on in room at request. Purewick in place. Oral intake given at request and when offered. Call light in reach.
[2023-11-05 06:50] LABS: Chloride 104 mmol/L (98-107); Potassium 3.3 mmoL/L (3.5-5.1); Sodium 134 mmol/L (136-145)
[2023-11-05 06:53] LABS: Alanine Aminotransferase 28 U/L (12-78); Albumin Level 2.9 g/dl (3.5-5.0); Albumin/Globulin Ratio 1.3 (1.1-1.8); Alkaline Phosphatase 63 U/L (38-126); Anion Gap 8.3 mEq/L (5-15); Aspartate Amino Transferase 36 U/L (17-59); Bilirubin,Total 0.3 mg/dl (0.2-1.3); Blood Urea Nitrogen 17 mg/dl (9-20); Carbon Dioxide 25 mmol/L (22.0-30.0); Creatinine Clearance Estimated 107 mL/min (50-200); Estimated Glomerular Filt Rate 97 ml/min (>60); GFR (African American) 118 ML/MIN (>60); Globulin 2.2 g/dL (1.3-3.2); Total Protein,Serum 5.1 g/dl (6.3-8.2)
[2023-11-05 06:54] LABS: Calcium 8.3 mg/dl (8.4-10.2); Glucose 89 mg/dl (74-100)
[2023-11-05 07:59] VITALS: BP 138/64; PULSE 89; RESP 17; TEMP 36.6; O2SAT 97
--- NOTE | 2023-11-05 08:22 | SW/DCPLANNER ---
Addendum entered by Gabi Kelly 11/05/23 12:06: I spoke w/ patient's brother (Fausto [phone]) regarding discharge plans. Addendum entered by Gabi Kelly 11/05/23 10:59: Per Samreen corrigan/ [facility] she can accept this patient [facility] level of care. Original Note: This patient currently resides at [facility] level of care. Patient/family request that patient not return to [facility]. Patient/family request that information be faxed to [facility] (no beds currently available) or [facility]. Samreen corrigan/ [facility] stated that she does have beds available and patient information has been faxed. Patient is medically stable for discharge today per MD.
[2023-11-05] MEDS: diazePAM 2MG TABLET 2 MG PO (08:31)
[2023-11-05] MEDS: POTASSIUM CHLORIDE 20MEQ/15ML UDC 20 MEQ PO ×2 (08:32→12:28)
[2023-11-05] MEDS: ENOXAPARIN 40MG/0.4ML SYRINGE 40 MG SQ (08:32)
[2023-11-05] MEDS: GABAPENTIN 600MG TABLET 600 MG PO ×2 (08:32→12:29)
[2023-11-05] MEDS: ATENOLOL 25MG TABLET 25 MG PO (08:32)
[2023-11-05] MEDS: CITALOPRAM 40MG TABLET 40 MG PO (08:32)
[2023-11-05] MEDS: levETIRAcetam 1,000 MG in 0.9 % SODIUM CHLORIDE 100 ML 220 MG IV (09:55)
--- NOTE | 2023-11-05 10:03 | HMH.OTEV ---
OT Inpatient Evaluation Rehab OT IP Evaluation Start: 11/02/23 19:06 Freq: ONCE Status: Active Protocol: Document 11/05/23 09:42 VANDANASIM (Rec: 11/05/23 10:03 SOLITARIO [email or web address]) Rehab OT IP Assessment Subjective History Mr. Mclaughlin is a 63-year-old male with history of spina bifida, hydrocephalus/ ventriculomegaly, cognitive impairment, frequent falls, epilepsy, hypertension, COPD, obesity. He was recently admitted a month ago and discharged to [facility] for rehab due to progressive decline and difficulty of family caring for him at home given his medical complexities. He presents today from [facility] due to increased falls and pain in his left arm . On evaluation in the ER, found to have increased tremor in his left upper extremity. Tenderness in the left arm. Lab work and imaging initiated . Imaging showing stable ventriculomegaly with CT head. Lab work shows leukocytosis with neutrophil predominance, chest imaging with no focal consolidation or pneumonia. Additionally found to have elevated CK concerning for rhabdomyolysis and low sodium at 129. Given his lab abnormalities, increasing falls, increased confusion from baseline, medicine was consulted for admission and further management. On my evaluation patient is afebrile. No focal source of infection at this time. Will hold on antibiotics. Concern for D marginalization with his white cell count given his frequent falls. Initiated on IV fluids for rhabdomyolysis. Discussed case with family, will admit inpatient and evaluate with therapy. Prior to hospitalization, Patient lived at home with family. Family does assist with ADLs as needed. Family reported assistance was getting more demanding and unable to assist. Subjective I can sit up in chair. Patient completed bed mobility from supine->sit @ EOB requiring Max A x2. Patient demonstrated fair+ dynamic sitting balance at EOB with Min A. Instructed Patient on SPT from EOB->recliner requiring TD x3. Left Patient sitting upright in chair with needs met at end of session. Objective Patient Orientation Person,Name Right Upper Extremity Gross ROM WFL Left Upper Extremity Gross ROM WFL Bed Mobility bed mobility - supine/sit Assist Level Maximum x 2 (75% assist) Transfer Training Sit/Stand/Pivot Transfer Assist Level Total/Dependent (100%) Chair Transfer Ability Total/Dependent (100%) Chair Transfer Technique Stand Step Pivot Lower Body Dressing Ability Unable/dependent Upper Body Dressing Ability Unable/dependent Rehab OT IP prob,goals,plan Problems Date of Evaluation: 11/05/23 OT IP Problems Bed Mobility,Transfers,Balance ,Self care,Safety Rehab Potential Rehab Potential Good Equipment Needs Assistive Devices Rolling / Wheeled Walker Plan OT intervention Plan Bed Mobility,Transfers,Balance ,Self care,Safety,Therapeutic Exercise OT Plan Frequency Daily Duration LOS Discharge Goals Bed Mobility Ability Assistance x2 Sit to Stand Chair Transfer Ability Maximum x 1 (75% assist) Chair Transfer Ability Maximum x 2 (75% assist) Chair Transfer Technique Sit to/from Ambulatory Lower Body Dressing Ability Maximum Assistance Upper Body Dressing Ability Maximum Assistance Discharge Plan OT Discharge Plan Recommended placement at this time. Patient requested to be placed at another [facility] facility than [place] where he previously was. Case management stated to attempt to get patient in [place]. Eval Complexity Eval Charge Codes 18921 - Low Complexity PHYSICIAN CERTIFICATION: I certify the specified therapy services for Jim Mclaughlin are required, authorized, and reviewed every 30 days.
[2023-11-05 11:39] VITALS: BMI 35.8
[2023-11-05] MEDS: SENNOSIDES 8.6MG/DOCUSATE 50MG TABLET 1 TAB PO (11:50)
[2023-11-05] MEDS: BACLOFEN 10MG TABLET 10 MG PO (12:28)
--- NOTE | 2023-11-05 12:54 | EXP.DC.SUM ---
General Admission date:: 11/02/23 Discharge date: 11/05/23 HPI HPI HPI: Mr. Mclaughlin is a 63-year-old male with history of spina bifida, hydrocephalus/ventriculomegaly, cognitive impairment, frequent falls, epilepsy, hypertension, COPD, obesity. He was recently admitted a month ago and discharged to [facility] for rehab due to progressive decline and difficulty of family caring for him at home given his medical complexities. He presents today from [facility] due to increased falls and pain in his left arm. On evaluation in the ER, found to have increased tremor in his left upper extremity. Tenderness in the left arm. Lab work and imaging initiated. Imaging showing stable ventriculomegaly with CT head. Lab work shows leukocytosis with neutrophil predominance, chest imaging with no focal consolidation or pneumonia. Additionally found to have elevated CK concerning for rhabdomyolysis and low sodium at 129. Given his lab abnormalities, increasing falls, increased confusion from baseline, medicine was consulted for admission and further management. On my evaluation patient is afebrile. No focal source of infection at this time. Will hold on antibiotics. Concern for D marginalization with his white cell count given his frequent falls. Initiated on IV fluids for rhabdomyolysis. Discussed case with family, will admit inpatient and evaluate with therapy. Hospital Course Hospital Course Hospital Course: 63-year-old male with history of ventriculomegaly, hydrocephalus, clubfoot, seizure disorder, asthma/COPD, peripheral neuropathy, GERD, hyperlipidemia, frequent falls, cognitive disability. Present[facility] the [facility] Found to have rhabdomyolysis and hyponatremia. Discussed case with the ER physician, request admission for further management of his confusion in the setting of hyponatremia and his rhabdomyolysis. Medicine agreed to admit for further management. Did well during admission. Showed improvement in his sodium levels. Rhabdomyolysis improving. Would benefit from therapy and rehab to attempt to improve some of his baseline mobility. [facility]. Problems addressed as follows: Hyponatremia Rhabdomyolysis - CK greater than thousand, sodium 129 on presentation. CK improved to 400. Sodium showed improvement with gentle hydration. Improved 134 by day of discharge. Urine sodium was elevated however again in the setting of dehydration, concern for SIADH versus hypovolemic hyponatremia. He responded well to infusion supporting hypovolemic cause. Rhabdomyolysis was likely secondary to his falls and trauma. Showed improvement. No kidney injury during admission. Recommend repeat CBC, CMP, magnesium, CK in 1 week. Stable to discharge sodium 131 urine sodium elevated at 97. Consistent with SIADH versus hypovolemic hyponatremia. Responding to normal saline infusion. 125 cc an hour. Mild cognitive impairment: Chronic hydrocephalus with ventriculomegaly History of spina bifida? obesity: Chronic conditions complicate all aspects of his care. Currently unable to perform ADLs safely including standing and transfers. Review of imaging shows that patient's hydrocephalus and ventriculomegaly have been present for majority of his life. Given his worsening falls and instability with ambulation, concern his condition may be progressing. Discussed potential for LP to evaluate pressure and possible need for shunt. Family at this time does not have an interest in putting patient through that and would have no interest in pursuing surgical intervention. Would like to manage symptoms as best as possible through conservative means. Medication adjustments if possible. Would benefit from outpatient neurology eval. Strong concern there is limited intervention. PT and OT working with patient during admission. Would benefit from skilled therapy for rehab. -CT of L-spine obtained yesterday, no pilonidal cyst or dermal tract/sinus identified on CT. Unable to appreciate any defect in pars on personal review. Not consistent with spina bifida and lumbar spine Seizure disorder Anxiety -Gabapentin increased to 600 mg 3 times a day, will continue at discharge - Initiated on Keppra for concern for possible partial seizure causing his tremor in his left arm and altered mental status. Will continue Keppra 500 mg twice daily. -Valium schedule II milligrams p.o. twice daily -Continue citalopram 40 mg daily -Resume Vraylar for mood. Continue atenolol 25 mg daily for hypertension and tachycardia Continue pravastatin 20 mg nightly Stable to discharge to rehab. Total time spent on discharge 35 minutes in counseling, documentation, chart review, and direct care with patient. Exam Data for Last 24 hours Vital signs and Labs for Last 24 Hours: Temp Pulse Resp BP Pulse Ox O2 Del Method 98 F 89 17 138/64 97 Room Air 11/05/23 07:59 11/05/23 07:59 11/05/23 07:59 11/05/23 07:59 11/05/23 07:59 11/05/23 11:00 Laboratory Results - last 24 hr 11/05/23 06:08: Sodium 134 L, Potassium 3.3 L, Chloride 104, Carbon Dioxide 25, Anion Gap 8.3, BUN 17 D, Creatinine 0.80, Estimated Creat Clear 107, Estimated GFR 97, Est GFR ( Amer) 118, Glucose 89, Calcium 8.3 L, Total Bilirubin 0.3, AST 36, ALT 28, Alkaline Phosphatase 63, Total Protein 5.1 L, Albumin 2.9 L, Globulin 2.2, Albumin/Globulin Ratio 1.3 I & O for Last 24 hours: Intake & Output 11/02/23 11/03/23 11/04/23 11/05/23 23:59 23:59 23:59 23:59 Intake Total 1140 / 1140 2617 / 2617 1128 / 1128 Output Total 1100 / 1100 1210 / 1210 600 / 600 Balance 40 / 40 1407 / 1407 528 / 528 Weight 106.197 kg 106.2 kg 101.151 kg 101 kg Microbiology Reports for the Last 24 Hours: Microbiology 11/02/23 09:00 Urine,Clean Catch Urine Culture - Final NO GROWTH AFTER 48 HOURS Constitutional Constitutional: no acute distress, obese and chronically ill appearing *Routine HEENT Exam Eye: Present EOMI and PERRL ENT: Present mucous membranes moist Comments: Macrocephalic *Routine Neck Exam Neck: Present supple; Absent lymphadenopathy *Routine Respiratory Exam Respiratory: Present wheezes and normal respiratory effort; Absent rhonchi or crackles *Routine Cardiovascular Exam Cardiovascular: Present RRR *Routine Abdominal Exam Abdominal: Present soft and normoactive bowel sounds; Absent tenderness *Routine Rectal Exam Patient deferred: visual exam *Routine Exam Patient deferred: penile exam *Routine Extremities Exam Extremities: Absent cyanosis, clubbing or edema *Routine Skin Exam Skin: Present warm; Absent rash *Routine Neurological Exam Neurological: Present alert and moving all extremities; Absent altered mental status Comments: Oriented to self and place; tremor in left upper extremity Results Data Completed and Pending Labs on day of discharge: Labs from last 24 hours 11/05/23 06:08 Sodium 134 L Potassium 3.3 L Chloride 104 Carbon Dioxide 25 Anion Gap 8.3 BUN 17 D Creatinine 0.80 Estimated Creat Clear 107 Estimated GFR 97 Est GFR ( Amer) 118 Glucose 89 Calcium 8.3 L Total Bilirubin 0.3 AST 36 ALT 28 Alkaline Phosphatase 63 Total Protein 5.1 L Albumin 2.9 L Globulin 2.2 Albumin/Globulin Ratio 1.3 DS: Diagnosis Discharge Diagnosis (1) Hyponatremia: Status: Acute Code(s): E87.1 - Hypo-osmolality and hyponatremia (2) Rhabdomyolysis: Status: Acute Code(s): M62.82 - Rhabdomyolysis Qualifiers: Rhabdomyolysis type: traumatic (3) Epilepsy: Status: Acute Code(s): G40.909 - Epilepsy, unspecified, not intractable, without status epilepticus Qualifiers: Epilepsy type: other (4) Falls frequently: Status: Acute Code(s): R29.6 - Repeated falls (5) Arm pain, left: Status: Acute Code(s): M79.602 - Pain in left arm (6) Leukocytosis: Status: Acute Code(s): D72.829 - Elevated white blood cell count, unspecified Qualifiers: Leukocytosis type: lymphocytosis Qualified Code(s): D72.820 - Lymphocytosis (symptomatic) (7) Cerebral ventriculomegaly: Status: Acute Code(s): G93.89 - Other specified disorders of brain Problem details: [address] consistent with 2021 (8) Tremor of left hand: Status: Acute Code(s): R25.1 - Tremor, unspecified (9) Hypertension: Status: Acute Code(s): I10 - Essential (primary) hypertension Qualifiers: Hypertension type: primary hypertension Qualified Code(s): I10 - Essential (primary) hypertension (10) Depression: Status: Acute Code(s): F32.A - Depression, unspecified Meds Home Medications and Allergies Home Medications Medication Instructions Recorded Confirmed Type atenolol 25 mg tablet 25 mg PO DAILY 10/01/23 11/02/23 History cholecalciferol (vitamin D3) 1,250 1,250 mcg PO WEEKLY 10/01/23 11/02/23 History mcg (50,000 unit) capsule citalopram 40 mg tablet 40 mg PO DAILY 10/01/23 11/02/23 History omeprazole 40 mg capsule,delayed 40 mg PO HS 10/01/23 11/02/23 History release pravastatin 20 mg tablet 20 mg PO HS 10/01/23 11/02/23 History aluminum hydrox-magnesium carb 95 30 ml PO DAILY PRN dyspepsia #355 10/03/23 11/02/23 Rx mg-358 mg/15 mL oral suspension mL (Acid Gone Antacid) potassium chloride 20 mEq 20 meq PO DAILY 11/02/23 11/03/23 History tablet,extended release acetaminophen 500 mg tablet 500 mg PO Q6HP PRN FEVER OR MILD 11/03/23 11/03/23 History PAIN artificial tears solution eye drops 2 drp ophthalmic (eye) BIDP PRN 11/03/23 11/03/23 History EYE DRYNESS lactulose 20 gram/30 mL oral 20 g PO DAILYP PRN Constipation 11/03/23 11/03/23 History solution loperamide 2 mg capsule 2 mg PO Q6HP PRN Diarrhea 11/03/23 11/03/23 History baclofen 10 mg tablet 10 mg PO TID 30 days #90 tabs 11/05/23 Rx diazepam 2 mg tablet 2 mg PO BID 30 days #60 tabs 11/05/23 Rx gabapentin 600 mg tablet 600 mg PO TID 30 days #90 tabs 11/05/23 Rx levetiracetam 500 mg tablet 500 mg PO BID 30 days #60 tabs 11/05/23 Rx (Keppra) New Prescriptions to Start Prescriptions: baclofen Carson Dillon diazepam Carson Dillon gabapentin Wilma,Carson levetiracetam [Keppra] Carson Dillon Allergies Allergy/AdvReac Type Severity Reaction Status Date / Time No Known Allergies Allergy Verified 11/01/23 11:07 Discharge Plan Disposition Patient Disposition: [facility] [place] Condition: Fair Discharge Order Discharge Orders: Discharge Order (Routine); Ordered 11/05/23 Ordered By: Carson Diloln Follow up Plan Prescriptions/Medication Reconciliation: New gabapentin 600 mg Tablet 600 mg PO TID 30 Days Qty: 90 0RF levetiracetam [Keppra] 500 mg Tablet 500 mg PO BID 30 Days Qty: 60 0RF diazepam 2 mg Tablet 2 mg PO BID 30 Days Qty: 60 0RF baclofen 10 mg Tablet 10 mg PO TID 30 Days Qty: 90 0RF Continued Acid Gone Antacid 95-358 mg/15 mL suspension 30 ml PO DAILY PRN (Reason: dyspepsia) Qty: 355 0RF citalopram 40 mg tablet 40 mg PO DAILY Rx Instructions: TAKE 1 TABLET BY MOUTH ONCE DAILY FOR ANXIETY atenolol 25 mg tablet 25 mg PO DAILY Rx Instructions: TAKE 1 TABLET BY MOUTH ONCE DAILY omeprazole 40 mg capsule,delayed release(DR/EC) 40 mg PO HS Rx Instructions: TAKE 1 CAPSULE BY MOUTH EVERY DAY FOR REFLUX/ACID REFLUX pravastatin 20 mg tablet 20 mg PO HS Rx Instructions: TAKE 1 TABLET BY MOUTH ONCE DAILY FOR CHOLESTEROL cholecalciferol (vitamin D3) 1,250 mcg (50,000 unit) capsule 1,250 mcg PO WEEKLY Rx Instructions: TAKE 1 CAPSULE BY MOUTH WEEKLY FOR VITAMIN DEFICIENCY potassium chloride 20 mEq tablet extended release 20 meq PO DAILY acetaminophen 500 mg Tablet 500 mg PO Q6HP PRN (Reason: FEVER OR MILD PAIN) loperamide 2 mg Capsule 2 mg PO Q6HP PRN (Reason: Diarrhea) lactulose 20 gram/30 mL Solution 20 g PO DAILYP PRN (Reason: Constipation) artificial tears solution Drops 2 drp OPHTHALMIC (EYE) BIDP PRN (Reason: EYE DRYNESS) Discontinued gabapentin 300 mg capsule 300 mg PO TID 30 Days Qty: 90 0RF Rx Instructions: TAKE 1 CAPSULE BY MOUTH THREE TIMES A DAY FOR PAIN MAY CAUSE DROWSINESS diazepam 2 mg tablet 2 mg PO DAILYP PRN (Reason: Anxiety) baclofen 5 mg Tablet 5 mg PO TID Problem Reconciliation Problems Reviewed?: Yes Patient Discharge Instructions ACTIVITY: Continue current activity DIET: continue same diet Patient Instructions: DI for Hyponatremia, How to Prevent Falls, DI for Rhabdomyolysis Providers Primary Care Provider: Devin Fuller Admit Provider: Carson Dillon Attending Provider: Carson Dillon
[2023-11-05 15:54] VITALS: BP 162/84; PULSE 88; RESP 17; TEMP 36.7; O2SAT 96
[2023-11-05 16:12] LABS: Osmolality, Urine 958 mOsmol/kg (.)
== END 2023-11-05 18:23 | DRG 565 ==
LOC: ER 18:02 → 2ND 18:05
PROVIDERS: Admitting Provider Internal Medicine Adolescent Medicine; Emergency Provider Emergency Medicine; PCP Family Medicine; Visit Provider Internal Medicine Adolescent Medicine
DX: T79.6XXA Traumatic ischemia of muscle, initial encounter (principal); E87.1 Hypo-osmolality and hyponatremia; R29.6 Repeated falls; M79.602 Pain in left arm; D72.829 Elevated white blood cell count, unspecified; G93.89 Other specified disorders of brain; I10 Essential (primary) hypertension; F32.A Depression, unspecified; G40.909 Epilepsy, unspecified, not intractable, without status epilepticus; J44.9 Chronic obstructive pulmonary disease, unspecified; E66.9 Obesity, unspecified; Z68.35 Body mass index [BMI] 35.0-35.9, adult; I73.9 Peripheral vascular disease, unspecified; G62.9 Polyneuropathy, unspecified; R25.1 Tremor, unspecified; Q05.9 Spina bifida, unspecified
CPT/HCPCS: 36415; 70450; 71045; 72125; 72131; 73030; 73060; 73080; 73090; 80048; 80053; 81001; 82550; 82803; 82962; 83605; 83735; 83935; 84100; 84436; 84443; 84484; 84540; 85007; 85025; 87086; 87636; 93005; 97162; 97165; 97530; 99285; J0131; J1650; J1953; J2270; J3480; J7120

== ENCOUNTER 2023-11-16 18:39 | Inpatient (IN) | payer MEDICARE, SELFPAY ==
[2023-11-16 18:36] VITALS: BP 113/81; PULSE 81; RESP 18; TEMP 37.4; O2SAT 94; BMI 31.6
--- NOTE | 2023-11-16 18:55 | CT_ITS ---
PROCEDURE INFORMATION: Exam: CT Head Without Contrast Exam date and time: 11/16/2023 7:29 PM Age: 63 years old Clinical indication: Altered mental status/memory loss; Additional info: AMS TECHNIQUE: Imaging protocol: Computed tomography of the head without contrast. Radiation optimization: All CT scans at this facility use at least one of these dose optimization techniques: automated exposure control; mA and/or kV adjustment per patient size (includes targeted exams where dose is matched to clinical indication); or iterative reconstruction. COMPARISON: CT HEAD/BRAIN WO CON 11/02/2023 3:25 PM, 03/16/2022 CT head/brain without contrast FINDINGS: Tubes, catheters and devices: No radiographically identifiable ventriculoperitoneal shunt . Brain: Normal. No hemorrhage. Unremarkable white matter. No mass effect. Cerebral ventricles: Marked enlargement of the lateral and 3rd ventricles including the enlargement of the temporal horns. Fourth ventricular enlargement also demonstrated. Findings compatible with hydrocephalus. Degree of 4th ventricular enlargement not as pronounced in comparison to the lateral ventricles suggesting obstructive hydrocephalus. Overall appearance stable and unchanged since 03/16/2022. Paranasal sinuses: Visualized sinuses are unremarkable. No fluid levels. Mastoid air cells: Visualized mastoid air cells are well aerated. Bones: Unremarkable. No acute fracture. Soft tissues: Unremarkable. IMPRESSION: 1. 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 Findings have been described dating back to 11/13/2019. Clinically correlate. 2. No evidence of acute intracranial abnormality.
--- NOTE | 2023-11-16 18:56 | XR_ITS ---
PROCEDURE INFORMATION: Exam: XR Chest Exam date and time: 11/16/2023 7:06 PM Age: 63 years old Clinical indication: Dyspnea TECHNIQUE: Imaging protocol: Radiologic exam of the chest. Views: 1 view. COMPARISON: CR XR CHEST PORTABLE 11/02/2023 3:25 PM FINDINGS: Lungs: Unremarkable. No consolidation. Pleural spaces: Unremarkable. No pleural effusion. No pneumothorax. Heart/Mediastinum: Unremarkable. No cardiomegaly. Bones/joints: Unremarkable. IMPRESSION: No acute findings.
--- NOTE | 2023-11-16 18:57 | ED_ITS ---
Discharge Plan Disposition Patient Disposition: Admitted Prescriptions Prescriptions: No Action Acid Gone Antacid 95-358 mg/15 mL suspension 30 ml PO DAILY PRN (Reason: dyspepsia) Qty: 355 0RF citalopram 40 mg tablet 40 mg PO DAILY Rx Instructions: TAKE 1 TABLET BY MOUTH ONCE DAILY FOR ANXIETY atenolol 25 mg tablet 25 mg PO DAILY Rx Instructions: TAKE 1 TABLET BY MOUTH ONCE DAILY omeprazole 40 mg capsule,delayed release(DR/EC) 40 mg PO HS Rx Instructions: TAKE 1 CAPSULE BY MOUTH EVERY DAY FOR REFLUX/ACID REFLUX pravastatin 20 mg tablet 20 mg PO HS Rx Instructions: TAKE 1 TABLET BY MOUTH ONCE DAILY FOR CHOLESTEROL cholecalciferol (vitamin D3) 1,250 mcg (50,000 unit) capsule 1,250 mcg PO WEEKLY Rx Instructions: TAKE 1 CAPSULE BY MOUTH WEEKLY FOR VITAMIN DEFICIENCY potassium chloride 20 mEq tablet extended release 20 meq PO DAILY acetaminophen 500 mg Tablet 500 mg PO Q6HP PRN (Reason: FEVER OR MILD PAIN) loperamide 2 mg Capsule 2 mg PO Q6HP PRN (Reason: Diarrhea) lactulose 20 gram/30 mL Solution 20 g PO DAILYP PRN (Reason: Constipation) artificial tears solution Drops 2 drp OPHTHALMIC (EYE) BIDP PRN (Reason: EYE DRYNESS) gabapentin 600 mg Tablet 600 mg PO TID 30 Days Qty: 90 0RF diazepam 2 mg Tablet 2 mg PO BID 30 Days Qty: 60 0RF baclofen 10 mg tablet 10 mg PO TID Qty: 90 0RF levetiracetam 500 mg tablet 500 mg PO BID Qty: 60 0RF Clinical Impressions Clinical Impression: Acute encephalopathy, Fever, Acute hypoxic respiratory failure Instructions Patient Instructions: DI for Altered Mental Status Discharge ED Provider: Dayana Adams General Adult HPI General Chief complaint: Altered Mental Status Stated complaint: altered mental status Time Seen by Provider: 11/16/23 18:51 Mode of Arrival: EMS Source of Information: EMS Limitations: Altered Mental Status Description of Symptoms (Recalled from ER Triage Doc. by RN): fever,possible aspiration History of Present Illness HPI narrative: 63-year-old from shelter brought in by EMS for altered mental status and fever. Additional history unable to be obtained given patient's clinical status. Related Data Home Medications Medication Instructions Recorded Confirmed atenolol 25 mg tablet 25 mg PO DAILY 10/01/23 11/02/23 cholecalciferol (vitamin D3) 1,250 1,250 mcg PO WEEKLY 10/01/23 11/02/23 mcg (50,000 unit) capsule citalopram 40 mg tablet 40 mg PO DAILY 10/01/23 11/02/23 omeprazole 40 mg capsule,delayed 40 mg PO HS 10/01/23 11/02/23 release pravastatin 20 mg tablet 20 mg PO HS 10/01/23 11/02/23 potassium chloride 20 mEq 20 meq PO DAILY 11/02/23 11/03/23 tablet,extended release acetaminophen 500 mg tablet 500 mg PO Q6HP PRN FEVER OR MILD 11/03/23 11/03/23 PAIN artificial tears solution eye drops 2 drp ophthalmic (eye) BIDP PRN 11/03/23 11/03/23 EYE DRYNESS lactulose 20 gram/30 mL oral 20 g PO DAILYP PRN Constipation 11/03/23 11/03/23 solution loperamide 2 mg capsule 2 mg PO Q6HP PRN Diarrhea 11/03/23 11/03/23 Previous Rx's Medication Instructions Recorded aluminum hydrox-magnesium carb 95 30 ml PO DAILY PRN dyspepsia #355 10/03/23 mg-358 mg/15 mL oral suspension mL (Acid Gone Antacid) baclofen 10 mg tablet 10 mg PO TID #90 tabs 11/05/23 diazepam 2 mg tablet 2 mg PO BID 30 days #60 tabs 11/05/23 gabapentin 600 mg tablet 600 mg PO TID 30 days #90 tabs 11/05/23 levetiracetam 500 mg tablet 500 mg PO BID #60 tabs 11/05/23 Allergies Allergy/AdvReac Type Severity Reaction Status Date / Time No Known Allergies Allergy Verified 11/01/23 11:07 [facility] Disclaimer: The information contained in this section may have been updated after the patient was seen, as this information can be updated by other users. Medical History (Updated 11/16/23 @ 20:58 by Dayana Adams MD) Asthma Hypokalemia Frequent falls Cerebral ventriculomegaly Club foot of both lower extremities Hyperlipemia Depression Hypertension Chronic obstructive pulmonary disease Epilepsy Obesity Claudication Abnormal ankle brachial index (CHAUNCEY) Bilateral leg pain Abnormal EKG Dizziness Mild intellectual disabilities Anxiety Neuropathy Social History Smoking Status: Never smoker alcohol intake: never substance use type: denies use current occupational status: disabled Travel in the last 8 weeks: None household members: family housing: house current occupational exposures/hazards: No caffeine: Yes ROS Obtained: Yes All systems reviewed & no additional complaints except as documented Physical Exam General General appearance: alert and in no apparent distress Respiratory Respiratory exam: Present other (Oxygen saturations in the low 90s on room air mid 90s on 2 L nasal cannula) Cardiovascular Cardiovascular exam: Present regular rate and normal rhythm Abdominal Exam Abdominal exam: Present soft; Absent distention or tenderness Neurological Exam Neurological exam: Absent alert Expanded Neurological Exam Coma scale eye opening: To voice Coma scale motor response: Localizes to pain Coma scale verbal response: Confused Coma scale total: 12 Medical Decision Making Nate Inquiry Pt receiving controlled substance: No Vital Signs: 11/16/23 18:36 Temperature 99.4 F Temperature Source Rectal Pulse Rate [Right] 81 Respiratory Rate 18 Blood Pressure [Right Arm] 113/81 Blood Pressure Mean [Right Arm] 91 02 Sat by Pulse Oximetry 94 L Oxygen Delivery Method Nasal Cannula Lab Data Lab results reviewed: Yes I reviewed the patient's lab results. Lab Results 11/16/23 18:25: WBC 8.9, RBC 4.27 L, Hgb 13.9 L, Hct 42.2, MCV 98.8 H, MCH 32.6 H, MCHC 33.0, RDW 14.0, Plt Count 297, MPV 7.6, Neut % (Auto) 84.4 H, Lymph % (Auto) 7.7 L, [place] % (Auto) 6.5, Eos % (Auto) 0.9, Baso % (Auto) 0.5, Neut # (Auto) 7.5, Lymph # (Auto) 0.7, [place] # (Auto) 0.6, Eos # (Auto) 0.1, Baso # (Auto) 0.0, Sodium 136, Potassium 3.6, Chloride 104, Carbon Dioxide 23, Anion Gap 12.6, BUN 30 H, Creatinine 1.00, Estimated Creat Clear 91, Estimated GFR 75, Est GFR ( Amer) 91, Glucose 138 H, Calcium 9.2, Total Bilirubin 0.6, AST 29, ALT 27, Alkaline Phosphatase 76, Troponin I < 0.01, Total Protein 6.6 D, Albumin 4.0, Globulin 2.6, Albumin/Globulin Ratio 1.5 06/21/24 18:56: VBG pH 7.39, VBG pCO2 38.7, VBG pO2 48.8 H, VBG HCO3 22.8 L, VBG Total CO2 24.0, VBG O2 Saturation 84.6 H, VBG Base Excess -2.2, VBG Lactic Acid 1.7 11/16/23 19:45: Urine Color Dark yellow, Urine Appearance Slightly cloudy, Urine pH 5.5, Ur Specific [place] >= 1.030, Urine Protein Trace, Urine Glucose (UA) Negative, Urine Ketones Trace, Urine Blood Trace-i, Urine Nitrate Negative, U rine Bilirubin 2+ A, Urine Urobilinogen 4.0, Ur Leukocyte Esterase Negative, Urine RBC 5-10, Urine WBC None, Ur Squamous Epith Cells Occasional, Urine Bacteria Trace 11/16/23 18:25 11/16/23 18:25 Orders (Tests/Meds): ED MEDICATIONS Generic Name Dose Route Start Last Admin Trade Name Freq PRN Reason Stop Dose Admin Piperacillin Sod/Tazobactam 50 mls @ 100 mls/hr 11/16/23 20:56 Sod 3.375 gm/ Sodium Chloride IV 11/16/23 21:25 ONCE ONE Miscellaneous 1 each 11/16/23 21:00 Vancomycin Consult Request NOTAPPLIC 12/16/23 20:59 CONSULT PHARMACY [facility] Discontinued Medications Generic Name Dose Route Start Last Admin Trade Name Freq PRN Reason Stop Dose Admin Acetaminophen 1,000 mg 11/16/23 18:55 11/16/23 20:29 Acetaminophen 1,000mg/100ml Vial IV 11/16/23 18:56 1,000 mg ONCE ONE Administration Lactated Ringer's 1,000 mls @ 999 mls/hr 11/16/23 19:00 11/16/23 20:28 Lactated Ringer's 1000 Ml Bag IV 11/16/23 20:00 999 mls/hr .Q1H1M [facility] Administration ORDERS Category Date Time Status CT head/brain wo con Stat Cat Scan 11/16/23 18:55 Completed CXR --portable [XR chest portable] Stat Exams 11/16/23 18:56 Taken CBC w/Auto Diff [Complete Blood Count Auto Diff] Stat Lab 11/16/23 18:25 Completed CMP [Comprehensive Metabolic Panel] Stat Lab 11/16/23 18:25 Completed Lactate Venous Stat Lab 11/16/23 18:55 Ordered Rapid PCR Covid and Flu A/B Stat Lab 11/16/23 18:56 Ordered Trop I [Troponin I] Stat Lab 11/16/23 18:25 Completed Troponin I Q3H Lab 11/16/23 22:00 Ordered Troponin I Q3H Lab 11/17/23 01:00 Ordered UA [Urinalysis and Microscopic] Stat Lab 11/16/23 19:45 Completed Blood Culture Stat Micro 11/16/23 18:56 Ordered Venous Blood Gas Stat RT 11/16/23 18:56 Completed Medical Decision Narrative: 63-year-old brought in by EMS from shelter for altered mental status and fever differential includes bacteremia urinary tract infection viral encephalopathy meningitis pneumonia etc. With a CT scan of the patient's head chest x-ray urinalysis blood work give IV fluids Tylenol and reassess. The patient acutely hypoxic requiring oxygen likely aspirated from historical standpoint no alternative explanation for fever and hypoxemia. Urinalysis unremarkable will cover aspiration pneumonia with vancomycin and Zosyn patient will be admitted for further evaluation and treatment. His CT scan was consistent with all CT scans where he has ventriculomegaly and hydronephrosis and obstruction from 2020 and this is unchanged. Patient was admitted to hospital medicine for further evaluation and management remained stable. Critical Care Critical Care Time Critical Care Time: Yes Attestation: On , the high probability of a clinically significant, sudden or life threatening deterioration of the following system(s) required my full and direct attention, intervention and personal management. The time I documented below is in addition to time spent performing reported procedures but includes the following listed in this critical care notation. Total Time Total Critical Care Time: 35
[2023-11-16 19:04] LABS: Basophils % 0.5 % (0.1-2.0); Eosinophils # 0.1 K/mm3 (0.0-0.4); Eosinophils % 0.9 % (0.1-12.0); Hematocrit 42.2 % (42.0-52.0); Hemoglobin 13.9 g/dL (14.1-18.0); Lymphocytes # 0.7 K/mm3 (0.7-4.5); Lymphocytes % 7.7 % (10-50); Mean Corpuscular Hemoglobin 32.6 pg (27.0-31.2); Mean Corpuscular Volume 98.8 fl (80-94); Mean Platelet Volume 7.6 fl (7.4-10.4); Monocytes # 0.6 K/mm3 (0.1-1.0); Monocytes % 6.5 % (1.7-9.3); Neutrophils # 7.5 K/mm3 (1.8-7.8); Neutrophils % 84.4 % (37.0-80.0); Platelet Count 297 K/mm3 (142-424); Red Blood Count 4.27 M/mm3 (4.60-6.20); White Blood Count 8.9 K/mm3 (4.8-10.8)
[2023-11-16 19:05] LABS: Chloride 104 mmol/L (98-107); Potassium 3.6 mmoL/L (3.5-5.1); Sodium 136 mmol/L (136-145)
[2023-11-16 19:08] LABS: Alanine Aminotransferase 27 U/L (12-78); Albumin/Globulin Ratio 1.5 (1.1-1.8); Alkaline Phosphatase 76 U/L (38-126); Anion Gap 12.6 mEq/L (5-15); Aspartate Amino Transferase 29 U/L (17-59); Bilirubin,Total 0.6 mg/dl (0.2-1.3); Blood Urea Nitrogen 30 mg/dl (9-20); Calcium 9.2 mg/dl (8.4-10.2); Carbon Dioxide 23 mmol/L (22.0-30.0); Creatinine Clearance Estimated 91 mL/min (50-200); Estimated Glomerular Filt Rate 75 ml/min (>60); GFR (African American) 91 ML/MIN (>60); Globulin 2.6 g/dL (1.3-3.2); Glucose 138 mg/dl (74-100); Total Protein,Serum 6.6 g/dl (6.3-8.2)
[2023-11-16 19:28] LABS: Troponin I < 0.01 ng/ml (0.00-0.034)
[2023-11-16 19:52] LABS: Microscopic, Urine URINE MICROSCOPIC (MICROSCOPIC)
[2023-11-16 19:56] LABS: Appearance,Urine Slightly Cloudy (Clear); Bilirubin,Urine 2+ (Negative); Blood, Urine TRACE-I (Negative); Color,Urine Dark Yellow (Yellow); Glucose,Urine (UA) Negative (Negative); Ketones,Urine TRACE (Negative); Leukocyte Esterase,Urine Negative (Negative); Nitrate,Urine Negative (Negative); PH,Urine 5.5 (5.0-8.5); Protein,Urine TRACE (Negative); Specific Gravity, Urine >= 1.030 (1.005-1.030)
[2023-11-16 20:11] LABS: Bacteria,Urine Trace /lpf; Squamous Epithelial Cell,Urine Occasional #/hpf (0-5)
[2023-11-16] MEDS: LACTATED RINGERS 1000ML 1,000 ML 999 ML IV (20:28)
[2023-11-16] MEDS: ACETAMINOPHEN 1,000MG/100ML VIAL 1000 MG IV (20:29)
[2023-11-16 20:42] LABS: Lactate Venous 1.7 mmol/L (0.4-2.0); VBG Base Excess -2.2 mmol/L (-2.4-2.3); VBG HCO3 22.8 mmol/L (23-30); VBG Oxygen Saturation 84.6 % (50-70); VBG PCO2 38.7 mmol/L (35-51); VBG PH 7.39 mmol/L (7.31-7.41); VBG PO2 48.8 mmol/L (28-40)
[2023-11-16] MEDS: VANCOMYCIN CONSULT REQUEST 1 EACH NOTAPPLIC (21:12)
--- NOTE | 2023-11-16 21:12 | PC.NURSE ---
spoke with Marcos at [facility] for vanc consult
[2023-11-16] MEDS: PIPERCILLIN/TAZO 3.375 GM in 0.9 % SODIUM CHLORIDE 50 ML IV (21:14)
--- NOTE | 2023-11-16 21:40 | PC.NURSE ---
call from radiology, CXR bumped up to critical
[2023-11-16 21:50] VITALS: BP 108/68; PULSE 77; RESP 18; TEMP 37.4; O2SAT 94
[2023-11-16 22:00] VITALS: BP 122/76; PULSE 67; RESP 16; TEMP 36.9; O2SAT 98; BMI 32.5
--- NOTE | 2023-11-16 22:08 | PC.NURSE ---
Patient arrived to floor via stretcher from ED at 22:01.
[2023-11-16 22:13] LABS: Coronavirus 19, PCR Not Detected (NotDetected); Influenza A, PCR Not Detected (NotDetected); Influenza B, PCR Not Detected (NotDetected)
[2023-11-16] MEDS: VANCOMYCIN/WATER FOR INJ (PEG) 1.5 GM/300 ML PIGGYBACK IV (22:29)
[2023-11-16 22:47] LABS: Troponin I < 0.01 ng/ml (0.00-0.034)
[2023-11-16] MEDS: ACETAMINOPHEN 325MG TAB 650 MG PO (23:31)
[2023-11-17] VITALS: TEMP 37.5
[2023-11-17 00:22] LABS: POC Glucose,Bedside 102 (70-110)
--- NOTE | 2023-11-17 01:39 | P.HP_ITS ---
History of Present Illness *Admission Date: 11/16/23 *Reason for visit:: Hypoxia sudden onset with fever and cough, increased c onfusion altered ment *History of present illness: Patient well-known to the hospital has been in long-term care with multiple medical problems. Was found to be having difficulty breathing cough having a fever and was brought to the emergency room. [facility] Disclaimer: The information contained in this section may have been updated after the patient was seen, as this information can be updated by other users. Medical History Asthma Hypokalemia Frequent falls Cerebral ventriculomegaly Club foot of both lower extremities Hyperlipemia Depression Hypertension Chronic obstructive pulmonary disease Epilepsy Obesity Claudication Abnormal ankle brachial index (CHAUNCEY) Bilateral leg pain Abnormal EKG Dizziness Mild intellectual disabilities Anxiety Neuropathy Social History Smoking Status: Never smoker alcohol intake: never substance use type: denies use current occupational status: disabled Travel in the last 8 weeks: None household members: family housing: house current occupational exposures/hazards: No caffeine: Yes Review of Systems Review of Systems Review of systems:: other Review of systems (narrative): Patient well-known to the hospital but limited ability to describe his symptoms., Constitutional Constitutional: Reports fatigue, Reports lethargy, Reports malaise and Reports weakness Eyes Eyes: Reports as per HPI ENT Ears, Nose, Mouth, and Throat: Reports dry mouth *Cardiovascular Cardiovascular: Reports dyspnea *Respiratory Respiratory: Reports cough and Reports dyspnea *Gastrointestinal Gastrointestinal: Reports other Comments: Patient voices no complaints for abdomen *Genitourinary Genitourinary: Reports urinary incontinence *Musculoskeletal Musculoskeletal: Reports as per HPI, Reports deformity, Reports limited range of motion and Reports muscle weakness Integumentary/Breasts Comments: No history of skin changes noted *Neurologic Neurologic: Reports abnormal movements, Reports confusion, Reports localized weakness and Reports weakness Comments: Patient is now at his baseline compared to when first examined in the emergency room, patient is now able to talk and tell me that his hand hurt and that he is thirsty and wanted something to drink Psychiatric Psychiatric: Reports confusion and Reports other Endocrine Endocrine: Reports fatigue Hematologic/Lymphatic Hematologic/Lymphatic: Reports as per HPI Allergic/Immunologic Allergic/Immunologic: Reports as per HPI Meds Home Medications and Allergies Home Medications Medication Instructions Recorded Confirmed Type atenolol 25 mg tablet 25 mg PO DAILY 10/01/23 11/16/23 History cholecalciferol (vitamin D3) 1,250 1,250 mcg PO WEEKLY 10/01/23 11/16/23 History mcg (50,000 unit) capsule citalopram 40 mg tablet 40 mg PO DAILY 10/01/23 11/16/23 History omeprazole 40 mg capsule,delayed 40 mg PO HS 10/01/23 11/16/23 History release pravastatin 20 mg tablet 20 mg PO HS 10/01/23 11/16/23 History aluminum hydrox-magnesium carb 95 30 ml PO DAILY PRN dyspepsia #355 10/03/23 11/16/23 Rx mg-358 mg/15 mL oral suspension mL (Acid Gone Antacid) potassium chloride 20 mEq 20 meq PO DAILY 11/02/23 11/16/23 History tablet,extended release acetaminophen 500 mg tablet 500 mg PO Q6HP PRN FEVER OR MILD 11/03/23 11/16/23 History PAIN artificial tears solution eye drops 2 drp ophthalmic (eye) BIDP PRN 11/03/23 11/16/23 History EYE DRYNESS lactulose 20 gram/30 mL oral 20 g PO DAILYP PRN Constipation 11/03/23 11/16/23 History solution loperamide 2 mg capsule 2 mg PO Q6HP PRN Diarrhea 11/03/23 11/16/23 History baclofen 10 mg tablet 10 mg PO TID #90 tabs 11/05/23 11/16/23 Rx diazepam 2 mg tablet 2 mg PO BID 30 days #60 tabs 11/05/23 11/16/23 Rx levetiracetam 500 mg tablet 500 mg PO BID #60 tabs 11/05/23 11/16/23 Rx cariprazine 1.5 mg capsule 1.5 mg PO DAILY 11/16/23 11/16/23 History gabapentin 600 mg tablet 600 mg PO TID 11/16/23 11/16/23 History New Prescriptions to Start Prescriptions: Allergies Allergy/AdvReac Type Severity Reaction Status Date / Time No Known Allergies Allergy Verified 11/01/23 11:07 Exam Data for Last 24 hours Vital signs and Labs for Last 24 Hours: Temp Pulse Resp BP Pulse Ox O2 Del Method O2 Flow Rate 99.5 F 67 16 122/76 98 Nasal Cannula 2 11/17/23 00:00 11/16/23 22:00 11/16/23 22:00 11/16/23 22:00 11/16/23 22:00 11/16/23 23:00 11/16/23 23:00 Laboratory Results - last 24 hr 11/16/23 18:25: WBC 8.9, RBC 4.27 L, Hgb 13.9 L, Hct 42.2, MCV 98.8 H, MCH 32.6 H, MCHC 33.0, RDW 14.0, Plt Count 297, MPV 7.6, Neut % (Auto) 84.4 H, Lymph % (Auto) 7.7 L, [place] % (Auto) 6.5, Eos % (Auto) 0.9, Baso % (Auto) 0.5, Neut # (Auto) 7.5, Lymph # (Auto) 0.7, [place] # (Auto) 0.6, Eos # (Auto) 0.1, Baso # (Auto) 0.0, Sodium 136, Potassium 3.6, Chloride 104, Carbon Dioxide 23, Anion Gap 12.6, BUN 30 H, Creatinine 1.00, Estimated Creat Clear 91, Estimated GFR 75, Est GFR ( Amer) 91, Glucose 138 H, Calcium 9.2, Total Bilirubin 0.6, AST 29, ALT 27, Alkaline Phosphatase 76, Troponin I < 0.01, Total Protein 6.6 D, Albumin 4.0, Globulin 2.6, Albumin/Globulin Ratio 1.5 11/16/23 18:56: VBG pH 7.39, VBG pCO2 38.7, VBG pO2 48.8 H, VBG HCO3 22.8 L, VBG Total CO2 24.0, VBG O2 Saturation 84.6 H, VBG Base Excess -2.2, VBG Lactic Acid 1.7 11/16/23 19:45: Urine Color Dark yellow, Urine Appearance Slightly cloudy, Urine pH 5.5, Ur Specific [place] >= 1.030, Urine Protein Trace, Urine Glucose (UA) Negative, Urine Ketones Trace, Urine Blood Trace-i, Urine Nitrate Negative, Urine Bilirubin 2+ A, Urine Urobilinogen 4.0, Ur Leukocyte Esterase Negative, Urine RBC 5-10, Urine WBC None, Ur Squamous Epith Cells Occasional, Urine Bacteria Trace 11/16/23 21:50: SARS-CoV-2 (PCR) Not detected, Influenza A Untype (PCR) Not detected, Influenza Type B (PCR) Not detected 11/16/23 22:20: Troponin I < 0.01 11/17/23 00:10: POC Glucose 102 I & O for Last 24 hours: Intake & Output 11/14/23 11/15/23 11/16/23 11/17/23 23:59 23:59 23:59 23:59 Output Total 0 / 0 Balance 0 / 0 Weight 88.587 kg Constitutional Constitutional: mild distress, morbidly obese and somnolent Comments: Noting that patient is much more alert now that he is on the floor, then when I examined him in the emergency room *Routine HEENT Exam Head: Present normocephalic Eye: Present EOMI and PERRL ENT: Present mucous membranes dry *Routine Neck Exam Neck: Present supple Routine Chest/Breast/Axilla Exam Comments: No deficit noted on exam *Routine Respiratory Exam Respiratory: Present accessory muscle use, decreased breath sounds, wheezes and normal respiratory effort Comments: O2 sats are now 95% on room air taken on the floor in the patient's room *Routine Cardiovascular Exam Cardiovascular: Present RRR and tachycardia *Routine Abdominal Exam Abdominal: Present soft and obese Comments: No pain or guarding noted during exam *Routine Rectal Exam Rectal:: deferred *Routine Genitalia Exam Genitalia:: deferred *Routine Extremities Exam Extremities: Present clubbing, edema and tenderness Comments: Left hand has a significant tremor with some tightness to the muscle patient complaining of pain with the tremors. Tylenol had been given without any results *Routine Skin Exam Skin: Present dry and warm *Routine Neurological Exam Neurological: Present alert, moving all extremities, normal tone and normal speech Comments: Patient is at his baseline, per the nurse who has had him point has been in the hospital before., Patient able to understand his vocalization asking for water telling me that his hand hurt while the tremors were going on. Routine Psychiatric Exam Psychiatric: Present normal affect Comments: Patient at his baseline H&P: Result Impressions 1. Fever of unknown origin 2. hypoxia that appears to be resolving 3. Increased tremor in left arm with patient complaining of pain unsure when he received his last medications from long-term care Imaging and Cardiology Chest x-ray: Status: final report Additional comments: No acute findings Assessment and Plan *Assessment and plan (1) Acute hypoxic respiratory failure: Status: Acute Category: Medical Code(s): J96.01 - Acute respiratory failure with hypoxia (2) Fever: Status: Acute Category: Medical Code(s): R50.9 - Fever, unspecified (3) Acute encephalopathy: Status: Acute Category: Medical Code(s): G93.40 - Encephalopathy, unspecified (4) Long-term current use of benzodiazepine: Status: Acute Category: Medical Code(s): Z79.899 - Other correction (current) drug therapy (5) Arm pain, left: Status: Acute Category: Medical Code(s): M79.602 - Pain in left arm (6) Tremor of left hand: Status: Acute Category: Medical Code(s): R25.1 - Tremor, unspecified (7) General weakness: Status: Acute Category: Medical Code(s): R53.1 - Weakness Plan 63-year-old male with history of ventriculomegaly, hydrocephalus, clubfoot, seizure disorder, asthma/COPD, peripheral neuropathy, GERD, hyperlipidemia, frequent falls, cognitive disability. Presented to the ER because of concern for difficulty eating, possible aspiration event, fever. Discussed case with ER, request admission for new oxygen requirement and further workup of fever. I agreed to admit for further management. Problems addressed as follows: Fever Suspected aspiration - Chest imaging reviewed, no focal consolidation. Afebrile at this time -White cell count 8, Continue empiric antibiotics with vancomycin and Zosyn every 6 hours IV. Monitoring for toxicity -Blood cultures pending - Tylenol as needed for fever every 4 hours 650 mg. Has not required any doses since admission. -I have ordered CBC, CMP, magnesium for the morning. Mild cognitive impairment: Chronic hydrocephalus with ventriculomegaly obesity: Chronic conditions complicate all aspects of his care. Currently unable to perform ADLs safely including standing and transfers. Review of imaging he is admission shows that patient's hydrocephalus and ventriculomegaly have been present for majority of his life. Necessitating skilled rehab at discharge. Seizure disorder Anxiety Left arm tremor/pain -Continue gabapentin, 600 mg 3 times a day to help with calming tremor -Continue Keppra 500 mg twice daily began at last visit -Valium 1 mg p.o. twice daily scheduled -Continue citalopram 40 mg daily -Baclofen 10 mg 3 times a day -Holding home Vraylar as it is not on our formulary Continue atenolol 25 mg daily for hypertension and tachycardia Continue pravastatin 20 mg nightly Full code Regular diet PLOV Rounded on patient after nurse practitioner. Personally examined and interviewed patient. Agree with exam findings and care plan as documented.
[2023-11-17] MEDS: diazePAM 2MG TABLET 2 MG PO (01:40)
[2023-11-17] MEDS: BACLOFEN 10MG TABLET 10 MG PO ×2 (01:40→20:37)
[2023-11-17 01:46] LABS: Troponin I < 0.01 ng/ml (0.00-0.034)
[2023-11-17 04:00] VITALS: BP 159/93; PULSE 112; RESP 16; TEMP 36.7; O2SAT 94; BMI 32.5
[2023-11-17] MEDS: PIPERACILLIN/TAZO 3.375 GM in 0.9 % SODIUM CHLORIDE 50 ML IV ×4 (04:21→21:16)
--- NOTE | 2023-11-17 05:08 | PC.NURSE ---
Pt is a&o to self, birthday, and place. satting well on room air. pt is intermittently yelling out. Complaints of his left hand hurting, prn med given. male purewick in place with good uop. receiving iv abx. q2 turn. pt is bedridden. bed alarm on.
--- NOTE | 2023-11-17 05:22 | PC.NURSE ---
un[facility] administrator made aware of elevated bp and pulse, no new orders given
[2023-11-17 06:18] LABS: POC Glucose,Bedside 92 (70-110)
[2023-11-17 08:00] VITALS: PULSE 114; RESP 20; TEMP 36.6; O2SAT 94
[2023-11-17 08:20] LABS: Basophils % 0.3 % (0.1-2.0); Chloride 105 mmol/L (98-107); Eosinophils % 0.1 % (0.1-12.0); Hematocrit 41.3 % (42.0-52.0); Hemoglobin 13.5 g/dL (14.1-18.0); Lymphocytes % 8.1 % (10-50); Mean Corpuscular HGB Conc 32.7 g/dL (31.8-35.4); Mean Corpuscular Hemoglobin 32.2 pg (27.0-31.2); Mean Corpuscular Volume 98.3 fl (80-94); Mean Platelet Volume 7.4 fl (7.4-10.4); Monocytes # 0.7 K/mm3 (0.1-1.0); Monocytes % 5.5 % (1.7-9.3); Neutrophils # 10.8 K/mm3 (1.8-7.8); Neutrophils % 85.9 % (37.0-80.0); Platelet Count 322 K/mm3 (142-424); Red Cell Distribution Width 14.3 % (11.5-17.5); Sodium 135 mmol/L (136-145); White Blood Count 12.5 K/mm3 (4.8-10.8)
[2023-11-17 08:21] LABS: Potassium 3.7 mmoL/L (3.5-5.1)
[2023-11-17 08:23] LABS: Alanine Aminotransferase 25 U/L (12-78); Anion Gap 14.7 mEq/L (5-15); Aspartate Amino Transferase 32 U/L (17-59); Blood Urea Nitrogen 28 mg/dl (9-20); Carbon Dioxide 19 mmol/L (22.0-30.0); Creatinine Clearance Estimated 94 mL/min (50-200); Estimated Glomerular Filt Rate 75 ml/min (>60); GFR (African American) 91 ML/MIN (>60)
[2023-11-17 08:24] LABS: Albumin Level 3.9 g/dl (3.5-5.0); Albumin/Globulin Ratio 1.6 (1.1-1.8); Alkaline Phosphatase 74 U/L (38-126); Bilirubin,Total 0.8 mg/dl (0.2-1.3); Calcium 9.3 mg/dl (8.4-10.2); Globulin 2.5 g/dL (1.3-3.2); Glucose 92 mg/dl (74-100); Total Protein,Serum 6.4 g/dl (6.3-8.2)
--- NOTE | 2023-11-17 08:28 | P.CONPHA_ITS ---
Pharmacy Consult Date: 11/17/23 Time: 08:28 Referring provider: DR. RITTER Reason for Consult:: VANCOMYCIN DOSING Allergies Allergy/AdvReac Type Severity Reaction Status Date / Time No Known Allergies Allergy Verified 11/01/23 11:07 Home Medications Medication Instructions Recorded Confirmed Type atenolol 25 mg tablet 25 mg PO DAILY 10/01/23 11/16/23 History cholecalciferol (vitamin D3) 1,250 1,250 mcg PO WEEKLY 10/01/23 11/16/23 History mcg (50,000 unit) capsule citalopram 40 mg tablet 40 mg PO DAILY 10/01/23 11/16/23 History omeprazole 40 mg capsule,delayed 40 mg PO HS 10/01/23 11/16/23 History release pravastatin 20 mg tablet 20 mg PO HS 10/01/23 11/16/23 History aluminum hydrox-magnesium carb 95 30 ml PO DAILY PRN dyspepsia #355 10/03/23 11/16/23 Rx mg-358 mg/15 mL oral suspension mL (Acid Gone Antacid) potassium chloride 20 mEq 20 meq PO DAILY 11/02/23 11/16/23 History tablet,extended release acetaminophen 500 mg tablet 500 mg PO Q6HP PRN FEVER OR MILD 11/03/23 11/16/23 History PAIN artificial tears solution eye drops 2 drp ophthalmic (eye) BIDP PRN 11/03/23 11/16/23 History EYE DRYNESS lactulose 20 gram/30 mL oral 20 g PO DAILYP PRN Constipation 11/03/23 11/16/23 History solution loperamide 2 mg capsule 2 mg PO Q6HP PRN Diarrhea 11/03/23 11/16/23 History baclofen 10 mg tablet 10 mg PO TID #90 tabs 11/05/23 11/16/23 Rx diazepam 2 mg tablet 2 mg PO BID 30 days #60 tabs 11/05/23 11/16/23 Rx levetiracetam 500 mg tablet 500 mg PO BID #60 tabs 11/05/23 11/16/23 Rx cariprazine 1.5 mg capsule 1.5 mg PO DAILY 11/16/23 11/16/23 History gabapentin 600 mg tablet 600 mg PO TID 11/16/23 11/16/23 History New Prescriptions to Start Prescriptions: Height: 1.65 m Weight: 88.587 kg Laboratory Results:: Laboratory Results - last 24 hr 11/16/23 18:25: WBC 8.9, RBC 4.27 L, Hgb 13.9 L, Hct 42.2, MCV 98.8 H, MCH 32.6 H, MCHC 33.0, RDW 14.0, Plt Count 297, MPV 7.6, Neut % (Auto) 84.4 H, Lymph % (Auto) 7.7 L, [place] % (Auto) 6.5, Eos % (Auto) 0.9, Baso % (Auto) 0.5, Neut # (Auto) 7.5, Lymph # (Auto) 0.7, [place] # (Auto) 0.6, Eos # (Auto) 0.1, Baso # (Auto) 0.0, Sodium 136, Potassium 3.6, Chloride 104, Carbon Dioxide 23, Anion Gap 12.6, BUN 30 H, Creatinine 1.00, Estimated Creat Clear 91, Estimated GFR 75, Est GFR ( Amer) 91, Glucose 138 H, Calcium 9.2, Total Bilirubin 0.6, AST 29, ALT 27, Alkaline Phosphatase 76, Troponin I < 0.01, Total Protein 6.6 D, Albumin 4.0, Globulin 2.6, Albumin/Globulin Ratio 1.5 11/16/23 18:56: VBG pH 7.39, VBG pCO2 38.7, VBG pO2 48.8 H, VBG HCO3 22.8 L, VBG Total CO2 24.0, VBG O2 Saturation 84.6 H, VBG Base Excess -2.2, VBG Lactic Acid 1.7 11/16/23 19:45: Urine Color Dark yellow, Urine Appearance Slightly cloudy, Urine pH 5.5, Ur Specific [place] >= 1.030, Urine Protein Trace, Urine Glucose (UA) Negative, Urine Ketones Trace, Urine Blood Trace-i, Urine Nitrate Negative, Urine Bilirubin 2+ A, Urine Urobilinogen 4.0, Ur Leukocyte Esterase Negative, Urine RBC 5-10, Urine WBC None, Ur Squamous Epith Cells Occasional, Urine Bacteria Trace 11/16/23 21:50: SARS-CoV-2 (PCR) Not detected, Influenza A Untype (PCR) Not detected, Influenza Type B (PCR) Not detected 11/16/23 22:20: Troponin I < 0.01 11/17/23 00:10: POC Glucose 102 11/17/23 01:00: Troponin I < 0.01 11/17/23 05:54: POC Glucose 92 Medical History: Medical History (Updated 11/16/23 @ 20:58 by Dayana Adams MD) Asthma Hypokalemia Frequent falls Cerebral ventriculomegaly Club foot of both lower extremities Hyperlipemia Depression Hypertension Chronic obstructive pulmonary disease Epilepsy Obesity Claudication Abnormal ankle brachial index (CHAUNCEY) Bilateral leg pain Abnormal EKG Dizziness Mild intellectual disabilities Anxiety Neuropathy Assessment and Plan Assessment and plan all Dx Assessment and Plan for all problems:: Pharmacokinetic dosing service Objective: Patient: Floor: Age: 63 yo Serum creatinine: 1 mg/dL Height: 65.0 Inches Weight (kg): 88.6 Assessment: IBW (kg): 61.50 Dosing wt(kg): 88.6 Estimated Creatinine clearance (ml/min): 64.9 CRCL method: Cockcroft and Gault using ibw(default). Drug selected: Vancomycin Loading dose (mg): 0 Vd (liters): 75.3 (factor used: 0.85 L/kg) En (hr-1): 0.058 Half life (hrs): 11.95 Recommended dose: 1250 mg Interval: 12 hrs Infusion time (hrs): 2.0 Predicted peak (mcg/mL): 31.3 Predicted trough (mcg/mL): 17.52 Total body weight is being used for vancomycin dosing. Recommendations: Give Vancomycin 1250 mg q 12 hrs with an expected Cpeak of 31.3 mcg/ml and an expected Ctrough of 17.52 mcg/ml ----Vanco only - ignore for aminoglycosides----- CLvanco= 4.37 L/hr AUC 0-24 /LORNA Data: LORNA 0.5 mcg/mL: AUC/LORNA: 1144.2 LORNA 1.0 mcg/mL: AUC/LORNA: 572.1 --------- LORNA 1.5 mcg/mL: AUC/LORNA: 381.4 LORNA 2.0 mcg/mL: AUC/LORNA: 286.0
[2023-11-17 08:41] LABS: MANUAL DIFFERENTIAL MANUAL DIFFERENTIAL (MANUAL DIFF)
[2023-11-17] MEDS: ENOXAPARIN 40MG/0.4ML SYRINGE 40 MG SQ (08:50)
[2023-11-17 09:33] VITALS: BP 131/70
[2023-11-17] MEDS: DOCUSATE SODIUM 100 MG CAPSULE PO (10:19)
[2023-11-17] MEDS: VANCOMYCIN/WATER FOR INJ (PEG) 1.25 GM/250 ML PIGGYBACK IV ×2 (11:14→22:16)
[2023-11-17 11:47] LABS: POC Glucose,Bedside 87 (70-110)
[2023-11-17 12:37] LABS: Lymphocytes % 7 % (10-50); Monocytes % 2 % (2-9); Neutrophils % 91 % (42-76); Platelet Estimate Normal; RBC Morphology Normal; Total Cells Counted 100
[2023-11-17 16:00] VITALS: BP 117/73; PULSE 119; RESP 22; TEMP 37.2; O2SAT 94
[2023-11-17 16:37] LABS: POC Glucose,Bedside 95 (70-110)
--- NOTE | 2023-11-17 16:45 | EXP.ACUTE.PN ---
Subjective *Date: 11/17/23 *Time: 17:48 Interval history: On room air by morning. Appears at baseline mentation. Tremor improved from last visit. 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 Does not appear to be coughing or having aspiration. Complaining of his mouth being sore. Afebrile. Medical Exam Vital signs and Labs for Last 24 Hours: Vital Signs Temp Pulse Pulse Resp BP BP Pulse Ox 11/17/23 15:00 11/17/23 13:00 11/17/23 12:00 99 F 119 H 22 117/73 94 L 11/17/23 11:00 11/17/23 09:33 131/70 11/17/23 09:00 11/17/23 08:50 11/17/23 08:00 98 F 114 H 20 94 L 11/17/23 05:00 11/17/23 04:00 98.0 F 112 H 16 159/93 H 94 L 11/17/23 03:00 11/17/23 01:00 11/17/23 00:00 99.5 F 11/16/23 23:00 11/16/23 22:00 98.4 F 67 16 122/76 98 11/16/23 21:50 99.4 F 77 18 108/68 L 11/16/23 18:36 99.4 F 81 18 113/81 94 L O2 Del Method O2 Flow Rate 11/17/23 15:00 Room Air 11/17/23 13:00 Room Air 11/17/23 12:00 Room Air 11/17/23 11:00 Room Air 11/17/23 09:33 11/17/23 09:00 Room Air 11/17/23 08:50 Room Air 11/17/23 08:00 Room Air 11/17/23 05:00 Room Air 11/17/23 04:00 Room Air 11/17/23 03:00 Room Air 11/17/23 01:00 Nasal Cannula 2 11/17/23 00:00 11/16/23 23:00 Nasal Cannula 2 11/16/23 22:00 Nasal Cannula 2 11/16/23 21:50 Nasal Cannula 1.5 11/16/23 18:36 Nasal Cannula Intake and Output 11/17/23 11/17/23 11/17/23 07:59 15:59 23:59 Intake Total 300 / 950 650 / 950 Output Total 450 / 450 Balance -150 / 500 650 / 500 Intake: Intake, Oral Amount 300 / 900 600 / 900 Intake, Total IV Amount 50 / 50 Piperacillin/Tazo 3.375 gm In 0 50 / 50 .9 % Sodium Chloride 50 ml @ 100 mls/hr IV Q6H [facility] Rx#: [id number] Output: Output, Urine Amount 450 / 450 Other: Number of Unmeasured Voids 0 Weight 88.587 kg 88.587 kg Patient Weight 11/17/23 23:59 Weight 88.587 kg Laboratory Results - last 24 hr 11/16/23 18:25: WBC 8.9, RBC 4.27 L, Hgb 13.9 L, Hct 42.2, MCV 98.8 H, MCH 32.6 H, MCHC 33.0, RDW 14.0, Plt Count 297, MPV 7.6, Neut % (Auto) 84.4 H, Lymph % (Auto) 7.7 L, [place] % (Auto) 6.5, Eos % (Auto) 0.9, Baso % (Auto) 0.5, Neut # (Auto) 7.5, Lymph # (Auto) 0.7, [place] # (Auto) 0.6, Eos # (Auto) 0.1, Baso # (Auto) 0.0, Sodium 136, Potassium 3.6, Chloride 104, Carbon Dioxide 23, Anion Gap 12.6, BUN 30 H, Creatinine 1.00, Estimated Creat Clear 91, Estimated GFR 75, Est GFR ( Amer) 91, Glucose 138 H, Calcium 9.2, Total Bilirubin 0.6, AST 29, ALT 27, Alkaline Phosphatase 76, Troponin I < 0.01, Total Protein 6.6 D, Albumin 4.0, Globulin 2.6, Albumin/Globulin Ratio 1.5 11/16/23 18:56: VBG pH 7.39, VBG pCO2 38.7, VBG pO2 48.8 H, VBG HCO3 22.8 L, VBG Total CO2 24.0, VBG O2 Saturation 84.6 H, VBG Base Excess -2.2, VBG Lactic Acid 1.7 11/16/23 19:45: Urine Color Dark yellow, Urine Appearance Slightly cloudy, Urine pH 5.5, Ur Specific [place] >= 1.030, Urine Protein Trace, Urine Glucose (UA) Negative, Urine Ketones Trace, Urine Blood Trace-i, Urine Nitrate Negative, Urine Bilirubin 2+ A, Urine Urobilinogen 4.0, Ur Leukocyte Esterase Negative, Urine RBC 5-10, Urine WBC None, Ur Squamous Epith Cells Occasional, Urine Bacteria Trace 11/16/23 21:50: SARS-CoV-2 (PCR) Not detected, Influenza A Untype (PCR) Not detected, Influenza Type B (PCR) Not detected 11/16/23 22:20: Troponin I < 0.01 11/17/23 00:10: POC Glucose 102 11/17/23 01:00: Troponin I < 0.01 11/17/23 05:54: POC Glucose 92 11/17/23 07:35: WBC 12.5 H D, RBC 4.20 L, Hgb 13.5 L, Hct 41.3 L, MCV 98.3 H, MCH 32.2 H, MCHC 32.7, RDW 14.3, Plt Count 322, MPV 7.4, Neut % (Auto) 85.9 H, Lymph % (Auto) 8.1 L, [place] % (Auto) 5.5, Eos % (Auto) 0.1, Baso % (Auto) 0.3, Neut # (Auto) 10.8 H, Lymph # (Auto) 1.0, [place] # (Auto) 0.7, Eos # (Auto) 0.0, Baso # (Auto) 0.0, Total Counted 100, Neutrophils % (Manual) 91 H, Lymphocytes % (Manual) 7 L, Monocytes % (Manual) 2, Platelet Estimate Normal, RBC Morphology Normal, Sodium 135 L, Potassium 3.7, Chloride 105, Carbon Dioxide 19 L, Anion Gap 14.7, BUN 28 H, Creatinine 1.00, Estimated Creat Clear 94, Estimated GFR 75, Est GFR ( Amer) 91, Glucose 92 D, Calcium 9.3, Magnesium 2.0, Total Bilirubin 0.8, AST 32, ALT 25, Alkaline Phosphatase 74, Total Protein 6.4, Albumin 3.9, Globulin 2.5, Albumin/Globulin Ratio 1.6 11/17/23 11:39: POC Glucose 87 11/17/23 16:29: POC Glucose 95 I & O for Labs for Last 24 Hours: Intake & Output 11/14/23 11/15/23 11/16/23 11/17/23 23:59 23:59 23:59 23:59 Intake Total 950 / 950 Output Total 0 / 0 450 / 450 Balance 0 / 300 500 / 500 Weight 88.587 kg 88.587 kg Microbiology Reports for the Last 24 Hours: Microbiology 11/16/23 22:00 Blood Blood Culture - Preliminary Constitutional: Present no acute distress, obese, chronically ill appearing and disheveled Head: Present atraumatic ENT: Present normal exam Comment:: Macrocephaly; poor dentition, teeth broken at gumline. 2 small white plaques on hard palate concerning for thrush Respiratory: Present normal respiratory effort; Absent rhonchi, wheezes or crackles Cardiac: Present Reg Rate and Rhythm GI: Present soft and normal bowel sounds; Absent distention or tenderness Extremities: Present normal inspection and full ROM Comment:: Tremor in left upper extremity, improved from last visit. Plantarflexion of feet at baseline per family Skin: Present intact; Absent erythema Neuro: Present Grossly Intact, alert, awake and moves all extremities Comment:: Oriented to self and place. Tremor in left arm. Answering questions appropriately. 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 (5) Arm pain, left: Status: Acute Category: Medical Code(s): M79.602 - Pain in left arm (6) Tremor of left hand: Status: Acute Category: Medical Code(s): R25.1 - Tremor, unspecified (7) General weakness: Status: Acute Category: Medical Code(s): R53.1 - Weakness (8) Epilepsy: Status: Acute Qualifiers: Epilepsy type: other Category: Medical Code(s): G40.909 - Epilepsy, unspecified, not intractable, without status epilepticus (9) Cerebral ventriculomegaly: Problem Comment: [address] consistent with 2021 Status: Acute Category: Medical Code(s): G93.89 - Other specified disorders of brain (10) Depression: Status: Acute Category: Medical Code(s): F32.A - Depression, unspecified Plan 63-year-old male with history of ventriculomegaly, hydrocephalus, clubfoot, seizure disorder, asthma/COPD, peripheral neuropathy, GERD, hyperlipidemia, frequent falls, cognitive disability. Presented to the ER because of concern for difficulty eating, possible aspiration event, fever. Medicine admitted for further management. Patient has been afebrile overnight. Weaned to room air by morning. Appears at baseline mentation. Difficulty taking meds initially. Nursing working with patient on nutrition intake. Goals of care discussion with family. Continuing empiric antibiotics. Problems addressed as follows: Fever Suspected aspiration Chest imaging reviewed, no focal consolidation. Fever improved. -White cell count bumped from 8-12.5. Continue empiric antibiotics with vancomycin and Zosyn every 6 hours IV. Monitoring for toxicity -Blood cultures pending - Tylenol as needed for fever every 4 hours 650 mg. Has not required any doses since admission. Mild cognitive impairment: Chronic hydrocephalus with ventriculomegaly obesity: Chronic conditions complicate all aspects of his care. Currently unable to perform ADLs safely including standing and transfers. Review of imaging he is admission shows that patient's hydrocephalus and ventriculomegaly have been present for majority of his life. Necessitating skilled rehab at discharge. Seizure disorder Anxiety Left arm tremor -Continue gabapentin, 600 mg 3 times a day to help with calming tremor -Continue Keppra 500 mg twice daily began at last visit -Valium 1 mg p.o. twice daily scheduled -Continue citalopram 40 mg daily -Baclofen 10 mg 3 times a day -Holding home Vraylar as it is not on our formulary Continue atenolol 25 mg daily for hypertension and tachycardia Continue pravastatin 20 mg nightly Full code Regular diet PLOV
[2023-11-17] MEDS: NYSTATIN SUSP 500,000 UNITS/5ML UDC 500000 UNIT PO (17:05)
[2023-11-17 20:00] VITALS: BP 125/83; PULSE 82; RESP 17; TEMP 36.8; O2SAT 96
[2023-11-17] MEDS: diazePAM 2MG TABLET 1 MG PO (20:37)
[2023-11-17] MEDS: PRAVASTATIN 20MG TAB 20 MG PO (20:37)
[2023-11-17] MEDS: GABAPENTIN 600MG TABLET 600 MG PO (20:37)
[2023-11-17] MEDS: levETIRAcetam 500 MG TABLET PO (20:37)
[2023-11-18 04:00] VITALS: BP 151/84; PULSE 80; RESP 16; TEMP 36.6; O2SAT 98; BMI 32.5
[2023-11-18] MEDS: PIPERACILLIN/TAZO 3.375 GM in 0.9 % SODIUM CHLORIDE 50 ML IV ×4 (05:16→22:46)
[2023-11-18 07:51] VITALS: BP 127/79; PULSE 92; RESP 20; TEMP 37; O2SAT 95
[2023-11-18 08:40] LABS: Basophils % 0.4 % (0.1-2.0); Eosinophils # 0.2 K/mm3 (0.0-0.4); Eosinophils % 1.6 % (0.1-12.0); Hemoglobin 12.8 g/dL (14.1-18.0); Lymphocytes # 1.4 K/mm3 (0.7-4.5); Lymphocytes % 14.3 % (10-50); Mean Corpuscular HGB Conc 33.7 g/dL (31.8-35.4); Mean Corpuscular Hemoglobin 32.4 pg (27.0-31.2); Mean Corpuscular Volume 96.4 fl (80-94); Mean Platelet Volume 7.6 fl (7.4-10.4); Monocytes # 0.6 K/mm3 (0.1-1.0); Monocytes % 6.3 % (1.7-9.3); Neutrophils # 7.8 K/mm3 (1.8-7.8); Neutrophils % 77.4 % (37.0-80.0); Platelet Count 303 K/mm3 (142-424); Red Blood Count 3.94 M/mm3 (4.60-6.20); Red Cell Distribution Width 14.2 % (11.5-17.5)
[2023-11-18 08:58] LABS: Chloride 103 mmol/L (98-107); Potassium 3.2 mmoL/L (3.5-5.1); Sodium 132 mmol/L (136-145)
[2023-11-18 09:01] LABS: Anion Gap 12.2 mEq/L (5-15); Blood Urea Nitrogen 27 mg/dl (9-20); Carbon Dioxide 20 mmol/L (22.0-30.0); Creatinine Clearance Estimated 94 mL/min (50-200); Estimated Glomerular Filt Rate 85 ml/min (>60); GFR (African American) 103 ML/MIN (>60); Glucose 83 mg/dl (74-100); Magnesium 1.9 mg/dl (1.6-2.3)
[2023-11-18] MEDS: GABAPENTIN 600MG TABLET 600 MG PO ×3 (09:41→20:54)
[2023-11-18] MEDS: diazePAM 2MG TABLET 1 MG PO ×2 (09:41→20:54)
[2023-11-18] MEDS: CITALOPRAM 40MG TABLET 40 MG PO (09:41)
[2023-11-18] MEDS: NYSTATIN SUSP 500,000 UNITS/5ML UDC 500000 UNIT PO ×4 (09:41→20:53)
[2023-11-18] MEDS: levETIRAcetam 500 MG TABLET PO ×2 (09:41→20:54)
[2023-11-18] MEDS: ENOXAPARIN 40MG/0.4ML SYRINGE 40 MG SQ (09:41)
[2023-11-18] MEDS: BACLOFEN 10MG TABLET 10 MG PO ×3 (09:41→20:54)
[2023-11-18] MEDS: ATENOLOL 25MG TABLET 25 MG PO (09:41)
[2023-11-18] MEDS: POTASSIUM CHLORIDE 20MEQ TAB 20 MEQ PO (09:42)
[2023-11-18] MEDS: DOCUSATE SODIUM 100 MG CAPSULE PO (09:42)
[2023-11-18 11:34] LABS: Vancomycin,Trough 11.1 ug/mL (5.0-10.0)
[2023-11-18 11:39] LABS: POC Glucose,Bedside 93 (70-110)
[2023-11-18] MEDS: PHA TO NURSING INSTRUCTION 1 EACH NOTAPPLIC (12:10)
--- NOTE | 2023-11-18 13:07 | P.PN_ITS ---
Subjective *Date: 11/18/23 *Time: 18:42 Interval history: Patient hemodynamically stable. Eating with assistance. No nausea or vomiting. On room air. Remained afebrile overnight. Medical Exam Vital signs and Labs for Last 24 Hours: Vital Signs Temp Pulse Resp BP Pulse Ox O2 Del Method 11/18/23 11:00 Room Air 11/18/23 09:00 Room Air 11/18/23 08:00 Room Air 11/18/23 07:51 98.6 F 92 H 20 127/79 95 Room Air 11/18/23 06:51 Room Air 11/18/23 05:00 Room Air 11/18/23 04:00 97.9 F 80 16 151/84 H 98 Room Air 11/18/23 03:00 Room Air 11/17/23 23:00 Room Air 11/17/23 21:00 Room Air 11/17/23 20:00 98.2 F 82 17 125/83 96 Room Air 11/17/23 19:57 Room Air 11/17/23 18:48 Room Air 11/17/23 17:00 Room Air 11/17/23 16:00 99 F 119 H 22 117/73 94 L Room Air 11/17/23 15:00 Room Air Intake and Output 11/17/23 11/18/23 11/18/23 23:59 07:59 15:59 Intake Total 270 / 270 Output Total 350 / 800 700 / 700 Balance -350 / 300 -430 / -430 Intake: Intake, Oral Amount 270 / 270 Output: Output, Urine Amount 350 / 800 700 / 700 Other: Number of Voids 2 Number of Unmeasured Voids 1 Number of Bowel Movements 1 Weight 88.587 kg Patient Weight 11/18/23 23:59 Weight 88.587 kg Laboratory Results - last 24 hr 11/16/23 19:45: Urine Color Dark yellow, Urine Appearance Slightly cloudy, Urine pH 5.5, Ur Specific [place] >= 1.030, Urine Protein Trace, Urine Glucose (UA) Negative, Urine Ketones Trace, Urine Blood Trace-i, Urine Nitrate Negative, Urine Bilirubin 2+ A, Urine Urobilinogen 4.0, Ur Leukocyte Esterase Negative, Urine RBC 5-10, Urine WBC None, Ur Squamous Epith Cells Occasional, Urine Bacteria Trace 11/17/23 16:29: POC Glucose 95 11/18/23 07:20: WBC 10.0, RBC 3.94 L, Hgb 12.8 L, Hct 38.0 L, MCV 96.4 H, MCH 32.4 H, MCHC 33.7, RDW 14.2, Plt Count 303, MPV 7.6, Neut % (Auto) 77.4, Lymph % (Auto) 14.3, [place] % (Auto) 6.3, Eos % (Auto) 1.6, Baso % (Auto) 0.4, Neut # (Auto) 7.8, Lymph # (Auto) 1.4, [place] # (Auto) 0.6, Eos # (Auto) 0.2, Baso # (Auto) 0.0, Sodium 132 L, Potassium 3.2 L, Chloride 103, Carbon Dioxide 20 L, Anion Gap 12.2, BUN 27 H, Creatinine 0.90, Estimated Creat Clear 94, Estimated GFR 85, Est GFR ( Amer) 103, Glucose 83, Calcium 9.0, Magnesium 1.9 11/18/23 10:42: Vancomycin Trough 11.1 H 11/18/23 11:16: POC Glucose 93 I & O for Labs for Last 24 Hours: Intake & Output 11/15/23 11/16/23 11/17/23 11/18/23 23:59 23:59 23:59 23:59 Intake Total 950 / 1100 270 / 270 Output Total 0 / 0 800 / 800 700 / 700 Balance 0 / 300 150 / 300 -430 / -430 Weight 88.587 kg 88.587 kg 88.587 kg Microbiology Reports for the Last 24 Hours: Microbiology 11/16/23 22:00 Blood Blood Culture - Preliminary Gram Positive Cocci 11/16/23 22:00 Blood Blood Culture - Preliminary Gram Positive Cocci Constitutional: Present no acute distress, obese, chronically ill appearing and disheveled Head: Present atraumatic ENT: Present normal exam Comment:: Macrocephaly; poor dentition, teeth broken at gumline. Respiratory: Present normal respiratory effort; Absent rhonchi, wheezes or crac kles Cardiac: Present Reg Rate and Rhythm GI: Present soft and normal bowel sounds; Absent distention or tenderness Extremities: Present normal inspection and full ROM Comment:: Tremor in left upper extremity, improved from last visit. Plantarflexion of feet at baseline per family Skin: Present intact; Absent erythema Neuro: Present Grossly Intact, alert, awake and moves all extremities Comment:: Oriented to self and place. Tremor in left arm. Answering questions appropriately. 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 (5) Arm pain, left: Status: Acute Category: Medical Code(s): M79.602 - Pain in left arm (6) Tremor of left hand: Status: Acute Category: Medical Code(s): R25.1 - Tremor, unspecified (7) General weakness: Status: Acute Category: Medical Code(s): R53.1 - Weakness (8) Epilepsy: Status: Acute Qualifiers: Epilepsy type: other Category: Medical Code(s): G40.909 - Epilepsy, unspecified, not intractable, without status epilepticus (9) Cerebral ventriculomegaly: Problem Comment: [address] consistent with 2021 Status: Acute Category: Medical Code(s): G93.89 - Other specified disorders of brain (10) Depression: Status: Acute Category: Medical Code(s): F32.A - Depression, unspecified Plan 63-year-old male with history of ventriculomegaly, hydrocephalus, clubfoot, seizure disorder, asthma/COPD, peripheral neuropathy, GERD, hyperlipidemia, frequent falls, cognitive disability. Presented to the ER because of concern for difficulty eating, possible aspiration event, fever. Medicine admitted for further management. Patient has been afebrile since admission. On room air for over 36 hours. Appears at baseline mentation. Tolerating medications. Nursing working with patient on nutrition intake. Blood cultures returned positive, repeating blood cultures. Continuing empiric antibiotics. Problems addressed as follows: Fever Suspected aspiration -Remains afebrile. 3 of 4 blood cultures returned positive for staph epi. Repeating blood cultures today. White cell count returned to normal at 10. -Continue empiric antibiotics with vancomycin and Zosyn every 6 hours IV. Monitoring for toxicity - Tylenol as needed for fever every 4 hours 650 mg. Has not required any doses since admission. Mild cognitive impairment: Chronic hydrocephalus with ventriculomegaly obesity: Chronic conditions complicate all aspects of his care. Currently unable to perform ADLs safely including standing and transfers. Review of imaging he is admission shows that patient's hydrocephalus and ventriculomegaly have been present for majority of his life. Necessitating skilled rehab at discharge. Seizure disorder Anxiety Left arm tremor -Continue gabapentin, 600 mg 3 times a day to help with calming tremor -Continue Keppra 500 mg twice daily began at last visit -Valium 1 mg p.o. twice daily scheduled -Continue citalopram 40 mg daily -Baclofen 10 mg 3 times a day -Holding home Vraylar as it is not on our formulary Continue atenolol 25 mg daily for hypertension and tachycardia Continue pravastatin 20 mg nightly Full code Regular diet PLOV
[2023-11-18] MEDS: VANCOMYCIN/WATER FOR INJ (PEG) 1.25 GM/250 ML PIGGYBACK IV ×2 (13:46→23:45)
[2023-11-18 16:00] VITALS: BP 112/60; PULSE 71; RESP 18; TEMP 36.6; O2SAT 96
[2023-11-18] MEDS: ACETAMINOPHEN 325MG TAB 650 MG PO ×2 (16:57→22:36)
[2023-11-18 19:54] VITALS: BP 130/72; PULSE 61; RESP 16; TEMP 36.8; O2SAT 94
[2023-11-18] MEDS: PRAVASTATIN 20MG TAB 20 MG PO (20:54)
[2023-11-19 04:00] VITALS: BP 128/71; PULSE 60; RESP 16; TEMP 36.6; O2SAT 92; BMI 32.5
--- NOTE | 2023-11-19 04:12 | PC.NURSE ---
Pt has rested on and off most of the night after getting tylenol for complaints of pain to his left hand and arm, but unable to rate. Pt slow to respond verbally and most times it is one word responses. Pt does not always follow commands. Meds administered with applesauce as pt had some difficulty swallowing
[2023-11-19] MEDS: PIPERACILLIN/TAZO 3.375 GM in 0.9 % SODIUM CHLORIDE 50 ML IV ×3 (04:19→15:02)
[2023-11-19] MEDS: ACETAMINOPHEN 325MG TAB 650 MG PO ×2 (06:35→18:29)
[2023-11-19 07:15] LABS: Chloride 105 mmol/L (98-107); Sodium 133 mmol/L (136-145)
[2023-11-19 07:16] LABS: Potassium 3.6 mmoL/L (3.5-5.1)
[2023-11-19 07:19] LABS: Anion Gap 16.6 mEq/L (5-15); Blood Urea Nitrogen 21 mg/dl (9-20); Calcium 8.6 mg/dl (8.4-10.2); Carbon Dioxide 15 mmol/L (22.0-30.0); Creatinine Clearance Estimated 94 mL/min (50-200); Estimated Glomerular Filt Rate 114 ml/min (>60); GFR (African American) 137 ML/MIN (>60); Glucose 66 mg/dl (74-100)
[2023-11-19 07:46] LABS: Basophils # 0.1 K/mm3 (0-0.2); Basophils % 0.7 % (0.1-2.0); Eosinophils # 0.3 K/mm3 (0.0-0.4); Eosinophils % 2.8 % (0.1-12.0); Hematocrit 41.9 % (42.0-52.0); Hemoglobin 13.8 g/dL (14.1-18.0); Lymphocytes # 1.4 K/mm3 (0.7-4.5); Lymphocytes % 11.5 % (10-50); Mean Corpuscular HGB Conc 32.8 g/dL (31.8-35.4); Mean Corpuscular Hemoglobin 31.8 pg (27.0-31.2); Mean Platelet Volume 7.8 fl (7.4-10.4); Monocytes # 0.6 K/mm3 (0.1-1.0); Neutrophils # 9.8 K/mm3 (1.8-7.8); Neutrophils % 80.1 % (37.0-80.0); Platelet Count 313 K/mm3 (142-424); Red Blood Count 4.32 M/mm3 (4.60-6.20); Red Cell Distribution Width 14.2 % (11.5-17.5); White Blood Count 12.2 K/mm3 (4.8-10.8)
--- NOTE | 2023-11-19 07:51 | P.PN_ITS ---
Subjective *Date: 11/19/23 *Time: 07:51 Medical Exam Vital signs and Labs for Last 24 Hours: Vital Signs Temp Pulse Resp BP Pulse Ox O2 Del Method 11/19/23 05:00 Room Air 11/19/23 04:00 97.9 F 60 16 128/71 92 L Room Air 11/19/23 03:00 Room Air 11/19/23 01:00 Room Air 11/18/23 21:00 Room Air 11/18/23 20:00 Room Air 11/18/23 19:54 98.2 F 61 16 130/72 94 L Room Air 11/18/23 18:44 Room Air 11/18/23 17:00 Room Air 11/18/23 16:00 97.9 F 71 18 112/60 96 Room Air 11/18/23 15:00 Room Air 11/18/23 13:00 Room Air 11/18/23 11:00 Room Air 11/18/23 09:00 Room Air 11/18/23 08:00 Room Air Intake and Output 11/18/23 11/18/23 11/19/23 15:59 23:59 07:59 Intake Total 270 / 590 50 / 50 Output Total 1100 / 1100 Balance 270 / -110 -1050 / -1050 Intake: Intake, Oral Amount 270 / 540 Intake, Total IV Amount 50 / 50 Piperacillin/Tazo 3.375 gm In 0 50 / 50 .9 % Sodium Chloride 50 ml @ 100 mls/hr IV Q6H [facility] Rx#: [id number] Output: Output, Urine Amount 1100 / 1100 Other: Number of Unmeasured Voids 0 Weight 88.587 kg Patient Weight 11/19/23 23:59 Weight 88.587 kg Laboratory Results - last 24 hr 11/16/23 19:45: Urine Color Dark yellow, Urine Appearance Slightly cloudy, Urine pH 5.5, Ur Specific [place] >= 1.030, Urine Protein Trace, Urine Glucose (UA) Negative, Urine Ketones Trace, Urine Blood Trace-i, Urine Nitrate Negative, U rine Bilirubin 2+ A, Urine Urobilinogen 4.0, Ur Leukocyte Esterase Negative, Urine RBC 5-10, Urine WBC None, Ur Squamous Epith Cells Occasional, Urine Bacteria Trace 11/18/23 07:20: WBC 10.0, RBC 3.94 L, Hgb 12.8 L, Hct 38.0 L, MCV 96.4 H, MCH 32.4 H, MCHC 33.7, RDW 14.2, Plt Count 303, MPV 7.6, Neut % (Auto) 77.4, Lymph % (Auto) 14.3, [place] % (Auto) 6.3, Eos % (Auto) 1.6, Baso % (Auto) 0.4, Neut # (Auto) 7.8, Lymph # (Auto) 1.4, [place] # (Auto) 0.6, Eos # (Auto) 0.2, Baso # (Auto) 0.0, Sodium 132 L, Potassium 3.2 L, Chloride 103, Carbon Dioxide 20 L, Anion Gap 12.2, BUN 27 H, Creatinine 0.90, Estimated Creat Clear 94, Estimated GFR 85, Est GFR ( Amer) 103, Glucose 83, Calcium 9.0, Magnesium 1.9 11/18/23 10:42: Vancomycin Trough 11.1 H 11/18/23 11:16: POC Glucose 93 11/19/23 05:45: Sodium 133 L, Potassium 3.6, Chloride 105, Carbon Dioxide 15 L, Anion Gap 16.6 H, BUN 21 H, Creatinine 0.70 D, Estimated Creat Clear 94, Estimated GFR 114, Est GFR ( Amer) 137 D, Glucose 66 L D, Calcium 8.6, Magnesium 2.0 11/19/23 07:33: WBC 12.2 H, RBC 4.32 L, Hgb 13.8 L, Hct 41.9 L, MCV 97.0 H, MCH 31.8 H, MCHC 32.8, RDW 14.2, Plt Count 313, MPV 7.8, Neut % (Auto) 80.1 H, Lymph % (Auto) 11.5, [place] % (Auto) 5.0, Eos % (Auto) 2.8, Baso % (Auto) 0.7, Neut # (Auto) 9.8 H, Lymph # (Auto) 1.4, [place] # (Auto) 0.6, Eos # (Auto) 0.3, Baso # (Auto) 0.1 I & O for Labs for Last 24 Hours: Intake & Output 11/16/23 11/17/23 11/18/23 11/19/23 23:59 23:59 23:59 23:59 Intake Total 950 / 1100 540 / 590 50 / 50 Output Total 0 / 0 800 / 800 700 / 700 1100 / 1100 Balance 0 / 300 150 / 300 -160 / -110 -1050 / -1050 Weight 88.587 kg 88.587 kg 88.587 kg 88.587 kg Microbiology Reports for the Last 24 Hours: Microbiology 11/16/23 22:00 Blood Blood Culture - Preliminary Gram Positive Cocci 11/16/23 22:00 Blood Blood Culture - Preliminary Gram Positive Cocci The patient's infection will respond to the chosen ABx?: Yes (BLOOD CULTURES PENDING X2, AFEBRILE OVER 24 HRS.) Is the patient receiving the right drug, dose, and route?: Yes Could a more targeted ABx be ordered?: No
[2023-11-19 08:00] VITALS: BP 133/76; PULSE 82; RESP 18; TEMP 36.8; O2SAT 96
[2023-11-19] MEDS: DOCUSATE SODIUM 100 MG CAPSULE PO (09:09)
[2023-11-19] MEDS: ATENOLOL 25MG TABLET 25 MG PO (09:09)
[2023-11-19] MEDS: BACLOFEN 10MG TABLET 10 MG PO ×2 (09:09→14:57)
[2023-11-19] MEDS: CITALOPRAM 40MG TABLET 40 MG PO (09:09)
[2023-11-19] MEDS: NYSTATIN SUSP 500,000 UNITS/5ML UDC 500000 UNIT PO ×3 (09:10→17:20)
[2023-11-19] MEDS: ENOXAPARIN 40MG/0.4ML SYRINGE 40 MG SQ (09:10)
[2023-11-19] MEDS: levETIRAcetam 500 MG TABLET PO (09:10)
[2023-11-19] MEDS: GABAPENTIN 600MG TABLET 600 MG PO ×2 (09:10→14:57)
[2023-11-19] MEDS: POTASSIUM CHLORIDE 20MEQ TAB 20 MEQ PO (09:10)
[2023-11-19] MEDS: diazePAM 2MG TABLET 1 MG PO (09:14)
--- NOTE | 2023-11-19 10:43 | SW/DCPLANNER ---
Addendum entered by Noelle Hammonds RN 11/19/23 14:52: Spoke with Samreen at [facility], patient will discharge back to there today. Family has requested POA paperwork. I will print a packet and Jennifer plans to noterize once paperwork is ready. Patient is able to sign this per Dr. Dillon, who has deemed patient competent to make his own decisions at this time. Addendum entered by Gabi Kelly 11/19/23 10:56: *Per Samreen patient is currently SNF level of care. Original Note: This patient currently resides at [facility] level of care. I have updated Samreen w/ [facility] that patient will return today and Dr Dillon recommended goals of care discussion. Updated patient information will be faxed.
[2023-11-19] MEDS: VANCOMYCIN/WATER FOR INJ (PEG) 1.25 GM/250 ML PIGGYBACK IV (12:10)
--- NOTE | 2023-11-19 13:34 | EXP.DC.SUM ---
General Admission date:: 11/16/23 Discharge date: 11/19/23 HPI HPI HPI: Patient well-known to the hospital has been in long-term care with multiple medical problems. Was found to be having difficulty breathing cough having a fever and was brought to the emergency room. Hospital Course Hospital Course Hospital Course: 63-year-old male with history of ventriculomegaly, hydrocephalus, clubfoot, seizure disorder, asthma/COPD, peripheral neuropathy, GERD, hyperlipidemia, frequent falls, cognitive disability. Presented to the ER because of concern for difficulty eating, possible aspiration event, fever. Medicine admitted for further management. Patient has been afebrile since admission. On room air by morning after admission. Appears at baseline level of function. Cultures obtained, 3 of 4 bottles were positive for Staph epidermidis but had mixed sensitivity. Highly suspicious for contaminant however given the number of bottles, will treat with empiric course of antibiotics for 10 days. Repeat cultures obtained, remain negative at time of discharge. No other focal source of infection. No signs of pneumonia or UTI. Patient taking p.o. meds with assistance. Necessitating assistance to eat. Stable to discharge back to nursing facility for further management. Would benefit from goals of care discussion, if does not show improvement, have already addressed the concept of hospice with family but they have not made a decision at this time. Problems addressed as follows: Fever Suspected aspiration -Reportedly had a fever prior to admission. Has been afebrile since admission. Chest imaging with no focal signs of pneumonia. Urine unremarkable. Room air since morning after admission. Started on empiric antibiotics. Blood cultures from admission returned positive for Staph epidermidis in 3 out of 4 bottles. However sensitivity of these bottles/cultures was different, with no single sensitivity profile. Highly suspicious for contaminant however given the number of cultures, will treat empirically for 10 days. Treated with vancomycin and Zosyn empirically on admission, will transition to Zyvox to complete 10 days of therapy. Repeat blood cultures obtained on 11/17 remain negative. Patient hemodynamically stable. Mild cognitive impairment: Chronic hydrocephalus with ventriculomegaly obesity: Chronic conditions complicate all aspects of his care. Currently unable to perform ADLs safely including standing and transfers. Review of imaging he is admission shows that patient's hydrocephalus and ventriculomegaly have been present for majority of his life. Necessitating skilled rehab at discharge. Seizure disorder Anxiety Left arm tremor -Continue gabapentin, 600 mg 3 times a day to help with calming tremor -Continue Keppra 500 mg twice daily began at last visit -Valium 1 mg p.o. twice daily scheduled -Continue citalopram 40 mg daily -Baclofen 10 mg 3 times a day -Holding home Vraylar as it is not on our formulary -Continue Valium, 1 mg twice daily. Hypertension/hyperlipidemia - continue atenolol 25 mg daily for hypertension and tachycardia - Continue pravastatin 20 mg nightly Goals of care discussion during admission. Family making decisions for patient. If patient shows further decline, family is clear they do not want aggressive means such as feeding tube. Concept of hospice was discussed but not ready to make that decision at this time. Warrants further discussion in the skilled nursing setting. Stable to discharge. Exam Data for Last 24 hours Vital signs and Labs for Last 24 Hours: Temp Pulse Resp BP Pulse Ox O2 Del Method O2 Flow Rate 98.2 F 82 18 133/76 96 Room Air 2 11/19/23 08:00 11/19/23 08:00 11/19/23 08:00 11/19/23 08:00 11/19/23 08:00 11/19/23 11:00 11/17/23 01:00 Laboratory Results - last 24 hr 11/19/23 05:45: Sodium 133 L, Potassium 3.6, Chloride 105, Carbon Dioxide 15 L, Anion Gap 16.6 H, BUN 21 H, Creatinine 0.70 D, Estimated Creat Clear 94, Estimated GFR 114, Est GFR ( Amer) 137 D, Glucose 66 L D, Calcium 8.6, Magnesium 2.0 11/19/23 07:33: WBC 12.2 H, RBC 4.32 L, Hgb 13.8 L, Hct 41.9 L, MCV 97.0 H, MCH 31.8 H, MCHC 32.8, RDW 14.2, Plt Count 313, MPV 7.8, Neut % (Auto) 80.1 H, Lymph % (Auto) 11.5, [place] % (Auto) 5.0, Eos % (Auto) 2.8, Baso % (Auto) 0.7, Neut # (Auto) 9.8 H, Lymph # (Auto) 1.4, [place] # (Auto) 0.6, Eos # (Auto) 0.3, Baso # (Auto) 0.1 I & O for Last 24 hours: Intake & Output 11/16/23 11/17/23 11/18/23 11/19/23 23:59 23:59 23:59 23:59 Intake Total 950 / 1100 540 / 590 50 / 50 Output Total 0 / 0 800 / 800 700 / 700 1100 / 1100 Balance 0 / 300 150 / 300 -160 / -110 -1050 / -1050 Weight 88.587 kg 88.587 kg 88.587 kg 88.587 kg Microbiology Reports for the Last 24 Hours: Microbiology 11/18/23 08:22 Blood Blood Culture - Preliminary NO GROWTH AFTER 24 HOURS 11/18/23 08:15 Blood Blood Culture - Preliminary NO GROWTH AFTER 24 HOURS 11/16/23 22:00 Blood Blood Culture - Final Staphylococcus epidermidis 11/16/23 22:00 Blood Blood Culture - Final Staphylococcus epidermidis Constitutional Constitutional: no acute distress, obese and chronically ill appearing *Routine HEENT Exam Eye: Present EOMI and PERRL ENT: Present mucous membranes moist Comments: Macrocephalic; poor dentition *Routine Neck Exam Neck: Present supple; Absent lymphadenopathy *Routine Respiratory Exam Respiratory: Present wheezes and normal respiratory effort; Absent rhonchi or crackles *Routine Cardiovascular Exam Cardiovascular: Present RRR *Routine Abdominal Exam Abdominal: Present soft and normoactive bowel sounds; Absent tenderness *Routine Rectal Exam Patient deferred: visual exam *Routine Exam Patient deferred: penile exam *Routine Extremities Exam Extremities: Absent cyanosis, clubbing or edema *Routine Skin Exam Skin: Present warm; Absent rash *Routine Neurological Exam Neurological: Present alert and moving all extremities; Absent altered mental status Comments: Oriented to self and place; tremor in left upper extremity Results Data Completed and Pending Labs on day of discharge: Labs from last 24 hours 11/19/23 11/19/23 07:33 05:45 WBC 12.2 H RBC 4.32 L Hgb 13.8 L Hct 41.9 L MCV 97.0 H MCH 31.8 H MCHC 32.8 RDW 14.2 Plt Count 313 MPV 7.8 Neut % (Auto) 80.1 H Lymph % (Auto) 11.5 [place] % (Auto) 5.0 Eos % (Auto) 2.8 Baso % (Auto) 0.7 Neut # (Auto) 9.8 H Lymph # (Auto) 1.4 [place] # (Auto) 0.6 Eos # (Auto) 0.3 Baso # (Auto) 0.1 Sodium 133 L Potassium 3.6 Chloride 105 Carbon Dioxide 15 L Anion Gap 16.6 H BUN 21 H Creatinine 0.70 D Estimated Creat Clear 94 Estimated GFR 114 Est GFR ( Amer) 137 D Glucose 66 L D Calcium 8.6 Magnesium 2.0 Preliminary micro results at discharge 11/18/23 08:22 Blood Culture - Preliminary Blood NO GROWTH AFTER 24 HOURS 11/18/23 08:15 Blood Culture - Preliminary Blood NO GROWTH AFTER 24 HOURS DS: Diagnosis Discharge Diagnosis (1) Acute hypoxic respiratory failure: Status: Acute Code(s): J96.01 - Acute respiratory failure with hypoxia (2) Fever: Status: Acute Code(s): R50.9 - Fever, unspecified (3) Acute encephalopathy: Status: Acute Code(s): G93.40 - Encephalopathy, unspecified (4) Long-term current use of benzodiazepine: Status: Acute Code(s): Z79.899 - Other halfway (current) drug therapy (5) Arm pain, left: Status: Acute Code(s): M79.602 - Pain in left arm (6) Tremor of left hand: Status: Acute Code(s): R25.1 - Tremor, unspecified (7) General weakness: Status: Acute Code(s): R53.1 - Weakness (8) Epilepsy: Status: Acute Code(s): G40.909 - Epilepsy, unspecified, not intractable, without status epilepticus Qualifiers: Epilepsy type: other (9) Cerebral ventriculomegaly: Status: Acute Code(s): G93.89 - Other specified disorders of brain Problem details: [address] consistent with 2021 (10) Depression: Status: Acute Code(s): F32.A - Depression, unspecified Meds Home Medications and Allergies Home Medications Medication Instructions Recorded Confirmed Type atenolol 25 mg tablet 25 mg PO DAILY 10/01/23 11/16/23 History cholecalciferol (vitamin D3) 1,250 1,250 mcg PO WEEKLY 10/01/23 11/16/23 History mcg (50,000 unit) capsule citalopram 40 mg tablet 40 mg PO DAILY 10/01/23 11/16/23 History omeprazole 40 mg capsule,delayed 40 mg PO HS 10/01/23 11/16/23 History release pravastatin 20 mg tablet 20 mg PO HS 10/01/23 11/16/23 History aluminum hydrox-magnesium carb 95 30 ml PO DAILY PRN dyspepsia #355 10/03/23 11/16/23 Rx mg-358 mg/15 mL oral suspension mL (Acid Gone Antacid) potassium chloride 20 mEq 20 meq PO DAILY 11/02/23 11/16/23 History tablet,extended release acetaminophen 500 mg tablet 500 mg PO Q6HP PRN FEVER OR MILD 11/03/23 11/16/23 History PAIN artificial tears solution eye drops 2 drp ophthalmic (eye) BIDP PRN 11/03/23 11/16/23 History EYE DRYNESS baclofen 10 mg tablet 10 mg PO TID #90 tabs 11/05/23 11/16/23 Rx levetiracetam 500 mg tablet 500 mg PO BID #60 tabs 11/05/23 11/16/23 Rx cariprazine 1.5 mg capsule 1.5 mg PO DAILY 11/16/23 11/16/23 History gabapentin 600 mg tablet 600 mg PO TID 11/16/23 11/16/23 History diazepam 2 mg tablet 1 mg (1/2 x 2 mg) PO BID 30 days 11/19/23 Rx #30 tabs docusate sodium 100 mg capsule 100 mg PO DAILY #0 caps 11/19/23 Rx linezolid 600 mg tablet (Zyvox) 600 mg PO BID 6 days #12 tabs 11/19/23 Rx nystatin 100,000 unit/mL oral 500,000 unit (5 mL) PO QID 6 days 11/19/23 Rx suspension #0 mL New Prescriptions to Start Prescriptions: Carson Black linezolid [Zyvox] Carson Dillon Allergies Allergy/AdvReac Type Severity Reaction Status Date / Time No Known Allergies Allergy Verified 11/01/23 11:07 Discharge Plan Disposition Patient Disposition: [facility] Condition: Undetermined Discharge Order Discharge Orders: Discharge Order (Routine); Ordered 11/19/23 Ordered By: Carson Dillon Follow up Plan Prescriptions/Medication Reconciliation: New nystatin 100,000 unit/mL Suspension 500,000 unit PO QID 6 Days Qty: 0 0RF docusate sodium 100 mg Capsule 100 mg PO DAILY Qty: 0 0RF diazepam 2 mg Tablet 1 mg PO BID 30 Days Qty: 30 0RF Rx Instructions: Dosage decreased from previous dose. linezolid [Zyvox] 600 mg tablet 600 mg PO BID 6 Days Qty: 12 0RF Continued Acid Gone Antacid 95-358 mg/15 mL suspension 30 ml PO DAILY PRN (Reason: dyspepsia) Qty: 355 0RF atenolol 25 mg tablet 25 mg PO DAILY Rx Instructions: TAKE 1 TABLET BY MOUTH ONCE DAILY omeprazole 40 mg capsule,delayed release(DR/EC) 40 mg PO HS Rx Instructions: TAKE 1 CAPSULE BY MOUTH EVERY DAY FOR REFLUX/ACID REFLUX pravastatin 20 mg tablet 20 mg PO HS Rx Instructions: TAKE 1 TABLET BY MOUTH ONCE DAILY FOR CHOLESTEROL cholecalciferol (vitamin D3) 1,250 mcg (50,000 unit) capsule 1,250 mcg PO WEEKLY Rx Instructions: TAKE 1 CAPSULE BY MOUTH WEEKLY FOR VITAMIN DEFICIENCY potassium chloride 20 mEq tablet extended release 20 meq PO DAILY acetaminophen 500 mg Tablet 500 mg PO Q6HP PRN (Reason: FEVER OR MILD PAIN) artificial tears solution Drops 2 drp OPHTHALMIC (EYE) BIDP PRN (Reason: EYE DRYNESS) baclofen 10 mg tablet 10 mg PO TID Qty: 90 0RF levetiracetam 500 mg tablet 500 mg PO BID Qty: 60 0RF cariprazine 1.5 mg Capsule 1.5 mg PO DAILY gabapentin 600 mg tablet 600 mg PO TID Held citalopram 40 mg tablet 40 mg PO DAILY Hold Instructions: Hold until completes Zyvox, resume 24 hours after last dose of antibiotic. Rx Instructions: TAKE 1 TABLET BY MOUTH ONCE DAILY FOR ANXIETY Discontinued loperamide 2 mg Capsule 2 mg PO Q6HP PRN (Reason: Diarrhea) lactulose 20 gram/30 mL Solution 20 g PO DAILYP PRN (Reason: Constipation) Problem Reconciliation Problems Reviewed?: Yes Patient Discharge Instructions ACTIVITY: Continue current activity DIET: continue same diet Patient Instructions: DI for Urinary Tract Infection (UTI), DI for Sepsis -- Adult Providers Primary Care Provider: Haydee Larsen Admit Provider: Carson Dillon Attending Provider: Carson Dillon
--- NOTE | 2023-11-19 15:44 | PC.NURSE ---
Report called to Rachael roberts [place].
[2023-11-19 16:00] VITALS: BP 118/73; PULSE 70; RESP 20; TEMP 36.8; O2SAT 95
--- NOTE | 2023-11-19 16:42 | PC.NURSE ---
Dispatch called for transportation of pt to go back to [place].
--- NOTE | 2023-11-19 17:47 | PC.NURSE ---
Pt currently lying in bed awake. C/O some discomfort this AM to his hands and wrists but has resolved this shift. IV DC. Pt is awaiting transfer to [facility] via ambulance. Call light within reach.
--- NOTE | 2023-11-19 18:36 | P.PN_ITS ---
Subjective *Date: 11/19/23 *Time: 18:36 Medical Exam Vital signs and Labs for Last 24 Hours: Vital Signs Temp Pulse Resp BP Pulse Ox O2 Del Method 11/19/23 17:00 Room Air 11/19/23 16:00 98.3 F 70 20 118/73 95 Room Air 11/19/23 15:00 Room Air 11/19/23 13:00 Room Air 11/19/23 11:00 Room Air 11/19/23 09:00 Room Air 11/19/23 08:05 Room Air 11/19/23 08:00 98.2 F 82 18 133/76 96 Room Air 11/19/23 05:00 Room Air 11/19/23 04:00 97.9 F 60 16 128/71 92 L Room Air 11/19/23 03:00 Room Air 11/19/23 01:00 Room Air 11/18/23 21:00 Room Air 11/18/23 20:00 Room Air 11/18/23 19:54 98.2 F 61 16 130/72 94 L Room Air 11/18/23 18:44 Room Air Intake and Output 11/19/23 11/19/23 11/19/23 07:59 15:59 23:59 Intake Total 50 / 400 350 / 400 Output Total 1100 / 1400 300 / 1400 Balance -1050 / -1000 50 / -1000 Intake: Intake, Total IV Amount 50 / 400 350 / 400 Piperacillin/Tazo 3.375 gm In 0 50 / 150 100 / 150 .9 % Sodium Chloride 50 ml @ 100 mls/hr IV Q6H GWENDOLYN Rx#: [id number] Vancomycin/Water For Inj (Peg) 250 / 250 1.25 gm In 250 ml @ 125 mls/hr IV Q12H GWENDOLYN Rx#:[id number] Output: Output, Urine Amount 1100 / 1400 300 / 1400 Other: Number of Unmeasured Voids 0 0 0 Weight 88.587 kg Patient Weight 11/19/23 23:59 Weight 88.587 kg Laboratory Results - last 24 hr 11/19/23 05:45: Sodium 133 L, Potassium 3.6, Chloride 105, Carbon Dioxide 15 L, Anion Gap 16.6 H, BUN 21 H, Creatinine 0.70 D, Estimated Creat Clear 94, Estimated GFR 114, Est GFR ( Amer) 137 D, Glucose 66 L D, Calcium 8.6, Magnesium 2.0 11/19/23 07:33: WBC 12.2 H, RBC 4.32 L, Hgb 13.8 L, Hct 41.9 L, MCV 97.0 H, MCH 31.8 H, MCHC 32.8, RDW 14.2, Plt Count 313, MPV 7.8, Neut % (Auto) 80.1 H, Lymph % (Auto) 11.5, [place] % (Auto) 5.0, Eos % (Auto) 2.8, Baso % (Auto) 0.7, Neut # (Auto) 9.8 H, Lymph # (Auto) 1.4, [place] # (Auto) 0.6, Eos # (Auto) 0.3, Baso # (Auto) 0.1 I & O for Labs for Last 24 Hours: Intake & Output 11/16/23 11/17/23 11/18/23 11/19/23 23:59 23:59 23:59 23:59 Intake Total 950 / 1100 540 / 590 400 / 400 Output Total 0 / 0 800 / 800 700 / 700 1400 / 1400 Balance 0 / 300 150 / 300 -160 / -110 -1000 / -1000 Weight 88.587 kg 88.587 kg 88.587 kg 88.587 kg Microbiology Reports for the Last 24 Hours: Microbiology 11/18/23 08:22 Blood Blood Culture - Preliminary NO GROWTH AFTER 24 HOURS 11/18/23 08:15 Blood Blood Culture - Preliminary NO GROWTH AFTER 24 HOURS 11/16/23 22:00 Blood Blood Culture - Final Staphylococcus epidermidis 11/16/23 22:00 Blood Blood Culture - Final Staphylococcus epidermidis Assessment and Plan *Assessment and plan (1) Acute hypoxic respiratory failure: Status: Acute Category: Medical Code(s): J96.01 - Acute respiratory failure with hypoxia (2) Fever: Status: Acute Category: Medical Code(s): R50.9 - Fever, unspecified (3) Acute encephalopathy: Status: Acute Category: Medical Code(s): G93.40 - Encephalopathy, unspecified (4) Long-term current use of benzodiazepine: Status: Acute Category: Medical Code(s): Z79.899 - Other intermediate card tender (current) drug therapy (5) Arm pain, left: Status: Acute Category: Medical Code(s): M79.602 - Pain in left arm (6) Tremor of left hand: Status: Acute Category: Medical Code(s): R25.1 - Tremor, unspecified (7) General weakness: Status: Acute Category: Medical Code(s): R53.1 - Weakness (8) Epilepsy: Status: Acute Qualifiers: Epilepsy type: other Category: Medical Code(s): G40.909 - Epilepsy, unspecified, not intractable, without status epilepticus (9) Cerebral ventriculomegaly: Problem Comment: [address] consistent with 2021 Status: Acute Category: Medical Code(s): G93.89 - Other specified disorders of brain (10) Depression: Status: Acute Category: Medical Code(s): F32.A - Depression, unspecified (11) Severe protein-calorie malnutrition: Status: Acute Category: Medical Code(s): E43 - Unspecified severe protein-calorie malnutrition Plan 63-year-old male with history of ventriculomegaly, hydrocephalus, clubfoot, seizure disorder, asthma/COPD, peripheral neuropathy, GERD, hyperlipidemia, frequent falls, cognitive disability. Presented to the ER because of concern for difficulty eating, possible aspiration event, fever. Medicine admitted for further management. Patient has been afebrile since admission. On room air for over 36 hours. Appears at baseline mentation. Tolerating medications. Nursing working with patient on nutrition intake. Blood cultures returned positive, repeating blood cultures. Continuing empiric antibiotics. Problems addressed as follows: Fever Suspected aspiration -Remains afebrile. 3 of 4 blood cultures returned positive for staph epi. Repeating blood cultures today. White cell count returned to normal at 10. -Continue empiric antibiotics with vancomycin and Zosyn every 6 hours IV. Monitoring for toxicity - Tylenol as needed for fever every 4 hours 650 mg. Has not required any doses since admission. Mild cognitive impairment: Chronic hydrocephalus with ventriculomegaly obesity: Chronic conditions complicate all aspects of his care. Currently unable to perform ADLs safely including standing and transfers. Review of imaging he is admission shows that patient's hydrocephalus and ventriculomegaly have been present for majority of his life. Necessitating skilled rehab at discharge. Seizure disorder Anxiety Left arm tremor -Continue gabapentin, 600 mg 3 times a day to help with calming tremor -Continue Keppra 500 mg twice daily began at last visit -Valium 1 mg p.o. twice daily scheduled -Continue citalopram 40 mg daily -Baclofen 10 mg 3 times a day -Holding home Vraylar as it is not on our formulary Continue atenolol 25 mg daily for hypertension and tachycardia Continue pravastatin 20 mg nightly Full code Regular diet PLOV
--- NOTE | 2023-11-19 19:06 | PC.NURSE ---
EMS here to get pt. Taylor updated.
--- NOTE | 2023-11-19 19:11 | PC.NURSE ---
pt [facility] with ems at this time
== END 2023-11-19 19:12 | DRG 189 ==
LOC: ER 20:58 → 2ND 22:07
PROVIDERS: Nurse Practitioner Family; Admitting Provider Internal Medicine Adolescent Medicine; Emergency Provider Student in an Organized Health Care Education/Training Program; PCP Nurse Practitioner Family; Visit Provider Internal Medicine Adolescent Medicine
DX: J96.01 Acute respiratory failure with hypoxia (principal); G93.40 Encephalopathy, unspecified; E66.9 Obesity, unspecified; Z68.32 Body mass index [BMI] 32.0-32.9, adult; I10 Essential (primary) hypertension; R50.9 Fever, unspecified; J44.9 Chronic obstructive pulmonary disease, unspecified; G40.909 Epilepsy, unspecified, not intractable, without status epilepticus; G62.9 Polyneuropathy, unspecified; F41.9 Anxiety disorder, unspecified; R25.1 Tremor, unspecified; E78.5 Hyperlipidemia, unspecified; F32.A Depression, unspecified
CPT/HCPCS: 36415; 70450; 71045; 80048; 80053; 80202; 81001; 82803; 82962; 83735; 84484; 85007; 85025; 87040; 87077; 87186; 87636; 99291; J0131; J1650; J2543; J7120

== ENCOUNTER 2023-12-02 08:46 | Emergency (ER) | payer MEDICARE, SELFPAY ==
[2023-12-02 08:44] VITALS: BP 103/72; PULSE 78; RESP 18; TEMP 36.4; O2SAT 96; BMI 29.0
--- NOTE | 2023-12-02 08:48 | ED_ITS ---
Discharge Plan Disposition Patient Disposition: Home, Self-Care Condition: Good Prescriptions Prescriptions: No Action Acid Gone Antacid 95-358 mg/15 mL suspension 30 ml PO DAILY PRN (Reason: dyspepsia) Qty: 355 0RF citalopram 40 mg tablet 40 mg PO DAILY Hold Instructions: Hold until completes Zyvox, resume 24 hours after last dose of antibiotic. Rx Instructions: TAKE 1 TABLET BY MOUTH ONCE DAILY FOR ANXIETY atenolol 25 mg tablet 25 mg PO DAILY Rx Instructions: TAKE 1 TABLET BY MOUTH ONCE DAILY omeprazole 40 mg capsule,delayed release(DR/EC) 40 mg PO HS Rx Instructions: TAKE 1 CAPSULE BY MOUTH EVERY DAY FOR REFLUX/ACID REFLUX pravastatin 20 mg tablet 20 mg PO HS Rx Instructions: TAKE 1 TABLET BY MOUTH ONCE DAILY FOR CHOLESTEROL cholecalciferol (vitamin D3) 1,250 mcg (50,000 unit) capsule 1,250 mcg PO WEEKLY Rx Instructions: TAKE 1 CAPSULE BY MOUTH WEEKLY FOR VITAMIN DEFICIENCY potassium chloride 20 mEq tablet extended release 20 meq PO DAILY acetaminophen 500 mg Tablet 500 mg PO Q6HP PRN (Reason: FEVER OR MILD PAIN) artificial tears solution Drops 2 drp OPHTHALMIC (EYE) BIDP PRN (Reason: EYE DRYNESS) baclofen 10 mg tablet 10 mg PO TID Qty: 90 0RF levetiracetam 500 mg tablet 500 mg PO BID Qty: 60 0RF cariprazine 1.5 mg Capsule 1.5 mg PO DAILY gabapentin 600 mg tablet 600 mg PO TID nystatin 100,000 unit/mL Suspension 500,000 unit PO QID 6 Days Qty: 0 0RF docusate sodium 100 mg Capsule 100 mg PO DAILY Qty: 0 0RF diazepam 2 mg Tablet 1 mg PO BID 30 Days Qty: 30 0RF Rx Instructions: Dosage decreased from previous dose. linezolid [Zyvox] 600 mg tablet 600 mg PO BID 6 Days Qty: 12 0RF Referrals Follow up/Referrals: Provider,Referral, MD [Primary Care Provider] - See instructions Activity Restrictions/Add. Instructions Additional Instructions/Restrictions: Your x-rays thankfully did not show any broken bones in your wrist or your hand. It is likely that your pain is due to your chronic contractures in the setting of your fall several days ago. Please take Tylenol and ibuprofen as needed for your pain. Please follow-up with physical therapy and your primary care physician. Please return with any new or worsening symptoms. Clinical Impressions Clinical Impression: Contracture of left wrist Instructions Patient Instructions: Contractures Discharge ED Provider: Prakash Capps Adult HPI General Chief complaint: Extremity Injury, Upper Stated complaint: L hand pain Time Seen by Provider: 12/02/23 08:48 Mode of Arrival: EMS Source of Information: Patient and EMS Limitations: Physical Limitations Description of Symptoms (Recalled from ER Triage Doc. by RN): left hand and wrist pain History of Present Illness HPI narrative: The patient presents with a chief complaint of pain in the left wrist. The pain began after a fall that occurred last week. He did not hit his head during the fall. The pain is localized to the left wrist and does not radiate to the fingers. The patient denies any other pain or discomfort in other areas. History limited secondary to chronic history of cognitive delay. Please note that above description of symptoms, in this electronic medical record under categorization of recalled from ER triage doctor by RN are reflective of an initial nursing assessment, however, is not reflective of my full history and physical exam that was personally taken and clarified. Consequentially, this preceding description of symptoms, which may include the patient's categorized chief complaint in the EMR, do not reflect my personal clinical impression, and the ultimate description of history of present illness and patient stated complaints should be deferred to this section of the note. Unless stated otherwise or congruent with this section of the note, additional signs, symptoms, or incongruence should be interpreted as inaccurate with my clinical impression. Related Data Home Medications Medication Instructions Recorded Confirmed atenolol 25 mg tablet 25 mg PO DAILY 10/01/23 11/16/23 cholecalciferol (vitamin D3) 1,250 1,250 mcg PO WEEKLY 10/01/23 11/16/23 mcg (50,000 unit) capsule citalopram 40 mg tablet 40 mg PO DAILY 10/01/23 11/16/23 omeprazole 40 mg capsule,delayed 40 mg PO HS 10/01/23 11/16/23 release pravastatin 20 mg tablet 20 mg PO HS 10/01/23 11/16/23 potassium chloride 20 mEq 20 meq PO DAILY 11/02/23 11/16/23 tablet,extended release acetaminophen 500 mg tablet 500 mg PO Q6HP PRN FEVER OR MILD 11/03/23 11/16/23 PAIN artificial tears solution eye drops 2 drp ophthalmic (eye) BIDP PRN 11/03/23 11/16/23 EYE DRYNESS cariprazine 1.5 mg capsule 1.5 mg PO DAILY 11/16/23 11/16/23 gabapentin 600 mg tablet 600 mg PO TID 11/16/23 11/16/23 Previous Rx's Medication Instructions Recorded aluminum hydrox-magnesium carb 95 30 ml PO DAILY PRN dyspepsia #355 10/03/23 mg-358 mg/15 mL oral suspension mL (Acid Gone Antacid) baclofen 10 mg tablet 10 mg PO TID #90 tabs 11/05/23 levetiracetam 500 mg tablet 500 mg PO BID #60 tabs 11/05/23 diazepam 2 mg tablet 1 mg (1/2 x 2 mg) PO BID 30 days 11/19/23 #30 tabs docusate sodium 100 mg capsule 100 mg PO DAILY #0 caps 11/19/23 linezolid 600 mg tablet (Zyvox) 600 mg PO BID 6 days #12 tabs 11/19/23 nystatin 100,000 unit/mL oral 500,000 unit (5 mL) PO QID 6 days 11/19/23 suspension #0 mL Allergies Allergy/AdvReac Type Severity Reaction Status Date / Time No Known Allergies Allergy Verified 11/01/23 11:07 [facility] Disclaimer: The information contained in this section may have been updated after the patient was seen, as this information can be updated by other users. Medical History (Updated 12/02/23 @ 09:33 by Prakash Capps MD) Asthma Hypokalemia Frequent falls Cerebral ventriculomegaly Club foot of both lower extremities Hyperlipemia Depression Hypertension Chronic obstructive pulmonary disease Epilepsy Obesity Claudication Abnormal ankle brachial index (CHAUNCEY) Bilateral leg pain Abnormal EKG Dizziness Mild intellectual disabilities Anxiety Neuropathy Social History Smoking Status: Never smoker alcohol intake: never substance use type: denies use current occupational status: disabled Travel in the last 8 weeks: None household members: family housing: house current occupational exposures/hazards: No caffeine: Yes ROS Obtained: Yes other As per HPI Physical Exam General General appearance: alert and in no apparent distress Head Head exam: atraumatic and normocephalic Eye Eye exam: Present normal appearance Neck Neck exam: Present normal inspection Chest Chest inspection: Present normal inspection and symmetric chest wall rise Respiratory Respiratory exam: Present normal lung sounds bilaterally; Absent respiratory distress Cardiovascular Cardiovascular exam: Present regular rate and normal rhythm Abdominal Exam Abdominal exam: Present soft Neurological Exam Neurological exam: Present alert Psychiatric Psychiatric exam: Present normal affect and normal mood Skin Skin exam: Present warm and dry Other Other exam information: No external evidence of trauma to left wrist, diffusely tender to palpation, muniz spected chronic contracture of left upper extremity, in flexion, no obvious long bone deformity. Distally sensation and pulses intact. Capillary refill within normal limits. Compartments of hand soft. Medical Decision Making Medical Records Medical records reviewed: Yes I reviewed the patient's medical records. Nate Inquiry Pt receiving controlled substance: No Vital Signs: 12/02/23 08:44 12/02/23 08:53 12/02/23 09:40 Temperature 97.6 F 97.7 F Temperature Source Oral Pulse Rate 71 80 Pulse Rate [Right] 78 Respiratory Rate 18 18 Blood Pressure 97/56 L 90/51 L Blood Pressure [Right Arm] 103/72 L Blood Pressure Mean [Right Arm] 82 02 Sat by Pulse Oximetry 96 96 Oxygen Delivery Method Room Air Room Air Orders (Tests/Meds): ED MEDICATIONS Discontinued Medications Generic Name Dose Route Start Last Admin Trade Name Freq PRN Reason Stop Dose Admin Acetaminophen 1,000 mg 12/02/23 08:52 12/02/23 09:06 Acetaminophen 500mg Tab PO 12/02/23 08:53 1,000 mg ONCE ONE Administration Ibuprofen 600 mg 12/02/23 08:52 12/02/23 09:06 Ibuprofen 600 Mg Tablet PO 12/02/23 08:53 600 mg ONCE ONE Administration ORDERS Category Date Time Status XR hand LT 2V Stat Exams 12/02/23 08:51 Completed XR wrist LT 2V Stat Exams 12/02/23 08:51 Completed Medical Decision Narrative: Patient with history and exam per above presenting for evaluation of left wrist pain Diagnoses considered include fracture, soft tissue injury, no clinical evidence to suggest vascular injury, nerve injury, differential also includes pain associated with chronic contracture. No clinical evidence or reported history of head injury or injury above clavicles ED workup and treatment included: ED MEDICATIONS Discontinued Medications Generic Name Dose Route Start Last Admin Trade Name Freq PRN Reason Stop Dose Admin Acetaminophen 1,000 mg 12/02/23 08:52 12/02/23 09:06 Acetaminophen 500mg Tab PO 12/02/23 08:53 1,000 mg ONCE ONE Administration Ibuprofen 600 mg 12/02/23 08:52 12/02/23 09:06 Ibuprofen 600 Mg Tablet PO 12/02/23 08:53 600 mg ONCE ONE Administration ORDERS Category Date Time Status XR hand LT 2V Stat Exams 12/02/23 08:51 Completed XR wrist LT 2V Stat Exams 12/02/23 08:51 Completed Imaging was independently visualized and interpreted by me, significant for no acute findings. Please refer to radiology report for full details. My clinical impression at this time is most consistent with pain associated with chronic contracture. Patient will follow-up with primary care physician, physical therapy, return to assisted. I discussed my clinical impression with patient and answered all questions. At this time, the evidence for any other entities in the differential is insufficient to warrant any further testing or ED observation. This was explained to the patient and documented for assisted. The patient/assisted was advised that persistent or worsening symptoms require further evaluation. Critical Care Critical Care Time Critical Care Time: No
--- NOTE | 2023-12-02 08:51 | XR_ITS ---
PROCEDURE INFORMATION: Exam: XR Left Hand Exam date and time: 12/02/2023 8:55 AM Age: 63 years old Clinical indication: Injury or trauma; Fall; Blunt trauma (contusions or hematomas); Hand; Left; Additional info: Pain after fall last week throughout wrist, hand TECHNIQUE: Imaging protocol: Radiologic exam of the left hand. Views: 1 or 2 views. COMPARISON: CR XR WRIST LT 2V 12/02/2023 8:55 AM FINDINGS: Bones/joints: No acute fracture or dislocation. Chronic deformity of the 5th metacarpal bone. Soft tissues: Normal. IMPRESSION: No acute findings.
--- NOTE | 2023-12-02 08:51 | XR_ITS ---
PROCEDURE INFORMATION: Exam: XR Left Wrist Exam date and time: 12/02/2023 8:55 AM Age: 63 years old Clinical indication: Injury or trauma; Fall; Blunt trauma (contusions or hematomas); Wrist; Left; Additional info: Pain after fall last week throughout wrist, hand TECHNIQUE: Imaging protocol: Radiologic exam of the left wrist. Views: 1 or 2 views. COMPARISON: CR XR HAND LT 2V 12/02/2023 8:55 AM FINDINGS: Bones/joints: No acute fracture or dislocation. Degenerative changes within the 1st carpometacarpal joint. Soft tissues: Normal. IMPRESSION: No acute findings.
[2023-12-02 08:53] VITALS: BP 97/56; PULSE 71; O2SAT 96
[2023-12-02] MEDS: IBUPROFEN 600 MG TABLET PO (09:06)
[2023-12-02] MEDS: ACETAMINOPHEN 500MG TAB 1000 MG PO (09:06)
[2023-12-02 09:40] VITALS: BP 90/51; PULSE 80; RESP 18; TEMP 36.5; O2SAT 94
--- NOTE | 2023-12-02 09:43 | PC.NURSE ---
called report to josh
== END 2023-12-02 10:26 | disposition home or self-care (01) ==
PROVIDERS: Emergency Provider Emergency Medicine
DX: M24.532 Contracture, left wrist (principal); M25.532 Pain in left wrist; W19.XXXA Unspecified fall, initial encounter
CPT/HCPCS: 73100; 73120; 99283

== ENCOUNTER 2023-12-27 14:37 | Emergency (ER) | payer MEDICARE, MEDICAID, SELFPAY ==
[2023-12-27 14:37] VITALS: BP 106/67; PULSE 61; RESP 18; TEMP 36.6; O2SAT 95; BMI 33.9
[2023-12-27 15:00] VITALS: BP 114/74; PULSE 63; O2SAT 94
--- NOTE | 2023-12-27 15:16 | XR_ITS ---
FINAL REPORT CLINICAL HISTORY: choking, concern for aspiraton COMPARISON: 11/16/2023 FINDINGS: The heart size is normal. The mediastinum is normal. The lungs are underinflated. There is no evidence of airspace infiltrate. The lungs are clear. There are no pleural effusions. There is no pneumothorax. There is no osseous abnormality. IMPRESSION: No acute cardiopulmonary process. Underinflation. Reviewed, Interpreted and Dictated by Ayan Quarles MD Transcribed by Mara Almeida Authenticated and [facility]
--- NOTE | 2023-12-27 15:26 | HMH.EDGENADL ---
Discharge Plan Disposition Patient Disposition: Xfer SNF Condition: Good Prescriptions Prescriptions: No Action Acid Gone Antacid 95-358 mg/15 mL suspension 30 ml PO DAILY PRN (Reason: dyspepsia) Qty: 355 0RF citalopram 40 mg tablet 40 mg PO DAILY Rx Instructions: TAKE 1 TABLET BY MOUTH ONCE DAILY FOR ANXIETY atenolol 25 mg tablet 25 mg PO DAILY Rx Instructions: TAKE 1 TABLET BY MOUTH ONCE DAILY omeprazole 40 mg capsule,delayed release(DR/EC) 40 mg PO HS Rx Instructions: TAKE 1 CAPSULE BY MOUTH EVERY DAY FOR REFLUX/ACID REFLUX pravastatin 20 mg tablet 20 mg PO HS Rx Instructions: TAKE 1 TABLET BY MOUTH ONCE DAILY FOR CHOLESTEROL cholecalciferol (vitamin D3) 1,250 mcg (50,000 unit) capsule 1,250 mcg PO WEEKLY Rx Instructions: TAKE 1 CAPSULE BY MOUTH WEEKLY FOR VITAMIN DEFICIENCY potassium chloride 20 mEq tablet extended release 20 meq PO DAILY acetaminophen 500 mg Tablet 500 mg PO Q6HP PRN (Reason: FEVER OR MILD PAIN) artificial tears solution Drops 2 drp OPHTHALMIC (EYE) BIDP PRN (Reason: EYE DRYNESS) baclofen 10 mg tablet 10 mg PO TID Qty: 90 0RF levetiracetam 500 mg tablet 500 mg PO BID Qty: 60 0RF cariprazine 1.5 mg Capsule 1.5 mg PO DAILY gabapentin 600 mg tablet 600 mg PO TID nystatin 100,000 unit/mL Suspension 500,000 unit PO QID 6 Days Qty: 0 0RF docusate sodium 100 mg Capsule 100 mg PO DAILY Qty: 0 0RF diazepam 2 mg Tablet 1 mg PO BID 30 Days Qty: 30 0RF Rx Instructions: Dosage decreased from previous dose. linezolid [Zyvox] 600 mg tablet 600 mg PO BID 6 Days Qty: 12 0RF Referrals Follow up/Referrals: Elliott Briseno APRN [Primary Care Provider] - See instructions Activity Restrictions/Add. Instructions Additional Instructions/Restrictions: You were evaluated in the emergency department today. At this time, vitals, EKG, and x-ray are reassuring. Usually within 48 hours of aspiration event, no antibiotics are recommended, as symptoms usually resolve on their own. Should the symptoms persist beyond 48 hours, please seek reevaluation for potential initiation of antibiotics. Return to the emergency department for new or worsening symptoms. Clinical Impressions Clinical Impression: Aspiration into airway Instructions Patient Instructions: DI for Aspiration Pneumonia Print Language Print Language: Romansh Discharge ED Provider: Katarina Valera General Adult HPI <Jose Kenny MD - Last Filed: 12/27/23 15:30> General Chief complaint: Skin/Abscess/Foreign Body Stated complaint: Aspirated Time Seen by Provider: 12/27/23 15:06 Mode of Arrival: EMS Source of Information: EMS Limitations: No Limitations Description of Symptoms (Recalled from ER Triage Doc. by RN): EMS states the patient got choked on his mechanical soft diet at the [facility]. [facility] staff states that he had a difficult time clearing the food and they feel as if he may have aspirated. Patient currently in no distress. History of Present Illness HPI narrative: Please note that above description of symptoms, in this electronic medical record under categorization of recalled from ER triage doctor by RN are reflective of an initial nursing assessment, however, is not reflective of my full history and physical exam that was personally taken and clarified. Consequentially, this preceding description of symptoms, which may include the patient's categorized chief complaint in the EMR, do not reflect my personal clinical impression, and the ultimate description of history of present illness and patient stated complaints should be deferred to this section of the note. Unless stated otherwise or congruent with this section of the note, additional signs, symptoms, or incongruence should be interpreted as inaccurate with my clinical impression. Related Data Home Medications ?Medication ?Instructions ?Recorded ?Confirmed atenolol 25 mg tablet 25 mg PO DAILY 10/01/23 11/16/23 cholecalciferol (vitamin D3) 1,250 1,250 mcg PO WEEKLY 10/01/23 11/16/23 mcg (50,000 unit) capsule citalopram 40 mg tablet 40 mg PO DAILY 10/01/23 11/16/23 omeprazole 40 mg capsule,delayed 40 mg PO HS 10/01/23 11/16/23 release pravastatin 20 mg tablet 20 mg PO HS 10/01/23 11/16/23 potassium chloride 20 mEq 20 meq PO DAILY 11/02/23 11/16/23 tablet,extended release acetaminophen 500 mg tablet 500 mg PO Q6HP PRN FEVER OR MILD 11/03/23 11/16/23 PAIN artificial tears solution eye drops 2 drp ophthalmic (eye) BIDP PRN 11/03/23 11/16/23 EYE DRYNESS cariprazine 1.5 mg capsule 1.5 mg PO DAILY 11/16/23 11/16/23 gabapentin 600 mg tablet 600 mg PO TID 11/16/23 11/16/23 Previous Rx's ?Medication ?Instructions ?Recorded aluminum hydrox-magnesium carb 95 30 ml PO DAILY PRN dyspepsia #355 10/03/23 mg-358 mg/15 mL oral suspension mL (Acid Gone Antacid) baclofen 10 mg tablet 10 mg PO TID #90 tabs 11/05/23 levetiracetam 500 mg tablet 500 mg PO BID #60 tabs 11/05/23 diazepam 2 mg tablet 1 mg (1/2 x 2 mg) PO BID 30 days 11/19/23 #30 tabs docusate sodium 100 mg capsule 100 mg PO DAILY #0 caps 11/19/23 linezolid 600 mg tablet (Zyvox) 600 mg PO BID 6 days #12 tabs 11/19/23 nystatin 100,000 unit/mL oral 500,000 unit (5 mL) PO QID 6 days 11/19/23 suspension #0 mL Allergies Allergy/AdvReac Type Severity Reaction Status Date / Time No Known Allergies Allergy Verified 11/01/23 11:07 PFSH <Jose Kenny MD - Last Filed: 12/27/23 15:30> PFS Disclaimer: The information contained in this section may have been updated after the patient was seen, as this information can be updated by other users. Medical History (Updated 12/27/23 @ 16:34 by Katarina Valera DO) Asthma Hypokalemia Frequent falls Cerebral ventriculomegaly Club foot of both lower extremities Hyperlipemia Depression Hypertension Chronic obstructive pulmonary disease Epilepsy Obesity Claudication Abnormal ankle brachial index (CHAUNCEY) Bilateral leg pain Abnormal EKG Dizziness Mild intellectual disabilities Anxiety Neuropathy Social History Smoking Status: Never smoker alcohol intake: never substance use type: denies use current occupational status: disabled Travel in the last 8 weeks: None household members: family housing: house current occupational exposures/hazards: No caffeine: Yes <Jose Kenny MD - Last Filed: 12/27/23 15:30> ROS Obtained: Yes unobtainable due to mental condition Physical Exam <Jose Kenny MD - Last Filed: 12/27/23 15:30> General General appearance: alert and in no apparent distress Respiratory Respiratory exam: Present normal lung sounds bilaterally; Absent respiratory distress or wheezes Cardiovascular Cardiovascular exam: Present regular rate and normal rhythm Neurological Exam Neurological exam: Present alert and other (Unable to discern any words patient is making. Answering questions with shakes and nods of head) Medical Decision Making <Jose Kenny MD - Last Filed: 12/27/23 15:30> Medical Records Medical records reviewed: Yes I reviewed the patient's medical records. Nate Inquiry Pt receiving controlled substance: No Nate was queried for this patient: No Vital Signs: 12/27/23 14:37 12/27/23 15:00 12/27/23 17:01 Temperature 97.8 F 97.8 F Temperature Source Oral Oral Pulse Rate 63 63 Pulse Rate [Radial] 61 Respiratory Rate 18 18 Blood Pressure 114/74 114/74 Blood Pressure [Right Arm] 106/67 L Blood Pressure Mean [Right Arm] 80 Blood Pressure Source Automatic Cuff Blood Pressure Source [Right Arm] Automatic Cuff Blood Pressure Position Supine Blood Pressure Position [Right Arm] Supine 02 Sat by Pulse Oximetry 95 94 L Oxygen Delivery Method Room Air Room Air Orders (Tests/Meds): ORDERS Category Date Time Status CXR --portable [XR chest portable] Stat Exams 12/27/23 15:16 Taken Medical Decision Narrative: This is a chronically ill 63-year-old male with history of epilepsy, cognitive impairment presenting with concern for choking. Patient choked on some food just prior to arrival. Per report at [facility], patient's color was pale/cyanotic, blood pressure dropped. Patient did not lose consciousness. Able to remove food bolus. Was sent for further evaluation. On arrival, patient has no complaints. He does appear sleepy, but oxygen 95 to 100%. Tremulous. Lungs are clear to auscultation anterior and posteriorly. Patient is tachycardic. Initial workup to be obtained with chest x-ray. Prior to chest x-ray, care ended up to oncoming physician, Dr. Valera. Tube Building Machine Operator disclaimer Much of this encounter note is an electronic marketing production manager spoken language to printed text. Electronic marketing production manager of the spoken language may permit errors. Although I have reviewed the note, some errors may still exist. <Katarina Valera DO - Last Filed: 12/27/23 22:35> Vital Signs: 12/27/23 14:37 12/27/23 15:00 12/27/23 17:01 Temperature 97.8 F 97.8 F Temperature Source Oral Oral Pulse Rate 63 63 Pulse Rate [Radial] 61 Respiratory Rate 18 18 Blood Pressure 114/74 114/74 Blood Pressure [Right Arm] 106/67 L Blood Pressure Mean [Right Arm] 80 Blood Pressure Source Automatic Cuff Blood Pressure Source [Right Arm] Automatic Cuff Blood Pressure Position Supine Blood Pressure Position [Right Arm] Supine 02 Sat by Pulse Oximetry 95 94 L Oxygen Delivery Method Room Air Room Air Orders (Tests/Meds): ORDERS Category Date Time Status CXR --portable [XR chest portable] Stat Exams 12/27/23 15:16 Taken ECG Data Tracing #1: I reviewed this ECG and interpreted as documented below: Normal sinus rhythm with ventricular rate of 63 bpm. No EKG changes concerning for ischemia. ECG initial impression date: 12/27/23 ECG initial impression time: 16:14 Medical Decision Narrative: This is a chronically ill 63-year-old male with history of epilepsy, cognitive impairment presenting with concern for choking. Patient choked on some food just prior to arrival. Per report at [facility], patient's color was pale/cyanotic, blood pressure dropped. Patient did not lose consciousness. Able to remove food bolus. Was sent for further evaluation. On arrival, patient has no complaints. He does appear sleepy, but oxygen 95 to 100%. Tremulous. Lungs are clear to auscultation anterior and posteriorly. Patient is tachycardic. Initial workup to be obtained with chest x-ray. Prior to chest x-ray, care ended up to oncoming physician, Dr. Valera. Tube Building Machine Operator disclaimer Much of this encounter note is an electronic marketing production manager spoken language to printed text. Electronic marketing production manager of the spoken language may permit errors. Although I have reviewed the note, some errors may still exist. Soto DO: On my assessment of the patient, he is lying in bed in no acute distress with normal vital signs on cardiac telemetry. No hypoxia or tachycardia. He has had progressive functional decline, however this is not significantly changed from his baseline. X-ray does not demonstrate any acute focal consolidation. Patient was in the emergency department for several hours with no desaturations or tachycardia. Show focal consolidation and his vitals are normal. I gave very strict return precautions. Patient was transported back to the nursing facility in stable condition. Critical Care <Jose Kenny MD - Last Filed: 12/27/23 15:30> Critical Care Time Critical Care Time: No
--- NOTE | 2023-12-27 16:13 | ECG_ITS ---
APPROVED REPORT Exam: Resting ECG HR:63 bpm ECG Measurements Heart Rate 63 AXES [place] 142 P 50 QRSd 86 QRS -5 QT 412 T 24 QTc 420 Conclusion SINUS RHYTHM LOW QRS VOLTAGE IN PRECORDIAL LEADS [QRS DEFLECTION < 1.0 mV IN CHEST LEADS] BORDERLINE ECG Electronically signed by : JUAN LUIS YBARRA, 12/27/2023 23:56:23
[2023-12-27 17:01] VITALS: BP 114/74; PULSE 63; RESP 18; TEMP 36.6; O2SAT 94
== END 2023-12-27 17:02 ==
PROVIDERS: Emergency Provider Emergency Medicine; PCP Nurse Practitioner Family
DX: J69.0 Pneumonitis due to inhalation of food and vomit (principal)
CPT/HCPCS: 71045; 93005; 99283

== ENCOUNTER 2024-01-06 14:37 | Outpatient (CLI) | payer MEDICARE, MEDICAID, SELFPAY ==
[2024-01-06 17:32] LABS: Microscopic, Urine URINE MICROSCOPIC (MICROSCOPIC)
[2024-01-06 17:42] LABS: Appearance,Urine CLEAR (Clear); Bilirubin,Urine Negative (Negative); Blood, Urine 2+ (Negative); Color,Urine DARK YELLOW (Yellow); Glucose,Urine (UA) Negative (Negative); Ketones,Urine Negative (Negative); Leukocyte Esterase,Urine Negative (Negative); Nitrate,Urine Negative (Negative); Protein,Urine Negative (Negative); Specific Gravity, Urine >= 1.030 (1.005-1.030); Urobilinogen,Urine 0.2 EU/dl (0.2)
[2024-01-06 17:51] LABS: Bacteria,Urine 1+ /lpf; Squamous Epithelial Cell,Urine Occasional #/hpf (0-5)
== END 2024-01-06 23:59 | disposition home or self-care (01) ==
PROVIDERS: PCP Nurse Practitioner Family; Visit Provider Nurse Practitioner Family
DX: N32.9 Bladder disorder, unspecified (principal)
CPT/HCPCS: 81001

== ENCOUNTER 2024-01-13 11:49 | Emergency (ER) | payer MEDICARE, MEDICAID, SELFPAY ==
[2024-01-13] VITALS (13 sets, daily range): BP systolic 106–128; BP diastolic 68–88; PULSE 71–83; RESP 13–20; TEMP 36.4–36.7; O2SAT 94–99; BMI 29.9
--- NOTE | 2024-01-13 12:23 | PC.NURSE ---
Male pericare provided, barrier cream applied, and male purewick placed. Family returned to bedside and call light within reach.
--- NOTE | 2024-01-13 12:28 | PC.NURSE ---
Dr. Valera at [facility] for pt eval
--- NOTE | 2024-01-13 12:33 | XR_ITS ---
PROCEDURE INFORMATION: Exam: XR Chest Exam date and time: 01/13/2024 12:36 PM Age: 63 years old Clinical indication: Cough; Additional info: Cough, ronchi TECHNIQUE: Imaging protocol: Radiologic exam of the chest. Views: 1 view. COMPARISON: CR XR CHEST PORTABLE 12/27/2023 3:18 PM FINDINGS: Lungs: Low lung volumes. No focal consolidation. Pleural spaces: Unremarkable. No pleural effusion. No pneumothorax. Heart/Mediastinum: Unremarkable. No cardiomegaly. Bones/joints: Unremarkable. IMPRESSION: No acute findings.
--- NOTE | 2024-01-13 13:11 | HMH.EDGENADL ---
Discharge Plan Disposition Patient Disposition: Home, Self-Care Prescriptions Prescriptions: New cefdinir 300 mg capsule 300 mg PO BID 10 Days Qty: 20 0RF ondansetron 4 mg tablet,disintegrating 4 mg PO Q6H PRN (Reason: nausea and vomiting) Qty: 10 0RF No Action Acid Gone Antacid 95-358 mg/15 mL suspension 30 ml PO DAILY PRN (Reason: dyspepsia) Qty: 355 0RF citalopram 40 mg tablet 40 mg PO DAILY Rx Instructions: TAKE 1 TABLET BY MOUTH ONCE DAILY FOR ANXIETY atenolol 25 mg tablet 25 mg PO DAILY Rx Instructions: TAKE 1 TABLET BY MOUTH ONCE DAILY omeprazole 40 mg capsule,delayed release(DR/EC) 40 mg PO HS Rx Instructions: TAKE 1 CAPSULE BY MOUTH EVERY DAY FOR REFLUX/ACID REFLUX pravastatin 20 mg tablet 20 mg PO HS Rx Instructions: TAKE 1 TABLET BY MOUTH ONCE DAILY FOR CHOLESTEROL cholecalciferol (vitamin D3) 1,250 mcg (50,000 unit) capsule 1,250 mcg PO WEEKLY Rx Instructions: TAKE 1 CAPSULE BY MOUTH WEEKLY FOR VITAMIN DEFICIENCY potassium chloride 20 mEq tablet extended release 20 meq PO DAILY acetaminophen 500 mg Tablet 500 mg PO Q6HP PRN (Reason: FEVER OR MILD PAIN) artificial tears solution Drops 2 drp OPHTHALMIC (EYE) BIDP PRN (Reason: EYE DRYNESS) baclofen 10 mg tablet 10 mg PO TID Qty: 90 0RF levetiracetam 500 mg tablet 500 mg PO BID Qty: 60 0RF cariprazine 1.5 mg Capsule 1.5 mg PO DAILY gabapentin 600 mg tablet 600 mg PO TID nystatin 100,000 unit/mL Suspension 500,000 unit PO QID 6 Days Qty: 0 0RF docusate sodium 100 mg Capsule 100 mg PO DAILY Qty: 0 0RF diazepam 2 mg Tablet 1 mg PO BID 30 Days Qty: 30 0RF Rx Instructions: Dosage decreased from previous dose. linezolid [Zyvox] 600 mg tablet 600 mg PO BID 6 Days Qty: 12 0RF Activity Restrictions/Add. Instructions Additional Instructions/Restrictions: Antibiotic twice daily for 10 days. Zofran every 6 hours as needed for nausea and vomiting, you can ask staff for this and they will bring you a dose to stimulate appetite. Clinical Impressions Clinical Impression: Behavior disturbance, Eating problem, Noncompliance with medications, Nausea, Acute UTI Print Language Print Language: Mohawk Discharge ED Provider: Jose Kenny General Adult HPI <Katarina Valera, DO - Last Filed: 01/13/24 15:13> General Chief complaint: Recheck/Abnormal Lab/Rx Stated complaint: failure to thrive Time Seen by Provider: 01/13/24 12:00 Mode of Arrival: EMS Source of Information: EMS Limitations: Altered Mental Status Description of Symptoms (Recalled from ER Triage Doc. by RN): pt to ed via ems. long-term staff reports pt has refused to eat, drink or take his medications x2 days. pt refusing to answer questions on arrival to ed. History of Present Illness HPI narrative: This patient is a 63-year-old male who is well-known to the emergency department with history of clubfoot of both lower extremities, general debility requiring SNF, cerebral ventriculomegaly, epilepsy, hypertension, hyperlipidemia, COPD, intellectual disability, and obesity presenting to the emergency department for evaluation with concern for refusal to eat, drink, or take his medications in 2 days. According to the nursing facility report, they state that he refuses to do any of these things because he wants to go home and does not understand why family will not take him home. According to family, they think he is not eating because they changed his diet to pur?ed foods after recent aspiration event. On medical record view, I saw him here at that time with concern for aspiration on 12/27/2023. Patient does not contribute much to history, only stating that he wants to go home. Family at bedside states that they are concerned because they do not think he wants to eat the pur?ed foods and would rather have cheeseburgers, because they state that they know he ate a cheeseburger about 2 weeks ago. Related Data Home Medications ?Medication ?Instructions ?Recorded ?Confirmed atenolol 25 mg tablet 25 mg PO DAILY 10/01/23 11/16/23 cholecalciferol (vitamin D3) 1,250 1,250 mcg PO WEEKLY 10/01/23 11/16/23 mcg (50,000 unit) capsule citalopram 40 mg tablet 40 mg PO DAILY 10/01/23 11/16/23 omeprazole 40 mg capsule,delayed 40 mg PO HS 10/01/23 11/16/23 release pravastatin 20 mg tablet 20 mg PO HS 10/01/23 11/16/23 potassium chloride 20 mEq 20 meq PO DAILY 11/02/23 11/16/23 tablet,extended release acetaminophen 500 mg tablet 500 mg PO Q6HP PRN FEVER OR MILD 11/03/23 11/16/23 PAIN artificial tears solution eye drops 2 drp ophthalmic (eye) BIDP PRN 11/03/23 11/16/23 EYE DRYNESS cariprazine 1.5 mg capsule 1.5 mg PO DAILY 11/16/23 11/16/23 gabapentin 600 mg tablet 600 mg PO TID 11/16/23 11/16/23 Previous Rx's ?Medication ?Instructions ?Recorded aluminum hydrox-magnesium carb 95 30 ml PO DAILY PRN dyspepsia #355 10/03/23 mg-358 mg/15 mL oral suspension mL (Acid Gone Antacid) baclofen 10 mg tablet 10 mg PO TID #90 tabs 11/05/23 levetiracetam 500 mg tablet 500 mg PO BID #60 tabs 11/05/23 diazepam 2 mg tablet 1 mg (1/2 x 2 mg) PO BID 30 days 11/19/23 #30 tabs docusate sodium 100 mg capsule 100 mg PO DAILY #0 caps 11/19/23 linezolid 600 mg tablet (Zyvox) 600 mg PO BID 6 days #12 tabs 11/19/23 nystatin 100,000 unit/mL oral 500,000 unit (5 mL) PO QID 6 days 11/19/23 suspension #0 mL cefdinir 300 mg capsule 300 mg PO BID 10 days #20 caps 01/13/24 ondansetron 4 mg disintegrating 4 mg PO Q6H PRN nausea and 01/13/24 tablet vomiting #10 tabs Allergies Allergy/AdvReac Type Severity Reaction Status Date / Time No Known Allergies Allergy Verified 11/01/23 11:07 [facility] <Katarina Valera DO - Last Filed: 01/13/24 15:13> [facility] Disclaimer: The information contained in this section may have been updated after the patient was seen, as this information can be updated by other users. Medical History Asthma Hypokalemia Frequent falls Cerebral ventriculomegaly Club foot of both lower extremities Hyperlipemia Depression Hypertension Chronic obstructive pulmonary disease Epilepsy Obesity Claudication Abnormal ankle brachial index (CHAUNCEY) Bilateral leg pain Abnormal EKG Dizziness Mild intellectual disabilities Anxiety Neuropathy Social History Smoking Status: Unknown if ever smoked alcohol intake: never substance use type: denies use current occupational status: disabled Travel in the last 8 weeks: None household members: family housing: house current occupational exposures/hazards: No caffeine: Yes <Katarina Valera DO - Last Filed: 01/13/24 15:13> ROS Obtained: Yes All systems reviewed & no additional complaints except as documented Physical Exam <Katarina Valera DO - Last Filed: 01/13/24 15:13> General General appearance: alert and in no apparent distress Comment: Sitting upright in bed in no acute distress, at his baseline Head Head exam: atraumatic and normocephalic Eye Eye exam: Present normal appearance, PERRL and EOMI ENT ENT exam: Present normal exam, normal oropharynx, mucous membranes moist and normal external ear exam Neck Neck exam: Present normal inspection, full ROM and trachea midline; Absent tenderness Chest Chest inspection: Present normal inspection and symmetric chest wall rise; Absent tenderness Respiratory Respiratory exam: Present normal lung sounds bilaterally; Absent respiratory distress, wheezes, stridor or accessory muscle use Cardiovascular Cardiovascular exam: Present regular rate and normal rhythm Abdominal Exam Abdominal exam: Present soft; Absent distention, tenderness or guarding Extremities Exam Extremities exam: Present normal capillary refill; Absent tenderness or edema Back Exam Back exam: Present normal inspection Neurological Exam Neurological exam: Present alert and other (At his neurologic baseline); Absent motor sensory deficit Skin Skin exam: Present warm and dry Medical Decision Making <Katarina Valera DO - Last Filed: 01/13/24 15:13> Medical Records Medical records reviewed: Yes I reviewed the patient's medical records. Nate Inquiry Pt receiving controlled substance: No Vital Signs: 01/13/24 11:58 01/13/24 12:00 01/13/24 12:30 Temperature 97.5 F L Temperature Source Oral Pulse Rate 83 75 Pulse Rate [Left Radial] 72 Respiratory Rate 20 Blood Pressure 128/86 121/77 Blood Pressure [Right Arm] 125/75 Blood Pressure Mean [Right Arm] 91 02 Sat by Pulse Oximetry 95 96 97 Oxygen Delivery Method Room Air 01/13/24 13:30 01/13/24 14:00 01/13/24 14:30 Temperature Temperature Source Pulse Rate 71 73 74 Pulse Rate [Left Radial] Respiratory Rate Blood Pressure 106/71 L 106/68 L 110/73 Blood Pressure [Right Arm] Blood Pressure Mean [Right Arm] 02 Sat by Pulse Oximetry 94 L 97 95 Oxygen Delivery Method 01/13/24 15:00 01/13/24 15:30 01/13/24 16:00 Temperature Temperature Source Pulse Rate 73 74 80 Pulse Rate [Left Radial] Respiratory Rate Blood Pressure 120/77 120/79 118/80 Blood Pressure [Right Arm] Blood Pressure Mean [Right Arm] 02 Sat by Pulse Oximetry 99 99 98 Oxygen Delivery Method Room Air Room Air 01/13/24 16:30 Temperature Temperature Source Pulse Rate 77 Pulse Rate [Left Radial] Respiratory Rate Blood Pressure 108/73 L Blood Pressure [Right Arm] Blood Pressure Mean [Right Arm] 02 Sat by Pulse Oximetry 97 Oxygen Delivery Method Room Air Lab Data Lab results reviewed: Yes I reviewed the patient's lab results. Lab Results 01/13/24 13:15: WBC 11.5 H, RBC 4.48 L, Hgb 13.7 L, Hct 44.3, MCV 98.9 H, MCH 30.6, MCHC 30.9 L, RDW 14.5, Plt Count 239, MPV 7.7, Neut % (Auto) 82.0 H, Lymph % (Auto) 7.3 L, [place] % (Auto) 5.7, Eos % (Auto) 4.5, Baso % (Auto) 0.5, Neut # (Auto) 9.4 H, Lymph # (Auto) 0.8, Tom[place]kins # (Auto) 0.7, Eos # (Auto) 0.5 H, Baso # (Auto) 0.1, Sodium 135 L, Potassium 4.2, Chloride 103, Carbon Dioxide 27, Anion Gap 9.2, BUN 25 H, Creatinine 0.80, Estimated Creat Clear 86, Estimated GFR 97, Est GFR ( Amer) 118, Glucose 91, Calcium 8.8, Total Bilirubin 0.8, AST 21, ALT 14, Alkaline Phosphatase 95, Total Protein 6.4, Albumin 3.4 L, Globulin 3.0, Albumin/Globulin Ratio 1.1, Lipase 30 01/13/24 13:34: SARS-CoV-2 (PCR) Not detected, Influenza A Untype (PCR) Not detected, Influenza Type B (PCR) Not detected 01/13/24 15:25: Urine Color Yellow, Urine Appearance Clear, Urine pH 8.0, Ur Specific [place] 1.020, Urine Protein 2+, Urine Glucose (UA) Negative, Urine Ketones 1+, Urine Blood 1+, Urine Nitrate Negative, Urine Bilirubin 1+ A, Urine Urobilinogen 2.0, Ur Leukocyte Esterase 2+ A, Urine RBC None, Urine WBC 10-20 01/13/24 13:15 01/13/24 13:15 Orders (Tests/Meds): ED MEDICATIONS Generic Name Dose Route Start Last Admin Trade Name Freq PRN Reason Stop Dose Admin Ceftriaxone Sodium 1 gm/ 50 mls @ 100 mls/hr 01/13/24 16:00 01/13/24 16:28 Sodium Chloride IV 01/23/24 15:59 100 mls/hr Q24H GWENDOLYN Administration Discontinued Medications Generic Name Dose Route Start Last Admin Trade Name Freq PRN Reason Stop Dose Admin Lactated Ringer's 1,000 mls @ 999 mls/hr 01/13/24 14:22 01/13/24 14:25 Lactated Ringer's 1000 Ml Bag IV 01/13/24 15:22 999 mls/hr .Q1H1M ONE Administration ORDERS Category Date Time Status CXR --portable [XR chest portable] Stat Exams 01/13/24 12:33 Completed CBC w/Auto Diff [Complete Blood Count Auto Diff] Stat Lab 01/13/24 13:15 Completed CMP [Comprehensive Metabolic Panel] Stat Lab 01/13/24 13:15 Completed Lipase Stat Lab 01/13/24 13:15 Completed Rapid PCR Covid and Flu A/B Stat Lab 01/13/24 13:34 Completed UA [Urinalysis and Microscopic] Stat Lab 01/13/24 15:25 Completed Urine Culture Stat Micro 01/13/24 15:25 Received Medical Decision Narrative: In summary, this patient is a 63-year-old male presenting to the Emergency Department for evaluation of refusal to eat or take his medications at nursing facility because he wants to go home. Differential diagnoses considered include but are not limited to nausea secondary to gastrointestinal upset, viral syndrome, pneumonia, urinary tract infection, dehydration, electrolyte derangements, depression/anxiety. Ruling out the most morbid conditions drove assessment. It should be noted patient's history includes seizure disorder, hypertension, chronic ventriculomegaly, chronic malnutrition which are likely not at goal therapy. This complicates all aspects of care by increasing patient's risk for morbidity. I reviewed patient's past medical records and noted multiple previous evaluations in the past as well as evaluation on 12/27/2023 with concern for aspiration into airway. On exam, the patient is lying in bed in no acute distress at his baseline. He is alert with normal vital signs on cardiac telemetry. No obvious focal findings on exam to suggest acute issue. Workup included CBC, CMP, lipase, urinalysis, viral swab, chest x-ray. Patient was given a bolus of IV fluids. I independently interpreted chest x-ray prior to the radiologist read and noted no acute focal consolidation concerning for pneumonia. Please see their read for final interpretation. Labs were obtained that demonstrated chronic leukocytosis which is stable. BUN is very mildly elevated, but labs are otherwise reassuring. COVID/flu negative. Urinalysis is pending. Patient care signed out to Dr. Kenny pending UA/PO challenge. <Jose Kenny MD - Last Filed: 01/13/24 17:01> Vital Signs: 01/13/24 11:58 01/13/24 12:00 01/13/24 12:30 Temperature 97.5 F L Temperature Source Oral Pulse Rate 83 75 Pulse Rate [Left Radial] 72 Respiratory Rate 20 Blood Pressure 128/86 121/77 Blood Pressure [Right Arm] 125/75 Blood Pressure Mean [Right Arm] 91 02 Sat by Pulse Oximetry 95 96 97 Oxygen Delivery Method Room Air 01/13/24 13:30 01/13/24 14:00 01/13/24 14:30 Temperature Temperature Source Pulse Rate 71 73 74 Pulse Rate [Left Radial] Respiratory Rate Blood Pressure 106/71 L 106/68 L 110/73 Blood Pressure [Right Arm] Blood Pressure Mean [Right Arm] 02 Sat by Pulse Oximetry 94 L 97 95 Oxygen Delivery Method 01/13/24 15:00 01/13/24 15:30 01/13/24 16:00 Temperature Temperature Source Pulse Rate 73 74 80 Pulse Rate [Left Radial] Respiratory Rate Blood Pressure 120/77 120/79 118/80 Blood Pressure [Right Arm] Blood Pressure Mean [Right Arm] 02 Sat by Pulse Oximetry 99 99 98 Oxygen Delivery Method Room Air Room Air 01/13/24 16:30 Temperature Temperature Source Pulse Rate 77 Pulse Rate [Left Radial] Respiratory Rate Blood Pressure 108/73 L Blood Pressure [Right Arm] Blood Pressure Mean [Right Arm] 02 Sat by Pulse Oximetry 97 Oxygen Delivery Method Room Air Lab Data Lab Results 01/13/24 13:15: WBC 11.5 H, RBC 4.48 L, Hgb 13.7 L, Hct 44.3, MCV 98.9 H, MCH 30.6, MCHC 30.9 L, RDW 14.5, Plt Count 239, MPV 7.7, Neut % (Auto) 82.0 H, Lymph % (Auto) 7.3 L, [place] % (Auto) 5.7, Eos % (Auto) 4.5, Baso % (Auto) 0.5, Neut # (Auto) 9.4 H, Lymph # (Auto) 0.8, [place] # (Auto) 0.7, Eos # (Auto) 0.5 H, Baso # (Auto) 0.1, Sodium 135 L, Potassium 4.2, Chloride 103, Carbon Dioxide 27, Anion Gap 9.2, BUN 25 H, Creatinine 0.80, Estimated Creat Clear 86, Estimated GFR 97, Est GFR ( Amer) 118, Glucose 91, Calcium 8.8, Total Bilirubin 0.8, AST 21, ALT 14, Alkaline Phosphatase 95, Total Protein 6.4, Albumin 3.4 L, Globulin 3.0, Albumin/Globulin Ratio 1.1, Lipase 30 01/13/24 13:34: SARS-CoV-2 (PCR) Not detected, Influenza A Untype (PCR) Not detected, Influenza Type B (PCR) Not detected 01/13/24 15:25: Urine Color Yellow, Urine Appearance Clear, Urine pH 8.0, Ur Specific [place] 1.020, Urine Protein 2+, Urine Glucose (UA) Negative, Urine Ketones 1+, Urine Blood 1+, Urine Nitrate Negative, Urine Bilirubin 1+ A, Urine Urobilinogen 2.0, Ur Leukocyte Esterase 2+ A, Urine RBC None, Urine WBC 10-20 Orders (Tests/Meds): ED MEDICATIONS Generic Name Dose Route Start Last Admin Trade Name Freq PRN Reason Stop Dose Admin Ceftriaxone Sodium 1 gm/ 50 mls @ 100 mls/hr 01/13/24 16:00 01/13/24 16:28 Sodium Chloride IV 01/23/24 15:59 100 mls/hr Q24H GWENDOLYN Administration Discontinued Medications Generic Name Dose Route Start Last Admin Trade Name Sergio PRN Reason Stop Dose Admin Lactated Ringer's 1,000 mls @ 999 mls/hr 01/13/24 14:22 01/13/24 14:25 Lactated Ringer's 1000 Ml Bag IV 01/13/24 15:22 999 mls/hr .Q1H1M ONE Administration ORDERS Category Date Time Status CXR --portable [XR chest portable] Stat Exams 01/13/24 12:33 Completed CBC w/Auto Diff [Complete Blood Count Auto Diff] Stat Lab 01/13/24 13:15 Completed CMP [Comprehensive Metabolic Panel] Stat Lab 01/13/24 13:15 Completed Lipase Stat Lab 01/13/24 13:15 Completed Rapid PCR Covid and Flu A/B Stat Lab 01/13/24 13:34 Completed UA [Urinalysis and Microscopic] Stat Lab 01/13/24 15:25 Completed Urine Culture Stat Micro 01/13/24 15:25 Received Medical Decision Narrative: In summary, this patient is a 63-year-old male presenting to the Emergency Department for evaluation of refusal to eat or take his medications at nursing facility because he wants to go home. Differential diagnoses considered include but are not limited to nausea secondary to gastrointestinal upset, viral syndrome, pneumonia, urinary tract infection, dehydration, electrolyte derangements, depression/anxiety. Ruling out the most morbid conditions drove assessment. It should be noted patient's history includes seizure disorder, hypertension, chronic ventriculomegaly, chronic malnutrition which are likely not at goal therapy. This complicates all aspects of care by increasing patient's risk for morbidity. I reviewed patient's past medical records and noted multiple previous evaluations in the past as well as evaluation on 12/27/2023 with concern for aspiration into airway. On exam, the patient is lying in bed in no acute distress at his baseline. He is alert with normal vital signs on cardiac telemetry. No obvious focal findings on exam to suggest acute issue. Workup included CBC, CMP, lipase, urinalysis, viral swab, chest x-ray. Patient was given a bolus of IV fluids. I independently interpreted chest x-ray prior to the radiologist read and noted no acute focal consolidation concerning for pneumonia. Please see their read for final interpretation. Labs were obtained that demonstrated chronic leukocytosis which is stable. BUN is very mildly elevated, but labs are otherwise reassuring. COVID/flu negative. Urinalysis is pending. Patient care signed out to Dr. Kenny pending UA/PO challenge. Efraín: I assumed primary responsibility for this patient after signout from previous physician. On my evaluation, patient without complaints, requesting to go home. Independent interpretation of workup reveals stable mild leukocytosis, nonactionable CBC or chemistry overall. Urinalysis with blood, protein, leukocyte esterase, bacteria concerning for UTI. 2 g Rocephin were given. Patient was p.o. challenged successfully. Given patient's history, physical exam, this most likely represents functional decline as well as decreased p.o. intake secondary to symptoms of UTI. Because patient at baseline without signs or symptoms of clinical decompensation, deemed appropriate for discharge. Results were relayed to patient who voiced understanding and were agreeable to outpatient management and follow up. I discussed my clinical impression with patient and answered all questions. At this time, the evidence for any other entities in the differential is insufficient to warrant any further testing or ED observation. This was explained as well. Advisory was given that persistent or worsening symptoms require further evaluation. I confirmed the understanding of this discussion. Patient also requesting nausea meds, these were sent to the pharmacy for as needed nausea and stimulant for appetite. Critical Care <Katarina Valera, DO - Last Filed: 01/13/24 15:13> Critical Care Time Critical Care Time: No
[2024-01-13 13:26] LABS: Basophils # 0.1 K/mm3 (0-0.2); Basophils % 0.5 % (0.1-2.0); Eosinophils # 0.5 K/mm3 (0.0-0.4); Eosinophils % 4.5 % (0.1-12.0); Hematocrit 44.3 % (42.0-52.0); Hemoglobin 13.7 g/dL (14.1-18.0); Lymphocytes # 0.8 K/mm3 (0.7-4.5); Lymphocytes % 7.3 % (10-50); Mean Corpuscular HGB Conc 30.9 g/dL (31.8-35.4); Mean Corpuscular Hemoglobin 30.6 pg (27.0-31.2); Mean Corpuscular Volume 98.9 fl (80-94); Mean Platelet Volume 7.7 fl (7.4-10.4); Monocytes # 0.7 K/mm3 (0.1-1.0); Monocytes % 5.7 % (1.7-9.3); Neutrophils # 9.4 K/mm3 (1.8-7.8); Platelet Count 239 K/mm3 (142-424); Red Blood Count 4.48 M/mm3 (4.60-6.20); Red Cell Distribution Width 14.5 % (11.5-17.5); White Blood Count 11.5 K/mm3 (4.8-10.8)
[2024-01-13 13:38] LABS: Coronavirus 19, PCR Not Detected (NotDetected); Influenza A, PCR Not Detected (NotDetected); Influenza B, PCR Not Detected (NotDetected)
[2024-01-13 13:56] LABS: Albumin Level 3.4 g/dl (3.5-5.0); Chloride 103 mmol/L (98-107)
[2024-01-13 13:57] LABS: Potassium 4.2 mmoL/L (3.5-5.1); Sodium 135 mmol/L (136-145)
[2024-01-13 13:59] LABS: Blood Urea Nitrogen 25 mg/dl (9-20); Creatinine Clearance Estimated 86 mL/min (50-200); Estimated Glomerular Filt Rate 97 ml/min (>60); GFR (African American) 118 ML/MIN (>60)
[2024-01-13 14:00] LABS: Alanine Aminotransferase 14 U/L (12-78); Albumin/Globulin Ratio 1.1 (1.1-1.8); Alkaline Phosphatase 95 U/L (38-126); Anion Gap 9.2 mEq/L (5-15); Aspartate Amino Transferase 21 U/L (17-59); Bilirubin,Total 0.8 mg/dl (0.2-1.3); Calcium 8.8 mg/dl (8.4-10.2); Carbon Dioxide 27 mmol/L (22.0-30.0); Glucose 91 mg/dl (74-100); Lipase 30 U/L (23-300); Total Protein,Serum 6.4 g/dl (6.3-8.2)
[2024-01-13] MEDS: LACTATED RINGERS 1000ML 1,000 ML 999 ML IV (14:25)
[2024-01-13 15:36] LABS: Microscopic, Urine URINE MICROSCOPIC (MICROSCOPIC)
[2024-01-13 15:39] LABS: Appearance,Urine CLEAR (Clear); Blood, Urine 1+ (Negative); Color,Urine YELLOW (Yellow); Glucose,Urine (UA) Negative (Negative); Ketones,Urine 1+ (Negative); Leukocyte Esterase,Urine 2+ (Negative); Nitrate,Urine Negative (Negative); Protein,Urine 2+ (Negative)
[2024-01-13 15:49] LABS: Bilirubin,Urine 1+ (Negative)
[2024-01-13] MEDS: CEFTRIAXONE 1 GM 1 GM in 0.9 % SODIUM CHLORIDE 50 ML IV (16:28)
--- NOTE | 2024-01-13 16:46 | PC.NURSE ---
Rounded on pt. Pt voiced no needs at this time. Call light within reach.
--- NOTE | 2024-01-13 17:17 | PC.NURSE ---
report called to sally gupta
--- NOTE | 2024-01-13 17:28 | PC.NURSE ---
called EMS for transfer at this time.
== END 2024-01-13 18:10 | disposition home or self-care (01) ==
PROVIDERS: Emergency Medicine; Emergency Provider Emergency Medicine; PCP Internal Medicine
DX: N39.0 Urinary tract infection, site not specified (principal); B96.4 Proteus (mirabilis) (morganii) as the cause of diseases classified elsewhere; R11.0 Nausea; Z91.148 Patient's other noncompliance with medication regimen for other reason; J44.9 Chronic obstructive pulmonary disease, unspecified; I10 Essential (primary) hypertension; G40.909 Epilepsy, unspecified, not intractable, without status epilepticus; Q66.89 Other specified congenital deformities of feet; F70 Mild intellectual disabilities; G93.89 Other specified disorders of brain; Z72.4 Inappropriate diet and eating habits
CPT/HCPCS: 71045; 80053; 81001; 83690; 85025; 87086; 87088; 87186; 87636; 96361; 96365; 99284; J0696; J7120

== ENCOUNTER 2024-02-05 18:29 | Outpatient (CLI) | payer MEDICARE, MEDICAID, SELFPAY ==
[2024-02-05 18:57] LABS: Microscopic, Urine URINE MICROSCOPIC (MICROSCOPIC)
[2024-02-05 19:43] LABS: Appearance,Urine SL CLOUDY (Clear); Blood, Urine 3+ (Negative); Color,Urine DARK YELLOW (Yellow); Glucose,Urine (UA) Negative (Negative); Ketones,Urine 2+ (Negative); Leukocyte Esterase,Urine Negative (Negative); Nitrate,Urine Negative (Negative); PH,Urine 5.5 (5.0-8.5); Protein,Urine TRACE (Negative); Specific Gravity, Urine >= 1.030 (1.005-1.030)
[2024-02-05 19:49] LABS: Bilirubin,Urine Negative (Negative)
[2024-02-05 20:02] LABS: Bacteria,Urine Trace /lpf; Squamous Epithelial Cell,Urine Occasional #/hpf (0-5)
== END 2024-02-05 23:59 | disposition home or self-care (01) ==
LOC: LAB.DROPOF 18:30
PROVIDERS: PCP Internal Medicine Adolescent Medicine; Visit Provider Internal Medicine Adolescent Medicine
DX: R53.1 Weakness (principal); J44.9 Chronic obstructive pulmonary disease, unspecified; G93.40 Encephalopathy, unspecified; J96.01 Acute respiratory failure with hypoxia; K30 Functional dyspepsia; Z79.899 Other long term (current) drug therapy; E78.5 Hyperlipidemia, unspecified; G31.84 Mild cognitive impairment of uncertain or unknown etiology; Q05.9 Spina bifida, unspecified; I10 Essential (primary) hypertension
CPT/HCPCS: 81001; 87086

== ENCOUNTER 2024-02-22 13:04 | Inpatient (IN) | payer MEDICARE, MEDICAID, SELFPAY ==
[2024-02-22] VITALS (21 sets, daily range): BP systolic 80–133; BP diastolic 44–88; PULSE 72–92; RESP 16–22; TEMP 36.4–37.9; O2SAT 92–98; BMI 29.9
--- NOTE | 2024-02-22 | ECG_ITS ---
APPROVED REPORT Exam: Resting ECG HR:89 bpm ECG Measurements Heart Rate 89 AXES AK 129 P 65 QRSd 89 QRS -12 QT 365 T 4 QTc 412 Conclusion SINUS RHYTHM INFERIOR MYOCARDIAL INFARCTION , PROBABLY OLD [40+ ms Q WAVE AND/OR ST/T ABNORMALITY IN II/aVF] ABNORMAL ECG Electronically signed by : BHASKAR NERI, 02/23/2024 21:13:49
--- NOTE | 2024-02-22 13:17 | XR_ITS ---
FINAL REPORT CLINICAL HISTORY: SIRS +, AMS COMPARISON: 01/13/2024 FINDINGS: No acute pulmonary opacity is present. There is no evidence of effusion or pneumothorax. Mediastinum is unremarkable. Heart size is normal. IMPRESSION: No acute abnormality. Reviewed, Interpreted and Dictated by Eugenia Shanks MD Transcribed by Torrie Law Authenticated and [facility]
[2024-02-22 13:24] LABS: Basophils % 0.4 % (0.1-2.0); Eosinophils # 0.1 K/mm3 (0.0-0.4); Eosinophils % 1.6 % (0.1-12.0); Hematocrit 36.7 % (42.0-52.0); Hemoglobin 11.6 g/dL (14.1-18.0); Lymphocytes # 1.1 K/mm3 (0.7-4.5); Lymphocytes % 14.2 % (10-50); Mean Corpuscular HGB Conc 31.6 g/dL (31.8-35.4); Mean Corpuscular Hemoglobin 30.7 pg (27.0-31.2); Monocytes # 0.4 K/mm3 (0.1-1.0); Monocytes % 4.6 % (1.7-9.3); Neutrophils # 6.2 K/mm3 (1.8-7.8); Neutrophils % 79.3 % (37.0-80.0); Platelet Count 326 K/mm3 (142-424); Red Blood Count 3.79 M/mm3 (4.60-6.20); Red Cell Distribution Width 14.4 % (11.5-17.5); White Blood Count 7.9 K/mm3 (4.8-10.8)
[2024-02-22 13:26] LABS: Albumin Level 2.9 g/dl (3.5-5.0); Chloride 109 mmol/L (98-107); Potassium 3.1 mmoL/L (3.5-5.1); Sodium 139 mmol/L (136-145)
[2024-02-22 13:29] LABS: Alanine Aminotransferase 12 U/L (12-78); Alkaline Phosphatase 77 U/L (38-126); Anion Gap 5.1 mEq/L (5-15); Aspartate Amino Transferase 24 U/L (17-59); Bilirubin,Total 0.8 mg/dl (0.2-1.3); Blood Urea Nitrogen 21 mg/dl (9-20); Calcium 8.1 mg/dl (8.4-10.2); Carbon Dioxide 28 mmol/L (22.0-30.0); Creatinine Clearance Estimated 86 mL/min (50-200); Estimated Glomerular Filt Rate 97 ml/min (>60); GFR (African American) 118 ML/MIN (>60); Globulin 2.8 g/dL (1.3-3.2); Glucose 83 mg/dl (74-100); Lipase 54 U/L (23-300); Magnesium 1.9 mg/dl (1.6-2.3); Phosphorous 3.3 mg/dl (2.5-4.5); Total Protein,Serum 5.7 g/dl (6.3-8.2)
[2024-02-22 13:31] LABS: Activated Partial Thrombo Time 28.4 seconds (22.8-30.6); INR 1.13 (0.9-1.1); Prothrombin Time 12.5 seconds (10.1-12.5)
[2024-02-22 13:32] LABS: Lactate Venous 1.3 mmol/L (0.4-2.0); VBG Base Excess -0.3 mmol/L (-2.4-2.3); VBG HCO3 23.4 mmol/L (23-30); VBG Oxygen Saturation 99.3 % (50-70); VBG PCO2 32.8 mmol/L (35-51); VBG PH 7.47 mmol/L (7.31-7.41); VBG PO2 182.9 mmol/L (28-40); VBG Total CO2 24.4 mmol/L (23-27)
[2024-02-22 13:39] LABS: Microscopic, Urine URINE MICROSCOPIC (MICROSCOPIC)
[2024-02-22 13:39] LABS: Coronavirus 19, PCR Not Detected (NotDetected); Influenza A, PCR Not Detected (NotDetected); Influenza B, PCR Not Detected (NotDetected)
[2024-02-22] MEDS: LACTATED RINGERS 1000ML 1,850 ML 925 ML IV (13:39)
[2024-02-22 13:41] LABS: NT Pro Brain Natriuretic Pep. 94.3 pg/mL (0-125)
[2024-02-22 13:43] LABS: Appearance,Urine CLOUDY (Clear); Blood, Urine 3+ (Negative); Color,Urine ORANGE (Yellow); Glucose,Urine (UA) Negative (Negative); Ketones,Urine 1+ (Negative); Leukocyte Esterase,Urine 2+ (Negative); Nitrate,Urine POSITIVE (Negative); PH,Urine 6.5 (5.0-8.5); Protein,Urine 2+ (Negative); Specific Gravity, Urine 1.025 (1.005-1.030); Urobilinogen,Urine >=8.0 EU/dl (0.2)
[2024-02-22 13:48] LABS: T4 (Thyroxine) 12.5 ug/dl (5.53-11.0)
[2024-02-22 13:50] LABS: Bilirubin,Urine 2+ (Negative)
[2024-02-22 13:50] LABS: Troponin I < 0.01 ng/ml (0.00-0.034)
[2024-02-22 14:01] LABS: Thyroid Stimulating Hormone 1.73 uIU/mL (0.465-4.68)
[2024-02-22 14:04] LABS: Bacteria,Urine 2+ /lpf; Squamous Epithelial Cell,Urine Occasional #/hpf (0-5); WBC,Urine 50-100 #/hpf (0-3)
[2024-02-22] MEDS: CEFTRIAXONE SODIUM 2 GM in 0.9 % SODIUM CHLORIDE 100 ML IV (14:07)
--- NOTE | 2024-02-22 14:07 | EXP.HP ---
History of Present Illness *Admission Date: 02/22/24 *Reason for visit:: not eating, dark turbid urine, decline in functional status [facility] Disclaimer: The information contained in this section may have been updated after the patient was seen, as this information can be updated by other users. Medical History Asthma Hypokalemia Frequent falls Cerebral ventriculomegaly Club foot of both lower extremities Hyperlipemia Depression Hypertension Chronic obstructive pulmonary disease Epilepsy Obesity Claudication Abnormal ankle brachial index (CHAUNCEY) Bilateral leg pain Abnormal EKG Dizziness Mild intellectual disabilities Anxiety Neuropathy Social History Smoking Status: Never smoker alcohol intake: never substance use type: denies use current occupational status: disabled Travel in the last 8 weeks: None household members: family housing: house current occupational exposures/hazards: No caffeine: Yes Review of Systems Review of Systems Review of systems (narrative): 14 point review of systems performed, pertinent positives and negatives as per [facility] Meds Home Medications and Allergies Home Medications ?Medication ?Instructions ?Recorded ?Confirmed ?Type atenolol 25 mg tablet 25 mg PO DAILY 10/01/23 02/22/24 History omeprazole 40 mg capsule,delayed 40 mg PO HS 10/01/23 02/22/24 History release acetaminophen 500 mg tablet 1,000 mg PO Q6HP PRN FEVER OR MILD 11/03/23 02/22/24 History PAIN artificial tears solution eye drops 2 drp ophthalmic (eye) BIDP PRN 11/03/23 02/22/24 History EYE DRYNESS baclofen 10 mg tablet 10 mg PO TID #90 tabs 11/05/23 02/22/24 Rx levetiracetam 500 mg tablet 500 mg PO BID #60 tabs 11/05/23 02/22/24 Rx cariprazine 1.5 mg capsule 1.5 mg PO DAILY 11/16/23 02/22/24 History gabapentin 600 mg tablet 600 mg PO TID 11/16/23 02/22/24 History docusate sodium 100 mg capsule 100 mg PO DAILY #0 caps 11/19/23 02/22/24 Rx aluminum hydrox-magnesium carb 95 30 ml PO DAILYP PRN dyspepsia 02/22/24 02/22/24 History mg-358 mg/15 mL oral suspension (Acid Gone Antacid) amoxicillin 875 mg tablet 875 mg PO BID 02/22/24 02/22/24 History citalopram 40 mg tablet 40 mg PO DAILY 02/22/24 02/22/24 History diazepam 5 mg tablet 5 mg PO TID 02/22/24 02/22/24 History ondansetron 4 mg disintegrating 4 mg PO Q6HP PRN nausea and 02/22/24 02/22/24 History tablet vomiting New Prescriptions to Start Prescriptions: Allergies Allergy/AdvReac Type Severity Reaction Status Date / Time No Known Allergies Allergy Verified 11/01/23 11:07 Exam Data for Last 24 hours Vital signs and Labs for Last 24 Hours: Temp Pulse Resp BP Pulse Ox O2 Del Method 100.3 F H 86 19 94/64 L 97 Room Air 02/22/24 13:04 02/22/24 14:00 02/22/24 14:00 02/22/24 14:00 02/22/24 14:00 02/22/24 13:45 Laboratory Results - last 24 hr 02/22/24 13:00: WBC 7.9, RBC 3.79 L, Hgb 11.6 L, Hct 36.7 L, MCV 97.0 H, MCH 30.7, MCHC 31.6 L, RDW 14.4, Plt Count 326, MPV 8.0, Neut % (Auto) 79.3, Lymph % (Auto) 14.2, [place] % (Auto) 4.6, Eos % (Auto) 1.6, Baso % (Auto) 0.4, Neut # (Auto) 6.2, Lymph # (Auto) 1.1, [place] # (Auto) 0.4, Eos # (Auto) 0.1, Baso # (Auto) 0.0, PT 12.5, INR 1.13 H, APTT 28.4, Sodium 139, Potassium 3.1 L, Chloride 109 H, Carbon Dioxide 28, Anion Gap 5.1, BUN 21 H, Creatinine 0.80, Estimated Creat Clear 86, Estimated GFR 97, Est GFR ( Amer) 118, Glucose 83, Calcium 8.1 L, Phosphorus 3.3, Magnesium 1.9, Total Bilirubin 0.8, AST 24, ALT 12, Alkaline Phosphatase 77, Troponin I < 0.01, NT-Pro-B Natriuret Pep 94.3, Total Protein 5.7 L, Albumin 2.9 L, Globulin 2.8, Albumin/Globulin Ratio 1.0 L, Lipase 54, TSH 1.73, Thyroxine (T4) 12.5 H 02/22/24 13:17: VBG pH 7.47 H, VBG pCO2 32.8 L, VBG pO2 182.9 H, VBG HCO3 23.4, VBG Total CO2 24.4, VBG O2 Saturation 99.3 H, VBG Base Excess -0.3, VBG Lactic Acid 1.3 02/22/24 13:36: Urine Color [place], Urine Appearance Cloudy, Urine pH 6.5, Ur Specific [place] 1.025, Urine Protein 2+ A, Urine Glucose (UA) Negative, Urine Ketones 1+, Urine Blood 3+ A, Urine Nitrate Positive, Urine Bilirubin 2+ A, Urine Urobilinogen >=8.0, Ur Leukocyte Esterase 2+ A, Urine RBC 10-20, Urine WBC 50-100, Ur Squamous Epith Cells Occasional, Urine Bacteria 2+ I & O for Last 24 hours: Intake & Output 02/19/24 02/20/24 02/21/24 02/22/24 23:59 23:59 23:59 23:59 Weight 81.647 kg Constitutional Constitutional: mild distress, average body habitus, chronically ill appearing and disheveled *Routine HEENT Exam Head: Absent normocephalic Eye: Present EOMI and PERRL ENT: Present mucous membranes dry Comments: Macrocephaly *Routine Neck Exam Neck: Present supple; Absent lymphadenopathy *Routine Respiratory Exam Respiratory: Present CTA bilaterally; Absent rhonchi, wheezes or crackles *Routine Cardiovascular Exam Cardiovascular: Present RRR Comments: Regular rhythm *Routine Abdominal Exam Abdominal: Present soft and normoactive bowel sounds; Absent tenderness *Routine Rectal Exam Rectal:: deferred *Routine Genitalia Exam Genitalia:: deferred *Routine Extremities Exam Extremities: Absent cyanosis, clubbing or edema Comments: Plantarflexion of feet bilaterally. Minor tremor in left upper extremity *Routine Skin Exam Skin: Present intact and warm; Absent rash Comments: Stage I decubitus wound of upper pole of gluteal cleft/sacrum *Routine Neurological Exam Neurological: Present alert and moving all extremities Comments: Oriented to self, minimal verbal response to questions; tremor in left upper extremity Routine Psychiatric Exam Psychiatric: Present unable to assess Assessment and Plan *Assessment and plan (1) Sepsis secondary to UTI: Status: Acute Category: Medical Code(s): A41.9 - Sepsis, unspecified organism; N39.0 - Urinary tract infection, site not specified (2) Acute hypokalemia: Status: Acute Category: Medical Code(s): E87.6 - Hypokalemia (3) Fever: Status: Resolved Category: Medical Code(s): R50.9 - Fever, unspecified (4) Acute encephalopathy: Status: Resolved Category: Medical Code(s): G93.40 - Encephalopathy, unspecified (5) Long-term current use of benzodiazepine: Status: Acute Category: Medical Code(s): Z79.899 - Other extermination supervisor (current) drug therapy (6) Arm pain, left: Status: Acute Category: Medical Code(s): M79.602 - Pain in left arm (7) Tremor of left hand: Status: Acute Category: Medical Code(s): R25.1 - Tremor, unspecified (8) General weakness: Status: Acute Category: Medical Code(s): R53.1 - Weakness (9) Epilepsy: Status: Acute Qualifiers: Epilepsy type: other Category: Medical Code(s): G40.909 - Epilepsy, unspecified, not intractable, without status epilepticus (10) Cerebral ventriculomegaly: Problem Comment: [address] consistent with 2021 Status: Acute Category: Medical Code(s): G93.89 - Other specified disorders of brain (11) Depression: Status: Acute Category: Medical Code(s): F32.A - Depression, unspecified (12) Sacral decubitus ulcer: Status: Acute Category: Medical Code(s): L89.159 - Pressure ulcer of sacral region, unspecified stage (13) Functional quadriplegia: Status: Chronic Category: Medical Code(s): R53.2 - Functional quadriplegia (14) Severe protein-calorie malnutrition: Status: Acute Category: Medical Code(s): E43 - Unspecified severe protein-calorie malnutrition Plan 63-year-old male with history of ventriculomegaly, hydrocephalus, clubfoot, seizure disorder, asthma/COPD, peripheral neuropathy, GERD, hyperlipidemia, frequent falls, cognitive disability. Presented to the ER because of concern for difficulty eating, failure to thrive, declining status. Workup in the ER shows concern for UTI likely related to his long-term indwelling catheter. Discussed case with ER physician, request admission for further treatment including antibiotics and goals of care discussion with family. I agreed to admit for further management. Initiated on IV antibiotics. Blood cultures obtained in the ER. Catheter exchanged upon arrival to the floor. Problems addressed as follows: fever Sepsis UTI -On presentation, white count 7.9 with neutrophil predominance at 80%. Temperature elevated to 100.3. Urine grossly abnormal with 2+ leuk esterase, + nitrate, 2+ bacteria and abilio leukuria. Urine culture pending. Blood cultures obtained. Initiated on empiric antibiotics with ceftriaxone 2 g once in the ER. Will transition to cefepime 2 g every 12 hours given residence at a nursing facility and long-term indwelling catheter. Further management pending culture results -VBG with respiratory alkalosis pH of 7.47. - Potassium low at 3.1 -Repeat CBC, CMP, magnesium ordered for the morning -Blood pressure soft after fluid bolus but MAP above 60. Continue maintenance fluids with LR at 125 cc an hour. Holding home blood pressure meds. Low threshold to initiate Levophed if blood pressure continues to drop -Goal MAP greater than 65 - Kidney function with BUN of 21, creatinine 0.8; appears at his baseline -Chest x-ray personally reviewed, no focal airspace disease or consolidation Mild cognitive impairment: Chronic hydrocephalus with ventriculomegaly obesity Functional quadriplegia - Chronic conditions complicate all aspects of his care. Currently unable to perform ADLs safely including transfers, feeding self, or self-care of any type. -Per chart review, CT of head obtained in October per my review shows severe hydrocephalus with ventriculomegaly. present for majority of his life. -Necessitates long-term care/institutionalized care. Beyond the capacity of family to care for patient Seizure disorder Anxiety Left arm tremor -Continue gabapentin, 600 mg 3 times a day to help with calming tremor -Continue Keppra 500 mg twice daily began at last visit -Has gradually increased his Valium to 5 mg 3 times a day, concern for over sedating. Decreased to 2.5 mg 3 times a day. Will consider decreasing further pending response. Monitor for withdrawal symptoms -Continue citalopram 40 mg daily -Baclofen 10 mg 3 times a day -Holding home Vraylar as it is not on our formulary Holding atenolol for hypertension given patient's soft blood pressure Hyperlipidemia: Continue pravastatin 20 mg nightly Sacral decubitus wound. Turning every 2 hours, protective dressing, float heels for offloading to decrease pressure wounds to heels. Heel pads in place. Full code Pur?ed diet PLOV
--- NOTE | 2024-02-22 14:09 | PC.NURSE ---
CARE MANAGEMENT NOTIFIED OF ADMISSION
--- NOTE | 2024-02-22 14:19 | ED_ITS ---
Discharge Plan Disposition Patient Disposition: Admitted Condition: Fair Clinical Impressions Clinical Impression: Sepsis secondary to UTI, Adult failure to thrive, Acute hypokalemia Discharge ED Provider: Katarina Valera General Adult HPI General Chief complaint: Weakness Stated complaint: Weakness Time Seen by Provider: 02/22/24 13:13 Mode of Arrival: EMS Source of Information: Patient Limitations: No Limitations Description of Symptoms (Recalled from ER Triage Doc. by RN): pt presents to ED via [facility] ems for decline of functional status. pt unable to give accurate description. EMS staff state pt was hypotensive, warm to touch. pt does live in snf. History of Present Illness HPI narrative: This patient is a 63-year-old male well-known to the emergency department with extensive past medical history including intellectual disability, cerebral ventriculomegaly, and epilepsy presenting to the emergency department for evaluation from nursing facility with concern for functional decline. According to the nursing facility, the patient has not been eating or drinking, had low blood pressure, felt warm to the touch, and has had a decline in his functional status. On medical record review, has been seen in the ED multiple times for this. He has chronic indwelling Medina and has had multiple UTIs and also has history of aspiration with pneumonia. Family has been considering hospice, however they wanted the patient evaluated here today because they want to keep doing everything they can to give him the best possible chance. Patient does not contribute to history. Related Data Home Medications ?Medication ?Instructions ?Recorded ?Confirmed atenolol 25 mg tablet 25 mg PO DAILY 10/01/23 02/22/24 omeprazole 40 mg capsule,delayed 40 mg PO HS 10/01/23 02/22/24 release acetaminophen 500 mg tablet 1,000 mg PO Q6HP PRN FEVER OR MILD 11/03/23 02/22/24 PAIN artificial tears solution eye drops 2 drp ophthalmic (eye) BIDP PRN 11/03/23 02/22/24 EYE DRYNESS cariprazine 1.5 mg capsule 1.5 mg PO DAILY 11/16/23 02/22/24 gabapentin 600 mg tablet 600 mg PO TID 11/16/23 02/22/24 aluminum hydrox-magnesium carb 95 30 ml PO DAILYP PRN dyspepsia 02/22/24 02/22/24 mg-358 mg/15 mL oral suspension (Acid Gone Antacid) amoxicillin 875 mg tablet 875 mg PO BID 02/22/24 02/22/24 citalopram 40 mg tablet 40 mg PO DAILY 02/22/24 02/22/24 diazepam 5 mg tablet 5 mg PO TID 02/22/24 02/22/24 ondansetron 4 mg disintegrating 4 mg PO Q6HP PRN nausea and 02/22/24 02/22/24 tablet vomiting Previous Rx's ?Medication ?Instructions ?Recorded baclofen 10 mg tablet 10 mg PO TID #90 tabs 11/05/23 levetiracetam 500 mg tablet 500 mg PO BID #60 tabs 11/05/23 docusate sodium 100 mg capsule 100 mg PO DAILY #0 caps 11/19/23 Allergies Allergy/AdvReac Type Severity Reaction Status Date / Time No Known Allergies Allergy Verified 11/01/23 11:07 [facility] Disclaimer: The information contained in this section may have been updated after the patient was seen, as this information can be updated by other users. Medical History Asthma Hypokalemia Frequent falls Cerebral ventriculomegaly Club foot of both lower extremities Hyperlipemia Depression Hypertension Chronic obstructive pulmonary disease Epilepsy Obesity Claudication Abnormal ankle brachial index (CHAUNCEY) Bilateral leg pain Abnormal EKG Dizziness Mild intellectual disabilities Anxiety Neuropathy Social History Smoking Status: Never smoker alcohol intake: never substance use type: denies use current occupational status: disabled Travel in the last 8 weeks: None household members: family housing: house current occupational exposures/hazards: No caffeine: Yes ROS Obtained: Yes All systems reviewed & no additional complaints except as documented Physical Exam General General appearance: alert Comment: Chronically ill-appearing Head Head exam: atraumatic and normocephalic Eye Eye exam: Present normal appearance, PERRL and EOMI ENT ENT exam: Present normal oropharynx, mucous membranes dry and normal external ear exam Neck Neck exam: Present normal inspection and trachea midline; Absent tenderness Chest Chest inspection: Present normal inspection and symmetric chest wall rise; Absent tenderness Respiratory Respiratory exam: Present normal lung sounds bilaterally; Absent respiratory distress, wheezes, stridor, accessory muscle use or prolonged expiratory phase Cardiovascular Cardiovascular exam: Present regular rate and normal rhythm Abdominal Exam Abdominal exam: Present soft; Absent distention, tenderness, guarding or rebound exam: Present other (Medina catheter in place with thick, purulent urine) Extremities Exam Extremities exam: Present normal capillary refill Neurological Exam Neurological exam: Present alert Expanded Neurological Exam Coma scale eye opening: Spontaneous Coma scale motor response: Localizes to pain Coma scale verbal response: Incomprehensible Coma scale total: 11 Skin Skin exam: Present warm and dry Medical Decision Making Medical Records Medical records reviewed: Yes I reviewed the patient's medical records. Screening: Per USPSTF and CDC recommendations, given the prevalence of disease in our region, it is our hospital?s policy to screen for HIV and viral Hepatitis for all patients aged 18 and over and those with ongoing risk factors. Nate Inquiry Pt receiving controlled substance: No Vital Signs: 02/22/24 13:04 02/22/24 13:13 02/22/24 13:14 Temperature 100.3 F H Temperature Source Oral Pulse Rate 90 91 H Pulse Rate [Left Radial] 92 H Respiratory Rate 21 21 21 Blood Pressure 85/56 L 86/58 L Blood Pressure [Right Arm] 85/56 L Blood Pressure Mean Blood Pressure Mean [Right Arm] 65 Blood Pressure Source 02 Sat by Pulse Oximetry 92 L 92 L 92 L Oxygen Delivery Method Room Air Room Air Room Air 02/22/24 13:30 02/22/24 13:36 02/22/24 13:45 Temperature Temperature Source Pulse Rate 89 Pulse Rate [Left Radial] Respiratory Rate 19 18 19 Blood Pressure 89/66 L 99/68 L 93/60 L Blood Pressure [Right Arm] Blood Pressure Mean Blood Pressure Mean [Right Arm] Blood Pressure Source 02 Sat by Pulse Oximetry 93 L 96 96 Oxygen Delivery Method Room Air Room Air Room Air 02/22/24 14:00 02/22/24 14:22 02/22/24 14:30 Temperature Temperature Source Pulse Rate 86 90 85 Pulse Rate [Left Radial] Respiratory Rate 19 Blood Pressure 94/64 L 90/63 L 95/61 L Blood Pressure [Right Arm] Blood Pressure Mean 72 75 75 Blood Pressure Mean [Right Arm] Blood Pressure Source 02 Sat by Pulse Oximetry 97 97 96 Oxygen Delivery Method Room Air Room Air 02/22/24 14:49 Temperature 99.0 F Temperature Source Axillary Pulse Rate 73 Pulse Rate [Left Radial] Respiratory Rate 20 Blood Pressure 95/61 L Blood Pressure [Right Arm] Blood Pressure Mean Blood Pressure Mean [Right Arm] Blood Pressure Source Automatic Cuff 02 Sat by Pulse Oximetry Oxygen Delivery Method Room Air Lab Data Lab results reviewed: Yes I reviewed the patient's lab results. Lab Results 02/22/24 13:00: WBC 7.9, RBC 3.79 L, Hgb 11.6 L, Hct 36.7 L, MCV 97.0 H, MCH 30.7, MCHC 31.6 L, RDW 14.4, Plt Count 326, MPV 8.0, Neut % (Auto) 79.3, Lymph % (Auto) 14.2, [place] % (Auto) 4.6, Eos % (Auto) 1.6, Baso % (Auto) 0.4, Neut # (Auto) 6.2, Lymph # (Auto) 1.1, [place] # (Auto) 0.4, Eos # (Auto) 0.1, Baso # (Auto) 0.0, PT 12.5, INR 1.13 H, APTT 28.4, Sodium 139, Potassium 3.1 L, C hloride 109 H, Carbon Dioxide 28, Anion Gap 5.1, BUN 21 H, Creatinine 0.80, Estimated Creat Clear 86, Estimated GFR 97, Est GFR ( Amer) 118, Glucose 83, Calcium 8.1 L, Phosphorus 3.3, Magnesium 1.9, Total Bilirubin 0.8, AST 24, ALT 12, Alkaline Phosphatase 77, Troponin I < 0.01, NT-Pro-B Natriuret Pep 94.3, Total Protein 5.7 L, Albumin 2.9 L, Globulin 2.8, Albumin/Globulin Ratio 1.0 L, Lipase 54, TSH 1.73, Thyroxine (T4) 12.5 H 02/22/24 13:17: VBG pH 7.47 H, VBG pCO2 32.8 L, VBG pO2 182.9 H, VBG HCO3 23.4, VBG Total CO2 24.4, VBG O2 Saturation 99.3 H, VBG Base Excess -0.3, VBG Lactic Acid 1.3 02/22/24 13:19: HIV 1&2 Antibody Rapid Nonreactive 02/22/24 13:32: SARS-CoV-2 (PCR) Not detected, Influenza A Untype (PCR) Not detected, Influenza Type B (PCR) Not detected 02/22/24 13:36: Urine Color [place], Urine Appearance Cloudy, Urine pH 6.5, Ur Specific [place] 1.025, Urine Protein 2+ A, Urine Glucose (UA) Negative, Urine Ketones 1+, Urine Blood 3+ A, Urine Nitrate Positive, Urine Bilirubin 2+ A, Urine Urobilinogen >=8.0, Ur Leukocyte Esterase 2+ A, Urine RBC 10-20, Urine WBC 50-100, Ur Squamous Epith Cells Occasional, Urine Bacteria 2+ 02/22/24 13:00 02/22/24 13:00 Orders (Tests/Meds): ED MEDICATIONS Generic Name Dose Route Start Last Admin Trade Name Freq PRN Reason Stop Dose Admin Potassium Chloride/Water 100 mls @ 100 mls/hr 02/22/24 13:41 Potassium Chloride 10meq/100ml Ivpb IV 02/22/24 15:40 Q1H GWENDOLYN Ceftriaxone Sodium 2 gm/ 100 mls @ 200 mls/hr 02/23/24 13:00 Sodium Chloride IV 03/04/24 12:59 Q24H GWENDOLYN Discontinued Medications Generic Name Dose Route Start Last Admin Trade Name Freq PRN Reason Stop Dose Admin Lactated Ringer's 1,850 mls @ 925 mls/hr 02/22/24 13:20 02/22/24 13:39 Lactated Ringer's 1000 Ml Bag 30 ml/kg infuse over 2 hr (1850 ml) 02/22/24 15:19 925 mls/hr IV Administration .Q2H ONE Ceftriaxone Sodium 2 gm/ 100 mls @ 200 mls/hr 02/22/24 13:55 02/22/24 14:07 Sodium Chloride IV 02/22/24 14:24 200 mls/hr ONCE ONE Administration ORDERS Category Date Time Status CXR --portable [XR chest portable] Stat Exams 02/22/24 13:17 Completed BNP [NT Pro Brain Natriuretic Pep.] Stat Lab 02/22/24 13:00 Completed CRP [C-Reactive Protein] AMLAB Lab 02/23/24 06:00 Ordered Complete Blood Count Auto Diff AMLAB Lab 02/23/24 06:00 Ordered Complete Blood Count Auto Diff Stat Lab 02/22/24 13:00 Completed Comprehensive Metabolic Panel AMLAB Lab 02/23/24 06:00 Ordered Comprehensive Metabolic Panel Stat Lab 02/22/24 13:00 Completed HIV (1&2) Antibody Rapid Stat Lab 02/22/24 13:19 Completed HIV (1&2) Antibody Rapid Stat Lab 02/22/24 14:04 Ordered Hep C Ab with Reflex to RNA Stat Lab 02/22/24 13:19 Received Hep C Ab with Reflex to RNA Stat Lab 02/22/24 14:04 Ordered Lipase Stat Lab 02/22/24 13:00 Completed Magnesium AMLAB Lab 02/23/24 06:00 Ordered Magnesium Stat Lab 02/22/24 13:00 Completed PT INR [Prothrombin Time INR] Stat Lab 02/22/24 13:00 Completed PTT [Activated Partial Thrombo Time] Stat Lab 02/22/24 13:00 Completed Phosphorous Stat Lab 02/22/24 13:00 Completed Procalcitonin DAILY Lab 02/23/24 06:00 Ordered Rapid PCR Covid and Flu A/B Stat Lab 02/22/24 13:32 Completed T4 (Thyroxine) Stat Lab 02/22/24 13:00 Completed TSH [Thyroid Stimulating Hormone] Stat Lab 02/22/24 13:00 Completed Trop I [Troponin I] Stat Lab 02/22/24 13:00 Completed Troponin I Q3H Lab 02/22/24 16:30 Ordered Troponin I Q3H Lab 02/22/24 19:30 Ordered UA [Urinalysis and Microscopic] Stat Lab 02/22/24 13:36 Completed Blood Culture Stat Micro 02/22/24 13:19 Received Urine Culture Stat Micro 02/22/24 13:37 Received VBG [Venous Blood Gas] Stat RT 02/22/24 13:17 Completed ECG Data Tracing #1: I reviewed this ECG and interpreted as documented below: Normal sinus rhythm with a ventricular rate of [address] changes concerning for ischemia. ECG initial impression date: 02/22/24 ECG initial impression time: 13:08 Medical Decision Narrative: In summary, this patient is a 63-year-old male presenting to the Emergency Department for evaluation of functional decline. Differential diagnoses considered include but are not limited to sepsis, UTI, pneumonia, adult failure to thrive, electrolyte derangements, dehydration. Ruling out the most morbid conditions drove assessment. It should be noted patient's history includes chronic indwelling Med[place] with recurrent urinary tract infections, general debility, COPD, hypertension, hyperlipidemia which are not at goal therapy. This complicates all aspects of care by increasing patient's risk for morbidity. I reviewed patient's past medical records and noted multiple previous admissions for various complaints, including sepsis secondary to UTI, pneumonia, aspiration, and functional decline.. On exam, the patient is chronically ill-appearing. He appears very clinically dry with thick, purulent urine in his [place] catheter. Workup included broad lab evaluation to evaluate for infectious, metabolic, cardiac causes of his symptoms as well as chest x-ray and EKG. EKG does not show any acute ischemic changes. I independently interpreted chest x-ray prior to the radiologist read and noted no obvious acute focal consolidation concerning for pneumonia. Please see their read for final interpretation. Labs were obtained that demonstrated urinary tract infection and protein malnutrition. On initial assessment, patient is hypotensive. After sepsis bolus, blood pressure slightly improved, the patient still remains critically ill. He is tachypneic and febrile. Given this, he meets sepsis criteria. He has a urinary tract infection, so you started on IV Rocephin based on prior culture sensitivities. Ultimately after shared decision-making with family, they still want to pursue management at this time as able, so I had an interactive discussion with the hospitalist who admitted the patient for further evaluation and management. Critical Care Critical Care Time Critical Care Time: No
--- NOTE | 2024-02-22 14:25 | PC.NURSE ---
report called to jazzy on second floor
[2024-02-22 14:35] LABS: HIV (1&2) Antibody Rapid NONREACTIVE (NONREACTIVE)
--- NOTE | 2024-02-22 15:20 | DIET.NUTRFU ---
This RD called and spoke to nurse. Patient was on pureed on 10/2023 last admit. According to nurse at patient was changed to regular due to family request, they have been bringing regular texture food to [facility]. He is having poor po intake, pocketing most all foods. They are having to suction patient often at [facility]. Spoke to provider her and decided until able to better access patient and family goals ordered pureed diet. Provider plans to have a goals of care discussion. Nurse at [facility] said they have discussed feeding tube in the past but may not be a surgical candidate.
--- NOTE | 2024-02-22 15:23 | P.CONPHA_ITS ---
Pharmacy Intervention Comments: MEDICATION RECONCILIATION COMPLETED ON PATIENT USING MAR FROM [facility]. -APARNA MILLER, ANAYELID
--- NOTE | 2024-02-22 15:23 | HMH.PHAINT1 ---
Pharmacy Intervention Comments: MEDICATION RECONCILIATION COMPLETED ON PATIENT USING MAR FROM [facility]. -APARNA MILLER, ANAYELID
[2024-02-22 16:20] LABS: Microscopic, Urine URINE MICROSCOPIC (MICROSCOPIC)
[2024-02-22 16:24] LABS: Appearance,Urine CLEAR (Clear); Blood, Urine 3+ (Negative); Color,Urine YELLOW (Yellow); Glucose,Urine (UA) Negative (Negative); Ketones,Urine 1+ (Negative); Leukocyte Esterase,Urine 2+ (Negative); Nitrate,Urine Negative (Negative); Protein,Urine 2+ (Negative); Urobilinogen,Urine >=8.0 EU/dl (0.2)
[2024-02-22 16:27] LABS: Bilirubin,Urine 3+ (Negative)
[2024-02-22 16:34] LABS: RBC,Urine 20-50 #/hpf (0-3); WBC,Urine TNTC #/hpf (0-3)
[2024-02-22 16:35] LABS: Bacteria,Urine 2+ /lpf; Mucus,Urine 4+ /lpf
[2024-02-22] MEDS: POTASSIUM CHLORIDE 10 MEQ, LIDOCAINE HCL/PF 3 ML in 0.9 % SODIUM CHLORIDE 100 ML 108 MEQ IV ×2 (16:56→18:15)
--- NOTE | 2024-02-22 17:18 | PC.NURSE ---
pt is alert to self only. pt resting on rt side with wedge placed. catheter from [place] removed and coude replaced in sterile fashion. previous catheter collected cloudy woodrow urine. minimal urine output since placing new catheter, but UA sent to lab. pt has verbalized minimally and was unable to answer admission questions. brother was able to answer for him. 3+ pitting edema present in the left lower extremity and 1+ in the left. bilateral heels boggy and bruised. heels floated and boots applied. pt has a pressure area on his sacrum. new dressing placed and pictured in the chart. expiratory rhonchi auscultated on expiration. pt has had a soft bp since admission. LR running @ 125 alongside potassium. pt on ra w/ sats >95%. about 5% of dinner eaten. pt often pockets food. oral care and q2 turns to be continued. pt has no complaints at this time. call light within reach.
[2024-02-22] MEDS: LACTATED RINGERS 1000ML 1,000 ML 125 ML IV (17:35)
--- NOTE | 2024-02-22 17:41 | PC.NURSE ---
SRNA attempted to feed pt supper. pt was willing to take bites of pureed food, but would not swallow food. pt proceeded to hold food in his mouth requiring it to be suctioned out. pt was able to drink a small amount of water (less than 100ml) from straw with assistance from staff.
--- NOTE | 2024-02-22 17:43 | PC.NURSE ---
pt is alert to self only. pt resting on rt side with wedge placed. catheter from [place] removed and coude replaced in sterile fashion. previous catheter collected cloudy woodrow urine. minimal urine output since placing new catheter, but UA sent to lab. pt has verbalized minimally and was unable to answer admission questions. brother was able to answer for him. 3+ pitting edema present in the left lower extremity and 1+ in the left. bilateral heels boggy and bruised. heels floated and boots applied. pt has a pressure area on his sacrum. new dressing placed and pictured in the chart. expiratory rhonchi auscultated on expiration. pt has had a soft bp since admission. LR running @ 125 alongside potassium. pt on ra w/ sats >95%. a few bites of dinner eaten and sips of water taken. pt often pockets food. oral care and q2 turns to be continued. pt has no complaints at this time. call light within reach.
[2024-02-22 17:56] LABS: Troponin I < 0.01 ng/ml (0.00-0.034)
--- NOTE | 2024-02-22 18:20 | EXP.EVENT.NO ---
Advance care planning note: Active diagnosis: Hydrocephalus, functional quadriplegia, progressive decline/failure to thrive, UTI, chronic urinary retention with catheter, dysphagia, seizure disorder The patient's active diagnoses are of sufficient risk that focused discussion on advanced care planning is indicated in order to allow the patient to thoughtfully consider personal goals of care; and, if situations arise that prevent the ability to personally give input, to ensure appropriate representation of their personal desires through documentation or informed surrogate decision makers. Discussion: Persons present and participating in discussion: Patient's brother, [id number], myself, patient Discussion: Extensive discussion about patient's progressive decline. Discussed goals of care and wishes for patient. Brother would like to see the patient have a chance to get better. He is upset with his decline over the past 3 to 6 months. Patient was having frequent falls but still ambulatory 6 months ago. Had progressive decline necessitating placement in rehab. Has unfortunately done very poorly and continued to decline in his condition. Is bedbound at this time and dependent on others for all of his ADLs including eating. Having continued difficulty swallowing. Discussed that if he is unable to take in oral nutrition or medications, we will have a difficult decision between comfort care and feeding tube. Brother does not feel feeding tube would be an Mikle's best interest as it would be life-prolonging but take away his ability to eat. I tend to agree with this assessment. Also feel he would be a very poor candidate for a feeding tube and high risk for complication. Patient's brother wants to give him a chance, concern his expectations are unrealistic however. Discussed giving him 48-72 hours to see how he responds to antibiotics for suspected UTI. If show some improvements then we will pursue continuing to take oral nutrition. If he does not, we will reevaluate CODE STATUS and possibility for hospice. Family unable to care for patient at home. This appears to weigh heavily on patient's brother. Time spent: Total time spent [id number] in education and discussion directly related to advance care plannin min Carson Dillon 02/22/2024 4:30-4:50pm
[2024-02-22] MEDS: diazePAM 5MG TABLET 2.5 MG PO (18:35)
[2024-02-22 19:50] LABS: Troponin I < 0.01 ng/ml (0.00-0.034)
[2024-02-22] MEDS: GABAPENTIN 600MG TABLET 600 MG PO (20:19)
[2024-02-22] MEDS: levETIRAcetam 500 MG TABLET PO (20:19)
[2024-02-22] MEDS: BACLOFEN 10MG TABLET 10 MG PO (20:19)
--- NOTE | 2024-02-22 20:46 | PC.NURSE ---
Gave patient 3 PO medications, was able to give in applesauce with a drink of water, pt did swallow pills individually. Pt began to cough after administration, suctioned sides of mouth which had pocketed water inside. No pills or dissolves medications noted in the mouth. When ask patient about a drink or turning lights off, patient was able to state yea .
[2024-02-22] MEDS: CEFEPIME HCL 2 GM in 0.9 % SODIUM CHLORIDE 100 ML IV (21:26)
[2024-02-23] VITALS (14 sets, daily range): BP systolic 82–114; BP diastolic 43–70; PULSE 59–93; RESP 14–22; TEMP 36.2–37.2; O2SAT 94–100; BMI 31.3
[2024-02-23] MEDS: 0.9 % SODIUM CHLORIDE 500 ML 250 ML IV (00:48)
--- NOTE | 2024-02-23 00:50 | XR_ITS ---
PROCEDURE INFORMATION: Exam: XR Chest Exam date and time: 02/23/2024 12:54 AM Age: 63 years old Clinical indication: Cough; Additional info: Coughing possible aspiration episode w/ dinner TECHNIQUE: Imaging protocol: Radiologic exam of the chest. Views: 1 view. Total images: 1 COMPARISON: CR XR CHEST PORTABLE 02/22/2024 1:22 PM FINDINGS: Tubes, catheters and devices: EKG leads are present. Lungs: Poor lung expansion. No airspace consolidation, infiltrate, or vascular congestion. No pulmonary edema. Pleural spaces: Unremarkable. No pleural effusion. No pneumothorax. Heart/Mediastinum: Unremarkable. No cardiomegaly. No mediastinal widening or hilar enlargement. Bones/joints: Partially visualized mild degenerative changes thoracic spine. Gastrointestinal tract: Gas-filled nondilated loops of small bowel and colon. IMPRESSION: No radiographically acute cardiopulmonary process.
--- NOTE | 2024-02-23 00:52 | EXP.EVENT.NO ---
Patient hypotensive overnight with blood pressure 93/62. Patient also suffered from coughing episode after receiving pills with applesauce around 8 AM the night. Will make patient NPO. Ordered chest x-ray looking for signs of aspiration. Will order speech swallow study, but unsure whether test will be done on weekend. Converted patient's p.o. 2.5 Valium to IV 1mg given coughing episodes with meds. CRP/procalcitonin already pending for a.m.
[2024-02-23] MEDS: diazePAM 10MG/2ML SYRINGE IV (01:01)
--- NOTE | 2024-02-23 05:45 | PC.NURSE ---
Patient alert to name only. Will answer simple yes or no questions. Oniel has made patient NPO due to risk of aspiration on medications, per previous note. Oniel stated not to give PO medications and changed IV to PO through the night. Q2 turn. Q2 oral care. Heels elevated with protectors. Lung sounds diminished. Edema noted to BLE. Pt became hypotensive 0000, new orders received and carried out. Remains on room air. [place] in place and draining dark yellow urine. Call light in reach.
[2024-02-23 07:12] LABS: HCV Ab Non Reactive (Non Reactive)
[2024-02-23 08:11] LABS: Basophils % 0.4 % (0.1-2.0); Eosinophils # 0.3 K/mm3 (0.0-0.4); Eosinophils % 3.5 % (0.1-12.0); Hematocrit 35.5 % (42.0-52.0); Hemoglobin 11.3 g/dL (14.1-18.0); Lymphocytes # 1.2 K/mm3 (0.7-4.5); Lymphocytes % 17.1 % (10-50); Mean Corpuscular HGB Conc 31.9 g/dL (31.8-35.4); Mean Corpuscular Volume 97.3 fl (80-94); Mean Platelet Volume 6.3 fl (7.4-10.4); Monocytes # 0.3 K/mm3 (0.1-1.0); Monocytes % 3.9 % (1.7-9.3); Neutrophils # 5.3 K/mm3 (1.8-7.8); Neutrophils % 75.1 % (37.0-80.0); Platelet Count 253 K/mm3 (142-424); Red Blood Count 3.65 M/mm3 (4.60-6.20); Red Cell Distribution Width 13.9 % (11.5-17.5); White Blood Count 7.1 K/mm3 (4.8-10.8)
[2024-02-23 08:23] LABS: Alanine Aminotransferase 10 U/L (12-78); Albumin Level 2.4 g/dl (3.5-5.0); Alkaline Phosphatase 65 U/L (38-126); Anion Gap 3.2 mEq/L (5-15); Aspartate Amino Transferase 17 U/L (17-59); Bilirubin,Total 0.7 mg/dl (0.2-1.3); Blood Urea Nitrogen 17 mg/dl (9-20); Calcium 7.9 mg/dl (8.4-10.2); Carbon Dioxide 28 mmol/L (22.0-30.0); Chloride 108 mmol/L (98-107); Creatinine Clearance Estimated 90 mL/min (50-200); Estimated Glomerular Filt Rate 136 ml/min (>60); GFR (African American) 164 ML/MIN (>60); Globulin 2.3 g/dL (1.3-3.2); Glucose 71 mg/dl (74-100); Magnesium 1.7 mg/dl (1.6-2.3); Potassium 3.2 mmoL/L (3.5-5.1); Sodium 136 mmol/L (136-145); Total Protein,Serum 4.7 g/dl (6.3-8.2)
[2024-02-23 08:39] LABS: Procalcitonin 1.81 ng/mL (0.0-2.0)
[2024-02-23] MEDS: CEFEPIME HCL 2 GM in 0.9 % SODIUM CHLORIDE 100 ML IV ×2 (09:08→21:24)
--- NOTE | 2024-02-23 10:26 | EXP.ACUTE.PN ---
Subjective *Date: 02/23/24 *Time: 13:57 Interval history: Patient hemodynamically stable. Difficulty eating. Coughing with pur?ed diet. Discussed case with patient's family at bedside, 1 of continue to attempt to feed. Stable on room air. Afebrile. Medical Exam Vital signs and Labs for Last 24 Hours: Vital Signs Temp Pulse Pulse Resp BP BP BP 02/23/24 10:00 59 L 20 101/59 L 02/23/24 09:30 93 H 18 98/64 L 02/23/24 09:00 02/23/24 08:30 70 22 94/57 L 02/23/24 08:00 60 02/23/24 08:00 61 18 100/54 L 02/23/24 08:00 59 L 18 82/43 L 02/23/24 08:00 97.9 F 02/23/24 08:00 02/23/24 07:30 70 20 114/70 02/23/24 06:34 02/23/24 06:00 60 14 93/60 L 02/23/24 05:00 02/23/24 04:00 02/23/24 04:00 65 02/23/24 04:00 97.2 F L 60 14 107/62 L 02/23/24 02:58 02/23/24 02:00 69 18 104/59 L 02/23/24 00:45 02/23/24 00:00 64 02/23/24 00:00 98.7 F 70 14 93/62 L 02/22/24 22:51 02/22/24 22:00 72 17 93/53 L 02/22/24 20:45 02/22/24 20:00 73 02/22/24 20:00 02/22/24 20:00 97.5 F L 75 16 102/71 L 02/22/24 18:45 02/22/24 18:18 75 16 96/67 L 02/22/24 18:00 74 18 90/63 L 02/22/24 17:09 79 16 122/67 02/22/24 17:05 02/22/24 17:04 74 16 133/88 02/22/24 17:00 02/22/24 16:30 80 16 89/51 L 02/22/24 16:00 90 02/22/24 16:00 83 22 84/52 L 02/22/24 15:43 82 16 80/45 L 02/22/24 15:27 99.4 F 81 18 91/44 L 02/22/24 15:00 02/22/24 14:49 99.0 F 73 20 95/61 L 02/22/24 14:30 85 95/61 L 02/22/24 14:22 90 90/63 L 02/22/24 14:00 86 19 94/64 L 02/22/24 13:45 19 93/60 L 02/22/24 13:36 89 18 99/68 L 02/22/24 13:30 19 89/66 L 02/22/24 13:14 91 H 21 86/58 L 02/22/24 13:13 90 21 85/56 L 02/22/24 13:04 100.3 F H 92 H 21 85/56 L Pulse Ox O2 Del Method 02/23/24 10:00 97 Room Air 02/23/24 09:30 98 Room Air 02/23/24 09:00 Room Air 02/23/24 08:30 99 Room Air 02/23/24 08:00 02/23/24 08:00 98 Room Air 02/23/24 08:00 94 L Room Air 02/23/24 08:00 02/23/24 08:00 100 Room Air 02/23/24 07:30 94 L Room Air 02/23/24 06:34 Room Air 02/23/24 06:00 97 Room Air 02/23/24 05:00 Room Air 02/23/24 04:00 Room Air 02/23/24 04:00 02/23/24 04:00 95 Room Air 02/23/24 02:58 Room Air 02/23/24 02:00 95 Room Air 02/23/24 00:45 Room Air 02/23/24 00:00 02/23/24 00:00 98 Room Air 02/22/24 22:51 Room Air 02/22/24 22:00 93 L Room Air 02/22/24 20:45 Room Air 02/22/24 20:00 02/22/24 20:00 Room Air 02/22/24 20:00 95 Room Air 02/22/24 18:45 Room Air 02/22/24 18:18 96 Room Air 02/22/24 18:00 95 Room Air 02/22/24 17:09 98 Room Air 02/22/24 17:05 96 Room Air 02/22/24 17:04 95 Room Air 02/22/24 17:00 Room Air 02/22/24 16:30 95 Room Air 02/22/24 16:00 02/22/24 16:00 93 L Room Air 02/22/24 15:43 94 L Room Air 02/22/24 15:27 93 L Room Air 02/22/24 15:00 Room Air 02/22/24 14:49 Room Air 02/22/24 14:30 96 Room Air 02/22/24 14:22 97 Room Air 02/22/24 14:00 97 02/22/24 13:45 96 Room Air 02/22/24 13:36 96 Room Air 02/22/24 13:30 93 L Room Air 02/22/24 13:14 92 L Room Air 02/22/24 13:13 92 L Room Air 02/22/24 13:04 92 L Room Air Intake and Output 02/22/24 02/23/24 02/23/24 23:59 07:59 15:59 Intake Total 75 / 75 1590 / 1690 100 / 1690 Output Total 100 / 100 300 / 400 100 / 400 Balance -25 / -25 1290 / 1290 0 / 1290 Intake: Intake, Oral Amount 75 / 75 Intake, Total IV Amount 1590 / 1590 0.9 % Sodium Chloride 500 ml @ 500 / 500 250 mls/hr IV .Q2H [facility] Rx#: [id number] Cefepime HCl 2 gm In 0.9 % 100 / 100 Sodium Chloride 100 ml @ 200 mls/hr IV Q12H [facility] Rx#:[id number] Lactated Ringers 1000ML 1,000 990 / 990 ml @ 125 mls/hr IV .Q8H [facility] Rx# :[id number] Infusion Intake 100 / 100 Cefepime HCl 2 gm In 0.9 % 100 / 100 Sodium Chloride 100 ml @ 200 mls/hr IV Q12H [facility]END[facility] Rx#:[id number] Output: Output, Urine Amount 100 / 100 300 / 400 100 / 400 Other: Number of Unmeasured Voids 0 Number of Bowel Movements 1 Weight 85.275 kg Patient Weight 02/23/24 23:59 Weight 85.275 kg Laboratory Results - last 24 hr 02/22/24 13:00: WBC 7.9, RBC 3.79 L, Hgb 11.6 L, Hct 36.7 L, MCV 97.0 H, MCH 30.7, MCHC 31.6 L, RDW 14.4, Plt Count 326, MPV 8.0, Neut % (Auto) 79.3, Lymph % (Auto) 14.2, Coke % (Auto) 4.6, Eos % (Auto) 1.6, Baso % (Auto) 0.4, Neut # (Auto) 6.2, Lymph # (Auto) 1.1, Coke # (Auto) 0.4, Eos # (Auto) 0.1, Baso # (Auto) 0.0, PT 12.5, INR 1.13 H, APTT 28.4, Sodium 139, Potassium 3.1 L, Chloride 109 H, Carbon Dioxide 28, Anion Gap 5.1, BUN 21 H, Creatinine 0.80, Estimated Creat Clear 86, Estimated GFR 97, Est GFR ( Amer) 118, Glucose 83, Calcium 8.1 L, Phosphorus 3.3, Magnesium 1.9, Total Bilirubin 0.8, AST 24, ALT 12, Alkaline Phosphatase 77, Troponin I < 0.01, NT-Pro-B Natriuret Pep 94.3, Total Protein 5.7 L, Albumin 2.9 L, Globulin 2.8, Albumin/Globulin Ratio 1.0 L, Lipase 54, TSH 1.73, Thyroxine (T4) 12.5 H 02/22/24 13:17: VBG pH 7.47 H, VBG pCO2 32.8 L, VBG pO2 182.9 H, VBG HCO3 23.4, VBG Total CO2 24.4, VBG O2 Saturation 99.3 H, VBG Base Excess -0.3, VBG Lactic Acid 1.3 02/22/24 13:19: Hepatitis C Antibody Non reactive, Hep C Ab Comment Comment, HIV 1&2 Antibody Rapid Nonreactive 02/22/24 13:32: SARS-CoV-2 (PCR) Not detected, Influenza A Untype (PCR) Not detected, Influenza Type B (PCR) Not detected 02/22/24 13:36: Urine Color [place], Urine Appearance Cloudy, Urine pH 6.5, Ur Specific [place] 1.025, Urine Protein 2+ A, Urine Glucose (UA) Negative, Urine Ketones 1+, Urine Blood 3+ A, Urine Nitrate Positive, Urine Bilirubin 2+ A, Urine Urobilinogen >=8.0, Ur Leukocyte Esterase 2+ A, Urine RBC 10-20, Urine WBC 50-100, Ur Squamous Epith Cells Occasional, Urine Bacteria 2+ 02/22/24 16:20: Urine Color Yellow, Urine Appearance Clear, Urine pH 7.0, Ur Specific [place] 1.020, Urine Protein 2+ A, Urine Glucose (UA) Negative, Urine Ketones 1+, Urine Blood 3+ A, Urine Nitrate Negative, Urine Bilirubin 3+ A, Urine Urobilinogen >=8.0, Ur Leukocyte Esterase 2+ A, Urine RBC 20-50, Urine WBC Tntc, Ur Squamous Epith Cells 5-10, Urine Bacteria 2+, Urine Mucus 4+ 02/22/24 16:48: Troponin I < 0.01 02/22/24 19:20: Troponin I < 0.01 02/23/24 07:26: WBC 7.1, RBC 3.65 L, Hgb 11.3 L, Hct 35.5 L, MCV 97.3 H, MCH 31.0, MCHC 31.9, RDW 13.9, Plt Count 253, MPV 6.3 L, Neut % (Auto) 75.1, Lymph % (Auto) 17.1, Coke % (Auto) 3.9, Eos % (Auto) 3.5, Baso % (Auto) 0.4, Neut # (Auto) 5.3, Lymph # (Auto) 1.2, Coke # (Auto) 0.3, Eos # (Auto) 0.3, Baso # (Auto) 0.0, Sodium 136, Potassium 3.2 L, Chloride 108 H, Carbon Dioxide 28, Anion Gap 3.2 L, BUN 17, Creatinine 0.60 L D, Estimated Creat Clear 90, Estimated GFR 136, Est GFR ( Amer) 164 D, Glucose 71 L, Calcium 7.9 L, Magnesium 1.7 D, Total Bilirubin 0.7, AST 17 D, ALT 10 L, Alkaline Phosphatase 65, C-Reactive Protein 82.0 H, Total Protein 4.7 L, Albumin 2.4 L D, Globulin 2.3, Albumin/Globulin Ratio 1.0 L, Procalcitonin 1.81 I & O for Labs for Last 24 Hours: Intake & Output 02/20/24 02/21/24 02/22/24 02/23/24 23:59 23:59 23:59 23:59 Intake Total 75 / 75 1690 / 1690 Output Total 100 / 100 400 / 400 Balance -25 / 25 1290 / 1290 Weight 81.647 kg 85.275 kg Microbiology Reports for the Last 24 Hours: Microbiology 02/22/24 13:37 Urine,Catheterized Urine Culture - Preliminary Gram Negative Rods Constitutional: Present no acute distress, obese, chronically ill appearing and disheveled Head: Present atraumatic ENT: Present normal exam Comment:: Macrocephaly; poor dentition, teeth broken at gumline. Respiratory: Present normal respiratory effort; Absent rhonchi, wheezes or crackles Cardiac: Present Reg Rate and Rhythm GI: Present soft and normal bowel sounds; Absent distention or tenderness Extremities: Absent normal inspection or full ROM Comment:: Tremor in left upper extremity, improved from last visit. Plantarflexion of feet at baseline per family Skin: Present intact; Absent erythema Neuro: Present Grossly Intact, alert, awake and moves all extremities Comment:: Oriented to self, understands discussion. Poor insight into current condition however. Tremor in left arm. 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 (6) Arm pain, left: Status: Acute Category: Medical Code(s): M79.602 - Pain in left arm (7) Tremor of left hand: Status: Acute Category: Medical Code(s): R25.1 - Tremor, unspecified (8) General weakness: Status: Acute Category: Medical Code(s): R53.1 - Weakness (9) Epilepsy: Status: Acute Qualifiers: Epilepsy type: other Category: Medical Code(s): G40.909 - Epilepsy, unspecified, not intractable, without status epilepticus (10) Cerebral ventriculomegaly: Problem Comment: [address] consistent with 2021 Status: Acute Category: Medical Code(s): G93.89 - Other specified disorders of brain (11) Depression: Status: Acute Category: Medical Code(s): F32.A - Depression, unspecified (12) Sacral decubitus ulcer: Status: Acute Category: Medical Code(s): L89.159 - Pressure ulcer of sacral region, unspecified stage (13) Functional quadriplegia: Status: Chronic Category: Medical Code(s): R53.2 - Functional quadriplegia (14) Severe protein-calorie malnutrition: Status: Acute Category: Medical Code(s): E43 - Unspecified severe protein-calorie malnutrition Plan 63-year-old male with history of ventriculomegaly, hydrocephalus, clubfoot, seizure disorder, asthma/COPD, peripheral neuropathy, GERD, hyperlipidemia, frequent falls, cognitive disability. Presented to the ER because of concern for difficulty eating, failure to thrive, declining status. Workup in the ER shows concern for UTI likely related to his long-term indwelling catheter. Discussed case with ER physician, request admission for further treatment including antibiotics and goals of care discussion with family. I agreed to admit for further management. Initiated on IV antibiotics. Blood cultures obtained in the ER. Catheter exchanged upon arrival to the floor. Altered with gram-negative rods. Having difficult time eating pur?ed diet and taking meds. Further discussion with family daily. Will continue to monitor for response to antibiotics. Concerned about patient's progressive decline over the past 3 to 6 months. Family states understanding. Continues to necessitate inpatient management. Problems addressed as follows: fever Sepsis UTI -White count 7.1 this morning. Hemoglobin 11.3. CRP elevated 82 with Pro-Dano of 1.8. Gram-negative rods of 90 to 100,000 units in urine. -No further fever overnight. Blood pressure improving. Continue cefepime 2 g every 12 hours for CAUTI and risk for resistant pathogens given residence and nursing facility -Potassium 3.2, magnesium 1.7. Replace potassium magnesium IV today. -Repeat CBC, CMP, magnesium ordered for the morning -Administer additional 500 cc bolus of normal saline over 2 hours. Goal MAP greater than 65 - Kidney function with BUN of 17, creatinine 0.6 Mild cognitive impairment: Chronic hydrocephalus with ventriculomegaly obesity Functional quadriplegia - Chronic conditions complicate all aspects of his care. Currently unable to perform ADLs safely including transfers, feeding self, or self-care of any type. -Per chart review, CT of head obtained in October per my review shows severe hydrocephalus with ventriculomegaly. present for majority of his life. -Necessitates long-term care/institutionalized care. Beyond the capacity of family to care for patient Seizure disorder Anxiety Left arm tremor -Continue gabapentin, 600 mg 3 times a day to help with calming tremor -Continue Keppra 500 mg IV twice daily due to poor p.o. intake -Intolerant of p.o. Valium, transition to 2mg IV every 8 hours as needed for agitation or tremor -Toradol 15 mg IV every 6 hours as needed for pain -Continue citalopram 40 mg daily -Baclofen 10 mg 3 times a day -Holding home Vraylar as it is not on our formulary Holding atenolol for hypertension given patient's soft blood pressure Hyperlipidemia: Continue pravastatin 20 mg nightly Sacral decubitus wound. Turning every 2 hours, protective dressing, float heels for offloading to decrease pressure wounds to heels. Heel pads in place. Full code Pur?ed diet PLOV Extensive discussion with family about goals of care such as hospice, DNR, feeding tube. Family adamant patient would not want feeding tube as it would not improve his quality. Would like to try and see how he improves with IV antibiotics. If no improvement in the next 24 to 48 hours, will have further discussion about goals of care and CODE STATUS. MDM: [place]: High, given progressive decline in ability to swallow, if patient unable to tolerate medications, nutrition, or fluids, high risk for . Data: Med, personally reviewed labs as above along with ordering labs. Risk: High, drugs requiring monitoring for toxicity with IV Valium, discussion with family about CODE STATUS and poor prognosis, close monitoring of electrolytes and kidney function given poor p.o. intake and electrolyte disturbances
--- NOTE | 2024-02-23 10:28 | PC.NURSE ---
Attempted to give pt meds. oral care provided, small bites of pudding attempted first. pt accepted pudding into his mouth, but would not swallow food. mouth cleaned out then pt was offered water. again pt was able to drink water via straw, but would not swallow water. pt would hold water in his mouth. pt family arrived and pt began asking for a cup of coffee. attempted drinks of water with pt again. pt was willing to swallow water, but began to cough following drink.
[2024-02-23] MEDS: KETOROLAC 30MG/ML VIAL 15 MG IV (12:10)
[2024-02-23] MEDS: levETIRAcetam 500 MG in 0.9 % SODIUM CHLORIDE 100 ML 210 MG IV ×2 (12:10→23:42)
[2024-02-23] MEDS: 0.9 % SODIUM CHLORIDE 1000ML 500 ML 250 ML IV (12:14)
[2024-02-23] MEDS: POTASSIUM CHLORIDE 10 MEQ, LIDOCAINE HCL/PF 3 ML in 0.9 % SODIUM CHLORIDE 100 ML 108 MEQ IV ×2 (14:25→15:16)
--- NOTE | 2024-02-23 18:21 | PC.NURSE ---
Patient alert to name only. Will answer simple yes or no questions. made patient NPO due to risk of aspiration on medications. tried giving pt food/drink numerous times but pt pockets and will not swollow. suction used to remove. Q2 turn. Q2 oral care. Heels elevated with protectors. Lung sounds diminished. Edema noted to BLE. Remains on room air. [place] in place and draining dark yellow urine. Call light in reach.
[2024-02-23] MEDS: PANTOPRAZOLE 40MG VIAL 40 MG IV (21:24)
[2024-02-24] VITALS: BP 114/69; PULSE 73; PULSE 78; RESP 16; TEMP 36.9; O2SAT 96
[2024-02-24 04:00] VITALS: BP 89/60; PULSE 77; PULSE 79; RESP 18; TEMP 37; O2SAT 98; BMI 32.3
--- NOTE | 2024-02-24 05:13 | PC.NURSE ---
Pt has remained alert to name. He can answer yes or no questions, but it is hard to understand him. He has tried to swallow water and apple sauce but was unable. Suction needed to remove. He has remained on room air. Lung sounds clear but diminished and bowel sounds active in all quadrants. Q2 turns and heel protectors in place. [place] catheter in place with 300 ml output so far this shift. Call light within reach.
[2024-02-24 08:00] VITALS: BP 123/78; PULSE 98; RESP 18; TEMP 36.9; O2SAT 99
[2024-02-24 08:11] LABS: HCV Ab Non Reactive (Non Reactive)
[2024-02-24] MEDS: ARTIFICIAL TEARS SOLN 15ML BOTTLE OP (08:22)
[2024-02-24] MEDS: BACLOFEN 10MG TABLET 10 MG PO (08:22)
[2024-02-24] MEDS: CITALOPRAM 40MG TABLET 40 MG PO (08:22)
[2024-02-24] MEDS: MEROPENEM 1 GM in 0.9 % SODIUM CHLORIDE 100 ML IV ×2 (08:39→16:18)
--- NOTE | 2024-02-24 09:00 | P.PN_ITS ---
Subjective *Date: 02/24/24 *Time: 13:00 Interval history: Patient hemodynamically stable. Difficulty eating, though able to take applesauce with meds this morning without coughing. Urine culture returned positive for ESBL. Changing antibiotics today. Afebrile overnight. Stable on room air. No family at bedside on rounds. Medical Exam Vital signs and Labs for Last 24 Hours: Vital Signs Temp Pulse Pulse Resp BP BP Pulse Ox 02/24/24 08:00 98.5 F 02/24/24 08:00 98 H 02/24/24 08:00 98 H 18 123/78 99 02/24/24 06:47 02/24/24 05:00 02/24/24 04:00 98.6 F 77 18 89/60 L 98 02/24/24 04:00 79 02/24/24 03:00 02/24/24 01:00 02/24/24 00:00 78 02/24/24 00:00 98.4 F 73 16 114/69 96 02/23/24 23:00 02/23/24 21:00 02/23/24 20:59 02/23/24 20:00 90 02/23/24 20:00 99.0 F 93 H 16 105/69 L 97 02/23/24 18:36 02/23/24 18:00 87 20 96/56 L 97 02/23/24 17:00 02/23/24 16:00 80 02/23/24 16:00 98.2 F 82 18 103/62 L 95 02/23/24 16:00 94 L 02/23/24 15:00 02/23/24 14:00 80 20 100/57 L 97 02/23/24 12:48 02/23/24 12:00 70 02/23/24 12:00 98.7 F 02/23/24 11:00 02/23/24 10:00 59 L 20 101/59 L 97 02/23/24 09:30 93 H 18 98/64 L 98 O2 Del Method 02/24/24 08:00 02/24/24 08:00 02/24/24 08:00 Room Air 02/24/24 06:47 Room Air 02/24/24 05:00 Room Air 02/24/24 04:00 Room Air 02/24/24 04:00 02/24/24 03:00 Room Air 02/24/24 01:00 Room Air 02/24/24 00:00 02/24/24 00:00 Room Air 02/23/24 23:00 Room Air 02/23/24 21:00 Room Air 02/23/24 20:59 Room Air 02/23/24 20:00 02/23/24 20:00 Room Air 02/23/24 18:36 Room Air 02/23/24 18:00 Room Air 02/23/24 17:00 Room Air 02/23/24 16:00 02/23/24 16:00 Room Air 02/23/24 16:00 Room Air 02/23/24 15:00 Room Air 02/23/24 14:00 Room Air 02/23/24 12:48 Room Air 02/23/24 12:00 02/23/24 12:00 02/23/24 11:00 Room Air 02/23/24 10:00 Room Air 02/23/24 09:30 Room Air Intake and Output 02/23/24 02/24/24 02/24/24 23:59 07:59 15:59 Intake Total 500 / 500 0 / 500 Output Total 300 / 300 Balance 200 / 200 0 / 200 Intake: Intake, Oral Amount 300 / 300 0 / 300 Intake, Total IV Amount 200 / 200 Cefepime HCl 2 gm In 0.9 % 100 / 100 Sodium Chloride 100 ml @ 200 mls/hr IV Q12H [facility] Rx#:[id number] levETIRAcetam 500 mg In 0.9 % 100 / 100 Sodium Chloride 100 ml @ 210 mls/hr IV Q12H [facility] Rx#:[id number] Output: Output, Urine Amount 300 / 300 Other: Number of Unmeasured Voids 1 Number of Bowel Movements 1 Weight 87.997 kg Patient Weight 02/24/24 23:59 Weight 87.997 kg Laboratory Results - last 24 hr 02/22/24 13:19: Hepatitis C Antibody Non reactive, Hep C Ab Comment Comment I & O for Labs for Last 24 Hours: Intake & Output 02/21/24 02/22/24 02/23/24 02/24/24 23:59 23:59 23:59 23:59 Intake Total 75 / 75 1980 / 2180 500 / 500 Output Total 100 / 100 520 / 520 300 / 300 Balance -25 / -25 1460 / 1660 200 / 200 Weight 81.647 kg 85.275 kg 87.997 kg Microbiology Reports for the Last 24 Hours: Microbiology 02/22/24 13:37 Urine,Catheterized Urine Culture - Final Klebsiella pneumoniae 02/22/24 13:19 Blood Blood Culture - Preliminary NO GROWTH AFTER 24 HOURS 02/22/24 13:09 Blood Blood Culture - Preliminary NO GROWTH AFTER 24 HOURS Constitutional: Present no acute distress, obese, chronically ill appearing and disheveled Head: Present atraumatic ENT: Present normal exam Comment:: Macrocephaly; poor dentition, teeth broken at gumline. Respiratory: Present normal respiratory effort; Absent rhonchi, wheezes or crackles Cardiac: Present Reg Rate and Rhythm GI: Present soft and normal bowel sounds; Absent distention or tenderness Extremities: Absent normal inspection or full ROM Comment:: Tremor in left upper extremity, improved from last visit. Plantarflexion of feet at baseline per family Skin: Present intact; Absent erythema Neuro: Present Grossly Intact, alert, awake and moves all extremities Comment:: Oriented to self, understands discussion. Occultly answering questions. Tremor in left arm. Assessment and Plan *Assessment and plan (1) Sepsis secondary to UTI: Status: Acute Category: Medical Code(s): A41.9 - Sepsis, unspecified organism; N39.0 - Urinary tract infection, site not specified (2) Infection due to ESBL-producing Klebsiella pneumoniae: Status: Acute Category: Medical Code(s): A49.8 - Other bacterial infections of unspecified site; Z16.12 - Extended spectrum beta lactamase (ESBL) resistance (3) Acute hypokalemia: Status: Acute Category: Medical Code(s): E87.6 - Hypokalemia (4) Fever: Status: Resolved Category: Medical Code(s): R50.9 - Fever, unspecified (5) Acute encephalopathy: Status: Resolved Category: Medical Code(s): G93.40 - Encephalopathy, unspecified (6) Long-term current use of benzodiazepine: Status: Acute Category: Medical Code(s): Z79.899 - Other 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 (current) drug therapy (7) Arm pain, left: Status: Acute Category: Medical Code(s): M79.602 - Pain in left arm (8) Tremor of left hand: Status: Acute Category: Medical Code(s): R25.1 - Tremor, unspecified (9) General weakness: Status: Acute Category: Medical Code(s): R53.1 - Weakness (10) Epilepsy: Status: Acute Qualifiers: Epilepsy type: other Category: Medical Code(s): G40.909 - Epilepsy, unspecified, not intractable, without status epilepticus (11) Cerebral ventriculomegaly: Problem Comment: [address] consistent with 2021 Status: Acute Category: Medical Code(s): G93.89 - Other specified disorders of brain (12) Depression: Status: Acute Category: Medical Code(s): F32.A - Depression, unspecified (13) Sacral decubitus ulcer: Status: Acute Category: Medical Code(s): L89.159 - Pressure ulcer of sacral region, unspecified stage (14) Functional quadriplegia: Status: Chronic Category: Medical Code(s): R53.2 - Functional quadriplegia (15) Severe protein-calorie malnutrition: Status: Acute Category: Medical Code(s): E43 - Unspecified severe protein-calorie malnutrition Plan 63-year-old male with history of ventriculomegaly, hydrocephalus, clubfoot, seizure disorder, asthma/COPD, peripheral neuropathy, GERD, hyperlipidemia, frequent falls, cognitive disability. Presented to the ER because of concern for difficulty eating, failure to thrive, declining status. Workup in the ER shows concern for UTI likely related to his long-term indwelling catheter. Discussed case with ER physician, request admission for further treatment including antibiotics and goals of care discussion with family. I agreed to admit for further management. Initiated on IV antibiotics. Blood cultures obtained in the ER. Catheter exchanged upon arrival to the floor. Urine positive for ESBL Klebsiella. Resistant to cephalosporins. Transitioning antibiotics today. Slight improvement in p.o. intake this morning. Still not eating very much. Will continue to monitor for response to antibiotics. Concerned about patient's progressive decline over the past 3 to 6 months. Continues to necessitate inpatient management. Problems addressed as follows: fever Sepsis UTI ESBL Klebsiella -Patient refused labs this morning. No fever overnight. Urine returned positive for ESBL Klebsiella resistant to cephalosporins. -Discontinue cefepime. Initiate meropenem 1 g every 8 hours. Monitor for improvement. Anticipate transitioning to ertapenem based on sensitivities at discharge for ease of dosing and administration. If blood cultures remain negative, anticipate 7 to 10 days of antibiotics with day 1 on 02/23 -Repeat CBC, CMP, magnesium, Pro-Dano and CRP ordered for the morning -Administer additional 500 cc bolus of normal saline over 2 hours. Goal MAP greater than 65 Mild cognitive impairment: Chronic hydrocephalus with ventriculomegaly obesity Functional quadriplegia - Chronic conditions complicate all aspects of his care. Currently unable to perform ADLs safely including transfers, feeding self, or self-care of any type. -Per chart review, CT of head obtained in October per my review shows severe hydrocephalus with ventriculomegaly. present for majority of his life. -Necessitates long-term care/institutionalized care. Beyond the capacity of family to care for patient Seizure disorder Anxiety Left arm tremor -Continue gabapentin, 600 mg 3 times a day to help with calming tremor -Continue Keppra 500 mg IV twice daily due to poor p.o. intake -Intolerant of p.o. Valium, transition to 2mg IV every 8 hours as needed for agitation or tremor -Toradol 15 mg IV every 6 hours as needed for pain -Continue citalopram 40 mg daily -Baclofen 10 mg 3 times a day -Holding home Vraylar as it is not on our formulary Holding atenolol for hypertension given patient's soft blood pressure Hyperlipidemia: Continue pravastatin 20 mg nightly Sacral decubitus wound. Turning every 2 hours, protective dressing, float heels for offloading to decrease pressure wounds to heels. Heel pads in place. Full code Pur?ed diet PLOV
[2024-02-24] MEDS: LACTATED RINGERS 1000ML 1,000 ML 250 ML IV (09:24)
[2024-02-24] MEDS: levETIRAcetam 500 MG in 0.9 % SODIUM CHLORIDE 100 ML 210 MG IV (11:22)
[2024-02-24 12:00] VITALS: BP 109/70; PULSE 77; RESP 18; TEMP 37.3; O2SAT 96
[2024-02-24 15:42] VITALS: BP 120/68; PULSE 94; RESP 18; TEMP 37.4; O2SAT 95
--- NOTE | 2024-02-24 17:56 | PC.NURSE ---
Pt is alert to self only. pt has been able to answer simple yes or no questions but cannot carry on a conversation. pt will moan and scream out at times, but does not have comprehensible speech. pt was able to swallow nectar thick liquids and applesauce when placed on the back of his tongue this morning, and was able to take 2 crushed pills. however, this afternoon he was given thickened orange juice and held it in his mouth until suctioned out. abx administered per jul. pt tolerated room air well this shift. q2 turns and oral care. heel protectors on and elevated. no complaints at this time. call light within reach.
[2024-02-24 20:00] VITALS: BP 98/55; PULSE 90; RESP 16; TEMP 37; O2SAT 95
[2024-02-24] MEDS: PANTOPRAZOLE 40MG VIAL 40 MG IV (21:11)
[2024-02-25] VITALS: BP 120/65; PULSE 88; RESP 16; TEMP 37; O2SAT 91
[2024-02-25] MEDS: levETIRAcetam 500 MG in 0.9 % SODIUM CHLORIDE 100 ML 210 MG IV ×3 (00:57→23:47)
[2024-02-25] MEDS: MEROPENEM 1 GM in 0.9 % SODIUM CHLORIDE 100 ML IV ×3 (01:40→16:52)
[2024-02-25 04:00] VITALS: BP 100/59; PULSE 93; RESP 18; TEMP 36.9; O2SAT 96; BMI 32.6
[2024-02-25] MEDS: diazePAM 10MG/2ML SYRINGE 2 MG IV ×2 (05:52→14:47)
--- NOTE | 2024-02-25 06:02 | PC.NURSE ---
Alert to name only. Q2 turn and oral care. Heels remain elevated with protectors. Medina in place and draining. Pressure wound to bottom, dressing place. After lab got blood draw, patient began screaming out and patient was very anxious, received PRN medication per mar. Call light in reach.
[2024-02-25 06:25] LABS: Basophils % 0.5 % (0.1-2.0); Chloride 107 mmol/L (98-107); Eosinophils # 0.3 K/mm3 (0.0-0.4); Eosinophils % 4.4 % (0.1-12.0); Hematocrit 34.6 % (42.0-52.0); Hemoglobin 10.7 g/dL (14.1-18.0); Lymphocytes # 0.9 K/mm3 (0.7-4.5); Lymphocytes % 12.7 % (10-50); Mean Corpuscular Hemoglobin 30.5 pg (27.0-31.2); Mean Corpuscular Volume 98.1 fl (80-94); Mean Platelet Volume 6.9 fl (7.4-10.4); Monocytes # 0.4 K/mm3 (0.1-1.0); Monocytes % 4.7 % (1.7-9.3); Neutrophils # 5.8 K/mm3 (1.8-7.8); Neutrophils % 77.8 % (37.0-80.0); Platelet Count 261 K/mm3 (142-424); Red Blood Count 3.53 M/mm3 (4.60-6.20); Red Cell Distribution Width 13.9 % (11.5-17.5); White Blood Count 7.4 K/mm3 (4.8-10.8)
[2024-02-25 06:26] LABS: Albumin Level 2.6 g/dl (3.5-5.0); Potassium 3.2 mmoL/L (3.5-5.1); Sodium 136 mmol/L (136-145)
[2024-02-25 06:28] LABS: Blood Urea Nitrogen 12 mg/dl (9-20); Creatinine Clearance Estimated 94 mL/min (50-200); Estimated Glomerular Filt Rate 136 ml/min (>60); GFR (African American) 164 ML/MIN (>60)
[2024-02-25 06:29] LABS: Alanine Aminotransferase 8 U/L (12-78); Alkaline Phosphatase 66 U/L (38-126); Anion Gap 15.2 mEq/L (5-15); Aspartate Amino Transferase 26 U/L (17-59); Bilirubin,Total 0.7 mg/dl (0.2-1.3); Calcium 8.2 mg/dl (8.4-10.2); Carbon Dioxide 17 mmol/L (22.0-30.0); Globulin 2.6 g/dL (1.3-3.2); Glucose 67 mg/dl (74-100); Total Protein,Serum 5.2 g/dl (6.3-8.2)
[2024-02-25 06:34] LABS: C-Reactive Protein 48.7 mg/L (0-4)
[2024-02-25 07:09] LABS: Magnesium 1.6 mg/dl (1.6-2.3)
[2024-02-25 08:00] VITALS: BP 101/68; PULSE 95; RESP 18; TEMP 37.1; O2SAT 95
--- NOTE | 2024-02-25 09:23 | SW/DCPLANNER ---
Addendum entered by Gabi Kelly 02/26/24 10:45: I have updated Samreen w/ [facility] and [facility] w/ [facility]osp[facility] that patient will return to [facility] today. Addendum entered by Gabi Kelly 02/25/24 15:24: Per Nelly w/ Hospice after speaking w/ family they can admit patient once returning back to [place]. I have updated MD. Patient will discharge back tomorrow pending no setbacks. I have also updated Samreen w/ [facility]. Addendum entered by Gabi Kelly 02/25/24 14:17: Nelly w/ Hospice will be onsite to speak w/ patient and family today. Addendum entered by Gabi Kelly 02/25/24 13:32: After a discussion w/ MD and patient's family the decision has been made to pursue [facility]. Patient information has been faxed to [facility]/ Hospice at this time. Original Note: Patient currently resides at [facility] level of care. I will continue to update Samreen while admitted. Updated patient information has been faxed. Discharge date is unknown at this time.
[2024-02-25 09:36] LABS: Erythrocyte Sedimentation Rate 97 mm/hr (0-20)
[2024-02-25 10:21] LABS: Procalcitonin 0.443 ng/mL (0.0-2.0)
[2024-02-25] MEDS: MAGNESIUM SULFATE IN WATER 2 GM/50 ML PIGGYBACK IV (10:41)
[2024-02-25 11:36] VITALS: BP 98/57; PULSE 106; RESP 18; TEMP 37.7; O2SAT 93
[2024-02-25] MEDS: KETOROLAC 30MG/ML VIAL 15 MG IV ×2 (12:15→20:38)
[2024-02-25 12:53] VITALS: BMI 32.6
--- NOTE | 2024-02-25 14:15 | P.PN_ITS ---
Subjective *Date: 02/25/24 *Time: 17:45 Interval history: Patient hemodynamically stable. Poor tolerance to oral medications and nutrition. Occasionally will take a few swallows but is pocketing most anything that goes into his mouth. Remains afebrile and stable on room air. Goals of c are discussion with family today. Patient's prognosis grave Medical Exam Vital signs and Labs for Last 24 Hours: Vital Signs Temp Pulse Resp BP Pulse Ox O2 Del Method 02/25/24 13:46 Room Air 02/25/24 12:25 Room Air 02/25/24 11:36 99.8 F H 106 H 18 98/57 L 93 L Room Air 02/25/24 09:55 Room Air 02/25/24 08:04 Room Air 02/25/24 08:00 Room Air 02/25/24 08:00 98.8 F 95 H 18 101/68 L 95 Room Air 02/25/24 06:58 Room Air 02/25/24 05:00 Room Air 02/25/24 04:00 98.5 F 93 H 18 100/59 L 96 Room Air 02/25/24 03:00 Room Air 02/25/24 01:00 Room Air 02/25/24 00:00 98.6 F 88 16 120/65 91 L Room Air 02/24/24 22:49 Room Air 02/24/24 21:00 Room Air 02/24/24 20:00 Room Air 02/24/24 20:00 98.6 F 90 16 98/55 L 95 Room Air 02/24/24 18:43 Room Air 02/24/24 17:28 Room Air 02/24/24 17:00 Room Air 02/24/24 15:42 99.3 F 94 H 18 120/68 95 Room Air 02/24/24 15:00 Room Air Intake and Output 02/24/24 02/25/24 02/25/24 23:59 07:59 15:59 Intake Total 50 / 750 200 / 450 250 / 450 Output Total 100 / 825 525 / 800 275 / 800 Balance -50 / -75 -325 / -350 -25 / -350 Intake: Intake, Oral Amount 50 / 350 Intake, Total IV Amount 200 / 450 250 / 450 Magnesium Sulfate in Water 2 gm 50 / 50 In 50 ml @ 50 mls/hr IV ONCE ONE Rx#:[id number] Meropenem 1 gm In 0.9 % Sodium 100 / 200 100 / 200 Chloride 100 ml @ 100 mls/hr IV Q8H [facility] Rx#:[id number] levETIRAcetam 500 mg In 0.9 % 100 / 200 100 / 200 Sodium Chloride 100 ml @ 210 mls/hr IV Q12H [facility] Rx#:[id number] Output: Output, Urine Amount 100 / 825 525 / 800 275 / 800 Other: Number of Unmeasured Voids 0 0 Weight 88.904 kg 88.9 kg Patient Weight 02/25/24 23:59 Weight 88.9 kg Laboratory Results - last 24 hr 02/25/24 05:46: WBC 7.4, RBC 3.53 L, Hgb 10.7 L, Hct 34.6 L, MCV 98.1 H, MCH 30.5, MCHC 31.0 L, RDW 13.9, Plt Count 261, MPV 6.9 L, Neut % (Auto) 77.8, Lymph % (Auto) 12.7, Bennett % (Auto) 4.7, Eos % (Auto) 4.4, Baso % (Auto) 0.5, Neut # (Auto) 5.8, Lymph # (Auto) 0.9, Bennett # (Auto) 0.4, Eos # (Auto) 0.3, Baso # (Auto) 0.0, ESR 97 H, Sodium 136, Potassium 3.2 L, Chloride 107, Carbon Dioxide 17 L, Anion Gap 15.2 H, BUN 12 D, Creatinine 0.60 L, Estimated Creat Clear 94, Estimated GFR 136, Est GFR ( Amer) 164, Glucose 67 L, Calcium 8.2 L, Magnesium 1.6, Total Bilirubin 0.7, AST 26 D, ALT 8 L, Alkaline Phosphatase 66, C-Reactive Protein 48.7 H D, Total Protein 5.2 L, Albumin 2.6 L, Globulin 2.6, Albumin/Globulin Ratio 1.0 L, Procalcitonin 0.443 I & O for Labs for Last 24 Hours: Intake & Output 02/22/24 02/23/24 02/24/24 02/25/24 23:59 23:59 23:59 23:59 Intake Total 75 / 75 1980 / 2180 550 / 750 450 / 450 Output Total 100 / 100 520 / 520 825 / 825 800 / 800 Balance -25 / -25 1460 / 1660 -275 / -75 -350 / -350 Weight 81.647 kg 85.275 kg 87.997 kg 88.9 kg Microbiology Reports for the Last 24 Hours: Microbiology 02/22/24 13:19 Blood Blood Culture - Preliminary NO GROWTH AFTER 48 HOURS 02/22/24 13:09 Blood Blood Culture - Preliminary NO GROWTH AFTER 48 HOURS Constitutional: Present no acute distress, obese, chronically ill appearing and disheveled Head: Present atraumatic ENT: Present normal exam Comment:: Macrocephaly; poor dentition, teeth broken at gumline. Respiratory: Present normal respiratory effort; Absent rhonchi, wheezes or crackles Cardiac: Present Reg Rate and Rhythm GI: Present soft and normal bowel sounds; Absent distention or tenderness Extremities: Absent normal inspection or full ROM Comment:: Tremor in left upper extremity, improved from last visit. Plantarflexion of feet at baseline per family Skin: Present intact; Absent erythema Neuro: Present Grossly Intact, alert, awake and moves all extremities Comment:: Oriented to self, understands discussion. Occultly answering questions. Tremor in left arm. Assessment and Plan *Assessment and plan (1) Sepsis secondary to UTI: Status: Acute Category: Medical Code(s): A41.9 - Sepsis, unspecified organism; N39.0 - Urinary tract infection, site not specified (2) Infection due to ESBL-producing Klebsiella pneumoniae: Status: Acute Category: Medical Code(s): A49.8 - Other bacterial infections of unspecified site; Z16.12 - Extended spectrum beta lactamase (ESBL) resistance (3) Acute hypokalemia: Status: Acute Category: Medical Code(s): E87.6 - Hypokalemia (4) Fever: Status: Resolved Category: Medical Code(s): R50.9 - Fever, unspecified (5) Acute encephalopathy: Status: Resolved Category: Medical Code(s): G93.40 - Encephalopathy, unspecified (6) Long-term current use of benzodiazepine: Status: Acute Category: Medical Code(s): Z79.899 - Other 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 (current) drug therapy (7) Arm pain, left: Status: Acute Category: Medical Code(s): M79.602 - Pain in left arm (8) Tremor of left hand: Status: Acute Category: Medical Code(s): R25.1 - Tremor, unspecified (9) General weakness: Status: Acute Category: Medical Code(s): R53.1 - Weakness (10) Epilepsy: Status: Acute Qualifiers: Epilepsy type: other Category: Medical Code(s): G40.909 - Epilepsy, unspecified, not intractable, without status epilepticus (11) Cerebral ventriculomegaly: Problem Comment: [address] consistent with 2021 Status: Acute Category: Medical Code(s): G93.89 - Other specified disorders of brain (12) Depression: Status: Acute Category: Medical Code(s): F32.A - Depression, unspecified (13) Sacral decubitus ulcer: Status: Acute Category: Medical Code(s): L89.159 - Pressure ulcer of sacral region, unspecified stage (14) Functional quadriplegia: Status: Chronic Category: Medical Code(s): R53.2 - Functional quadriplegia (15) Severe protein-calorie malnutrition: Status: Acute Category: Medical Code(s): E43 - Unspecified severe protein-calorie malnutrition Plan 63-year-old male with history of ventriculomegaly, hydrocephalus, clubfoot, seizure disorder, asthma/COPD, peripheral neuropathy, GERD, hyperlipidemia, frequent falls, cognitive disability. Presented to the ER because of concern for difficulty eating, failure to thrive, declining status. Workup in the ER shows concern for UTI likely related to his long-term indwelling catheter. Discussed case with ER physician, request admission for further treatment including antibiotics and goals of care discussion with family. I agreed to admit for further management. Initiated on IV antibiotics. Blood cultures obtained in the ER. Catheter exchanged upon arrival to the floor. Urine positive for ESBL Klebsiella. Resistant to cephalosporins. Transitioning antibiotics today. Slight improvement in p.o. intake this morning. Still not eating very much. Goals of care patient with family today, see advance care planning note. Given patient's continued intolerance of p.o. intake, progressive failure to thrive, progressive decline over many months now, plan to discharge to custodial tomorrow with hospice. Will complete empiric 7 days of antibiotics for UTI. Continues to require inpatient management until discharge tomorrow back to [facility]. Problems addressed as follows: Sepsis due to ESBL Klebsiella UTI -White count this morning normal at 7.4. CRP improving, 48 today. Kidney function with BUN 12, creatinine 0.6. Potassium low at 3.2. Procalcitonin continued to improve 0.4 consistent with response to antibiotic -Due to ESBL Klebsiella UTI, continue meropenem 1 g every 8 hours. Transition to ertapenem in the morning. Patient will need for additional doses after returning back to nursing facility. Last dose due 03/01. Midline placed today. Okay to remove after completing antibiotic course. -Repeat CBC, CMP ordered for the morning Mild cognitive impairment Failure to thrive Chronic hydrocephalus with ventriculomegaly obesity Functional quadriplegia - Chronic conditions complicate all aspects of his care. Currently unable to perform ADLs safely including transfers, feeding self, or self-care of any type. -Per chart review, CT of head obtained in October per my review shows severe hydrocephalus with ventriculomegaly. present for majority of his life. -Necessitates long-term care/institutionalized care. Beyond the capacity of family to care for patient Seizure disorder Anxiety Left arm tremor -Continue gabapentin, 600 mg 3 times a day to help with calming tremor -Continue Keppra 500 mg IV twice daily due to poor p.o. intake -Intolerant of p.o. Valium, transition to 2mg IV every 8 hours as needed for agitation or tremor -Toradol 15 mg IV every 6 hours as needed for pain -Continue citalopram 40 mg daily -Baclofen 10 mg 3 times a day -Holding home Vraylar as it is not on our formulary Hyperlipidemia: Continue pravastatin 20 mg nightly Sacral decubitus wound. Turning every 2 hours, protective dressing, float heels for offloading to decrease pressure wounds to heels. Heel pads in place. DNR Pur?ed diet PLOV
--- NOTE | 2024-02-25 14:15 | EXP.EVENT.NO ---
Advance care planning note: Active diagnosis: Hydrocephalus, functional quadriplegia, progressive decline/failure to thrive, UTI, chronic urinary retention with catheter, dysphagia, seizure disorder The patient's active diagnoses are of sufficient risk that focused discussion on advanced care planning is indicated in order to allow the patient to thoughtfully consider personal goals of care; and, if situations arise that prevent the ability to personally give input, to ensure appropriate representation of their personal desires through documentation or informed surrogate decision makers. Discussion: Persons present and participating in discussion: Patient's brother, [id number], myself, social work (Gabi) Discussion: Extensive discussion about patient's progressive decline. Discussed goals of care and wishes for patient. As Jim is not showing any improvement, continues to not have significant p.o. intake, I expressed significant concern for his continued decline. At this point Jim's body is giving up on him. Brother seems to be concerned about giving up on the patient. Informed him that his condition has progressed and is likely not going to improve with meaningful recovery. Discussed placing feeding tube to provide nutrition and medications and life-prolonging treatment. Brother states Jim would not want this. Decision made to transition to hospice care today. Hospice consulted. CODE STATUS transition to DNR. Anticipate transitioning back to intermediate tomorrow under hospice care. Family would like to transition to comfort and focus on quality of life over quantity of life at this time. Time spent: Total time spent [id number] in education and discussion directly related to advance care plannin min Carson Dillon 02/25/2024 1:30-1:50pm
--- NOTE | 2024-02-25 14:55 | PC.NURSE ---
Aox 1, Q2 turn and oral care, Heels remain elevated with protectors, Medina in place, Pressure wound to bottom with mepilex in place, diazepam given once for anxiety, 20g R ac SL, Call light in reach.
[2024-02-25 16:00] VITALS: BP 99/68; PULSE 97; RESP 18; O2SAT 95
[2024-02-25 20:00] VITALS: BP 101/53; PULSE 71; RESP 16; TEMP 36.6; O2SAT 94
[2024-02-25] MEDS: PANTOPRAZOLE 40MG VIAL 40 MG IV (20:39)
[2024-02-26] VITALS: BP 104/64; PULSE 73; RESP 16; TEMP 36.7; O2SAT 96
[2024-02-26] MEDS: MEROPENEM 1 GM in 0.9 % SODIUM CHLORIDE 100 ML IV (00:25)
[2024-02-26 04:00] VITALS: BP 94/75; PULSE 63; RESP 16; TEMP 36.7; O2SAT 96; BMI 32.0
[2024-02-26 06:43] LABS: Basophils % 0.6 % (0.1-2.0); Eosinophils # 0.4 K/mm3 (0.0-0.4); Eosinophils % 5.7 % (0.1-12.0); Hematocrit 30.8 % (42.0-52.0); Hemoglobin 10.2 g/dL (14.1-18.0); Lymphocytes % 13.8 % (10-50); Mean Corpuscular HGB Conc 33.2 g/dL (31.8-35.4); Mean Corpuscular Hemoglobin 31.8 pg (27.0-31.2); Mean Corpuscular Volume 95.8 fl (80-94); Mean Platelet Volume 7.4 fl (7.4-10.4); Monocytes # 0.4 K/mm3 (0.1-1.0); Monocytes % 6.1 % (1.7-9.3); Neutrophils # 5.1 K/mm3 (1.8-7.8); Neutrophils % 73.8 % (37.0-80.0); Platelet Count 288 K/mm3 (142-424); Red Blood Count 3.22 M/mm3 (4.60-6.20); Red Cell Distribution Width 14.4 % (11.5-17.5)
[2024-02-26 06:45] LABS: Albumin Level 2.4 g/dl (3.5-5.0); Chloride 106 mmol/L (98-107); Potassium 3.1 mmoL/L (3.5-5.1); Sodium 135 mmol/L (136-145)
[2024-02-26 06:48] LABS: Alanine Aminotransferase 7 U/L (12-78); Alkaline Phosphatase 65 U/L (38-126); Anion Gap 10.1 mEq/L (5-15); Aspartate Amino Transferase 17 U/L (17-59); Bilirubin,Total 0.5 mg/dl (0.2-1.3); Blood Urea Nitrogen 11 mg/dl (9-20); Calcium 8.1 mg/dl (8.4-10.2); Carbon Dioxide 22 mmol/L (22.0-30.0); Creatinine Clearance Estimated 94 mL/min (50-200); Estimated Glomerular Filt Rate 167 ml/min (>60); GFR (African American) 203 ML/MIN (>60); Globulin 2.4 g/dL (1.3-3.2); Glucose 78 mg/dl (74-100); Total Protein,Serum 4.8 g/dl (6.3-8.2)
[2024-02-26 08:00] VITALS: BP 99/63; PULSE 73; RESP 17; TEMP 36.6; O2SAT 99
[2024-02-26] MEDS: ERTAPENEM SODIUM 1 GM in 0.9 % SODIUM CHLORIDE 50 ML IV (08:45)
[2024-02-26] MEDS: ARTIFICIAL TEARS SOLN 15ML BOTTLE OP (08:46)
[2024-02-26] MEDS: CITALOPRAM 40MG TABLET 40 MG PO (08:54)
[2024-02-26] MEDS: levETIRAcetam 500 MG in 0.9 % SODIUM CHLORIDE 100 ML 210 MG IV (11:51)
[2024-02-26] MEDS: BACLOFEN 10MG TABLET 10 MG PO (11:55)
[2024-02-26] MEDS: GABAPENTIN 600MG TABLET 600 MG PO (11:56)
[2024-02-26 12:00] VITALS: BP 117/42; PULSE 73; RESP 18; TEMP 36.6; O2SAT 95
--- NOTE | 2024-02-26 12:40 | P.DS_ITS ---
General Admission date:: 02/22/24 HPI HPI HPI: 63-year-old male with history of ventriculomegaly, hydrocephalus, clubfoot, seizure disorder, asthma/COPD, peripheral neuropathy, GERD, hyperlipidemia, frequent falls, cognitive disability. Presented to the ER because of concern for difficulty eating, failure to thrive, declining status. Workup in the ER shows concern for UTI likely related to his long-term indwelling catheter. Hospital Course Hospital Course Hospital Course: 63-year-old male with history of ventriculomegaly, hydrocephalus, clubfoot, seizure disorder, asthma/COPD, peripheral neuropathy, GERD, hyperlipidemia, frequent falls, cognitive disability. Presented to the ER because of concern for difficulty eating, failure to thrive, declining status. Workup in the ER shows concern for UTI likely related to his long-term indwelling catheter. Discussed case with ER physician, request admission for further treatment including antibiotics and goals of care discussion with family. I agreed to admit for further management. Initiated on IV antibiotics. Blood cultures obtained in the ER. Catheter exchanged upon arrival to the floor. Urine positive for ESBL Klebsiella. Resistant to cephalosporins. Still not eating very much. Goals of care patient with family today, see advance care planning note. Given patient's continued intolerance of p.o. intake, progressive failure to thrive, progressive decline over many months now, plan to discharge to [facility] tomorrow with hospice. Will complete empiric 7 days of antibiotics for UTI. Continues to require inpatient management until discharge tomorrow back to [facility]. Problems addressed as follows: Sepsis due to ESBL Klebsiella UTI -White count this morning normal at 7.4. Procalcitonin continued to improve 0.4 consistent with response to antibiotic -Due to ESBL Klebsiella UTI, continue meropenem 1 g every 8 hours. Transition to ertapenem today day 3/. Patient will need for additional doses after returning back to nursing facility. Last dose due 02/28. Midline placed. Okay to remove after completing antibiotic course. Mild cognitive impairment Failure to thrive Chronic hydrocephalus with ventriculomegaly obesity Functional quadriplegia - Chronic conditions complicate all aspects of his care. Currently unable to perform ADLs safely including transfers, feeding self, or self-care of any type. -Per chart review, CT of head obtained in October per my review shows severe hydrocephalus with ventriculomegaly. present for majority of his life. -Necessitates long-term care/institutionalized care. Beyond the capacity of family to care for patient Seizure disorder Anxiety Left arm tremor -Continue gabapentin, 600 mg 3 times a day to help with calming tremor -Continue Keppra 500 mg IV twice daily due to poor p.o. intake -Intolerant of p.o. Valium, transition to 2mg IV every 8 hours as needed for agitation or tremor -Toradol 15 mg IV every 6 hours as needed for pain -Continue citalopram 40 mg daily -Baclofen 10 mg 3 times a day -Holding home Vraylar as it is not on our formulary Hyperlipidemia: Continue pravastatin 20 mg nightly Sacral decubitus wound. Turning every 2 hours, protective dressing, float heels for offloading to decrease pressure wounds to heels. Heel pads in place. Exam Data for Last 24 hours Vital signs and Labs for Last 24 Hours: Temp Pulse Resp BP Pulse Ox O2 Del Method 98 F 73 17 99/63 L 99 Room Air 02/26/24 08:00 02/26/24 08:00 02/26/24 08:00 02/26/24 08:00 02/26/24 08:00 02/26/24 11:00 Laboratory Results - last 24 hr 02/26/24 06:09: WBC 7.0, RBC 3.22 L, Hgb 10.2 L, Hct 30.8 L, MCV 95.8 H, MCH 31.8 H, MCHC 33.2, RDW 14.4, Plt Count 288, MPV 7.4, Neut % (Auto) 73.8, Lymph % (Auto) 13.8, [place] % (Auto) 6.1, Eos % (Auto) 5.7, Baso % (Auto) 0.6, Neut # (Auto) 5.1, Lymph # (Auto) 1.0, [place] # (Auto) 0.4, Eos # (Auto) 0.4, Baso # (Auto) 0.0, Sodium 135 L, Potassium 3.1 L, Chloride 106, Carbon Dioxide 22, Anion Gap 10.1, BUN 11, Creatinine 0.50 L, Estimated Creat Clear 94, Estimated GFR 167, Est GFR ( Amer) 203 D, Glucose 78, Calcium 8.1 L, Total Bilirubin 0.5, AST 17 D, ALT 7 L, Alkaline Phosphatase 65, Total Protein 4.8 L, Albumin 2.4 L, Globulin 2.4, Albumin/Globulin Ratio 1.0 L I & O for Last 24 hours: Intake & Output 02/23/24 02/24/24 02/25/24 02/26/24 23:59 23:59 23:59 23:59 Intake Total 1979 / 2180 550 / 750 610 / 610 205 / 205 Output Total 520 / 520 825 / 825 800 / 800 500 / 500 Balance 1460 / 1660 -275 / -75 -190 / -190 -295 / -295 Weight 85.275 kg 87.997 kg 88.9 kg 87.118 kg Constitutional Comments: Constitutional: Present no acute distress, obese, chronically ill appearing and disheveled Head: Present atraumatic ENT: Present normal exam Comment:: Macrocephaly; poor dentition, teeth broken at gumline. Respiratory: Present normal respiratory effort; Absent rhonchi, wheezes or crackles Cardiac: Present Reg Rate and Rhythm GI: Present soft and normal bowel sounds; Absent distention or tenderness Extremities: Absent normal inspection or full ROM Comment:: Tremor in left upper extremity, improved from last visit. Plantarflexion of feet at baseline per family Skin: Present intact; Absent erythema Neuro: Present Grossly Intact, alert, awake and moves all extremities Comment:: Oriented to self, understands discussion. Occultly answering questions. Tremor in left arm. Results Data Completed and Pending Labs on day of discharge: Labs from last 24 hours 02/26/24 06:09 WBC 7.0 RBC 3.22 L Hgb 10.2 L Hct 30.8 L MCV 95.8 H MCH 31.8 H MCHC 33.2 RDW 14.4 Plt Count 288 MPV 7.4 Neut % (Auto) 73.8 Lymph % (Auto) 13.8 [place] % (Auto) 6.1 Eos % (Auto) 5.7 Baso % (Auto) 0.6 Neut # (Auto) 5.1 Lymph # (Auto) 1.0 [place] # (Auto) 0.4 Eos # (Auto) 0.4 Baso # (Auto) 0.0 Sodium 135 L Potassium 3.1 L Chloride 106 Carbon Dioxide 22 Anion Gap 10.1 BUN 11 Creatinine 0.50 L Estimated Creat Clear 94 Estimated GFR 167 Est GFR ( Amer) 203 D Glucose 78 Calcium 8.1 L Total Bilirubin 0.5 AST 17 D ALT 7 L Alkaline Phosphatase 65 Total Protein 4.8 L Albumin 2.4 L Globulin 2.4 Albumin/Globulin Ratio 1.0 L Preliminary micro results at discharge 02/22/24 13:19 Blood Culture - Preliminary Blood NO GROWTH AFTER 48 HOURS 02/22/24 13:09 Blood Culture - Preliminary Blood NO GROWTH AFTER 48 HOURS DS: Diagnosis Discharge Diagnosis (1) Sepsis secondary to UTI: Status: Acute Code(s): A41.9 - Sepsis, unspecified organism; N39.0 - Urinary tract infection, site not specified (2) Infection due to ESBL-producing Klebsiella pneumoniae: Status: Acute Code(s): A49.8 - Other bacterial infections of unspecified site; Z16.12 - Extended spectrum beta lactamase (ESBL) resistance (3) Acute hypokalemia: Status: Acute Code(s): E87.6 - Hypokalemia (4) Fever: Status: Resolved Code(s): R50.9 - Fever, unspecified (5) Acute encephalopathy: Status: Resolved Code(s): G93.40 - Encephalopathy, unspecified (6) Long-term current use of benzodiazepine: Status: Acute Code(s): Z79.899 - Other oil heaterman (current) drug therapy (7) Arm pain, left: Status: Acute Code(s): M79.602 - Pain in left arm (8) Tremor of left hand: Status: Acute Code(s): R25.1 - Tremor, unspecified (9) General weakness: Status: Acute Code(s): R53.1 - Weakness (10) Epilepsy: Status: Acute Code(s): G40.909 - Epilepsy, unspecified, not intractable, without status epilepticus Qualifiers: Epilepsy type: other (11) Cerebral ventriculomegaly: Status: Acute Code(s): G93.89 - Other specified disorders of brain Problem details: [address] consistent with 2021 (12) Depression: Status: Acute Code(s): F32.A - Depression, unspecified (13) Sacral decubitus ulcer: Status: Acute Code(s): L89.159 - Pressure ulcer of sacral region, unspecified stage (14) Functional quadriplegia: Status: Chronic Code(s): R53.2 - Functional quadriplegia (15) Severe protein-calorie malnutrition: Status: Acute Code(s): E43 - Unspecified severe protein-calorie malnutrition Meds Home Medications and Allergies Home Medications ?Medication ?Instructions ?Recorded ?Confirmed ?Type omeprazole 40 mg capsule,delayed 40 mg PO HS 10/01/23 02/22/24 History release acetaminophen 500 mg tablet 1,000 mg PO Q6HP PRN FEVER OR MILD 11/03/23 02/22/24 History PAIN artificial tears solution eye drops 2 drp ophthalmic (eye) BIDP PRN 11/03/23 02/22/24 History EYE DRYNESS baclofen 10 mg tablet 10 mg PO TID #90 tabs 11/05/23 02/22/24 Rx levetiracetam 500 mg tablet 500 mg PO BID #60 tabs 11/05/23 02/22/24 Rx cariprazine 1.5 mg capsule 1.5 mg PO DAILY 11/16/23 02/22/24 History gabapentin 600 mg tablet 600 mg PO TID 11/16/23 02/22/24 History docusate sodium 100 mg capsule 100 mg PO DAILY #0 caps 11/19/23 02/22/24 Rx aluminum hydrox-magnesium carb 95 30 ml PO DAILYP PRN dyspepsia 02/22/24 02/22/24 History mg-358 mg/15 mL oral suspension (Acid Gone Antacid) citalopram 40 mg tablet 40 mg PO DAILY 02/22/24 02/22/24 History diazepam 5 mg tablet 5 mg PO TID 02/22/24 02/22/24 History ondansetron 4 mg disintegrating 4 mg PO Q6HP PRN nausea and 02/22/24 02/22/24 History tablet vomiting ertapenem 1 gram solution for 1 g IV Q24H 4 days #4 ea 02/25/24 Rx injection New Prescriptions to Start Prescriptions: Carson Ramirez Allergies Allergy/AdvReac Type Severity Reaction Status Date / Time No Known Allergies Allergy Verified 11/01/23 11:07 Discharge Plan Disposition Patient Disposition: Hospice - Medical Facility Condition: Serious Follow up Plan Prescriptions/Medication Reconciliation: New ertapenem 1 gram Recon Soln 1 g IV Q24H 4 Days Qty: 4 0RF Rx Instructions: last dose 03/01/24 Continued omeprazole 40 mg capsule,delayed release(DR/EC) 40 mg PO HS Rx Instructions: TAKE 1 CAPSULE BY MOUTH EVERY DAY FOR REFLUX/ACID REFLUX acetaminophen 500 mg Tablet 1,000 mg PO Q6HP PRN (Reason: FEVER OR MILD PAIN) artificial tears solution Drops 2 drp OPHTHALMIC (EYE) BIDP PRN (Reason: EYE DRYNESS) baclofen 10 mg tablet 10 mg PO TID Qty: 90 0RF levetiracetam 500 mg tablet 500 mg PO BID Qty: 60 0RF citalopram 40 mg tablet 40 mg PO DAILY diazepam 5 mg tablet 5 mg PO TID Acid Gone Antacid 95-358 mg/15 mL suspension 30 ml PO DAILYP PRN (Reason: dyspepsia) ondansetron 4 mg tablet,disintegrating 4 mg PO Q6HP PRN (Reason: nausea and vomiting) cariprazine 1.5 mg Capsule 1.5 mg PO DAILY gabapentin 600 mg tablet 600 mg PO TID docusate sodium 100 mg Capsule 100 mg PO DAILY Qty: 0 0RF Discontinued atenolol 25 mg tablet 25 mg PO DAILY Rx Instructions: TAKE 1 TABLET BY MOUTH ONCE DAILY amoxicillin 875 mg tablet 875 mg PO BID Problem Reconciliation Problems Reviewed?: Yes Patient Discharge Instructions ACTIVITY: Bed rest DIET: continue same diet Additional Instructions: Comfort feeds on hospice Patient Instructions: DI for Pressure Injuries, DI for Urinary Tract Infection (UTI), DI for Sepsis -- Adult, DI for Extended Spectrum Beta-Lactamase Infection, Catheter-Associated Urinary Tract Infection Print Language: [place] Providers Primary Care Provider: Provider,Referral Admit Provider: Carson Dillon Attending Provider: Carson Dillon
== END 2024-02-26 16:54 | disposition hospice, inpatient (51) | DRG 871 ==
LOC: ER 14:05 → 2ND 14:53
PROVIDERS: Admitting Provider Internal Medicine Adolescent Medicine; Emergency Provider Emergency Medicine; Visit Provider Internal Medicine Adolescent Medicine
DX: A41.59 Other Gram-negative sepsis (principal); E43 Unspecified severe protein-calorie malnutrition; R53.2 Functional quadriplegia; N39.0 Urinary tract infection, site not specified; G93.40 Encephalopathy, unspecified; E87.6 Hypokalemia; Z79.899 Other long term (current) drug therapy; R25.1 Tremor, unspecified; G40.909 Epilepsy, unspecified, not intractable, without status epilepticus; G93.89 Other specified disorders of brain; F32.A Depression, unspecified; L89.159 Pressure ulcer of sacral region, unspecified stage; J44.9 Chronic obstructive pulmonary disease, unspecified; G62.9 Polyneuropathy, unspecified; K21.9 Gastro-esophageal reflux disease without esophagitis; F41.9 Anxiety disorder, unspecified; E78.5 Hyperlipidemia, unspecified; Z68.32 Body mass index [BMI] 32.0-32.9, adult
CPT/HCPCS: 36410; 36415; 71045; 80053; 81001; 82803; 83690; 83735; 83880; 84100; 84145; 84436; 84443; 84484; 85025; 85610; 85651; 85730; 86140; 86803; 87040; 87086; 87088; 87186; 87389; 87636; 93005; 99285; J0696; J1335; J1885; J1953; J2185; J3360; J3475; J3480; J7030; J7120

== ENCOUNTER 2024-04-30 20:21 | Outpatient (CLI) | payer OTHER, SELFPAY ==
[2024-04-30 20:39] LABS: Microscopic, Urine URINE MICROSCOPIC (MICROSCOPIC)
[2024-04-30 21:26] LABS: Blood, Urine Negative (Negative); Glucose,Urine (UA) Negative (Negative); Ketones,Urine Negative (Negative); Leukocyte Esterase,Urine 2+ (Negative); Nitrate,Urine POSITIVE (Negative); Protein,Urine 2+ (Negative); Specific Gravity, Urine <= 1.005 (1.005-1.030)
[2024-04-30 21:30] LABS: Appearance,Urine Turbid (Clear); Bilirubin,Urine Negative (Negative); Color,Urine Dark Yellow (Yellow); PH,Urine >= 9.0 (5.0-8.5)
[2024-04-30 21:47] LABS: Bacteria,Urine 2+ /lpf
[2024-04-30 21:48] LABS: Mucus,Urine 4+ /lpf; Squamous Epithelial Cell,Urine Occasional #/hpf (0-5)
== END 2024-04-30 23:59 | disposition home or self-care (01) ==
LOC: LAB.DROPOF 20:24
PROVIDERS: PCP Internal Medicine Adolescent Medicine; Visit Provider Internal Medicine Adolescent Medicine
DX: A41.9 Sepsis, unspecified organism (principal); N39.0 Urinary tract infection, site not specified; R33.9 Retention of urine, unspecified
CPT/HCPCS: 81001; 87086; 87088; 87186